=== PATIENT | male | born 1960 | race Caucasian/White ===

== ENCOUNTER 2020-03-24 16:27 | Emergency (ER) | payer OTHER, SELFPAY ==
[2020-03-24 16:27] VITALS: BP 153/104; PULSE 103; RESP 18; TEMP 36.5; O2SAT 99; BMI 30.5
--- NOTE | 2020-03-24 16:54 | EKG12_ITS ---
Test Reason : SOB Blood Pressure : / mmHG Vent. Rate : 080 BPM Atrial Rate : 080 BPM P-R Int : 194 ms QRS Dur : 104 ms QT Int : 354 ms P-R-T Axes : 036 075 022 degrees QTc Int : 408 ms Normal sinus rhythm Normal ECG Confirmed by JENNIFER BRUCE, RUSLAN ([id number]), general expeditor BHARAT RAYO ([id number]) on 03/28/2020 1:36:34 PM Referred By: ZANDER Confirmed By:RUSLAN RODRIGUEZ MD
--- NOTE | 2020-03-24 16:55 | CT_ITS ---
STUDY: CTA HEAD AND NECK WITH CONTRAST REASON FOR EXAM: Male, 59 years old. DIZZINESS, HEADACHE FATIGUE, CONFUSION/FOGGINESS,SOB AND BODY PAIN SINCE SATURDAY,COVID TEST WAS NEG -- HX:HLD,DEPRESSION,BILAT CORNEAL TRANSPLANTS RADIATION DOSAGE (If Supplied By Facility): CTDIvol = ( 30.78 ) mGy, DLP = ( 1645.75 ) mGycm TECHNIQUE: CT angiography was performed with a multi-detector CT scanner. Data acquisition was obtained from the skull base through the vertex following intravenous administration of IV 100mL Isovue-370. MIP images were reconstructed from the axial data set. Post-processing of the angiographic images was performed, with multiplanar reformation and 3D reconstruction. Individualized dose optimization techniques were used for this CT. COMPARISON: No relevant priors. FINDINGS: There are mild atherosclerotic plaques through the cavernous and supraclinoid portions of the internal carotid arteries. The petrous portions of the internal carotid arteries are normal. Normal right A1 segments of the anterior cerebral artery. Normal left A1 segments of the anterior cerebral artery. Normal intact anterior communicating artery (ACOM). Normal bilateral A2 segments of the anterior cerebral arteries. Normal right M1 and M2 segments of the middle cerebral arteries, with a normal M1 bifurcation. Normal left M1 and M2 segments of the middle cerebral arteries, with a normal M1 bifurcation. Normal right posterior communicating artery (PCOM). Normal left posterior communicating artery (PCOM). Normal bilateral vertebral arteries. Normal basilar artery with a normal basilar bifurcation. The visualized bilateral superior cerebellar (SCA) arteries are normal. Normal bilateral P1, P2 and visualized P3 segments of the posterior cerebral arteries. There is no demonstrated aneurysm of the [place]. There is no demonstrated abnormality of the visualized brain. AORTIC ARCH: Normal visualized aortic arch. Normal origins of the brachiocephalic, left common carotid, and left subclavian arteries. RIGHT CAROTID ARTERIES: Normal right common carotid artery (CCA). Minimal plaque otherwise Normal right common carotid bulb. Mild plaque within the proximal right internal carotid (ICA) artery without a hemodynamically significant stenosis. Normal visualized cervical portion of the right internal carotid artery. Normal origin of the right external carotid artery (ECA). LEFT CAROTID ARTERIES: Normal left common carotid artery (CCA). Minimal plaque otherwise Normal left common carotid bulb. Minimal plaque within the proximal left internal carotid (ICA) artery without a hemodynamically significant stenosis. Normal visualized cervical portion of the left internal carotid artery. Normal origin of the left external carotid artery (ECA). VERTEBRAL ARTERIES: Normal bilateral vertebral arteries. CT/CTA Head AND Neck W/ Contrast IMPRESSION: Minimal atherosclerotic plaques within the carotid bulbs and proximal internal carotid arteries otherwise normal no significant stenoses. Mild atherosclerotic plaques within the cavernous and supraclinoid portions of the internal carotid arteries without significant stenoses Electronically Signed: Jack Delaney, at 19:37 EDT Tel , Service support ,
[2020-03-24 16:57] VITALS: BP 158/95; PULSE 90; RESP 20; TEMP 37.4; O2SAT 95
[2020-03-24] MEDS: 0.9% Normal Saline 1,000 ML 1000 ML IV (17:22)
--- NOTE | 2020-03-24 17:22 | ED.VIS.GEN ---
History of Present Illness Chief Complaint: Dizziness Narrative: Patient presenting for evaluation secondary to generalized illness. Patient reports that he typically has very severe allergies, and has been having a bad allergy season with runny nose, watery eyes. Patient reports however on Saturday he was woken up at about 4 in the morning with a relatively severe headache. He states that this was a generalized headache, throbbing in character, and seem to be improved by taking Tylenol. He reports that he has had periods since Saturday where he has been actually headache free, but he states that he has been having feelings of confusion and dizziness. He describes the dizziness as a unsteadiness where he feels as if maybe he had a couple of drinks, and is unsteady on his feet. He does report that it is bad enough to the point where he has concerns with walking and driving. He denies any visual changes numbness or speech difficulty. He denies any weakness. Patient does state that he has some cloudiness of his cognition, but reports he was able to go to work today and function reasonably normally. He denies any fever cough nausea vomiting diarrhea dysuria abdominal pain skin rashes sick contacts recent travel. He is never had any prior similar episodes in the past. Patient denies any personal or family history of connective tissue disorders, aneurysms, or dissections. Review of systems otherwise negative. Past Medical History - Allergies and Home Meds Allergies/Adverse Reactions: Allergies No Known Allergies Allergy (Verified 05/01/16 03:06) Primary Care Physician: Ancelmo Perez MD [NON-STAFF] - Prior records reviewed: Yes Past Medical History: None Smoking Status: Never smoker Review of Systems All systems negative except as indicated General: Denies: Chills, Fever, Sweats Eyes: Denies: Visual changes - bilaterally, Diplopia ENT: Denies: Rhinorrhea, Sore throat Cardiovascular: Denies: Chest pain, Palpitations Respiratory: Denies: Dyspnea, Cough, Dyspnea on exertion Gastrointestinal: Denies: Abdominal pain, Nausea, Vomiting, Diarrhea, Melena, Hematochezia Genitourinary: Denies: Dysuria, Hematuria, Frequency Musculoskeletal: Denies: Back pain, Extremity Pain Skin: Denies: Rash, Wounds Neurological: Reports: Headache, - - Dizziness, confusion Physical Exam Vital Signs/Narrative: Vital Signs Temp Pulse Resp BP Pulse Ox 03/24/20 16:57 99.3 F H 90 20 H 158/95 H 95 03/24/20 16:27 97.7 F L 103 H 18 153/104 H 99 Inital Vital Signs reviewed: Yes General: Well nourished, Well developed, No Acute Distress, - - Patient does not appear to have a marfanoid body habitus Head: Normocephalic, Atraumatic Eyes: Perrl, EOMI, - - Normal cardinal gazes with no nystagmus ENT: Moist mucous membranes, No rhinorrhea Neck: Supple, Nontender, - - No carotid bruits are noted Cardiovascular: Regular rate, Regular rhythm, No murmurs Respiratory: No distress, CTA bilaterally, Chest nontender Abdomen: Soft, Nontender, Nondistended, Normal bowel sounds Back: Nontender, Normal Inspection Extremities: Nontender, No edema Skin: Normal color, No rash Neurological: Alert, Oriented x3, Cranial nerves II-XII grossly intact, Normal Strength, Normal Sensation, - - Normal cerebellar testing including [id number], [id number], dysdiadochokinesia, and truncal ataxia Psychological: Normal affect, Normal Mood Diagnostic/Tx/Re-eval Clinical Impression(s) from Imaging Studies Head/Neck CTA 03/24/20 16:55 IMPRESSION: Minimal atherosclerotic plaques within the carotid bulbs and proximal internal carotid arteries otherwise normal no significant stenoses. Mild atherosclerotic plaques within the cavernous and supraclinoid portions of the internal carotid arteries without significant stenoses Electronically Signed: Jack Delaney at 19:37 EDT Tel , Service support , Chest X-Ray 03/24/20 18:50 IMPRESSION: Mild degenerative changes of the thoracic spine. No acute cardiopulmonary disease process is seen. Electronically Signed: Aditya Geiger MD at 19:05 EDT , Service support , Laboratory Data 03/24/20 03/24/20 03/24/20 16:55 17:18 17:18 WBC 6.7 RBC 4.62 Hgb 14.1 Hct 43.9 MCV 95.0 H MCH 30.5 MCHC 32.1 RDW Std Deviation 42.6 RDW Coeff of Kirstin 12.3 Plt Count 387 MPV 9.1 Immature Gran % (Auto) 0.400 Neut % (Auto) 53.1 Lymph % (Auto) 33.8 [place] % (Auto) 10.9 H Eos % (Auto) 0.9 Baso % (Auto) 0.9 Absolute Neuts (auto) 3.6 Absolute Lymphs (auto) 2.26 Nucleated RBC % 0 Sodium Cancelled Potassium Cancelled Chloride Cancelled Carbon Dioxide Cancelled Anion Gap Cancelled BUN Cancelled Creatinine Cancelled Estim Creat Clear Calc Cancelled Est GFR (MDRD) Af Amer Cancelled Est GFR (MDRD) Non-Af Cancelled BUN/Creatinine Ratio Cancelled Glucose Cancelled Lactic Acid Calcium Cancelled Total Bilirubin Cancelled AST Cancelled ALT Cancelled Alkaline Phosphatase Cancelled Troponin I Cancelled Total Protein Cancelled Albumin Cancelled Globulin Cancelled Albumin/Globulin Ratio Cancelled TSH Cancelled COVID-19 (JEN) Negative 03/24/20 03/24/20 17:18 18:12 WBC RBC Hgb Hct MCV MCH MCHC RDW Std Deviation RDW Coeff of Kirstin Plt Count MPV Immature Gran % (Auto) Neut % (Auto) Lymph % (Auto) [place] % (Auto) Eos % (Auto) Baso % (Auto) Absolute Neuts (auto) Absolute Lymphs (auto) Nucleated RBC % Sodium 142 Potassium 3.9 Chloride 109 H Carbon Dioxide 28.0 Anion Gap 5 BUN 17 Creatinine 0.95 Estim Creat Clear Calc 94.16 Est GFR (MDRD) Af Amer 105 Est GFR (MDRD) Non-Af 87 BUN/Creatinine Ratio 17.9 Glucose 87 Lactic Acid 1.0 Calcium 8.3 L Total Bilirubin 0.20 AST 11 L ALT 21 Alkaline Phosphatase 63 Troponin I < 0.015 Total Protein 6.5 Albumin 3.2 Globulin 3.3 Albumin/Globulin Ratio 1.0 TSH 1.68 COVID-19 (JEN) - EKG Initial EKG Interpretation: - - Normal sinus rhythm of [address] segments normal T waves normal AK and QTc intervals no evidence of acute ischemia or arrhythmia. - Medical Decision Making Patient presented secondary to dizziness and headache. Broad differential was entertained. CBC, chemistry, troponin, TSH found to be unremarkable. Coronavirus testing also found to be unremarkable. Chest x-ray by my personal review as well as radiology found to be negative. CT angiogram of the brain and neck were performed to rule out the possibility of dissection, aneurysm, subarachnoid hemorrhage which was found to be negative per radiology. When I reviewed the patient's CT imaging, it does show that he has significant amount of right maxillary sinusitis. Patient has a completely normal neurologic exam, he does not have risk factors for stroke, has negative CT imaging for hemorrhage, aneurysm, dissection, and an otherwise unremarkable work-up. Patient's symptoms of headache, dizziness, fogginess can be explained by his sinusitis and given his low risk profile at this point I do not feel that he requires admission. Patient will be placed on a course of Augmentin and Flonase. He was recommended saline nasal rinses. He will follow-up with primary care and return for worsening symptoms. ED Disposition - Plan for ED Patient: Disposition: Home or Assisted Living Diagnosis: Sinusitis Instructions: ED Sinusitis Antibiotic Treatment Prescriptions: Amox/Clavulanate Tablet [Augmentin Tablet] 875 mg PO Q12H #28 tab Prescription Printed Fluticasone 0.05% [Flonase Nasal [place]] 1 spray NASAL DAILY #1 nasal.sry Prescription Printed Referrals: Ancelmo Perez MD [NON-STAFF] - 1 Week
[2020-03-24 17:45] LABS: Absolute Lymphocyte Count 2.26 X10^3/uL (0.83-4.51); Absolute Neutrophil Count 3.6 X10^3/uL (2.0-7.7); Basophil# 0.06 X10^3/uL; Basophil% 0.9 % (0-1); Eosinophil# 0.06 X10^3/uL; Eosinophils% 0.9 % (0-5); Hematocrit 43.9 % (40-54); Hemoglobin 14.1 g/dL (13.0-16.5); Lymphocyte # 2.26 X10^3/ul (4.0); Lymphocyte % 33.8 % (19-41); Mean Corp Hgb Conc 32.1 g/dL (32-36); Mean Corpuscular Hgb 30.5 pg (27.0-32.0); Mean Platelet Vol. 9.1 fl (6.2-12.0); Monocyte# 0.73 X10^3/uL; Monocyte% 10.9 % (0-10); NRBC Flagged by Analyzer 0 % (0-5); Neutrophil # 3.55 X10^3/uL (2.7-7.7); Neutrophil % 53.1 % (47-70); Platelet Count 387 K/mm3 (150-450); RBC Distribution Width CV 12.3 % (11.6-14.6); RBC Distribution Width SD 42.6 fl (35.1-43.9); Red Blood Count 4.62 M/mm3 (4.6-6.2); White Blood Count 6.7 K/mm3 (4.4-11.0)
[2020-03-24 18:37] LABS: Probe Check PASS; Specimen Processing Control PASS
[2020-03-24 18:42] LABS: AST(SGOT) 11 U/L (15-37); Alanine Aminotransfer ALT/SGPT 21 U/L (16-61); Albumin, Serum 3.2 g/dL (3.2-5.0); Alkaline Phosphatase 63 U/L (45-117); Anion Gap 5 (5-15); BUN 17 mg/dL (7-18); BUN/Creat Ratio 17.9 RATIO (10-20); Calcium,Total 8.3 mg/dL (8.5-10.1); Chloride 109 mmol/L (98-107); Creatinine, Serum 0.95 mg/dL (0.70-1.30); EST Glomerular Filtration Rate 87 mL/min (>60); Est Glom Filt Rate - Afr Amer 105 mL/min (>60); Estimated Creatinine Clearance 94.16 ml/min; Globulin 3.3 g/dL (2.2-4.2); Glucose 87 mg/dL (74-106); Potassium 3.9 mmol/L (3.5-5.1); Protein, Total 6.5 g/dL (6.4-8.2); Sodium Level 142 mmol/L (136-145)
--- NOTE | 2020-03-24 18:50 | RAD_ITS ---
STUDY: X-RAY CHEST REASON FOR EXAM: Male, 59 years old. HEADACHE WITH LIGHTHEADED AND DIZZINESS SINCE SATURDAY. FATIGUED. C/O SOB/DIFFICULTY CATCHING HIS BREATH. BODY/JOINT PAIN TECHNIQUE: Single AP portable view of the chest. COMPARISON: None. FINDINGS: security monitor leads are present. The lungs are clear and expanded. There is no demonstrated pleural abnormality. Normal size heart. Normal mediastinum and gamal. Normal visualized pulmonary arteries. Normal visualized aortic arch and descending thoracic aorta. There are diffuse degenerative changes of the visualized thoracic spine. Normal visualized ribs, clavicles, and shoulders. There is no demonstrated abnormality of the visualized soft tissue structures of the upper abdomen. RAD/Chest 1 View (Portable) IMPRESSION: Mild degenerative changes of the thoracic spine. No acute cardiopulmonary disease process is seen. Electronically Signed: Aditya Geiger MD at 19:05 EDT , Service support ,
[2020-03-24 19:45] LABS: Thyroid Stim Hormone (TSH) 1.68 uIU/mL (0.358-3.74)
[2020-03-24 20:31] VITALS: BP 147/88; PULSE 71; RESP 18; O2SAT 97
== END 2020-03-24 20:32 | disposition home or self-care (01) ==
PROVIDERS: Emergency Provider Emergency Medicine; PCP Physician Assistant
DX: J32.9 Chronic sinusitis, unspecified (principal); R41.0 Disorientation, unspecified
CPT/HCPCS: 70496; 70498; 71045; 80053; 83605; 84443; 84484; 85025; 87040; 87635; 93005; 99284; G2023; J7030; Q9967; A4216; U0003

== ENCOUNTER 2021-12-04 09:39 | Outpatient (CLI) | payer OTHER, SELFPAY ==
--- NOTE | 2021-12-04 09:44 | RAD_ITS ---
STUDY: X-RAY - RIGHT HAND REASON FOR EXAM: Male, 60 years old. Polyarthralgias. TECHNIQUE: 3 view(s) of the hand. COMPARISON: None. FINDINGS: Mild arthrosis of the radiocarpal articulation. Mild arthrosis of the radioulnar articulation. Mild arthrosis of the radiocarpal Mild arthrosis of the first CMC joint. Mild arthrosis of the MCP and IP joints. Normal second through fifth carpometacarpal joints. The soft tissue structures are unremarkable. RAD/Hand Min 3 Views IMPRESSION: Mild diffuse osteoarthritic changes as described. No acute abnormality, chondrocalcinosis, erosive changes or periostitis. Electronically Signed: Justin Barclay MD at 10:14 EST ,
--- NOTE | 2021-12-04 09:44 | RAD_ITS ---
STUDY: X-RAY - LEFT HAND REASON FOR EXAM: Male, 60 years old. Polyarthralgias. TECHNIQUE: 3 view(s) of the hand. COMPARISON: None. FINDINGS: Mild arthrosis of the radiocarpal articulation. Mild arthrosis of the radioulnar articulation. Mild arthrosis of the radiocarpal Mild arthrosis of the first CMC joint. Mild arthrosis of the MCP and IP joints. The soft tissue structures are unremarkable. RAD/Hand Min 3 Views IMPRESSION: Mild diffuse osteoarthritic changes as described. No acute abnormality, chondrocalcinosis, erosive changes or periostitis. Electronically Signed: Justin Barclay MD at 10:14 EST ,
[2021-12-04 09:49] LABS: Lyme Ab Screen Interpretation REF LAB
[2021-12-04 12:06] LABS: Erythrocyte Sedimentation Rate 30 mm/hr (0-20)
[2021-12-04 12:08] LABS: Absolute Lymphocyte Count 1.83 X10^3/uL (0.83-4.51); Basophil# 0.05 X10^3/uL; Basophil% 0.9 % (0-1); Eosinophil# 0.08 X10^3/uL; Eosinophils% 1.4 % (0-5); Hematocrit 47.6 % (40-54); Hemoglobin 15.9 g/dL (13.0-16.5); Lymphocyte # 1.83 X10^3/ul (0.83-4.51); Lymphocyte % 32.6 % (19-41); Mean Corp Hgb Conc 33.4 g/dL (32-36); Mean Corpuscular Hgb 30.9 pg (27.0-32.0); Mean Corpuscular Volume 92.4 fL (80-94); Mean Platelet Vol. 9.1 fl (6.2-12.0); Monocyte# 0.64 X10^3/uL; Monocyte% 11.4 % (0-10); NRBC Flagged by Analyzer 0 % (0-5); Neutrophil % 53.3 % (47-70); Platelet Count 397 K/mm3 (150-450); RBC Distribution Width CV 12.2 % (11.6-14.6); RBC Distribution Width SD 41.9 fl (35.1-43.9); Red Blood Count 5.15 M/mm3 (4.6-6.2); White Blood Count 5.6 K/mm3 (4.4-11.0)
[2021-12-04 12:24] LABS: Vitamin B12 451 pg/mL (211-911)
[2021-12-04 12:47] LABS: ALB/GLOB Ratio 0.9 RATIO (0.9-2.4); AST(SGOT) 26 U/L (15-37); Alanine Aminotransfer ALT/SGPT 38 U/L (16-61); Albumin, Serum 3.7 g/dL (3.2-5.0); Alkaline Phosphatase 96 U/L (45-117); Anion Gap 8 (5-15); BUN 14 mg/dL (7-18); BUN/Creat Ratio 15.6 RATIO (10-20); Calcium,Total 9.1 mg/dL (8.5-10.1); Chloride 103 mmol/L (98-107); EST Glomerular Filtration Rate 92 mL/min (>60); Est Glom Filt Rate - Afr Amer 112 mL/min (>60); Ferritin 139 ng/mL (26-388); Globulin 4.1 g/dL (2.2-4.2); Glucose 92 mg/dL (74-106); Protein, Total 7.8 g/dL (6.4-8.2); Rheumatoid Factor < 10.0 IU/mL (<15); Sodium Level 137 mmol/L (136-145); T4 Free Direct 0.94 ng/dL (0.76-1.46); Thyroid Stim Hormone (TSH) 1.81 uIU/mL (0.358-3.74)
[2021-12-04 14:02] LABS: Hemoglobin A1c 5.6 % (3.8-5.6)
[2021-12-05 08:53] LABS: CRP < 2.90 mg/L (0.0-3.0)
[2021-12-05 17:02] LABS: ANTINUCLEAR ANTIBODIES DIRECT Positive (Negative)
[2021-12-05 17:04] LABS: Lyme Scn Total Ab w/Rflx <0.91 ISR (0.00-0.90)
[2021-12-08 10:09] LABS: Anti-Centromere B Ab <0.2 AI (0.0-0.9); Anti-Chromatin <0.2 AI (0.0-0.9); Anti-Jo <0.2 AI (0.0-0.9); Anti-Scleroderma-70 AB <0.2 AI (0.0-0.9); Anti-ribosomal P Antibodies <0.2 AI (0.0-0.9); RNP Ab 0.9 AI (0.0-0.9); SJOGREN'S Anti-SS-A test < 0.2 AI (0.0-0.9); SJOGREN'S Anti-SS-B test < 0.2 AI (0.0-0.9); Smith Ab <0.2 AI (0.0-0.9); Smith/RNP Ab <0.2 AI (0.0-0.9)
[2021-12-08 13:15] LABS: Anti-dsDNA Ab <1 IU/mL (0-9)
== END 2021-12-04 23:59 | disposition home or self-care (01) ==
PROVIDERS: PCP Family Medicine; Referring Provider Family Medicine; Visit Provider Family Medicine
DX: M25.50 Pain in unspecified joint (principal); E66.9 Obesity, unspecified; E78.00 Pure hypercholesterolemia, unspecified; R53.83 Other fatigue; R76.8 Other specified abnormal immunological findings in serum
CPT/HCPCS: 36415; 73130; 80053; 82607; 82728; 83036; 84439; 84443; 85025; 85652; 86038; 86140; 86225; 86235; 86431; 86618

== ENCOUNTER → 2022-09-03 | Outpatient (CLI) | payer OTHER, SELFPAY ==
[2022-09-11 10:08] LABS: Alternaria tenuis <0.10 kU/L (Class 0); Ash, White <0.10 kU/L (Class 0); Aspergillus fumigatus <0.10 kU/L (Class 0); Bermuda Grass <0.10 kU/L (Class 0); Birch <0.10 kU/L (Class 0); Black Walnut <0.10 kU/L (Class 0); Cat Hair / Dander,Stand <0.10 kU/L (Class 0); Cedar, Mountain <0.10 kU/L (Class 0); Cladosporium herbarum <0.10 kU/L (Class 0); Cockroach, American <0.10 kU/L (Class 0); Cottonwood <0.10 kU/L (Class 0); D farinae Mite <0.10 kU/L (Class 0); D pteronyssinus <0.10 kU/L (Class 0); Dog Epithelia <0.10 kU/L (Class 0); Elm, American White <0.10 kU/L (Class 0); Immunoglobulin E 5 IU/mL (6-495); Maple/Box Elder <0.10 kU/L (Class 0); Mulberry, White <0.10 kU/L (Class 0); Oak, White <0.10 kU/L (Class 0); Pecan <0.10 kU/L (Class 0); Penicillium Notatum <0.10 kU/L (Class 0); Pigweed, Rough <0.10 kU/L (Class 0); Ragweed, Short/Common <0.10 kU/L (Class 0); Russian Thistle <0.10 kU/L (Class 0); Sheep Sorrel <0.10 kU/L (Class 0); Sycamore, American <0.10 kU/L (Class 0); Timothy Grass <0.10 kU/L (Class 0)
[2022-09-11 12:17] LABS: Mouse Urine <0.10 kU/L (Class 0)
== END | disposition home or self-care (01) ==
PROVIDERS: PCP Family Medicine; Referring Provider Specialist; Visit Provider Specialist
DX: J30.9 Allergic rhinitis, unspecified (principal); D84.9 Immunodeficiency, unspecified; J45.50 Severe persistent asthma, uncomplicated; R06.00 Dyspnea, unspecified; J32.9 Chronic sinusitis, unspecified; T78.3XXD Angioneurotic edema, subsequent encounter; T78.09XD Anaphylactic reaction due to other food products, subsequent encounter; E55.9 Vitamin D deficiency, unspecified; E07.9 Disorder of thyroid, unspecified; Z91.038 Other insect allergy status
CPT/HCPCS: 36415; 82785; 86003

== ENCOUNTER → 2022-10-05 | Outpatient (CLI) | payer OTHER, SELFPAY ==
[2022-10-05 10:04] LABS: Lyme Ab Screen Interpretation REF LAB
[2022-10-05 12:37] LABS: Absolute Lymphocyte Count 1.71 X10^3/uL (0.83-4.51); Absolute Neutrophil Count 2.5 X10^3/uL (2.0-7.7); Basophil# 0.05 X10^3/uL; Eosinophil# 0.08 X10^3/uL; Eosinophils% 1.6 % (0-5); Hematocrit 44.2 % (40-54); Hemoglobin 14.8 g/dL (13.0-16.5); Lymphocyte # 1.71 X10^3/ul (0.83-4.51); Mean Corp Hgb Conc 33.5 g/dL (32-36); Mean Corpuscular Hgb 31.6 pg (27.0-32.0); Mean Corpuscular Volume 94.4 fL (80-94); Mean Platelet Vol. 9.2 fl (6.2-12.0); Monocyte# 0.56 X10^3/uL; Monocyte% 11.5 % (0-10); NRBC Flagged by Analyzer 0 % (0-5); Neutrophil # 2.47 X10^3/uL (2.7-7.7); Neutrophil % 50.5 % (47-70); Platelet Count 385 K/mm3 (150-450); RBC Distribution Width CV 12.6 % (11.6-14.6); Red Blood Count 4.68 M/mm3 (4.6-6.2); White Blood Count 4.9 K/mm3 (4.4-11.0)
[2022-10-05 12:39] LABS: Vitamin D,25 Hydroxy 23.9 ng/mL
[2022-10-05 12:40] LABS: AST(SGOT) 17 U/L (15-37); Alanine Aminotransfer ALT/SGPT 29 U/L (16-61); Albumin, Serum 3.5 g/dL (3.2-5.0); Alkaline Phosphatase 79 U/L (45-117); Anion Gap 7 (5-15); BUN 16 mg/dL (7-18); BUN/Creat Ratio 17.3 RATIO (10-20); CRP < 2.90 mg/L (0.0-3.0); Calcium,Total 9.2 mg/dL (8.5-10.1); Chloride 104 mmol/L (98-107); Creatinine, Serum 0.92 mg/dL (0.70-1.30); EST Glomerular Filtration Rate 89 mL/min (>60); Est Glom Filt Rate - Afr Amer 107 mL/min (>60); Globulin 3.5 g/dL (2.2-4.2); Glucose 87 mg/dL (74-106); PSA,Total - Annual Screen 3.01 ng/mL (0.00-4.00); Potassium 4.7 mmol/L (3.5-5.1); Rheumatoid Factor < 10.0 IU/mL (<15); Sodium Level 138 mmol/L (136-145)
[2022-10-06 14:25] LABS: Lyme Scn Total Ab w/Rflx Negative (Negative)
[2022-10-08 19:01] LABS: ANTINUCLEAR ANTIBODIES DIRECT Positive (Negative)
[2022-10-16 10:07] LABS: Anti-Centromere B Ab <0.2 AI (0.0-0.9); Anti-Chromatin <0.2 AI (0.0-0.9); Anti-Jo <0.2 AI (0.0-0.9); Anti-Scleroderma-70 AB <0.2 AI (0.0-0.9); RNP Ab 1.4 AI (0.0-0.9); SJOGREN'S Anti-SS-A test < 0.2 AI (0.0-0.9); SJOGREN'S Anti-SS-B test < 0.2 AI (0.0-0.9); Smith Ab <0.2 AI (0.0-0.9)
[2022-10-16 16:59] LABS: Anti-dsDNA Ab 1 IU/mL (0-9)
== END | disposition home or self-care (01) ==
LOC: MFPLAB 10:00
PROVIDERS: PCP Family Medicine; Referring Provider Family Medicine; Visit Provider Family Medicine
DX: M25.50 Pain in unspecified joint (principal); Z12.5 Encounter for screening for malignant neoplasm of prostate
CPT/HCPCS: 36415; 80053; 82306; 84153; 85025; 86038; 86140; 86225; 86235; 86431; 86618; G0103

== ENCOUNTER → 2022-12-10 | Outpatient (CLI) | payer OTHER, SELFPAY ==
[2022-12-10 11:06] LABS: EXAGEN MAILED SPECIMEN
[2022-12-10 12:28] LABS: Absolute Lymphocyte Count 1.73 X10^3/uL (0.83-4.51); Absolute Neutrophil Count 3.3 X10^3/uL (2.0-7.7); Basophil# 0.05 X10^3/uL; Basophil% 0.9 % (0-1); Eosinophil# 0.05 X10^3/uL; Eosinophils% 0.9 % (0-5); Hematocrit 46.6 % (40-54); Hemoglobin 15.1 g/dL (13.0-16.5); Lymphocyte # 1.73 X10^3/ul (0.83-4.51); Lymphocyte % 30.5 % (19-41); Mean Corp Hgb Conc 32.4 g/dL (32-36); Mean Corpuscular Volume 95.7 fL (80-94); Mean Platelet Vol. 8.9 fl (6.2-12.0); Monocyte# 0.55 X10^3/uL; Monocyte% 9.7 % (0-10); NRBC Flagged by Analyzer 0 % (0-5); Neutrophil # 3.27 X10^3/uL (2.7-7.7); Neutrophil % 57.5 % (47-70); Platelet Count 397 K/mm3 (150-450); RBC Distribution Width CV 12.6 % (11.6-14.6); RBC Distribution Width SD 44.3 fl (35.1-43.9); Red Blood Count 4.87 M/mm3 (4.6-6.2); White Blood Count 5.7 K/mm3 (4.4-11.0)
[2022-12-10 12:29] LABS: Color, Urine Yellow (Yellow); Glucose, Dipstick Normal (Normal); Ketone-Dipstick Negative (Negative); Leukocyte Esterase-Dipstick 25 /ul (Negative); Nitrite-Dipstick Negative (Negative); Occult Blood-Urine Negative /ul (Negative); Protein-Dipstick Negative (Negative); Urine Bilirubin Dipstick Negative (Negative); Urine Clarity Clear (Clear); Urine Urobilinogen Normal (Normal)
[2022-12-10 12:37] LABS: International Normalized Ratio 0.9; Prothrombin Time (Protime)PT. 12.3 SECONDS (11.7-14.9)
[2022-12-10 12:38] LABS: Partial Thromboplast Time 27.3 Seconds (24.1-36.2)
[2022-12-10 12:48] LABS: ALB/GLOB Ratio 0.9 RATIO (0.9-2.4); AST(SGOT) 21 U/L (15-37); Alanine Aminotransfer ALT/SGPT 28 U/L (16-61); Albumin, Serum 3.6 g/dL (3.2-5.0); Alkaline Phosphatase 87 U/L (45-117); Anion Gap 3 (5-15); BUN 13 mg/dL (7-18); BUN/Creat Ratio 12.4 RATIO (10-20); Calcium,Total 9.5 mg/dL (8.5-10.1); Chloride 103 mmol/L (98-107); Creatinine, Serum 1.05 mg/dL (0.70-1.30); EST Glomerular Filtration Rate 77 mL/min (>60); Est Glom Filt Rate - Afr Amer 93 mL/min (>60); Globulin 3.9 g/dL (2.2-4.2); Glucose 103 mg/dL (74-106); Potassium 4.4 mmol/L (3.5-5.1); Protein, Total 7.5 g/dL (6.4-8.2); Protein:Creat Ratio 95 mg/g CRE (0-200); Sodium Level 139 mmol/L (136-145)
[2022-12-10 13:21] LABS: Hepatitis B Surface Antibody Non-Reactive; Hepatitis B Surface Antigen Non-Reactive (Nonreactive); Hepatitis C Antibody Non-Reactive (Nonreactive)
[2022-12-12 16:09] LABS: Dilute Prothrombin Time (dPT) 39.9 sec (0.0-47.6); Dilute Russell Viper Venom 41.8 sec (0.0-47.0); Hexagonal Phase Phospholipid 5 sec (0-11); Thrombin Time 17.7 sec (0.0-23.0); dPT Confirm Ratio 1.31 Ratio (0.00-1.34)
[2022-12-12 20:35] LABS: Thrombin Time 17.8 sec (0.0-23.0)
[2022-12-12 20:39] LABS: Interpretation Comment: (.); PTT-LA 30.7 sec (0.0-43.5)
== END | disposition home or self-care (01) ==
PROVIDERS: PCP Family Medicine; Referring Provider Internal Medicine Rheumatology; Visit Provider Internal Medicine Rheumatology
DX: M06.4 Inflammatory polyarthropathy (principal); M35.1 Other overlap syndromes
CPT/HCPCS: 36415; 80053; 81002; 82570; 84156; 85025; 85598; 85610; 85670; 85730; 86706; 86803; 87340

== ENCOUNTER → 2023-09-11 | Outpatient (CLI) | payer OTHER, SELFPAY ==
[2023-09-11 12:29] LABS: Erythrocyte Sedimentation Rate 12 mm/hr (0-20)
[2023-09-11 12:54] LABS: Absolute Lymphocyte Count 1.63 X10^3/uL (0.83-4.51); Absolute Neutrophil Count 3.2 X10^3/uL (2.0-7.7); Basophil# 0.04 X10^3/uL; Basophil% 0.7 % (0-1); Eosinophil# 0.05 X10^3/uL; Eosinophils% 0.9 % (0-5); Hematocrit 46.8 % (40-54); Lymphocyte # 1.63 X10^3/ul (0.83-4.51); Lymphocyte % 29.3 % (19-41); Mean Corp Hgb Conc 32.1 g/dL (32-36); Mean Corpuscular Hgb 31.4 pg (27.0-32.0); Mean Corpuscular Volume 97.9 fL (80-94); Mean Platelet Vol. 9.2 fl (6.2-12.0); Monocyte% 10.8 % (0-10); NRBC Flagged by Analyzer 0 % (0-5); Neutrophil # 3.21 X10^3/uL (2.7-7.7); Neutrophil % 57.6 % (47-70); Platelet Count 397 K/mm3 (150-450); RBC Distribution Width CV 12.5 % (11.6-14.6); Red Blood Count 4.78 M/mm3 (4.6-6.2); White Blood Count 5.6 K/mm3 (4.4-11.0)
[2023-09-11 13:01] LABS: AST(SGOT) 18 U/L (15-37); Alanine Aminotransfer ALT/SGPT 30 U/L (16-61); Albumin, Serum 3.7 g/dL (3.2-5.0); Alkaline Phosphatase 90 U/L (45-117); Anion Gap 6 (5-15); BUN 12 mg/dL (7-18); BUN/Creat Ratio 12.6 RATIO (10-20); CRP < 2.90 mg/L (0.0-3.0); Calcium,Total 9.1 mg/dL (8.5-10.1); Chloride 105 mmol/L (98-107); Cholesterol 247 mg/dL (200); Creatinine, Serum 0.95 mg/dL (0.70-1.30); EST Glomerular Filtration Rate 86 mL/min (>60); Est Glom Filt Rate - Afr Amer 104 mL/min (>60); Globulin 3.8 g/dL (2.2-4.2); Glucose 102 mg/dL (74-106); High Density Lipoprotein 65 mg/dL; Potassium 4.5 mmol/L (3.5-5.1); Protein, Total 7.5 g/dL (6.4-8.2); Rheumatoid Factor < 10.0 IU/mL (<15); Sodium Level 139 mmol/L (136-145); Triglycerides 130 mg/dL; Very Low Density Lipoprotein 26 mg/dL (5-40)
[2023-09-11 13:32] LABS: Microalbumin,Random Urine < 5.0 mg/L (NO RANGE EST.)
[2023-09-13 11:08] LABS: ANTINUCLEAR ANTIBODIES DIRECT Positive (Negative)
[2023-09-13 13:07] LABS: Lyme Scn Total Ab w/Rflx Negative (Negative); PROEL- A/G Ratio 1.2 (0.7-1.7); PROEL- Albumin 3.7 g/dL (2.9-4.4); PROEL- Alpha-1 Globulin 0.2 g/dL (0.0-0.4); PROEL- Alpha-2 Globulin 0.7 g/dL (0.4-1.0); PROEL- Beta Globulin 1.3 g/dL (0.7-1.3); PROEL- Gamma Globulin 0.9 g/dL (0.4-1.8); PROEL- Globulin, Total 3.2 g/dL (2.2-3.9); PROEL- TOTAL PROTEIN 6.9 g/dL (6.0-8.5); PROEL-M-Spike Not Observed g/dL (Not Observed)
[2023-09-18 14:17] LABS: Anti-Nuclear Antibody Test Negative (.)
== END | disposition home or self-care (01) ==
LOC: MFPLAB 09:51
PROVIDERS: PCP Family Medicine; Visit Provider Family Medicine
DX: E78.00 Pure hypercholesterolemia, unspecified (principal); M06.4 Inflammatory polyarthropathy; I10 Essential (primary) hypertension
CPT/HCPCS: 36415; 80053; 80061; 82043; 82570; 84165; 85025; 85652; 86038; 86140; 86431; 86618

== ENCOUNTER 2023-12-03 19:18 | Emergency (ER) | payer OTHER, SELFPAY ==
[2023-12-03 19:20] VITALS: BP 161/100; PULSE 67; RESP 18; TEMP 35.6; O2SAT 98; BMI 33.5
[2023-12-03 19:23] VITALS: BP 143/94; PULSE 69; RESP 18; TEMP 35.6; O2SAT 98
--- NOTE | 2023-12-03 20:00 | EKG12_ITS ---
Test Reason : HTN Blood Pressure : / mmHG Vent. Rate : 060 BPM Atrial Rate : 060 BPM P-R Int : 208 ms QRS Dur : 112 ms QT Int : 384 ms P-R-T Axes : 022 067 026 degrees QTc Int : 384 ms Normal sinus rhythm Normal ECG Confirmed by Jonathan Sosa ([id number]), science editor BHARAT RAYO ([id number]) on 12/04/2023 10:58:22 AM Referred By: YOLANDA Confirmed By:Jonathan Sosa
--- NOTE | 2023-12-03 20:13 | RAD_ITS ---
STUDY: X-RAY CHEST REASON FOR EXAM: Male, 62 years old. chest pain TECHNIQUE: Single AP portable view of the chest. COMPARISON: 03/24/2020 FINDINGS: The lungs are clear and expanded. There is no demonstrated pleural abnormality. Normal size heart. Normal mediastinum and gamal. Normal visualized pulmonary arteries. Normal visualized aortic arch and descending thoracic aorta. Normal visualized thoracic spine. Normal visualized ribs, clavicles, and shoulders. There is no demonstrated abnormality of the visualized soft tissue structures of the upper abdomen. RAD/Chest 1 View (Portable) IMPRESSION: Normal x-ray examination of the chest. Electronically Signed: Ronnie Lantigua MD at 20:46 EST ,
[2023-12-03 20:40] LABS: Absolute Lymphocyte Count 2.29 X10^3/uL (0.83-4.51); Basophil# 0.05 X10^3/uL; Basophil% 0.8 % (0-1); Eosinophil# 0.09 X10^3/uL; Eosinophils% 1.5 % (0-5); Hematocrit 40.4 % (40-54); Hemoglobin 13.1 g/dL (13.0-16.5); Lymphocyte # 2.29 X10^3/ul (0.83-4.51); Lymphocyte % 37.5 % (19-41); Mean Corp Hgb Conc 32.4 g/dL (32-36); Mean Corpuscular Hgb 30.9 pg (27.0-32.0); Mean Corpuscular Volume 95.3 fL (80-94); Mean Platelet Vol. 8.5 fl (6.2-12.0); Monocyte# 0.65 X10^3/uL; Monocyte% 10.6 % (0-10); NRBC Flagged by Analyzer 0 % (0-5); Neutrophil # 3.01 X10^3/uL (2.7-7.7); Neutrophil % 49.3 % (47-70); Platelet Count 343 K/mm3 (150-450); RBC Distribution Width CV 12.5 % (11.6-14.6); RBC Distribution Width SD 43.3 fl (35.1-43.9); Red Blood Count 4.24 M/mm3 (4.6-6.2); White Blood Count 6.1 K/mm3 (4.4-11.0)
[2023-12-03 20:56] LABS: Anion Gap 6 (5-15); BUN 12 mg/dL (7-18); BUN/Creat Ratio 14.1 RATIO (10-20); Calcium,Total 9.1 mg/dL (8.5-10.1); Chloride 109 mmol/L (98-107); Creatinine, Serum 0.85 mg/dL (0.70-1.30); EST Glomerular Filtration Rate 97 mL/min (>60); Est Glom Filt Rate - Afr Amer 118 mL/min (>60); Glucose 91 mg/dL (74-106); Potassium 3.7 mmol/L (3.5-5.1); Sodium Level 143 mmol/L (136-145); Troponin-I HS (w/2H Reflex) 7 pg/mL (3.0-78.0)
--- OUTSIDE RECORDS SUMMARY | 2023-12-03 21:07 | XMS RPT_ITS | CCD ---
Author Name Unknown Address [id number] [place] [address] Organization [facility] Care Team Providers Care Manager Performance Name Role Phone Jose Juan, Wilfred Donte Unavailable Unavailable Ciro Rodriguez Unavailable Unavailabl e Julio Cesar Perez Unavailable Unavailable Rodriguez, Wilfred Donte Unavailable Unavailable Rodriguez, Wilfred Donte Unavailable Unavailable Julio Cesar Perez Unavailable Unavailable Rodriguez, Wilfred Donte Unavailable Unavailable Rodriguez, Wilfred Donte Unavailable Unavailable Julio Cesar Perez Unavailable Unavailable Julio Cesar Perez Unavailable Unavailable Rodriguez, Wilfred Donte Unavailable Unavailable Julio Cesar Perez Unavailable Unavailable Julio Cesar Perez Unavailable Unavailable Rodriguez, Wilfred Donte Unavailable Unavailable Rodriguez, Wilfred Donte Unavailable Unavailable Julio Cesar Perez Unavailable Unavailable Julio Cesar Perez MD Primary Care Provider Julio Cesar Perez MD Primary Care Provider Julio Cesar Perez MD Primary Care Provider JULIO CESAR PEREZ Primary Care Unavailable GROVER GRIFFITH Attending Unavailable GROVER GRIFFITH Attending Unavailable JULIO CESAR PEREZ Primary Care Unavailable CICI MAGALLANES Referring Unavailable CICI MAGALLANES Attending Unavailable JULIO CESAR PEREZ Primary Care Unavailable JULIO CESAR PEREZ Primary Care Unavailable CICI MAGALLANES Referring Unavailable VALE YU Attending Unavailable GROVER GRIFFITH Attending Unavailable JULIO CESAR PEREZ Primary Care Unavailable BRITTANI COATES Attending Unavailable JULIO CESAR PEREZ Primary Care Unavailable BRITTANI COATES Referring Unavailable JULIO CESAR PEREZ Primary Care Unavailable JULIO CESAR PEREZ Primary Care Unavailable GROVER GRIFFITH Attending Unavailable JULIO CESAR PEREZ Primary Care Unavailable CIRO RODRIGUEZ Attending Unavailable CIRO RODRIGUEZ Referring Unavailable CIRO RODRIGUEZ Attending Unavailable JULIO CESAR PEREZ Primary Care Unavailable RODRIGUEZ, CIRO K Referring Unavailable KYLAHEARLENE BRITTANI Referring Unavailable CLAYTON JULIO CESAR Pereyra Primary Care Unavailable KYLAHBRITTANI HENAO Referring Unavailable CLAYTON, JULIO CESAR Pereyra Primary Care Unavailable JESUSBRITTANI Referring Unavailable CLAYTON, JULIO CESAR Pereyra Primary Care Unavailable GROVER GRIFFITH Attending Unavailable CLAYTON, JULIO CESAR Pereyra Primary Care Unavailable GLADIS GENE A Attending Unavailable CLAYTON, JULIO CESAR Pereyra Primary Care Unavailable CLAYTON, JULIO CESAR Pereyra Primary Care Unavailable GLADIS, GENE A Attending Unavailable CLAYTON, JULIO CESAR Pereyra Primary Care Unavailable GLADIS, GENE A Attending Unavailable CLAYTON, JULIO CESAR Pereyra Primary Care Unavailable GLADIS GENE A Attending Unavailable CLAYTON, JULIO CESAR Pereyra Primary Care Unavailable JANE ROGEL Attending Unavailable RODRIGUEZ, CIRO K Referring Unavailable Allergies Allergy Classification Reported Allergen(s) Allergy Type Date of Onset Reaction(s) Facility (20 sources) environmental [Other] Propensity to adverse reactions 9 [facility] Work Phone: (1 source) OTHER; Translations: [OTHER] Propensity to adverse reactions (disorder) 9 [facility] Repository Medications Current Medications Medication Drug Class(es) Dates Sig (Normalized) Sig (Original) benoxinate hydrochloride 4 mg/ml / fluorescein sodium 2.5 mg/ml ophthalmic solution (3 sources) Diagnostic Dye Start: 12-04-2022 End: 12-04-2022 fluorescein-benoxi cheryl 0.25-0.4 % 1 Drop (FLURESS) Completed/Discontinued Medications Medication Drug Class(es) Dates Sig (Normalized) Sig (Original) carboxymethyl/gly/poly80 /PF (REFRESH OPTIVE SANTANA-3, PF, OPHTHALMIC) (20 sources) carboxymethyl/gl y/poly8 0/PF (REFRESH OPTIVE SANTANA-3, PF, OPHTHALMIC) Use 1-2 Drops in both eyes once daily. 0 Active Problems Active Problems Problem Classification Problem Date Documented Da te Episodic/Chronic Adjustment disorders (20 sources) Adjustment disorder with depressed mood; Translations: [Adjustment disorder with depressed mood] Onset: 02-13-2011 02-13-2011 Chronic Administrative/social admission (1 source) Problems in relationship with spouse or partner; Translations: [Marital conflict] Onset: 07-03-2023 Episodic Anxiety disorders (20 sources) Anxiety disorder, unspecified; Translations: [Mixed anxiety and depressive disorder] Onset: 07-12-2006 Chronic Aortic; peripheral; and visceral artery aneurysms (8 sources) Dilatation of aorta; Translations: [Aortic ectasia, unspecified site] Onset: 01-29-2023 Chronic Cataract (20 sources) Bilateral age-related nuclear cataracts; Translations: [Age-related nuclear cataract, bilateral] Onset: 09-19-2019 09-19-2019 Chronic Disorders of lipid metabolism (20 sources) Hyperlipidemia, unspecified; Translations: [Hyperlipidemia] Onset: 06-01-2011 06-01-2011 Chronic Heart valve disorders (2 sources) Mitral valve disorder; Translations: [Rheumatic mitral valve disease, unspecified] Onset: 01-14-2023 Chronic Mood disorders (20 sources) Depressive disorder; Translations: [Depression] Onset: 06-01-2011 06-01-2011 Chronic Mood disorders (2 sources) Major depressive disorder, single episode, unspecified; Translations: [Mood disorders] Onset: 06-01-2011 Nutritional deficiencies (2 sources) Vitamin D deficiency; Translations: [Vitamin D deficiency, unspecified] Onset: 01-14-2023 Chronic Other eye disorders (20 sources) Bullous keratopathy, right eye; Translations: [Bullous keratopathy] Onset: 05-13-2018 07-28-2019 Chronic Other eye disorders (20 sources) History of Descemet's membrane endothelial keratoplasty; 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] Onset: 08-28-2018 07-28-2019 Chronic Other eye disorders (20 sources) Hemorrhage of right vitreous body; Translations: [Vitreous hemorrhage, right eye] Onset: 03-14-2021 03-14-2021 Chronic Other eye disorders (20 sources) Posterior vitreous detachment of right eye; Translations: [Vitreous degeneration, right eye] Onset: 03-14-2021 03-14-2021 Chronic Other eye disorders (1 source) Vitreous degeneration, right eye; Translations: [Posterior vitreous detachment of right eye] Onset: 03-14-2021 Chronic Other eye disorders (1 source) Vitreous hemorrhage, right eye; Translations: [Vitreous hemorrhage of right eye (HCC)] Onset: 03-14-2021 Chronic Other eye disorders (1 source) Corneal transplant status; Translations: [History of Descemet membrane endothelial keratoplasty (DMEK)] Onset: 07-28-2019 Chronic Other eye disorders (4 sources) Endothelial corneal dystrophy; 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] Onset: 08-05-2018 Episodic Other lower respiratory disease (2 sources) Dyspnea; Translations: [Shortness of breath] Episodic Other upper respiratory disease (20 sources) Seasonal allergy; Translations: [Other seasonal allergic rhinitis] 06-01-2011 Chronic Residual codes; unclassified (10 sources) Obstructive sleep apnea syndrome; Translations: [Obstructive sleep apnea (adult) (pediatric)] Onset: 01-14-2023 Chronic Residual codes; unclassified (1 source) Obstructive sleep apnea (adult) (pediatric); Translations: [JOMAR (obstructive sleep apnea)] Onset: 01-14-2023 Chronic Systemic lupus erythematosus and connective tissue disorders (1 source) Disorder of connective tissue; Translations: [Systemic involvement of connective tissue, unspecified] Chronic Past or Other Problems Problem Classification Problem Date Documented Da te Episodic/Chronic Blindness and vision defects (20 sources) Bilateral hyperopia of eyes; Translations: [Hypermetropia, bilateral] Onset: 11-13-2016 10-09-2018 Episodic Immunizations and screening for infectious disease (4 sources) Viral screening status; Translations: [Encounter for screening for other viral diseases] Onset: 01-14-2023 Episodic Other eye disorders (20 sources) Corneal guttata; Translations: [Cornea guttata] Onset: 11-13-2016 11-13-2016 Episodic Other eye disorders (20 sources) Fuchs' corneal dystrophy; Translations: [Fuchs' corneal dystrophy of both eyes] Onset: 06-16-2018 05-24-2021 Episodic Other eye disorders (20 sources) Corneal endothelial dystrophy; 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] Onset: 08-28-2018 08-28-2018 Episodic Other eye disorders (20 sources) Corneal epithelial defect; Translations: [Unspecified corneal membrane change] Onset: 09-07-2019 09-07-2019 Episodic Other lower respiratory disease (2 sources) Shortness of breath; Translations: [SOB (shortness of breath)] Onset: 01-14-2023 Episodic Other screening for suspected conditions (not mental disorders or infectious disease) (2 sources) Patient encounter status; Translations: [Encounter for screening for malignant neoplasm of prostate] Onset: 01-14-2023 Episodic Retinal detachments; defects; vascular occlusion; and retinopathy (20 sources) Retinal U tear; Translations: [Horseshoe tear of retina without detachment, right eye] Onset: 03-14-2021 10-03-2021 Episodic Results Test Name Value Interpretation Reference Range Facil ity Vital Signs Date Time Vital Sign Value Performing Clinician Melisa hassantrinh 01-14-2023 09:54-0400 Body height 182.9 cm Brittani Coates APRN.[employer] Work Phone: [facility] 01-14-2023 09:54-0400 Body weight 104.78 kg Brittani Coates CLIENT SUPPORT MANAGER.[employer] Work Phone: [facility] 01-14-2023 09:54-0400 Diastolic blood pressure 82 mm[Hg] Brittani Coates CLIENT SUPPORT MANAGER.[employer] Work Phone: [facility] 01-14-2023 09:54-0400 Heart rate 74 /min Brittani Coates CLIENT SUPPORT MANAGER.[employer] Work Phone: [facility] 01-14-2023 09:54-0400 Respiratory rate 18 /min Brittani Coates CLIENT SUPPORT MANAGER.[employer] Work Phone: [facility] 01-14-2023 09:54-0400 SaO2% (BldA) [Mass fraction] 93 % Brittani Coates CLIENT SUPPORT MANAGER.[employer] Work Phone: [facility] 01-14-2023 09:54-0400 Systolic blood pressure 136 mm[Hg] Brittani Coates CLIENT SUPPORT MANAGER.[employer] Work Phone: [facility] Encounters Encounter Date Encounter Type Care Provider Facility Start: 08-14-2023 End: 08-15-2023 ambulatory [facility] Facility:[facility] Start: 07-03-2023 End: 07-04-2023 ambulatory [facility] Facility:[facility] Start: 05-30-2023 End: 05-30-2023 ambulatory [facility] Facility:[facility] Start: 05-30-2023 End: 05-30-2023 Office outpatient visit 15 minutes Jane Rogel MD, PhD Work Phone: Ophthalmology Procedures Date Procedure Procedure Detail Performing Clinician Start: 05-01-2023 Computerized ophthal mary imaging retina Ciro Rodriguez MD Work Phone: Start: 12-04-2022 Computerized ophthal mary imaging retina Cici Magallanes MD Work Phone: Start: 10-02-2022 End: 10-02-2022 Computerized ophthalmic imaging retina Vale Yu PA-C Work Phone: Start: 05-21-2022 IOL BIOMETRY W/ IOL CALC OU (BOTH EYES) Ciro Rodriguez MD Work Phone: Start: 10-27-2019 H/O: surgery S/P eye surgery Julio Cesar Perez MD Work Phone: Start: 09-07-2019 H/O: cornea recipient Cornea r eplaced by transplant Julio Cesar Perez MD Work Phone: Start: 08-05-2018 Anesthesia eye corne al transplant Wilfred Rodriguez Start: 08-05-2018 Keratoplasty endothelial Wilfred Rodriguez Start: 02-17-2014 Colonoscopy Julio Cesar Syed MD Work Phone: H/O: cornea recipient Cornea rep laced by transplant Ciro Rodriguez MD Work Phone: H/O: cornea recipient Cornea rep laced by transplant Ciro Rodriguez MD Work Phone: Plan of Treatment Date Care Activity Detail Author Start: 01-15-2028 LIPID SCREEN LIPID SCREEN [facility] Start: 01-15-2028 PROSTATE CANCER SCREENING DISCUSSION PROSTATE CANCER SCREENING DISCUSSION [facility] Start: 01-14-2026 DIABETES SCREEN DIABETES SCREEN [facility] Start: 12-08-2025 LIPID SCREEN LIPID SCREEN [facility] Start: 10-23-2025 Urine microalbumin profile DTAP,TDAP,TD (3 - Td or Tdap) [facility] Start: 02-18-2024 Colonoscopy COLONOSCOPY [facility] Start: 02-18-2024 COLORECTAL CANCER SCREENING COLORECTAL CANCER SCREENING [facility] Start: 12-19-2023 End: 05-27-2024 Camera fundoscopy FUNDUS PHOTOS OU (BOTH EYES) OPHT Imaging Routine Horseshoe retinal tear of right eye Posterior vitreous detachment of right eye Vitreous hemorrhage of right eye (HCC) History of Descemet membrane endothelial keratoplasty (DMEK) Expected: 12/19/2023, Expires: 05/27/2024 [facility] Work Phone: Immunizations Immunization Date Immunization Notes Care Provider Rosa fitzpatrick 01-16-2023 zoster vaccine recombinant Brittani Haagen CLIENT SUPPORT MANAGER.[employer] Work Phone: [facility] 10-05-2022 zoster vaccine, live Brittani Haagen CLIENT SUPPORT MANAGER.[employer] Work Phone: [facility] 08-14-2022 influenza, injectabl e, quadrivalent, preservative free Brittani Haagen CLIENT SUPPORT MANAGER.[employer] Work Phone: [facility] 08-01-2020 influenza, injectabl e, quadrivalent, preservative free Brittani Haagen CLIENT SUPPORT MANAGER.[employer] Work Phone: [facility] 07-31-2018 influenza, injectabl e, quadrivalent, contains preservative Julio Cesar Perez MD Work Phone: [facility] Work Phone: 07-22-2018 influenza, injectabl e, quadrivalent, preservative free Brittani Haagen CLIENT SUPPORT MANAGER.[employer] Work Phone: [facility] 10-07-2017 influenza, seasonal, injectable Julio Cesar Perez MD Work Phone: [facility] 10-23-2015 tetanus toxoid, redu west diphtheria toxoid, and acellular pertussis vaccine, adsorbed Julio Cesar Perez MD Work Phone: [facility] Work Phone: 07-08-2015 influenza, injectabl e, quadrivalent, contains preservative Julio Cesar Perez MD Work Phone: [facility] 09-30-2014 influenza, seasonal, injectable Julio Cesar Perez MD Work Phone: [facility] 09-07-2010 influenza virus vaccine, live, attenuated, for intranasal use Julio Cesar Perez MD Work Phone: [facility] 10-03-2009 novel [id number], all formulations Julio Cesar Perez MD Work Phone: [facility] 07-15-2008 influenza virus vaccine, live, attenuated, for intranasal use Julio Cesar Perez MD Work Phone: [facility] Work Phone: 09-30-2007 influenza virus vaccine, live, attenuated, for intranasal use Julio Cesar Perez MD Work Phone: [facility] 09-02-2006 influenza virus vaccine, live, attenuated, for intranasal use Julio Cesar Perez MD Work Phone: [facility] Work Phone: 07-12-2006 tetanus toxoid, redu west diphtheria toxoid, and acellular pertussis vaccine, adsorbed Julio Cesar Perez MD Work Phone: [facility] Work Phone: 10-01-2005 influenza virus vaccine, unspecified formulation Julio Cesar Perez MD Work Phone: [facility] Payers Date Payer Category Payer Unknown [id number] 2019 Unknown MMO MMO [employer] [id number] 2019-Present [phone] [address] [place] [address] PPO [id number] 2016 Unknown EYE CARE PLAN OF XAV[employer] EYEMED VISION [id number] 10/21/2016-Present [address] [place] [address] Indemnity [id number] 10-21-2016 Unknown [id number] 1962 Unknown [id number] 1962 Unknown [id number] 1962 Unknown [id number] 1962 Unknown [id number] 1962 Unknown [id number] Social History Date Type Detail Facility Start: 06-01-2011 End: 01-14-2023 Tobacco smoking status NHIS Never smoked tobacco [facility] Work Phone: Start: 06-01-2011 End: 01-14-2023 Tobacco use and exposure Smokeless tobacco non-user [facility] Work Phone: Start: 10-03-2021 End: 05-30-2023 Alcohol intake Current drinker of alcohol (finding) [facility] Start: 10-03-2021 End: 04-02-2023 Alcohol intake [facility] Start: 11-30-2020 History SDOH Alcohol Frequency 1 [facility] Start: 11-30-2020 History SDOH Alcohol Std Drinks 98 [facility] Start: 11-13-2016 History SDOH Alcohol Comment Rarely [facility] Start: 11-30-2020 History SDOH Social Connections Phone 5 [facility] Start: 11-30-2020 History SDOH Social Connections Meetings 3 [facility] Start: 11-30-2020 History SDOH Physical Activity DPW 0 [facility] Start: 11-30-2020 History SDOH Stress 2 [facility] Start: 10-31-2019 Education 17 [facility] Start: 1960 Sex Assigned At Not on file [facility] Start: 03-31-2022 End: 04-10-2022 Exposure to SARS-CoV-2 (event) Not sure [facility] Start: 11-30-2020 End: 04-02-2023 Social connection and isolation panel [facility] Do you belong to any clubs or organizations such as congregational groups, unions, fraternal or athletic groups, or school groups? Yes [facility] Are you now , , , , never or living with a partner? [facility] How often to you hav e a drink containing alcohol? Never [facility] How many standard dr inks containing alcohol do you have on a typical day? Patient refused [facility] Do you feel stress - tense, restless, nervous, or anxious, or unable to sleep at night because your mind is troubled all the time - these days [OSQ] Only a little [facility] (I/We) worried wheth er (my/our) food would run out before (I/we) got money to buy more. Never true [facility] In the past 12 month s, was there a time when you were not able to pay the mortgage or rent on time? No [facility] Start: 12-19-2020 Gender identity Identifies as male gender (finding) [facility] Start: 12-19-2020 Sexual orientation Heterosexual (finding) [facility] Medical Equipment Procedure Code Equipment Code Equipment Origin al Text Equipment Identifier Dates Cornea Dmek [id number] Start: 10-27-2019 Gas [employer] Intraocular Vision System [id number] - [id number] Start: 10-27-2019 Clinical Notes 06-15-2009 to 08-14-2023 Jane Rogel MD, PhD - 05/30/2023 8:15 AM EDTPatient InstructionsCiro Rodriguez MD - 05/01/2023 3:55 PM EDTTelephone Encounter - Alejandro Blumkailey MCCAIN - 02/12/2023 4:10 PM EDTPatient Instructions Note Date & Type Note Facility 08-14-2023 Note HNO ID: [id number] Author: Grover Griffith, PhD Service: ? Author Type: Psychologist Type: Progress Notes Filed: 08/14/2023 3:12 PM Note Text: [facility] Progress Note Eric Roman 08/14/2023 [id number] PROVIDER: Grover Griffith, PhD CPT Code: Time: 50 minutes Setting: Patient seen in person Parties Present: Patient Treatment Modality/Interventions: Cognitive Behavioral Reassurance/Supportive Insight oriented Problem solving Communication skills training MENTAL STATUS: Mood: variable, dysthymic Affect: mood-congruent Thoughts/Associations:goal directed Suicidal/Homicidal Ideation: None expressed or evidenced Other Prominent Symptoms: Therapy Focus/Content of Session: Self-care, Mood/affect regulation, and Self-esteem Miki: he asked to talk w pt and pt listened... said he doesnt want to pass on the anger he has to his children pt responded accepting that he has caused harm and son seemed to feel heard (we discussed son's need to increase the intensity by previous name calling and saying other sibs also dont want the tension and dont want to come home for the holidays) NEXT he came home for a wknd.. they watched programs they both like, worked on the car together etc. NOW: pt has an i'm a piece of shit self view and sometimes feels a good dad.... polarities of a conflict of self esteem PLAN: act as if he is a GOOD ENOUGH parent with a GLITCH that he now knows how harmful it is instead of being able to say ITS JUST ME MEDICATIONS: Per medical record: Current Outpatient Medications Medication Sig lovastatin (MEVACOR) 20 mg tablet Take 1 tablet by mouth daily at bedtime. For cholesterol. desvenlafaxine ER (PRISTIQ) 50 mg 24 hr tablet Take 1 tablet by mouth once daily. ramipril (ALTACE) 1.25 mg capsule VITAMIN D 25 mcg (1,000 unit) cap Take 1,000 Units by mouth once daily. loteprednol etabonate (INVELTYS) 1 % Use 1 Drop in eyes once daily. Both eyes carboxymethyl/gly/poly80/PF (REFRESH OPTIVE SANTANA-3, PF, OPHTHALMIC) Use 1-2 Drops in both eyes once daily. Current Facility-Administered Medications Medication Dose Route Frequency perflutren lipid microspheres 1.3 mL in NaCl (PF) 0.9% 10 mL injection (DEFINITY) INTRAVENOUS DIRECTED PRN sodium chloride 0.9 % (flush) 10 mL (BD POSIFLUSH) 10 mL INTRAVENOUS DIRECTED PRN perflutren lipid microspheres 1.3 mL in NaCl (PF) 0.9% 10 mL injection (DEFINITY) INTRAVENOUS DIRECTED PRN sodium chloride 0.9 % (flush) 10 mL (BD POSIFLUSH) 10 mL INTRAVENOUS DIRECTED PRN perflutren lipid microspheres 1.3 mL in NaCl (PF) 0.9% 10 mL injection (DEFINITY) INTRAVENOUS DIRECTED PRN sodium chloride 0.9 % (flush) 10 mL (BD POSIFLUSH) 10 mL INTRAVENOUS DIRECTED PRN Psychiatric Medication Issues: see med record DIAGNOSIS: [place] I: depression MARITAL CONFLICT Dysthymia Self Esteem [place] II: deferred [place] III: see med record [place] IV: stress and quality of life [place] V: 48-60 TREATMENT PROGRESS/ASSESSMENT: Progressing satisfactorily. TREATMENT PLAN/GOALS: Continue in therapy focusing on self-care, interpersonal relationships, improving communication, affect management, and self-esteem. Next appointment: as scheduled Grover Griffith, PhD [facility] 07-03-2023 Note HNO ID: [id number] Author: Grover Griffith, PhD Service: ? Author Type: Psychologist Type: Progress Notes Filed: 07/03/2023 4:05 PM Note Text: [facility] Progress Note Eric Roman 07/03/2023 [id number] PROVIDER: Grover Griffith PhD CPT Code: Time: 50 minutes Setting: Patient seen in person Parties Present: Patient Treatment Modality/Interventions: Cognitive Behavioral Reassurance/Supportive Insight oriented Problem solving Communication skills training MENTAL STATUS: Mood: variable, anxious Affect: mood-congruent Thoughts/Associations:goal directed Suicidal/Homicidal Ideation: None expressed or evidenced Other Prominent Symptoms: Therapy Focus/Content of Session: Self-care, Stress management, Mood/affect regulation, and Self-esteem Discussed last visit and Double bind of never being able to get angry or defensive vs progress Worked on acting as if He is Good Enough ANGER: first KVETCH .. it is useful to acknowledge contrary event Next Accept it is true and say to self I'm an OK person and dont need to DEFEND MYSELF.. no ill intent from me Then.... given this is true I can move from Automatic to Making a CHOICE of empathy or being still Self esteem: pt feels not good enough so when anything happens his GO TO reaction is To DEFEND or JUSTIFY MEDICATIONS: Per medical record: Current Outpatient Medications Medication Sig lovastatin (MEVACOR) 20 mg tablet Take 1 tablet by mouth daily at bedtime. For cholesterol. desvenlafaxine ER (PRISTIQ) 50 mg 24 hr tablet Take 1 tablet by mouth once daily. ramipril (ALTACE) 1.25 mg capsule VITAMIN D 25 mcg (1,000 unit) cap Take 1,000 Units by mouth once daily. loteprednol etabonate (INVELTYS) 1 % Use 1 Drop in eyes once daily. Both eyes carboxymethyl/gly/poly80/PF (REFRESH OPTIVE SANTANA-3, PF, OPHTHALMIC) Use 1-2 Drops in both eyes once daily. Current Facility-Administered Medications Medication Dose Route Frequency perflutren lipid microspheres 1.3 mL in NaCl (PF) 0.9% 10 mL injection (DEFINITY) INTRAVENOUS DIRECTED PRN sodium chloride 0.9 % (flush) 10 mL (BD POSIFLUSH) 10 mL INTRAVENOUS DIRECTED PRN perflutren lipid microspheres 1.3 mL in NaCl (PF) 0.9% 10 mL injection (DEFINITY) INTRAVENOUS DIRECTED PRN sodium chloride 0.9 % (flush) 10 mL (BD POSIFLUSH) 10 mL INTRAVENOUS DIRECTED PRN perflutren lipid microspheres 1.3 mL in NaCl (PF) 0.9% 10 mL injection (DEFINITY) INTRAVENOUS DIRECTED PRN sodium chloride 0.9 % (flush) 10 mL (BD POSIFLUSH) 10 mL INTRAVENOUS DIRECTED PRN Psychiatric Medication Issues: No change from previous appointment DIAGNOSIS: [place] I: depression MARITAL CONFLICT Dysthymia Self Esteem [place] II: deferred [place] III: see med record [place] IV: stress and quality of life [place] V: 48-60 TREATMENT PROGRESS/ASSESSMENT: Progressing satisfactorily. TREATMENT PLAN/GOALS: Continue in therapy focusing on self-care, improving communication, affect management, and self-esteem. Next appointment: as scheduled Grover Griffith, PhD [facility] 05-30-2023 Note HNO ID: [id number] Author: Jane Rogel MD, PhD Service: ? Author Type: Physician Type: Progress Notes Filed: 05/30/2023 8:28 AM Note Text: Referred to Dr. Meyer by Dr. Rodriguez, saw Dr. Magallanes previously This is closer to his home. No new symptoms 1. Symptomatic Horseshoe tear OD (right eye) - S/p laser retinopexy 03/21/21 2. Asymptomatic radial tear right eye vs vitreous condensation - Discussed laser retinopexy vs observation, no SRF around flap, not symptomatic (stable for 18 months) 3. History of Hemorrhagic PVD OD 4. Cataracts OU OD > OS - PSC component OD - Observe 5. 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 Rodriguez Plan: Return with Dr. Meyer 6mo I have confirmed and edited as necessary the relevant ophthalmic history, ROS, and the neuro exam findings as obtained by others. I have seen and examined this patient. I have discussed the case and the management of this patient's care with the Resident/Fellow, if applicable. I also have reviewed and agree with the assessment and plan as stated above and agree with all of its relevant components. Jane Rogel MD [facility] 05-30-2023 History of Present illness Narrative Referred to Dr. Meyer by Dr. Rodriguez, saw Dr. Magallanes previously This is closer to his home. No new symptoms 1. Symptomatic Horseshoe tear OD (right eye) - S/p laser retinopexy 03/21/21 2. Asymptomatic radial tear right eye vs vitreous condensation - Discussed laser retinopexy vs observation, no SRF around flap, not symptomatic (stable for 18 months) 3. History of Hemorrhagic PVD OD 4. Cataracts OU OD > OS - PSC component OD - Observe 5. 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 Rodriguez Plan: Return with Dr. Meyer 6mo I have confirmed and edited as necessary the relevant ophthalmic history, ROS, and the neuro exam findings as obtained by others. I have seen and examined this patient. I have discussed the case and the management of this patient's care with the Resident/Fellow, if applicable. I also have reviewed and agree with the assessment and plan as stated above and agree with all of its relevant components. Jane Rogel MD documented in this encounter [facility] 05-29-2023 Note HNO ID: [id number] Author: Grover Griffith, PhD Service: ? Author Type: Psychologist Type: Progress Notes Filed: 05/29/2023 6:05 PM Note Text: [facility] Department Progress Note Eric Olivas Jessie 05/29/2023 [id number] PROVIDER: Grover Griffith, PhD CPT Code: Time: 50 minutes Setting: Patient seen in person Parties Present: Patient, Treatment Modality/Interventions: Cognitive Behavioral Reassurance/Supportive Insight oriented Problem solving Psychoeducation MENTAL STATUS: Mood: variable, dysthymic Affect: mood-congruent Thoughts/Associations:goal directed Suicidal/Homicidal Ideation: None expressed or evidenced Other Prominent Symptoms: Therapy Focus/Content of Session: Self-care, Mood/affect regulation, and Self-esteem Pt tends to be the disciplinarian that is harsher and the more gently Kids out of the house doing well and well w family Miki is the sensitive one and stair step escalates w pt Pt feels like , as an adaptive strategy, that he has to defend himself and sees self as 'less than' historically Pt had a length of years getting along and projects together w Miki THEN a blow up just before Miki left He left in a hateful state re his father Charley sees this as NOT OK and awaits on egg shells the next episode also... taking the hook justifies Miki's angers also... pt loses the trust of his that he will change PLAN: unravel the self esteem causes and historical causes and enlighten the value of not taking the hook ie worked on [employer]. MEDICATIONS: Per medical record: Current Outpatient Medications Medication Sig lovastatin (MEVACOR) 20 mg tablet Take 1 tablet by mouth daily at bedtime. For cholesterol. desvenlafaxine ER (PRISTIQ) 50 mg 24 hr tablet Take 1 tablet by mouth once daily. ramipril (ALTACE) 1.25 mg capsule VITAMIN D 25 mcg (1,000 unit) cap Take 1,000 Units by mouth once daily. loteprednol etabonate (INVELTYS) 1 % Use 1 Drop in eyes once daily. Both eyes carboxymethyl/gly/poly80/PF (REFRESH OPTIVE SANTANA-3, PF, OPHTHALMIC) Use 1-2 Drops in both eyes once daily. Current Facility-Administered Medications Medication Dose Route Frequency perflutren lipid microspheres 1.3 mL in NaCl (PF) 0.9% 10 mL injection (DEFINITY) INTRAVENOUS DIRECTED PRN sodium chloride 0.9 % (flush) 10 mL (BD POSIFLUSH) 10 mL INTRAVENOUS DIRECTED PRN perflutren lipid microspheres 1.3 mL in NaCl (PF) 0.9% 10 mL injection (DEFINITY) INTRAVENOUS DIRECTED PRN sodium chloride 0.9 % (flush) 10 mL (BD POSIFLUSH) 10 mL INTRAVENOUS DIRECTED PRN perflutren lipid microspheres 1.3 mL in NaCl (PF) 0.9% 10 mL injection (DEFINITY) INTRAVENOUS DIRECTED PRN sodium chloride 0.9 % (flush) 10 mL (BD POSIFLUSH) 10 mL INTRAVENOUS DIRECTED PRN Psychiatric Medication Issues: see med record DIAGNOSIS: [place] I: depression MARITAL CONFLICT Dysthymia Self Esteem [place] II: deferred [place] III: see med record [place] IV: stress and quality of life [place] V: 48-60 TREATMENT PROGRESS/ASSESSMENT: Progressing satisfactorily. TREATMENT PLAN/GOALS: Continue in therapy focusing on self-care, interpersonal relationships, affect management, and self-esteem. Next appointment: as scheduled Grover Griffith PhD [facility] 05-01-2023 Note HNO ID: [id number] Author: Ciro Rodriguez MD Service: ? Author Type: Physician Type: Progress Notes Filed: 05/01/2023 3:59 PM Note Text: ASSESSMENT/PLAN: 1. Combined forms of age-related cataract of both eyes - ICD9: 366.19, ICD10: H25.813 (primary diagnosis) - OCT MACULA CIRRUS OU (BOTH EYES) Not visually significant Both Eyes. 2. History of Descemet membrane endothelial keratoplasty (DMEK) - ICD9: V42.5, ICD10: Z94.7 Continue: Inveltys solution instill 1 drop daily Both Eyes. 3. Horseshoe retinal tear of right eye - ICD9: 361.32, ICD10: H33.311 Patient would like to continue retinal follow up care local. Patient will see Dr. Meyer here in [place] in May. Ciro Rodriguez MD I have confirmed and edited as necessary the relevant ophthalmic history, review of systems, surgical history, and ophthalmological examination findings as obtained by the ophthalmic technical staff. I have seen and examined Eric Roman. I have discussed the examination findings, diagnosis, and treatment options with Eric Roman and/or his family. I have also reviewed and agree with the assessment and plan as stated above and agree with all its relevant components. I gave the patient the opportunity to ask questions about the findings, diagnosis, and treatment options. [facility] 05-01-2023 Instructions Ciro Rodriguez MD - 05/01/2023 3:58 PM EDT Continue: Inveltys solution instill 1 drop daily Both Eyes. If you have any questions please contact our office at [phone]. After office hours or on the weekend, please call Dr. Rodriguez on his cell phone at [phone]. documented in this encounter [facility] 05-01-2023 History of Present illness Narrative ASSESSMENT/PLAN: 1. Combined forms of age-related cataract of both eyes - ICD9: 366.19, ICD10: H25.813 (primary diagnosis) - OCT MACULA CIRRUS OU (BOTH EYES) Not visually significant Both Eyes. 2. History of Descemet membrane endothelial keratoplasty (DMEK) - ICD9: V42.5, ICD10: Z94.7 Continue: Inveltys solution instill 1 drop daily Both Eyes. 3. Horseshoe retinal tear of right eye - ICD9: 361.32, ICD10: H33.311 Patient would like to continue retinal follow up care local. Patient will see Dr. Meyer here in [place] in May. Ciro Rodriguez MD I have confirmed and edited as necessary the relevant ophthalmic history, review of systems, surgical history, and ophthalmological examination findings as obtained by the ophthalmic technical staff. I have seen and examined Eric Roman. I have discussed the examination findings, diagnosis, and treatment options with Eric Roman and/or his family. I have also reviewed and agree with the assessment and plan as stated above and agree with all its relevant components. I gave the patient the opportunity to ask questions about the findings, diagnosis, and treatment options. documented in this encounter [facility] 04-25-2023 Note HNO ID: [id number] Author: Grover Griffith, PhD Service: ? Author Type: Psychologist Type: Progress Notes Filed: 04/25/2023 4:29 PM Note Text: [facility] Progress Note Eric Roman 04/25/2023 [id number] PROVIDER: Grover Griffith, PhD CPT Code: Time: 50 minutes Setting: Patient seen in person Parties Present: Patient Treatment Modality/Interventions: Cognitive Behavioral Reassurance/Supportive Insight oriented Problem solving Processing of emotions Psychoeducation MENTAL STATUS: Mood: variable, dysthymic Affect: mood-congruent Thoughts/Associations:goal directed Suicidal/Homicidal Ideation: None expressed or evidenced Other Prominent Symptoms: Therapy Focus/Content of Session: Self-care, Mood/affect regulation, and Self-esteem MOOD: pt describes self as dysthymic.... he found a depression group on [employer] and felt good about others are out there like me but bad for the plethora of young suicidal people but it was a site that was very supportive of them He picked up a book exploring Holiness We discussed the idea of not HOLDING ON to the past or identifying as the past but allowing it to be a History to inform him PLAN: I suggested Asad Li Pt has been a bit low in mood for about 10 yrs he reports being a SAD teen and when doing things out at the edge or exciting he felt MORE ALIVE LONER: others ie his 2 older sibs were active and engaged and he tended to be more of a loner and off by himself m would DRINK and dad wasnt emotionally present but ok Dance Card: Pt has a sail boat and went to [employer] when was away... Exploring Holiness Depression web site and entertaining with [employer] animal site Self View : not competent enough .. helped by his sailing skills MEDICATIONS: Per medical record: Current Outpatient Medications Medication Sig lovastatin (MEVACOR) 20 mg tablet Take 1 tablet by mouth daily at bedtime. For cholesterol. desvenlafaxine ER (PRISTIQ) 50 mg 24 hr tablet Take 1 tablet by mouth once daily. ramipril (ALTACE) 1.25 mg capsule VITAMIN D 25 mcg (1,000 unit) cap Take 1,000 Units by mouth once daily. loteprednol etabonate (INVELTYS) 1 % Use 1 Drop in eyes once daily. Both eyes carboxymethyl/gly/poly80/PF (REFRESH OPTIVE SANTANA-3, PF, OPHTHALMIC) Use 1-2 Drops in both eyes once daily. Current Facility-Administered Medications Medication Dose Route Frequency perflutren lipid microspheres 1.3 mL in NaCl (PF) 0.9% 10 mL injection (DEFINITY) INTRAVENOUS DIRECTED PRN sodium chloride 0.9 % (flush) 10 mL (BD POSIFLUSH) 10 mL INTRAVENOUS DIRECTED PRN perflutren lipid microspheres 1.3 mL in NaCl (PF) 0.9% 10 mL injection (DEFINITY) INTRAVENOUS DIRECTED PRN sodium chloride 0.9 % (flush) 10 mL (BD POSIFLUSH) 10 mL INTRAVENOUS DIRECTED PRN perflutren lipid microspheres 1.3 mL in NaCl (PF) 0.9% 10 mL injection (DEFINITY) INTRAVENOUS DIRECTED PRN sodium chloride 0.9 % (flush) 10 mL (BD POSIFLUSH) 10 mL INTRAVENOUS DIRECTED PRN Psychiatric Medication Issues: No change from previous appointment DIAGNOSIS: [place] I: depression Dysthymia Self Esteem [place] II: deferred [place] III: see med record [place] IV: stress and quality of life [place] V: 48-60 TREATMENT PROGRESS/ASSESSMENT: Progressing satisfactorily. TREATMENT PLAN/GOALS: Continue in therapy focusing on self-care, interpersonal relationships, affect management, and self-esteem. Next appointment: as scheduled Grover Griffith PhD [facility] 04-18-2023 Note HNO ID: [id number] Author: Grover Griffith PhD Service: ? Author Type: Psychologist Type: Progress Notes Filed: 04/18/2023 4:29 PM Note Text: [facility] Progress Note Eric Roman 04/18/2023 [id number] PROVIDER: Grover Griffith PhD CPT Code: Time: 50 minutes Setting: Patient seen in person Parties Present: Patient Treatment Modality/Interventions: Cognitive Behavioral Reassurance/Supportive Insight oriented Problem solving Communication skills training Psychoeducation MENTAL STATUS: Mood: variable, dysthymic Affect: mood-congruent Thoughts/Associations:goal directed Suicidal/Homicidal Ideation: None expressed or evidenced Other Prominent Symptoms: Therapy Focus/Content of Session: Self-care, Mood/affect regulation, and Self-esteem SELF ESTEEM: Pt has a self view that he is not up to par for what he should be as and parent etc. PLAN: notice how that self view colors his mood and behavior.... trying too hard to figure out how others feel and trying to be what they would expect rather than being himself Kirk and Archana are close Bobby ... dad is to me Discussed a focus of doing self well and inviting others in History of pt being the disciplinarian and trying always to be friends w the children PLAN: work on deciding where to make a stand and asking for suggestions and working as one vs letting the kids split them NEXT talk about SELF ESTEEM excessively attending to how he feels others are thinking about him MEDICATIONS: Per medical record: Current Outpatient Medications Medication Sig lovastatin (MEVACOR) 20 mg tablet Take 1 tablet by mouth daily at bedtime. For cholesterol. desvenlafaxine ER (PRISTIQ) 50 mg 24 hr tablet Take 1 tablet by mouth once daily. ramipril (ALTACE) 1.25 mg capsule VITAMIN D 25 mcg (1,000 unit) cap Take 1,000 Units by mouth once daily. loteprednol etabonate (INVELTYS) 1 % Use 1 Drop in eyes once daily. Both eyes carboxymethyl/gly/poly80/PF (REFRESH OPTIVE SANTANA-3, PF, OPHTHALMIC) Use 1-2 Drops in both eyes once daily. Current Facility-Administered Medications Medication Dose Route Frequency perflutren lipid microspheres 1.3 mL in NaCl (PF) 0.9% 10 mL injection (DEFINITY) INTRAVENOUS DIRECTED PRN sodium chloride 0.9 % (flush) 10 mL (BD POSIFLUSH) 10 mL INTRAVENOUS DIRECTED PRN perflutren lipid microspheres 1.3 mL in NaCl (PF) 0.9% 10 mL injection (DEFINITY) INTRAVENOUS DIRECTED PRN sodium chloride 0.9 % (flush) 10 mL (BD POSIFLUSH) 10 mL INTRAVENOUS DIRECTED PRN perflutren lipid microspheres 1.3 mL in NaCl (PF) 0.9% 10 mL injection (DEFINITY) INTRAVENOUS DIRECTED PRN sodium chloride 0.9 % (flush) 10 mL (BD POSIFLUSH) 10 mL INTRAVENOUS DIRECTED PRN Psychiatric Medication Issues: No change from previous appointment DIAGNOSIS: [place] I: depression Dysthymia Self Esteem [place] II: deferred [place] III: see med record [place] IV: stress and quality of life [place] V: 48-60 TREATMENT PROGRESS/ASSESSMENT: Progressing satisfactorily. TREATMENT PLAN/GOALS: Continue in therapy focusing on self-care, interpersonal relationships, improving communication, assertiveness skills, affect management, and self-esteem. Next appointment: as scheduled Grover Griffith, PhD [facility] 04-11-2023 Note HNO ID: [id number] Author: Gene A Gladis, PhD Service: ? Author Type: Psychologist Type: Progress Notes Filed: 04/11/2023 4:31 PM Note Text: [facility] Progress Note Eric Roman 04/11/2023 [id number] PROVIDER: Grover Griffith, PhD CPT Code: Time: 50 minutes Setting: Patient seen in person Parties Present: Patient Treatment Modality/Interventions: Cognitive Behavioral Reassurance/Supportive Insight oriented Problem solving Communication skills training Psychoeducation MENTAL STATUS: Mood: variable, dysthymic Affect: mood-congruent Thoughts/Associations:goal directed Suicidal/Homicidal Ideation: None expressed or evidenced Other Prominent Symptoms: Therapy Focus/Content of Session: Self-care, Mood/affect regulation, and Self-esteem Guilt Bad Remorse Regret: PLAN: reframe.... we do things and note how they apple turner ... sometimes intentional and often unintentional guilt remorse regrets.. become HEALTHY GUILT REMORSE OR REGRET when it directs better/more empathic behavior THE GOAL: is to get closer to the nature of self, others and the world around and to use authentic self and choice to build on the collage of acquired life history and make it better (much like Jordi and the trials to make a light bulb) vs if the outcome of a past behavior turned out well .. you are good; and if it turned out poorly... you are bad Larger Goal: live well now and be open to listening to the eyes of the other discussed mid brain acquired prejudices and how the frontal lobe can keep modifying that collage MEDICATIONS: Per medical record: Current Outpatient Medications Medication Sig lovastatin (MEVACOR) 20 mg tablet Take 1 tablet by mouth daily at bedtime. For cholesterol. desvenlafaxine ER (PRISTIQ) 50 mg 24 hr tablet Take 1 tablet by mouth once daily. ramipril (ALTACE) 1.25 mg capsule VITAMIN D 25 mcg (1,000 unit) cap Take 1,000 Units by mouth once daily. loteprednol etabonate (INVELTYS) 1 % Use 1 Drop in eyes once daily. Both eyes carboxymethyl/gly/poly80/PF (REFRESH OPTIVE SANTANA-3, PF, OPHTHALMIC) Use 1-2 Drops in both eyes once daily. Current Facility-Administered Medications Medication Dose Route Frequency perflutren lipid microspheres 1.3 mL in NaCl (PF) 0.9% 10 mL injection (DEFINITY) INTRAVENOUS DIRECTED PRN sodium chloride 0.9 % (flush) 10 mL (BD POSIFLUSH) 10 mL INTRAVENOUS DIRECTED PRN perflutren lipid microspheres 1.3 mL in NaCl (PF) 0.9% 10 mL injection (DEFINITY) INTRAVENOUS DIRECTED PRN sodium chloride 0.9 % (flush) 10 mL (BD POSIFLUSH) 10 mL INTRAVENOUS DIRECTED PRN perflutren lipid microspheres 1.3 mL in NaCl (PF) 0.9% 10 mL injection (DEFINITY) INTRAVENOUS DIRECTED PRN sodium chloride 0.9 % (flush) 10 mL (BD POSIFLUSH) 10 mL INTRAVENOUS DIRECTED PRN Psychiatric Medication Issues: No change from previous appointment DIAGNOSIS: [place] I: depression Dysthymia Self Esteem [place] II: deferred [place] III: see med record [place] IV: stress and quality of life P[place] V: 48-60 TREATMENT PROGRESS/ASSESSMENT: Progressing satisfactorily. TREATMENT PLAN/GOALS: Continue in therapy focusing on self-care, interpersonal relationships, improving communication, affect management, and self-esteem. Next appointment: as scheduled Grover Griffith, PhD [facility] 04-02-2023 Note HNO ID: [id number] Author: Grover Griffith PhD Service: ? Author Type: Psychologist Type: Progress Notes Filed: 04/02/2023 3:40 PM Note Text: [facility] Progress Note Eric Roman 04/02/2023 [id number] PROVIDER: Grover Griffith PhD CPT Code: Time: 50 minutes Setting: Patient seen in person Parties Present: Patient Treatment Modality/Interventions: Cognitive Behavioral Reassurance/Supportive Insight oriented Problem solving Psychoeducation MENTAL STATUS: Mood: variable, dysthymic, depressed Affect: mood-congruent Thoughts/Associations:goal directed Suicidal/Homicidal Ideation: None expressed or evidenced Other Prominent Symptoms: Therapy Focus/Content of Session: Self-care, Stress management, Mood/affect regulation, Marital/couple, Parenting, and Self-esteem son: pt had been in volatile impulsive spats w son and last few yrs closer and worked on cars together and laughed more THEN now he is 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 a spat and pt responded in the old way by raising the intensity along w son and son left angry ... saw that and responded as though there has been no change World view: pt was wild as teen and not much supervision... dad was nice worked a lot and not emotionally demonstrative mom drank functional but parenting when he did something wrong RECENT YEARS: Self Esteem: self demeaning... feeling stuck as though he is unable to progress from Temper Tantrums and anhedonia PLAN: Consider if Pristiq is working well enough and explore meds w PCP... work on life history and acquired self view HX: mom depressed and son might have mild ADHD .. pt presents w some of the same.. impulsive, distracted ... MEDICATIONS: Per medical record: Current Outpatient Medications Medication Sig lovastatin (MEVACOR) 20 mg tablet Take 1 tablet by mouth daily at bedtime. For cholesterol. desvenlafaxine ER (PRISTIQ) 50 mg 24 hr tablet Take 1 tablet by mouth once daily. ramipril (ALTACE) 1.25 mg capsule VITAMIN D 25 mcg (1,000 unit) cap Take 1,000 Units by mouth once daily. loteprednol etabonate (INVELTYS) 1 % Use 1 Drop in eyes once daily. Both eyes carboxymethyl/gly/poly80/PF (REFRESH OPTIVE SANTANA-3, PF, OPHTHALMIC) Use 1-2 Drops in both eyes once daily. Current Facility-Administered Medications Medication Dose Route Frequency perflutren lipid microspheres 1.3 mL in NaCl (PF) 0.9% 10 mL injection (DEFINITY) INTRAVENOUS DIRECTED PRN sodium chloride 0.9 % (flush) 10 mL (BD POSIFLUSH) 10 mL INTRAVENOUS DIRECTED PRN perflutren lipid microspheres 1.3 mL in NaCl (PF) 0.9% 10 mL injection (DEFINITY) INTRAVENOUS DIRECTED PRN sodium chloride 0.9 % (flush) 10 mL (BD POSIFLUSH) 10 mL INTRAVENOUS DIRECTED PRN perflutren lipid microspheres 1.3 mL in NaCl (PF) 0.9% 10 mL injection (DEFINITY) INTRAVENOUS DIRECTED PRN sodium chloride 0.9 % (flush) 10 mL (BD POSIFLUSH) 10 mL INTRAVENOUS DIRECTED PRN Psychiatric Medication Issues: No change from previous appointment DIAGNOSIS: [place] I: depression Dysthymia Self Esteem P[place] II: deferred [place] III: see med record [place] IV: stress and quality of life P[place] V: 48-60 TREATMENT PROGRESS/ASSESSMENT: Fluctuating progress. TREATMENT PLAN/GOALS: Continue in therapy focusing on self-care, interpersonal relationships, improving communication, stress management, affect management, anxiety management, and self-esteem. Next appointment: as scheduled Grover Griffith, PhD [facility] 02-12-2023 Miscellaneous Notes Pt notified. He verbalized understanding. Alejandro Mcleod LPN MC message sent. Alejandro Mcleod LPN ----- Message from Brittani Coates APRN.OBDULIO sent at 02/11/2023 5:11 PM EDT ----- Can please let patient know that stress test was within normal -- No indications of any blockages. Brittani Coates APRN.CNP documented in this encounter [facility] 01-29-2023 Miscellaneous Notes Pt notified. He verbalized understanding. Alejandro Mcleod LPN Can please let patient know that we received his echo results. No significant changes. Did note that there was a little dilation of the aorta. For this reason, I would repeat the echo in 6-12 months to ensure stability. I went ahead and put the order in. It will just need to be scheduled. Brittani Coates APRN.CNP documented in this encounter [facility] 01-18-2023 Miscellaneous Notes MC message has not been read. Phoned pt, notified pt of results/provider response. He verbalized understanding. Alejandro Mcleod LPN [facility] message sent. Alejandro Mcleod LPN Can please let patient know that I received his lab results. PSA was normal for age. Vitamin D was normal. Electrolytes, kidney function, and liver enzymes were normal. Glucose was normal. CBC was normal/stable. Cholesterol was elevated. Has he been taking the lovastatin? I would suggest that we increase the dose of the lovastatin. I sent in a new script to the pharmacy. He can use two of his current tabs to use them up. Repeat labs in 6 months. Orders are in. Brittani Coates APRN.OBDULIO documented in this encounter [facility] 01-14-2023 Miscellaneous Notes Faxed request for records to Dr. Refugio Bryson's office ([facility]) for continuity of care. Awaiting records. Will update HM once received. Alejandro Mcleod LPN documented in this encounter [facility] 01-14-2023 Note HNO ID: [id number] Author: Brittani Coates APRN.OBDULIO Service: ? Author Type: Nurse Practitioner Type: Progress Notes Filed: 01/14/2023 5:53 PM Note Text: This is a 62 year old male who presents today with: Patient presents with: Physical HISTORY OF PRESENT ILLNESS: Eric Roman is a 62 year old male. Patient presents with: Physical Pt presents today for physical. Hasn't been seen by primary care since 2019, but has has some virtual visits. Concern today: Occasionally SOB with some activity. Notices with going up steps. Newer in onset. No chest pain. Strong family hx of heart disease. Reports he mentioned something to pulmonology, but advised to discuss with primary care and possible cardiac eval. No CP. Occ palpitations, but nothing out of his ordinary. re REVIEW OF SYSTEMS GENERAL: No weight loss, malaise or fevers/chills. Gets fatigued sometimes, but nothing horrendous. HEENT: Negative for frequent or significant headaches, No changes in hearing or vision. NECK: Negative for lumps, goiter, pain and significant neck swelling RESPIRATORY: Negative for cough, hemoptysis, wheezing, dyspnea. CARDIOVASCULAR: Negative for chest pain, leg swelling, orthopnea, or palpitations. Hx of MVP. Occasional palpitations. Last echo 2014. GI: No nausea, vomiting, or diarrhea/constipation. No hematochezia/melena. No heartburn or reflux symptoms. : No history of dysuria, frequency or incontinence. No nocturia since cpap. MUSCULOSKELETAL: Negative for joint pain or swelling. SKIN: Negative for lesions, rash, and itching ENDOCRINE: Negative for cold or heat intolerance, polyuria, polydipsia and goiter NEURO: No history of headaches, syncope, paralysis, seizures or tremors HYPERLIPIDEMIA: Patient is taking medications: Yes. Patient is watching diet: No Patient denies myalgias: Yes. Patient denies gi upset: Yes HTN: Patient is compliant with meds Yes Monitors bp at home: just at doctor's office. Denies side effects: yes Chest pain: No. Dyspnea: yes Edema: No. Palpitations: Yes. Syncope: No. Headache: No. Dizziness: No. JOMAR Following with Dr. Perez. Compliant with cpap. PAST MEDICAL HISTORY: PAST MEDICAL HISTORY Diagnosis Date Back pain chronic back pain Cataracts, both eyes Depression Fuchs endothelial corneal dystrophy type 4 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 Hyperlipidemia Mitral valve disorders(424.0) MVP on echo Posterior vitreous detachment of right eye Seasonal allergies Tinnitus Vitreous hemorrhage of right eye (HCC) PAST SURGICAL HISTORY Procedure Laterality Date COLONOSCOPY FLX DX W/COLLJ SPEC WHEN PFRMD 02-17-14 CORNEAL TISSUE DSAEK/DMEK Right 10/27/2019 ENDOTHELIAL KERATOPLASTY(DMEK) Left 08/05/2018 Wilfred Rodriguez MD PAST SURGICAL HISTORY OF Right 10/27/2019 Keratoplasty RETINOPEXY LASER PROPHYLAXIS BREAK(S) OD (RIGHT EYE) Right 03/21/2021 TONSILLECTOMY AND ADENOIDECTOMY T/A (under age 12 years) VASECTOMY UNI/BI SPX W/POSTOP SEMEN EXAMS ALLERGIES Environmental [Other] MEDICATIONS Current Outpatient Medications Medication Sig ramipril (ALTACE) 1.25 mg capsule desvenlafaxine ER (PRISTIQ) 50 mg 24 hr tablet Take 1 tablet by mouth once daily. VITAMIN D 25 mcg (1,000 unit) cap Take 1,000 Units by mouth once daily. loteprednol etabonate (INVELTYS) 1 % Use 1 Drop in eyes once daily. Both eyes lovastatin (MEVACOR) 10 mg tablet Lovastatin Active 10 MG AT BEDTIME May 01, 2016 3:06am carboxymethyl/gly/poly80/PF (REFRESH OPTIVE SANTANA-3, PF, OPHTHALMIC) Use 1-2 Drops in both eyes once daily. quinapril (ACCUPRIL) 5 mg tablet Take 5 mg by mouth once daily. meloxicam (MOBIC) 15 mg tablet Take 1 tablet by mouth once daily. Take with food. (Patient not taking: No sig reported) ergocalciferol 50,000 unit capsule (VITAMIN D2, DRISDOL) Take 1 capsule by mouth one time a week. No current facility-administered medications for this visit. FAMILY HISTORY Problem Relation Age of Onset Heart Mother pacemaker placement No Ocular Disease Mother other (TIA) Mother No Ocular Disease Father Coronary Artery Disease Maternal Grandfather d. [place] No Ocular Disease Maternal Grandfather No Ocular Disease Paternal Grandmother other (ALS) Paternal Grandmother Cancer Maternal Grandmother No Ocular Disease Maternal Grandmother No Ocular Disease Sister No Ocular Disease Brother No Ocular Disease Paternal Grandfather No Ocular Disease Brother Social History Tobacco Use Smoking status: Never Smokeless tobacco: Never Vaping Use Vaping Use: Never used Substance Use Topics Alcohol use: Yes Alcohol/week: 0.0 standard drinks Comment: Rarely Drug use: No EXAM: BP 136/82 Pulse 74 Resp 18 Ht 182.9 cm (6') Wt 104.8 kg (231 lb) SpO2 93% BMI 31.33 kg/m? PHYSICAL EXAM: General Appearance: Well appearing, alert, in (more content not included)... [facility] 01-14-2023 Instructions Brittani Coates APRN.[facility] 01/14/2023 10:44 AM EDT Get labs. Schedule echo. Schedule stress test. Continue the same medication. documented in this encounter [facility] 01-14-2023 History of Present illness Narrative This is a 62 year old male who presents today with: Patient presents with: Physical HISTORY OF PRESENT ILLNESS: Eric Roman is a 62 year old male. Patient presents with: Physical Pt presents today for physical. Hasn't been seen by primary care since 2019, but has has some virtual visits. Concern today: Occasionally SOB with some activity. Notices with going up steps. Newer in onset. No chest pain. Strong family hx of heart disease. Reports he mentioned something to pulmonology, but advised to discuss with primary care and possible cardiac eval. No CP. Occ palpitations, but nothing out of his ordinary. re REVIEW OF SYSTEMS GENERAL: No weight loss, malaise or fevers/chills. Gets fatigued sometimes, but nothing horrendous. HEENT: Negative for frequent or significant headaches, No changes in hearing or vision. NECK: Negative for lumps, goiter, pain and significant neck swelling RESPIRATORY: Negative for cough, hemoptysis, wheezing, dyspnea. CARDIOVASCULAR: Negative for chest pain, leg swelling, orthopnea, or palpitations. Hx of MVP. Occasional palpitations. Last echo 2014. GI: No nausea, vomiting, or diarrhea/constipation. No hematochezia/melena. No heartburn or reflux symptoms. : No history of dysuria, frequency or incontinence. No nocturia since cpap. MUSCULOSKELETAL: Negative for joint pain or swelling. SKIN: Negative for lesions, rash, and itching ENDOCRINE: Negative for cold or heat intolerance, polyuria, polydipsia and goiter NEURO: No history of headaches, syncope, paralysis, seizures or tremors HYPERLIPIDEMIA: Patient is taking medications: Yes. Patient is watching diet: No Patient denies myalgias: Yes. Patient denies gi upset: Yes HTN: Patient is compliant with meds Yes Monitors bp at home: just at doctor's office. Denies side effects: yes Chest pain: No. Dyspnea: yes Edema: No. Palpitations: Yes. Syncope: No. Headache: No. Dizziness: No. JOMAR Following with Dr. Perez. Compliant with cpap. PAST MEDICAL HISTORY: PAST MEDICAL HISTORY Diagnosis Date Back pain chronic back pain Cataracts, both eyes Depression Fuchs endothelial corneal dystrophy type 4 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 Hyperlipidemia Mitral valve disorders(424.0) MVP on echo Posterior vitreous detachment of right eye Seasonal allergies Tinnitus Vitreous hemorrhage of right eye (HCC) PAST SURGICAL HISTORY Procedure Laterality Date COLONOSCOPY FLX DX W/COLLJ SPEC WHEN PFRMD 02-17-14 CORNEAL TISSUE DSAEK/DMEK Right 10/27/2019 ENDOTHELIAL KERATOPLASTY(DMEK) Left 08/05/2018 Wilfred Rodriguez MD PAST SURGICAL HISTORY OF Right 10/27/2019 Keratoplasty RETINOPEXY LASER PROPHYLAXIS BREAK(S) OD (RIGHT EYE) Right 03/21/2021 TONSILLECTOMY & ADENOIDECTOMY <AGE 12 T/A (under age 12 years) VASECTOMY UNI/BI SPX W/POSTOP SEMEN EXAMS ALLERGIES Environmental [Other] MEDICATIONS Current Outpatient Medications Medication Sig ramipril (ALTACE) 1.25 mg capsule desvenlafaxine ER (PRISTIQ) 50 mg 24 hr tablet Take 1 tablet by mouth once daily. VITAMIN D 25 mcg (1,000 unit) cap Take 1,000 Units by mouth once daily. loteprednol etabonate (INVELTYS) 1 % Use 1 Drop in eyes once daily. Both eyes lovastatin (MEVACOR) 10 mg tablet Lovastatin Active 10 MG AT BEDTIME May 01, 2016 3:06am carboxymethyl/gly/poly80/PF (REFRESH OPTIVE SANTANA-3, PF, OPHTHALMIC) Use 1-2 Drops in both eyes once daily. quinapril (ACCUPRIL) 5 mg tablet Take 5 mg by mouth once daily. meloxicam (MOBIC) 15 mg tablet Take 1 tablet by mouth once daily. Take with food. (Patient not taking: No sig reported) ergocalciferol 50,000 unit capsule (VITAMIN D2, DRISDOL) Take 1 capsule by mouth one time a week. No current facility-administered medications for this visit. FAMILY HISTORY Problem Relation Age of Onset Heart Mother pacemaker placement No Ocular Disease Mother other (TIA) Mother No Ocular Disease Father Coronary Artery Disease Maternal Grandfather d. [place] No Ocular Disease Maternal Grandfather No Ocular Disease Paternal Grandmother other (ALS) Paternal Grandmother Cancer Maternal Grandmother No Ocular Disease Maternal Grandmother No Ocular Disease Sister No Ocular Disease Brother No Ocular Disease Paternal Grandfather No Ocular Disease Brother Social History Tobacco Use Smoking status: Never Smokeless tobacco: Never Vaping Use Vaping Use: Never used Substance Use Topics Alcohol use: Yes Alcohol/week: 0.0 standard drinks Comment: Rarely Drug use: No EXAM: BP 136/82 Pulse 74 Resp 18 Ht 182.9 cm (6') Wt 104.8 kg (231 lb) SpO2 93% BMI 31.33 kg/m PHYSICAL EXAM: General Appearance: Well appearing, alert, in no acute distress, well-hydrated, well nourished.. Skin: Skin color, texture, turgor normal, no suspicious rashes or lesions. Head: Normocephalic, no masses, lesions, tenderness or abnormalities. Eyes: Anicteric sclera. Pupils are equally round and reactive to light. Extraocular movements are intact. Ears: External ears normal, canals clear. Oropharynx: Lips, mucosa, and tongue normal, teeth and gums normal, oropharynx normal. Neck: Supple, no adenopathy; thyroid symmetric, normal size, no bruits. Lungs: Lungs clear to auscultation. No wheezing, rhonchi, rales.. Heart: RRR without murmur, gallop, or rubs. No ectopy. Abdomen: Normal abdominal exam, Abdomen soft, non-tender. Bowel sounds normal. No masses, organomegaly. Extremities: No deformities, edema, skin discoloration, clubbing or cyanosis. Good capillary refill. Neurologic: Gait normal. ASSESSMENT/PLAN: 1. Wellness examination - ICD9: V70.0, ICD10: Z00.00 (primary diagnosis) - Counseled on healthy diet and regular exercise - Risks/benefits of prostate cancer screening discussed. screening PSA ordered - Follow up for annual exam in one year - CBC + DIFF - COMP METABOLIC PANEL - LIPID PANEL, NONFASTING Interested in shingles vaccine -- he will check with insurance re: coverage and location to received vaccine. 2. Vitamin D deficiency - ICD9: 268.9, ICD10: E55.9 - VITAMIN D 25 HYDROXY 3. Mixed hyperlipidemia - ICD9: 272.2, ICD10: E78.2 - to be determined upon return of lab results - Continue current medication. - COMP METABOLIC PANEL - LIPID PANEL, NONFASTING 4. SOB (shortness of breath) - ICD9: 786.05, ICD10: R06.02 Newer onset in nature. Moreso with activity. With family hx, will get cardiac work-up. - CBC + DIFF - ECG COMPLETE -- SR without ectopy or ST changes. 5. Special screening examination for viral disease - ICD9: V73.99, ICD10: Z11.59 - HEP C AB IA W/CONF SCRN 6. Screening for HIV (human immunodeficiency virus) - ICD9: V73.89, ICD10: Z11.4 - HIV 1 2 COMBO(AG/AB),WITH REFLEX TO DIFFERENTIATION 7. Screening for prostate cancer - ICD9: V76.44, ICD10: Z12.5 - Risks/benefits of prostate cancer screening discussed. screening PSA ordered Denies family hx of prostate CA. Discussed risks of false positives. He would like to go ahead and have completed. - PSA/PROSTSPECAG SCRN 8. Shortness of breath - ICD9: 786.05, ICD10: R06.02 - ECHO - PERFLUTREN LIPID MICROSPHERES 1.1 MG/ML INJECTION IN NS 10 ML - SODIUM CHLORIDE 0.9 % (FLUSH) INJECTION SYRINGE - STRESS ECHO TREADMILL - PERFLUTREN LIPID MICROSPHERES 1.1 MG/ML INJECTION IN NS 10 ML - SODIUM CHLORIDE 0.9 % (FLUSH) INJECTION SYRINGE EKG - SR without ectopy or ST changes. 9. Mitral valve disorder - ICD9: 394.9, ICD10: I05.9 Last echo 2014 -- due for surveillance. - ECHO - PERFLUTREN LIPID MICROSPHERES 1.1 MG/ML INJECTION IN NS 10 ML - SODIUM CHLORIDE 0.9 % (FLUSH) INJECTION SYRINGE - STRESS ECHO TREADMILL - PERFLUTREN LIPID MICROSPHERES 1.1 MG/ML INJECTION IN NS 10 ML - SODIUM CHLORIDE 0.9 % (FLUSH) INJECTION SYRINGE 10. Anxiety with depression - ICD9: 300.4, ICD10: F41.8 Some anxiety, but stable on medication. - DESVENLAFAXINE SUCCINATE ER 50 MG TABLET,EXTENDED RELEASE 24 HR Plans to follow-up with counseling/psychology. 11. JOMAR (obstructive sleep apnea) - ICD9: 327.23, ICD10: G47.33 Continue per pulmonology/sleep med. Discussed treatment plan and patient voices understanding. Patient's questions answered appropriately. Medications and potential side effects were discussed and patient voices understanding. Return to the office as scheduled or as needed for worsening/no improvement. Brittani Coates APRN.[employer] documented in this encounter [facility] 12-21-2022 Note HNO ID: [id number] Author: Grover Griffith, PhD Service: ? Author Type: Psychologist Type: Progress Notes Filed: 12/21/2022 3:57 PM Note Text: [facility] Progress Note Eric Roman 12/21/2022 [id number] Provider: Grover Griffith, PhD CPT Code: 94575 Psychotherapy 38-52 minutes Time: Approximately 50 minutes was spent in therapy. Setting: Patient seen in person Parties Present: Patient Patient Presentation/Concerns: Depression: Pt can get lost ruminating about how he is not up to par and has done so recently PLAN: interrupt the automatic thoughts by counting backwards from 5-1 and then make a real CHOICE with long and short term consequences these times of deeper depression usually involve recurrent thoughts of feeling like a failure Anxiety: his parents were anxious... discussed how we build robust ability to deal w anxiety OUTCOME: he was likely genetically predisposed to be more sensitive to internal and external stimuli ie hearing someone chewing and has become comparatively HYPER SENSITIVE Brother and sister have been quite accomplished intellectually w bro and artistically w sister he felt like he never met up to expectations and would Dayne sickness to avoid turning in some project etc. AWFULIZE: he just got a dx of connective tissue disorder: at first he read and assumed he would be in the 5% that early THEN he said I need to live well while I can PLAN: work on LIVING WELL both emotionally and physically... 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 PLAN: work on some behavioral techniques like relaxation and interrupt the flood of thoughts also 5-1 technique etc Self esteem: learned early and not enough being known, valued, supported, and encouraged so his grades were poor and he learned to AVOID interrupt the automatic Mental Status: Mood: variable, anxious Affect: mood-congruent Thoughts/Associations:goal directed Suicidal/Homicidal Ideation: None expressed or evidenced Other Observations: None Therapy Focus Self-care, Stress management, Mood/affect regulation, Interpersonal, Marital/couple, and Self-esteem MEDICATIONS: Per medical record: Current Outpatient Medications Medication Sig desvenlafaxine ER (PRISTIQ) 50 mg 24 hr tablet Take 1 tablet by mouth once daily. VITAMIN D 25 mcg (1,000 unit) cap Take 1,000 Units by mouth once daily. quinapril (ACCUPRIL) 5 mg tablet Take 5 mg by mouth once daily. loteprednol etabonate (INVELTYS) 1 % Use 1 Drop in eyes once daily. Both eyes lovastatin (MEVACOR) 10 mg tablet Lovastatin Active 10 MG AT BEDTIME May 01, 2016 3:06am carboxymethyl/gly/poly80/PF (REFRESH OPTIVE SANTANA-3, PF, OPHTHALMIC) Use 1-2 Drops in both eyes once daily. meloxicam (MOBIC) 15 mg tablet Take 1 tablet by mouth once daily. Take with food. (Patient not taking: No sig reported) ergocalciferol 50,000 unit capsule (VITAMIN D2, DRISDOL) Take 1 capsule by mouth one time a week. No current facility-administered medications for this visit. Psychiatric Medication Issues: see med record DIAGNOSIS: [place] I: Adjustment with Depression and Anxiety Self Esteem [place] II: deferred [place] III: see med record [place] IV: stress and quality of life [place] V: 48-60 Treatment Modality/Interventions: Cognitive Behavioral Reassurance/Supportive Insight oriented Problem solving Processing of emotions Relaxation training Assertiveness training Psychoeducation TREATMENT ASSESSMENT/PROGRESS: . Progressing satisfactorily. TREATMENT PLAN/GOALS: Continue in therapy focusing on self-care, interpersonal relationships, assertiveness skills, stress management, affect management, and self-esteem. Next appointment: as scheduled Grover Griffith, PhD [facility] 12-05-2022 Miscellaneous Notes The following approved medication requests have been transmitted electronically. Requested Prescriptions Pending Prescriptions Disp Refills desvenlafaxine ER (PRISTIQ) 50 mg 24 hr tablet 30 tablet 0 Sig: Take 1 tablet by mouth once daily. Yolande Montano APRN.OBDULIO Patient reports he is leaving for [place] tomorrow and hoping provider can send this Rx today? documented in this encounter [facility] 12-04-2022 Note HNO ID: [id number] Author: Cici Magallanes MD Service: ? Author Type: Physician Type: Progress Notes Filed: 12/04/2022 10:24 AM Note Text: The documentation for the note below was completed in part by Enmanuel Chadwick acting as a scribe for Cici Magallanes MD. 12/04/2022 10:05 AM. Scribe Attestation: By signing my name below, I, Enmanuel Chadwick, attest that the documentation in part for the note below and the encounter was completed in part by Enmanuel Chadwick acting as a scribe for Cici Magallanes MD. Electronically Signed: Majo Beard. December 04, 2022 10:05 AM. All problems with bold in text below addressed at this visit with patient Seferino 1. Symptomatic Horseshoe tear OD (right eye) - S/p laser retinopexy 03/21/21 - Good laser on exam - RWS reviewed 2. Asymptomatic radial tear OD - Radial tear noted on exam today around 10 o'clock at last visit in Sep - Review of previous photos demonstrates similar changes on 03/2021 based on previous fundus photos -Patient has no new symptoms at this time - Discussed laser retinopexy vs observation, no SRF around flap, not symptomatic (stable for 18 months) - RWS discussed - Given chronicity and asymptomatic nature, will observe. Reassess in 6 months with TALON Holguin 3. Hemorrhagic PVD OD - VH since resolved - RWS discussed, stable 4. Cataracts OU OD > OS - PSC component OD - Observe 5. 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 Rodriguez I, Cici Magallanes MD, personally performed the services described in this documentation. All medical record entries made by the scribe were at my direction and in my presence. I have reviewed the chart and discharge instructions (if applicable) and agree that the record reflects my personal performance and is accurate and complete. I have confirmed and edited as necessary the relevant ophthalmic history, ROS, and the neuro exam findings as obtained by others. I have seen and examined Eric Roman. I have discussed the case and the management of this patient's care with the Resident/Fellow, if applicable. I also have reviewed and agree with the assessment and plan as stated above and agree with all of its relevant components. Electronically Signed: Cici Magallanes MD, December 04, 2022 10:09 AM [facility] 12-04-2022 History of Present illness Narrative The documentation for the note below was completed in part by Enmanuel Chadwick acting as a scribe for Cici Magallanes MD. 12/04/2022 10:05 AM. Scribe Attestation: By signing my name below, I, Enmanuel Chadwick, attest that the documentation in part for the note below and the encounter was completed in part by Enmanuel Chadwick acting as a scribe for Cici Magallanes MD. Electronically Signed: Majo Beard. December 04, 2022 10:05 AM. All problems with bold in text below addressed at this visit with patient Seferino 1. Symptomatic Horseshoe tear OD (right eye) - S/p laser retinopexy 03/21/21 - Good laser on exam - RWS reviewed 2. Asymptomatic radial tear OD - Radial tear noted on exam today around 10 o'clock at last visit in Sep - Review of previous photos demonstrates similar changes on 03/2021 based on previous fundus photos -Patient has no new symptoms at this time - Discussed laser retinopexy vs observation, no SRF around flap, not symptomatic (stable for 18 months) - RWS discussed - Given chronicity and asymptomatic nature, will observe. Reassess in 6 months with TALON Holguin 3. Hemorrhagic PVD OD - VH since resolved - RWS discussed, stable 4. Cataracts OU OD > OS - PSC component OD - Observe 5. 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 Rodriguez I, Cici Magallanes MD, personally performed the services described in this documentation. All medical record entries made by the scribe were at my direction and in my presence. I have reviewed the chart and discharge instructions (if applicable) and agree that the record reflects my personal performance and is accurate and complete. I have confirmed and edited as necessary the relevant ophthalmic history, ROS, and the neuro exam findings as obtained by others. I have seen and examined Eric Roman. I have discussed the case and the management of this patient's care with the Resident/Fellow, if applicable. I also have reviewed and agree with the assessment and plan as stated above and agree with all of its relevant components. Electronically Signed: Cici Magallanes MD, December 04, 2022 10:09 AM documented in this encounter [facility] 11-19-2022 Note HNO ID: [id number] Author: Grover Griffith, PhD Service: ? Author Type: Psychologist Type: Progress Notes Filed: 11/19/2022 5:42 PM Note Text: [facility] Progress Note Eric Roman 11/19/2022 [id number] Provider: Grover Griffith, PhD CPT Code: 73556 Psychotherapy 38-52 minutes Time: Approximately 50 minutes was spent in therapy. 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 pt got into trouble and seen as the ner do well but had a lot of life in him ... and kids doing well ISSUE: always struggles w sense of not being competent enough He has started to feel ANXIETY going to work recently went to [place]... went sailing which he loves and sat on the beach... first vacation in a long while Mulu works fairly well .... [employer] NOW talking to fellow who sold a business ([employer]) and is helping others ... 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 lovastatin (MEVACOR) 10 mg tablet Lovastatin Active 10 MG AT BEDTIME May 01, 2016 3:06am carboxymethyl/gly/poly80/PF (REFRESH OPTIVE SANTANA-3, PF, OPHTHALMIC) Use 1-2 Drops in both eyes once daily. meloxicam (MOBIC) 15 mg tablet Take 1 tablet by mouth once daily. Take with food. (Patient not taking: Reported on 06/26/2022) ergocalciferol 50,000 unit capsule (VITAMIN D2, DRISDOL) Take 1 capsule by mouth one time a week. No current facility-administered medications for this visit. Psychiatric Medication Issues: see med record DIAGNOSIS: [place] I: Adjustment with Depression and Anxiety Self Esteem [place] II: deferred [place] III: see med record [place] IV: stress and quality of life [place] V: 48-60 Treatment Modality/Interventions: Cognitive Behavioral Reassurance/Supportive Insight oriented Problem solving Assertiveness training Goal setting Psychoeducation TREATMENT ASSESSMENT/PROGRESS: . Progressing satisfactorily. TREATMENT PLAN/GOALS: Continue in therapy focusing on self-care, stress management, affect management, anxiety management, and self-esteem. Next appointment: as scheduled Grover Griffith, PhD [facility] 01-17-2023 Miscellaneous Notes Patient is in [place] for a few weeks and would like a 30 day supply of this rx sent to [facility] in [place]. He only has a couple of pills left. He would like a call at [phone] when it has been sent. Patient has been identified by name and date of : Yes Requested Prescriptions Pending Prescriptions Disp Refills desvenlafaxine ER (PRISTIQ) 50 mg 24 hr tablet 30 tablet 0 Sig: Take 1 tablet by mouth once daily. RX INSTRUCTIONS: Patient requesting a call when RX is approved and sent to the pharmacy. Please call patient at: [phone] Elizabeth Jamil documented in this encounter [facility] 10-31-2022 Note HNO ID: [id number] Author: Ciro Rodriguez MD Service: ? Author Type: Physician Type: Progress Notes Filed: 10/31/2022 4:04 PM Note Text: ASSESSMENT/PLAN: 1. Combined forms of age-related cataract of both eyes - ICD9: 366.19, ICD10: H25.813 (primary diagnosis) Npt visually significant Both Eyes. 2. 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 3. Horseshoe retinal tear of right eye - ICD9: 361.32, ICD10: H33.311 Status Post Retinopexy Right Eye (03/21/2021), Dr. Magallanes 4. Connective tissue disorder (HCC) - ICD9: 710.9, ICD10: M35.9 Patient reported. Recommended patient see Dr. Arreguin for further evaluation and treatment. Ciro Rodriguez MD I have confirmed and edited as necessary the relevant ophthalmic history, review of systems, surgical history, and ophthalmological examination findings as obtained by the ophthalmic technical staff. I have seen and examined Eric Roman. I have discussed the examination findings, diagnosis, and treatment options with Eric Roman and/or his family. I have also reviewed and agree with the assessment and plan as stated above and agree with all its relevant components. I gave the patient the opportunity to ask questions about the findings, diagnosis, and treatment options. [facility] 10-31-2022 Instructions Ciro Rodriguez MD - 10/31/2022 4:04 PM EST Continue: Inveltys solution instill 1 drop daily Both Eyes. If you have any questions please contact our office at [phone]. After office hours or on the weekend, please call Dr. Rodriguez on his cell phone at [phone]. documented in this encounter [facility] 10-31-2022 History of Present illness Narrative ASSESSMENT/PLAN: 1. Combined forms of age-related cataract of both eyes - ICD9: 366.19, ICD10: H25.813 (primary diagnosis) Npt visually significant Both Eyes. 2. 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 3. Horseshoe retinal tear of right eye - ICD9: 361.32, ICD10: H33.311 Status Post Retinopexy Right Eye (03/21/2021), Dr. Magallanes 4. Connective tissue disorder (HCC) - ICD9: 710.9, ICD10: M35.9 Patient reported. Recommended patient see Dr. Arreguin for further evaluation and treatment. Ciro Rodriguez MD I have confirmed and edited as necessary the relevant ophthalmic history, review of systems, surgical history, and ophthalmological examination findings as obtained by the ophthalmic technical staff. I have seen and examined Eric Roman. I have discussed the examination findings, diagnosis, and treatment options with Eric Roman and/or his family. I have also reviewed and agree with the assessment and plan as stated above and agree with all its relevant components. I gave the patient the opportunity to ask questions about the findings, diagnosis, and treatment options. documented in this encounter [facility] 10-10-2022 Miscellaneous Notes Received request from Dr. Refugio Bryson at [facility] for Eric's last colonoscopy. Report faxed, confirmation sheet received. Hailey Espinoza RN documented in this encounter [facility] 10-02-2022 Note HNO ID: [id number] Author: Vale Yu PA-C Service: ? Author Type: Physician Inspector Technician Type: Progress Notes Filed: 10/02/2022 11:16 AM Note Text: All problems with bold in text below addressed at this visit with patient 1. Symptomatic Horseshoe tear OD (right eye) - S/p laser retinopexy 03/21/21 - Good laser on exam - Near tear noted on exam today around 10 o'clock spot - Appears to have been on exam since 03/2021 based on fundus photos - Patient denies change in floaters - Discussed possible PRP vs observation - Discussed case with Dr. Magallanes - Emphasized return to office precautions and patient will call with any changes in vision - Continue to monitor - Will have follow up with Dr. Magallanes in 2-3 months to discuss PRP or observation further 2. Hemorrhagic PVD OD - VH since resolved - Emphasized return to office precautions and patient will call with any changes in vision - Remains stable on exam, continue to monitor 3. Cataracts OU OD > OS - PSC component OD - Follow 4. 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 Rodriguez I have seen and examined this patient. I have confirmed and edited as necessary the relevant ophthalmic history, medications, ROS, and the neuro and ophthalmic exam findings as obtained by others and myself. I have discussed the case and the management of this patient's care with the attending Physician, if applicable. I also have reviewed and agree with the assessment and plan as stated above and agree with all of its relevant components. I have discussed the treatment alternatives with the patient and the patient's family, if applicable. Follow-up as noted below, or sooner if new symptoms develop. [facility] 10-02-2022 History of Present illness Narrative All problems with bold in text below addressed at this visit with patient 1. Symptomatic Horseshoe tear OD (right eye) - S/p laser retinopexy 03/21/21 - Good laser on exam - Near tear noted on exam today around 10 o'clock spot - Appears to have been on exam since 03/2021 based on fundus photos - Patient denies change in floaters - Discussed possible PRP vs observation - Discussed case with Dr. Magallanes - Emphasized return to office precautions and patient will call with any changes in vision - Continue to monitor - Will have follow up with Dr. Magallanes in 2-3 months to discuss PRP or observation further 2. Hemorrhagic PVD OD - VH since resolved - Emphasized return to office precautions and patient will call with any changes in vision - Remains stable on exam, continue to monitor 3. Cataracts OU OD > OS - PSC component OD - Follow 4. 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 Rodriguez I have seen and examined this patient. I have confirmed and edited as necessary the relevant ophthalmic history, medications, ROS, and the neuro and ophthalmic exam findings as obtained by others and myself. I have discussed the case and the management of this patient's care with the attending Physician, if applicable. I also have reviewed and agree with the assessment and plan as stated above and agree with all of its relevant components. I have discussed the treatment alternatives with the patient and the patient's family, if applicable. Follow-up as noted below, or sooner if new symptoms develop. documented in this encounter [facility] 09-06-2022 Note HNO ID: [id number] Author: Gina Avila LPN Service: ? Author Type: ? Type: Progress Notes Filed: 09/06/2022 3:58 PM Note Text: Please see OV notes from allergy: Scan on 09/03/2022 2:10 PM by External Provider: Consultation - Allergy Gina Avila LPN [facility] 09-06-2022 History of Present illness Narrative Please see OV notes from allergy: Scan on 09/03/2022 2:10 PM by External Provider: Consultation - Allergy Gina Avila LPN documented in this encounter [facility] 05-21-2022 Instructions Ciro Rodriguez MD - 05/21/2022 4:24 PM EDT Continue: Systane Complete solution instill 1 drop 3 times daily Both Eyes. Eysuvis solution instill 1 drop daily Both Eyes. If you have any questions please contact our office at [phone]. After office hours or on the weekend, please call Dr. Rodriguez on his cell phone at [phone]. documented in this encounter [facility] 05-21-2022 History of Present illness Narrative ASSESSMENT/PLAN: 1. Combined forms of age-related cataract of both eyes - ICD9: 366.19, ICD10: H25.813 (primary diagnosis) - IOL BIOMETRY W/ IOL CALC OU (BOTH EYES) Not visually significant Both Eyes. 2. 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 Eysuvis solution instill 1 drop daily Both Eyes. Ciro Rodriguez MD I have confirmed and edited as necessary the relevant ophthalmic history, review of systems, surgical history, and ophthalmological examination findings as obtained by the ophthalmic technical staff. I have seen and examined Eric Roman. I have discussed the examination findings, diagnosis, and treatment options with Eric Roman and/or his family. I have also reviewed and agree with the assessment and plan as stated above and agree with all its relevant components. I gave the patient the opportunity to ask questions about the findings, diagnosis, and treatment options. documented in this encounter [facility] 05-10-2022 Miscellaneous Notes Patient reports he is out of medication. Requesting refill today. Patient would like called once script sent. Thank you. Patient has been identified by name and date of : Yes Patient phones for refill(s): Pending Prescriptions Disp Refills DESVENLAFAXINE SUCCINATE ER 50 MG TABLET,EXTENDED RELEASE 24 HR 30 tablet 5 Sig: Take 1 tablet by mouth once daily. PAULA: No Date of last office visit in primary care: 07/27/21 ([facility]), NOV: not scheduled Last 2 Encounter Wt Readings: Date: Wt: 12/22/2020 105.1 kg (231 lb 9.6 oz) 11/02/2019 101.6 kg (224 lb) Please advise. Thank you. Pat Feldman RN documented in this encounter [facility] 01-29-2022 Miscellaneous Notes Patient has been identified by name and date of : Yes Pending Prescriptions Disp Refills DESVENLAFAXINE SUCCINATE ER 50 MG TABLET,EXTENDED RELEASE 24 HR 30 tablet 5 Sig: Take 1 tablet by mouth once daily. PAULA: No RX INSTRUCTIONS: Patient aware RX will be sent to pharmacy. No need to notify patient. Zulay Aranda MA [place]: 07/2021 No appointment scheduled Last refill: 07/2021 30 tablets 2 refills documented in this encounter [facility] documented as of this encounter (statuses as of 01/29/2022) [facility] History of Past illness Narrative* Problem Noted Date Resolved Date Rotator cuff (capsule) sprain 06/15/2009 Mitral valve prolapse 01/02/2007 10/05/2019 Overview: Diagnosis not supported on echocardiogram Sprain of neck 07/12/2006 05/30/2016 documented as of this encounter (statuses as of 04/17/2022) [place] [id number] History of Past illness Narrative* Problem Noted Date Resolved Date Rotator cuff (capsule) sprain 06/15/2009 Mitral valve prolapse 01/02/2007 10/05/2019 Overview: Diagnosis not supported on echocardiogram Sprain of neck 07/12/2006 05/30/2016 documented as of this encounter (statuses as of 05/10/2022) [address]26-2009 History of Past illness Narrative* Problem Noted Date Resolved Date Rotator cuff (capsule) sprain 06/15/2009 Mitral valve prolapse 01/02/2007 10/05/2019 Overview: Diagnosis not supported on echocardiogram Sprain of neck 07/12/2006 05/30/2016 documented as of this encounter (statuses as of 05/21/2022) [address]26-2009 History of Past illness Narrative* Problem Noted Date Resolved Date Rotator cuff (capsule) sprain 06/15/2009 Mitral valve prolapse 01/02/2007 10/05/2019 Overview: Diagnosis not supported on echocardiogram Sprain of neck 07/12/2006 05/30/2016 documented as of this encounter (statuses as of 09/06/2022) [place] [id number] History of Past illness Narrative* Problem Noted Date Resolved Date Rotator cuff (capsule) sprain 06/15/2009 Mitral valve prolapse 01/02/2007 10/05/2019 Overview: Diagnosis not supported on echocardiogram Sprain of neck 07/12/2006 05/30/2016 documented as of this encounter (statuses as of 10/02/2022) [address]26-2009 History of Past illness Narrative* Problem Noted Date Resolved Date Rotator cuff (capsule) sprain 06/15/2009 Mitral valve prolapse 01/02/2007 10/05/2019 Overview: Diagnosis not supported on echocardiogram Sprain of neck 07/12/2006 05/30/2016 documented as of this encounter (statuses as of 10/10/2022) [place] [id number] History of Past illness Narrative* Problem Noted Date Resolved Date Rotator cuff (capsule) sprain 06/15/2009 Mitral valve prolapse 01/02/2007 10/05/2019 Overview: Diagnosis not supported on echocardiogram Sprain of neck 07/12/2006 05/30/2016 documented as of this encounter (statuses as of 10/31/2022) [address]26-2009 History of Past illness Narrative* Problem Noted Date Resolved Date Rotator cuff (capsule) sprain 06/15/2009 Mitral valve prolapse 01/02/2007 10/05/2019 Overview: Diagnosis not supported on echocardiogram Sprain of neck 07/12/2006 05/30/2016 documented as of this encounter (statuses as of 11/06/2022) [place] [address]26-2009 History of Past illness Narrative* Problem Noted Date Resolved Date Rotator cuff (capsule) sprain 06/15/2009 Mitral valve prolapse 01/02/2007 10/05/2019 Overview: Diagnosis not supported on echocardiogram Sprain of neck 07/12/2006 05/30/2016 documented as of this encounter (statuses as of 12/04/2022) [facility] History of Past illness Narrative* Problem Noted Date Resolved Date Rotator cuff (capsule) sprain 06/15/2009 Mitral valve prolapse 01/02/2007 10/05/2019 Overview: Diagnosis not supported on echocardiogram Sprain of neck 07/12/2006 05/30/2016 documented as of this encounter (statuses as of 12/05/2022) [place] [address]26-2009 History of Past illness Narrative* Problem Noted Date Resolved Date Rotator cuff (capsule) sprain 06/15/2009 Mitral valve prolapse 01/02/2007 10/05/2019 Overview: Diagnosis not supported on echocardiogram Sprain of neck 07/12/2006 05/30/2016 documented as of this encounter (statuses as of 01/07/2023) [place] [address]26-2009 History of Past illness Narrative* Problem Noted Date Resolved Date Rotator cuff (capsule) sprain 06/15/2009 Mitral valve prolapse 01/02/2007 10/05/2019 Overview: Diagnosis not supported on echocardiogram Sprain of neck 07/12/2006 05/30/2016 documented as of this encounter (statuses as of 01/15/2023) [address]26-2009 History of Past illness Narrative* Problem Noted Date Resolved Date Rotator cuff (capsule) sprain 06/15/2009 Mitral valve prolapse 01/02/2007 10/05/2019 Overview: Diagnosis not supported on echocardiogram Sprain of neck 07/12/2006 05/30/2016 documented as of this encounter (statuses as of 01/18/2023) [address]26-2009 History of Past illness Narrative* Problem Noted Date Resolved Date Rotator cuff (capsule) sprain 06/15/2009 Mitral valve prolapse 01/02/2007 10/05/2019 Overview: Diagnosis not supported on echocardiogram Sprain of neck 07/12/2006 05/30/2016 documented as of this encounter (statuses as of 01/29/2023) [address]26-2009 History of Past illness Narrative* Problem Noted Date Resolved Date Rotator cuff (capsule) sprain 06/15/2009 Mitral valve prolapse 01/02/2007 10/05/2019 Overview: Diagnosis not supported on echocardiogram Sprain of neck 07/12/2006 05/30/2016 documented as of this encounter (statuses as of 02/01/2023) [address]26-2009 History of Past illness Narrative* Problem Noted Date Resolved Date Rotator cuff (capsule) sprain 06/15/2009 Mitral valve prolapse 01/02/2007 10/05/2019 Overview: Diagnosis not supported on echocardiogram Sprain of neck 07/12/2006 05/30/2016 documented as of this encounter (statuses as of 02/13/2023) [place] [address]26-2009 History of Past illness Narrative* Problem Noted Date Resolved Date Rotator cuff (capsule) sprain 06/15/2009 Mitral valve prolapse 01/02/2007 10/05/2019 Overview: Diagnosis not supported on echocardiogram Sprain of neck 07/12/2006 05/30/2016 documented as of this encounter (statuses as of 04/18/2023) [facility] History of Past illness Narrative* Problem Noted Date Diagnosed Date Resolved Date Rotator cuff (capsule) sprain 06/15/2009 01/12/2014 Mitral valve prolapse 01/02/20072018 Overview: Diagnosis not supported on echocardiogram Sprain of neck 07/12/2006 05/30/2016 documented as of this encounter (statuses as of 05/02/2023) [facility] History of Past illness Narrative* Problem Noted Date Diagnosed Date Resolved Date Rotator cuff (capsule) sprain 06/15/2009 01/12/2014 Mitral valve prolapse 01/02/20072018 Overview: Diagnosis not supported on echocardiogram Sprain of neck 07/12/2006 05/30/2016 documented as of this encounter (statuses as of 05/02/2023) [place] [address]26-2009 History of Past illness Narrative* Problem Noted Date Diagnosed Date Resolved Date Rotator cuff (capsule) sprain 06/15/2009 01/12/2014 Mitral valve prolapse 01/02/20072018 Overview: Diagnosis not supported on echocardiogram Sprain of neck 07/12/2006 05/30/2016 documented as of this encounter (statuses as of 05/30/2023) [facility] with [facility] Anxiety with depression [facility] Diagnosis 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 Other and combined forms of senile cataract Cornea replaced by transplant [facility] Diagnosis Horseshoe retinal tear of right eye- Primary Horseshoe tear of retina without detachment Posterior vitreous detachment of right eye Vitreous degeneration Vitreous hemorrhage of right eye (HCC) Vitreous hemorrhage History of Descemet membrane endothelial keratoplasty (DMEK) [facility] Diagnosis 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 Other and combined forms of senile cataract 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 Horseshoe tear of retina without detachment 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 [facility] [place] [facility] Diagnosis Horseshoe retinal tear of right eye- Primary Horseshoe tear of retina without detachment Vitreous hemorrhage of right eye (HCC) Vitreous hemorrhage Posterior vitreous detachment of right eye Vitreous degeneration History of Descemet membrane endothelial keratoplasty (DMEK) [facility] [place] [facility]* Diagnosis Anxiety with depression [facility] Diagnosis Anxiety with depression [facility] [place] [facility]* Diagnosis Wellness examination- Primary Vitamin D deficiency Unspecified vitamin D deficiency Mixed hyperlipidemia SOB (shortness of breath) Shortness of breath Special screening examination for viral disease Special screening examination for unspecified viral disease Screening for HIV (human immunodeficiency virus) Special screening examination for other specified viral diseases Screening for prostate cancer Special screening for malignant neoplasm of prostate Shortness of breath Mitral valve disorder Mitral valve disorders Anxiety with depression JOMAR (obstructive sleep apnea) Obstructive sleep apnea (adult) (pediatric) [facility] [place] [facility]* Diagnosis Mixed hyperlipidemia- Primary [facility] [place] [facility]* Diagnosis Dilation of aorta (HCC)- Primary [facility] [place] [facility]* Diagnosis 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 Other and combined forms of senile cataract 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 Horseshoe tear of retina without detachment [facility] [place] [facility] Diagnosis Horseshoe retinal tear of right eye- Primary Horseshoe tear of retina without detachment documented in this encounter [facility] for referral (narrative)* Outpatient Procedure (Routine) - Authorized Specialty Diagnoses / Procedures Referred By Contac t Referred To [facility] Diagnoses Shortness of breath Mitral valve disorder Procedures STRESS ECHO TREADMILL ECHO TTHRC R-T 2D W/WO M-MODE COMPLETE REST&ST Brittani Coates APRN.[employer] [address] [place] [address] [address] Referral ID Status Reason Start Date Expiration Date Visits Requested Visits Authorized [id number] Authorized Auto-Generat ed Referral 01/14/2023 01/14/2024 1 1 * Outpatient Procedure (Routine) - Authorized Specialty Diagnoses / Procedures Referred By Contac t Referred To Contact [facility] Diagnoses Shortness of breath Mitral valve disorder Procedures ECHO ECHO TTHRC R-T 2D W/WOM-MODE COMPL SPEC&COLR D Brittani Coates APRN.[employer] [address] [place] [address] [address] Referral ID Status Reason Start Date Expiration Date Visits Requested Visits Authorized [id number] Authorized Auto-Generat ed Referral 01/14/2023 01/14/2024 1 1 * Outpatient Procedure (Routine) - Closed Specialty Diagnoses / Procedures Referred By Contac t Referred To Contact [facility] Diagnoses SOB (shortness of breath) Procedures ECG COMPLETE ECG ROUTINE ECG W/LEAST 12 LDS W/I&R Brittani Coates APRN.[employer]CHANT [address] [place] [address] [address] Referral ID Status Reason Start Date Expiration Date V isits Requested Visits Authorized [id number] Closed Auto-Generate d Referral 01/14/2023 01/14/2024 1 1 [facility] for referral (narrative)* Outpatient Procedure (Routine) - Pending Review Specialty Diagnoses / Procedures Referred By Contac t Referred To Contact [facility] Diagnoses Dilation of aorta (HCC) Procedures ECHO ECHO TTHRC R-T 2D W/WOM-MODE COMPL SPEC&COLR D Brittani Coates APRN.[employer] RETAIL MERCHANT [address] [place] [address] [facility] [address] [place] [address] Referral ID Status Reason Start Date Expiration Date Visits Requested Visits Authorized [id number] Pending Review Auto-Generat ed Referral 3 01/29/2024 1 1 [facility] Summary Purpose Family History No Family History Records FoundNo Family History Records FoundNo Family History Records Found Advance Directives No Advanced Directives Records FoundDocuments on File Type Date Recorded 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 RodriguezResident/Fellow/Other Inspector Technician: Dr. MartinezEstimated Blood Loss (mL): noneSpecimen: yes. corneal endotheliumComplications: NoneFindings: NonePatient Returned To/Condition: PACU Stable Signature/Cosignature/Attestation:Attending AttestationI was present for the entire procedure Electronic Signatures:Arturo Martinez (Resident)) (Signed 05-Aug-2018 15:05)Authored: Post Operative Note, Signature/Cosignature/AttestationWilfred Rodriguez) (Signed 06-Aug-2018 08:51)Authored: Signature/Cosignature/AttestationCo-Signer: Post Operative Note, Signature/Cosignature/Attestation Last Updated: 06-Aug-2018 08:51 by Wilfred Rodriguez) Medications Administered Section Active Administered Medications - up to 3 most recent administrations Medication Order MAR Action Action Date Dose Rate Site fluorescein-benoxinate 0.25-0.4 % 1 Drop (FLURESS) 1 Drop, BOTH EYES, DIRECTED, Starting on Sat12/04/22 at 0930, Until Sat12/04/22 at 2128, Administer for applanation tonometry. In the event of a Fluress shortage, administer 1 drop of Kim-Fluor into both eyes as directed for applanation tonometry., [facility]IC MED ORDERS Given 12/04/2022 9:30 AM EST 1 Drop PHENYLephrine 2.5 % 1 Drop (AK-DILATE, GEOFF-SYNEPHRINE) 1 Drop, BOTH EYES, DIRECTED, Starting on Sat12/04/22 at 0930, Until Sat12/04/22 at 2128, Administer for dilation PROTECT FROM LIGHT, OPHT CLINIC MED ORDERS Given 12/04/2022 9:30 AM EST 1 Drop tropicamide 1 % 1 Drop (MYDRIACYL) 1 Drop, BOTH EYES, DIRECTED, Starting on Sat12/04/22 at 0930, Until Sat12/04/22 at 2128, Administer for dilation, OPHT CLINIC MED ORDERS Given 12/04/2022 9:30 AM EST 1 Drop Active Administered Medications - up to 3 most recent administrations Medication Order MAR Action Action Date Dose Rate Site PHENYLephrine 2.5 % 1 Drop (AK-DILATE, GEOFF-SYNEPHRINE) 1 Drop, BOTH EYES, DIRECTED, Starting on Sat05/30/23 at 0730, Until Sat05/30/23 at 1928, Administer for dilation PROTECT FROM LIGHT Given 05/30/2023 7:30 AM EDT 1 Drop proparacaine 0.5 % 1 Drop (ALCAINE) 1 Drop, BOTH EYES, DIRECTED, Starting on Sat05/30/23 at 0730, Until Sat05/30/23 at 1928, Administer for pneumo tonometry, tonopen tonometry, or pachymetry. In the event of a proparacaine shortage, administer tetracaine 0.5% ophthalmic drops 1 drop in the left eye as directed for pneumo tonometry, tonopen tonometry, or pachymetry Given 05/30/2023 7:30 AM EDT 1 Drop tropicamide 1 % 1 Drop (MYDRIACYL) 1 Drop, BOTH EYES, DIRECTED, Starting on Sat05/30/23 at 0730, Until Sat05/30/23 at 192, Administer for dilation Given 05/30/2023 7:30 AM EDT 1 Drop Additional Source Comments (unrecognized sect ion and content) No Status Records FoundNo Status Records FoundNo Status Records Found INFORMATION SOURCE (unrecogn ized section and content) DATE CREATED AUTHOR AUTHOR'S ORGANIZ ATION 09/29/2018 [facility] DATE CREATED AUTHOR AUTHOR'S ORGANIZ ATION 08/19/2023 [facility] Source Comments (unrecognize d section and content) In the event this informatio n is protected by the Federal Confidentiality of Alcohol and Drug Abuse Patient Records regulations: The Federal rules restrict any use of the information to criminally investigate or prosecute any alcohol or drug abuse patient.[facility] the event this information is protected by the Federal Confidentiality of Alcohol and Drug Abuse Patient Records regulations: The Federal rules restrict any use of the information to criminally investigate or prosecute any alcohol or drug abuse patient.[facility] the event this information is protected by the Federal Confidentiality of Alcohol and Drug Abuse Patient Records regulations: The Federal rules restrict any use of the information to criminally investigate or prosecute any alcohol or drug abuse patient.[facility] the event this information is protected by the Federal Confidentiality of Alcohol and Drug Abuse Patient Records regulations: The Federal rules restrict any use of the information to criminally investigate or prosecute any alcohol or drug abuse patient.[facility] the event this information is protected by the Federal Confidentiality of Alcohol and Drug Abuse Patient Records regulations: The Federal rules restrict any use of the information to criminally investigate or prosecute any alcohol or drug abuse patient.[facility] the event this information is protected by the Federal Confidentiality of Alcohol and Drug Abuse Patient Records regulations: The Federal rules restrict any use of the information to criminally investigate or prosecute any alcohol or drug abuse patient.[facility] the event this information is protected by the Federal Confidentiality of Alcohol and Drug Abuse Patient Records regulations: The Federal rules restrict any use of the information to criminally investigate or prosecute any alcohol or drug abuse patient.[facility] the event this information is protected by the Federal Confidentiality of Alcohol and Drug Abuse Patient Records regulations: The Federal rules restrict any use of the information to criminally investigate or prosecute any alcohol or drug abuse patient.[facility] the event this information is protected by the Federal Confidentiality of Alcohol and Drug Abuse Patient Records regulations: The Federal rules restrict any use of the information to criminally investigate or prosecute any alcohol or drug abuse patient.[facility] the event this information is protected by the Federal Confidentiality of Alcohol and Drug Abuse Patient Records regulations: The Federal rules restrict any use of the information to criminally investigate or prosecute any alcohol or drug abuse patient.[facility] the event this information is protected by the Federal Confidentiality of Alcohol and Drug Abuse Patient Records regulations: The Federal rules restrict any use of the information to criminally investigate or prosecute any alcohol or drug abuse patient.[facility] the event this information is protected by the Federal Confidentiality of Alcohol and Drug Abuse Patient Records regulations: The Federal rules restrict any use of the information to criminally investigate or prosecute any alcohol or drug abuse patient.[facility] the event this information is protected by the Federal Confidentiality of Alcohol and Drug Abuse Patient Records regulations: The Federal rules restrict any use of the information to criminally investigate or prosecute any alcohol or drug abuse patient.[facility] the event this information is protected by the Federal Confidentiality of Alcohol and Drug Abuse Patient Records regulations: The Federal rules restrict any use of the information to criminally investigate or prosecute any alcohol or drug abuse patient.[facility] the event this information is protected by the Federal Confidentiality of Alcohol and Drug Abuse Patient Records regulations: The Federal rules restrict any use of the information to criminally investigate or prosecute any alcohol or drug abuse patient.[facility] the event this information is protected by the Federal Confidentiality of Alcohol and Drug Abuse Patient Records regulations: The Federal rules restrict any use of the information to criminally investigate or prosecute any alcohol or drug abuse patient.[facility] the event this information is protected by the Federal Confidentiality of Alcohol and Drug Abuse Patient Records regulations: The Federal rules restrict any use of the information to criminally investigate or prosecute any alcohol or drug abuse patient.[facility] the event this information is protected by the Federal Confidentiality of Alcohol and Drug Abuse Patient Records regulations: The Federal rules restrict any use of the information to criminally investigate or prosecute any alcohol or drug abuse patient.[facility] the event this information is protected by the Federal Confidentiality of Alcohol and Drug Abuse Patient Records regulations: The Federal rules restrict any use of the information to criminally investigate or prosecute any alcohol or drug abuse patient.[facility] the event this information is protected by the Federal Confidentiality of Alcohol and Drug Abuse Patient Records regulations: The Federal rules restrict any use of the information to criminally investigate or prosecute any alcohol or drug abuse patient.[facility] the event this information is protected by the Federal Confidentiality of Alcohol and Drug Abuse Patient Records regulations: The Federal rules restrict any use of the information to criminally investigate or prosecute any alcohol or drug abuse patient.[facility] Reason for Visit (unrecogniz ed section and content) Reason Onset Date Comments Refill Request 04/12/2022 Reason Onset Date Comments Refill Request 05/10/2022 Reason Comments Cataract Follow Up Both Eyes Reason Comments Outside OV Notes Reason Comments Horseshoe Tear Follow Up Reason Comments Results Colonoscopy report f rom 2013 Reason Onset Date Comments Refill Request 11/06/2022 Reason Onset Date Comments Refill Request 12/05/2022 Reason Comments Refill Request Reason Comments Physical Reason Comments Results Reason Comments Results Reason Comments request for records Reason Onset Date Comments Refill Request 05/01/2023 Reason Comments Horseshoe Tear Evaluation [facility] Teams (unrecognized sec tion and content) Manager Performance Relationship Specialty Start Date End Date Julio Cesar Perez MD [address] [place] [address] PCP - General Family Practice 09/30/14 Manager Performance Relationship Specialty Start Date End Date Julio Cesar Perez MD [address] [place] [address] PCP - General Family Practice 09/30/14 Manager Performance Relationship Specialty Start Date End Date Julio Cesar Perez MD [address] [place] [address] PCP - General Family Medicine 09/30/14 Manager Performance Relationship Specialty Start Date End Date Julio Cesar Perez MD [address] [place] [address] PCP - General Family Medicine 09/30/14 Manager Performance Relationship Specialty Start Date End Date Julio Cesar Perez MD [address] [place] [address] PCP - General Family Medicine 09/30/14 Manager Performance Relationship Specialty Start Date End Date Julio Cesar Perez MD [address] [place] [address] PCP - General Family Medicine 09/30/14 Manager Performance Relationship Specialty Start Date End Date Julio Cesar Perez MD [address] [place] [address] PCP - General Family Medicine 09/30/14 Manager Performance Relationship Specialty Start Date End Date Julio Cesar Perez MD [address] [place] [address] PCP - General Family Medicine 09/30/14 Manager Performance Relationship Specialty Start Date End Date Julio Cesar Perez MD [address] [place] [address] PCP - General Family Medicine 09/30/14 Manager Performance Relationship Specialty Start Date End Date Julio Cesar Perez MD [address] [place] [address] PCP - General Family Medicine 09/30/14 Manager Performance Relationship Specialty Start Date End Date Julio Cesar Perez MD [address] [facility] [place] [address] PCP - General Family Medicine 09/30/14 Manager Performance Relationship Specialty Start Date End Date Julio Cesar Perez MD [address] [facility] [place] [address] PCP - General Family Medicine 09/30/14 Manager Performance Relationship Specialty Start Date End Date Julio Cesar Perez MD [address] [place] [address] PCP - General Family Medicine 09/30/14 Manager Performance Relationship Specialty Start Date End Date Julio Cesar Perez MD [address] [place] [address] PCP - General Family Medicine 09/30/14 Manager Performance Relationship Specialty Start Date End Date Julio Cesar Perez MD [address] [place] [address] PCP - General Family Medicine 09/30/14 Manager Performance Relationship Specialty Start Date End Date Julio Cesar Perez MD [address] [place] [address] PCP - General Family Medicine 09/30/14 Manager Performance Relationship Specialty Start Date End Date Julio Cesar Perez MD [address] [place] [address] PCP - General Family Medicine 09/30/14 Manager Performance Relationship Specialty Start Date End Date Julio Cesar Perez MD [address] [place] [address] PCP - General Family Medicine 09/30/14 FOR RECORDS PERTAINING TO PATIENTS WHO ARE OR HAVE BEEN ENROLLED IN A CHEMICAL DEPENDENCY/SUBSTANCEABUSE PROGRAM, SOME INFORMATION MAY BE OMITTED. This clinical summary was aggregated from multiple sources. Caution should be exercised in using it in the provision of clinical care. This summary normalizes information from multiple sources, and as a consequence, information in this document may materially change the coding, format and clinical context of patient data. In addition, data may be omitted in some cases. CLINICAL DECISIONS SHOULD BE BASED ON THE PRIMARY CLINICAL RECORDS. [facility] provides no warranty or guarantee of the accuracy or completeness of information in this document.
[2023-12-03 21:15] VITALS: PULSE 57; RESP 17; O2SAT 98
[2023-12-03 21:20] VITALS: BP 147/76; PULSE 62; RESP 18; O2SAT 94
[2023-12-03 21:24] VITALS: BP 138/92; PULSE 66; RESP 17; TEMP 36.2; O2SAT 96
[2023-12-03 22:31] LABS: Reflex Troponin-HS? (from REC) Y
--- NOTE | 2023-12-03 22:36 | EX.ED.DYSGE1 ---
HPI History of Present Illness Chief Complaint: Hypertension Narrative Narrative: 62-year-old male with history of hypertension presenting with high blood pressures. He states that his readings at home are about 160 today on his home cuff. He states 2 weeks following which she would after he walked into the pharmacy he checked his blood pressure and it was 180s. He states he did not give himself a break before he checked his blood pressure cuff and sat down and push the button. Patient states that after going home his blood pressure was still 160. He states he was on the Internet and noted that if his blood pressure had gone up to 180 he should go to the emergency room. Given this he decided to come for evaluation. He is completely asymptomatic of this. Does have a headache, visual complaints, nausea, vomiting. He denies chest pain, palpitations, shortness of breath. He feels otherwise healthy. He is not dizzy or lightheaded. Patient is on the low-dose of ramipril at 2.5 mg daily. This has not been changed recently. PFSH PFSH Home Medications lovastatin 10 mg tablet 10 mg PO QHS 05/01/16 [History Last Taken Unknown] amoxicillin 875 mg-potassium clavulanate 125 mg tablet 875 mg (0.875 x 875-125 mg) PO Q12H #28 tabs 03/24/20 [Rx Last Taken Unknown] fluorometholone 0.1 % eye drops,suspension 1 drp LEFT EYE DAILY 03/24/20 [History Last Taken Unknown] fluticasone propionate 50 mcg/actuation nasal spray,suspension 1 spray NASAL DAILY ##1 03/24/20 [Rx Last Taken Unknown] prednisolone acetate (PF) 1 % eye drops,suspension 5 drp RIGHT EYE DAILY 03/24/20 [History Last Taken Unknown] venlafaxine 150 mg tablet,extended release 24 hr 150 mg PO DAILY 03/24/20 [History Last Taken Unknown] Allergy/AdvReac Type Severity Reaction Status Date / Time No Known Allergies Allergy Verified 12/03/23 19:19 Social History Smoking Status: Never smoker ROS ROS ED Constitutional Constitutional ED: Denies chills, fever(s) or sweats Eyes Eyes: Denies blurry vision or change in vision ENT ENT ED: Denies ear pain or sore throat Cardiovascular Cardiovascular: Denies chest pain, palpitations or racing heartbeat Respiratory/Chest Respiratory/Chest: Denies cough, dyspnea or sputum Gastrointestinal Gastrointestinal: Denies abdominal pain, constipation, diarrhea, nausea or vomiting Genitourinary Genitourinary ED: Denies dysuria, hematuria or urinary frequency Musculoskeletal Musculoskeletal: Denies arthralgias, myalgias or neck pain Integumentary Denies abscess, Abrasions or rash Neurologic Neurologic: Denies headache(s), paresthesias or weakness Psychiatric Psychiatric: Denies anxiety, depression, suicidal ideation or suicidal thoughts Endocrine Endocrinology: Denies polydipsia or polyuria EXAM Physical Exam Const Vital Signs: 12/03/23 19:20 12/03/23 19:23 12/03/23 19:43 Temperature 96.0 F L 96.0 F L Temperature Source Temporal Temporal Pulse Rate 67 69 Respiratory Rate 18 18 Respiratory Effort Normal Non-Labored Respiratory Pattern Normal Blood Pressure 161/100 H 143/94 H Blood Pressure Mean 120 110 Pulse Ox 98 98 Oxygen Delivery Method Room Air Room Air 12/03/23 20:00 12/03/23 21:24 12/03/23 21:15 Temperature 97.1 F L Temperature Source Pulse Rate 66 57 L Respiratory Rate 17 17 Respiratory Effort Respiratory Pattern Blood Pressure 138/92 H Blood Pressure Mean 107 Pulse Ox 96 98 Oxygen Delivery Method Room Air 12/03/23 21:20 Temperature Temperature Source Pulse Rate 62 Respiratory Rate 18 Respiratory Effort Respiratory Pattern Blood Pressure 147/76 H Blood Pressure Mean 99 Pulse Ox 94 Oxygen Delivery Method Positive well nourished General Appearance ED: NAD; Negative for pallor HEENT Reports moist mucous membranes Eyes PERRL and EOMs intact bilaterally Neck no lymphadenopathy Chest Wall inspection of chest normal Resp normal respiratory effort and clear to auscultation bilaterally Auscultation: Negative for rales, rhonchi or wheezes Cardio regular rate and regular rhythm GI normal to inspection, nondistended, normoactive bowel sounds Neuro oriented x3 and CN's II-XII intact bilaterally Motor Exam: strength 5/5 throughout Psych mental status grossly normal Skin no rashes or lesions noted General Skin Exam: Negative for jaundice or pallor MDM MDM MDM Narrative Medical decision making narrative: Patient presenting with asymptomatic hypertension. He had not had a headache or any other neurologic findings. His physical exam is unremarkable. We obtained lab work today to ensure there is no endorgan damage. CBC, BMP, troponin all within normal limits. Vital signs remained stable he is afebrile. Blood pressure is now down to 138/92. He actually had a blood pressure of 98/62 when I was discharging him. This does not appear to be documented. High-sensitivity troponin is 7. EKG on my interpretation shows a sinus rhythm at 60 bpm without sign of ischemic change. Chest x-ray on my interpretation shows no acute process. Radiology interprets this and agrees. At this point we discussed blood pressure and blood pressure diaries he is can to follow-up with his PCP to ensure resolution. Return precautions were discussed. Impression: 1. Elevated blood pressure Lab Data Attestation: I reviewed the patient's lab results. Labs: Laboratory Results - last 24 hr 12/03/23 20:25 WBC 6.1 RBC 4.24 L Hgb 13.1 Hct 40.4 MCV 95.3 H MCH 30.9 MCHC 32.4 RDW Std Deviation 43.3 RDW Coeff of Kirstin 12.5 Plt Count 343 MPV 8.5 Immature Gran % (Auto) 0.300 Neut % (Auto) 49.3 Lymph % (Auto) 37.5 [place] % (Auto) 10.6 H Eos % (Auto) 1.5 Baso % (Auto) 0.8 Absolute Neuts (auto) 3.0 Absolute Lymphs (auto) 2.29 Nucleated RBC % 0 Sodium 143 Potassium 3.7 Chloride 109 H Carbon Dioxide 28.0 Anion Gap 6 BUN 12 Creatinine 0.85 Estim Creat Clear Calc 116.00 Est GFR (MDRD) Af Amer 118 Est GFR (MDRD) Non-Af 97 BUN/Creatinine Ratio 14.1 Glucose 91 Calcium 9.1 Troponin I High Sens 7 Radiography Diagnostic Testing: Clinical Impression(s) from Imaging Studies Chest X-Ray 12/03/23 20:13 IMPRESSION: Normal x-ray examination of the chest. Electronically Signed: Ronnie Lantigua MD at 20:46 EST , Discharge Plan Triage Chief Complaint: Hypertension ED Provider: Carlos Mccallum Dx/Rx/DC Orders Instructions: ED Hypertension, Established Prescriptions: No Action lovastatin 10 MG tablet 10 mg PO QHS fluorometholone 1 DROP bottle 1 drp LEFT EYE DAILY venlafaxine 150 MG tablet extended release 24hr 150 mg PO DAILY prednisolone acetate (PF) 5 ML drops,suspension 5 drp RIGHT EYE DAILY amoxicillin-pot clavulanate 875 MG tablet 875 mg PO Q12H Qty: 28 0RF fluticasone propionate 1 SPRAY spray,suspension 1 spray NASAL DAILY Qty: 1 0RF Primary Care Provider: Refugio Bryson Referrals: Refugio Bryson MD [Primary Care Provider] - Disposition Disposition: Home, Self Care Discharge Date/Time: 12/03/23 21:29
== END 2023-12-03 21:29 | disposition home or self-care (01) ==
PROVIDERS: Emergency Provider Student in an Organized Health Care Education/Training Program; PCP Family Medicine; Visit Provider Student in an Organized Health Care Education/Training Program
DX: I10 Essential (primary) hypertension (principal)
CPT/HCPCS: 71045; 80048; 84484; 85025; 93005; 99283; A4216

== ENCOUNTER 2024-04-22 05:09 | Day surgery (SDC) | payer OTHER, SELFPAY ==
[2024-04-22] VITALS (8 sets, daily range): BP systolic 100–123; BP diastolic 66–73; PULSE 49–62; RESP 14–16; TEMP 35.9–36.7; O2SAT 93–96; BMI 31.2
[2024-04-22] MEDS: Lactated Ringers 1,000 ML 15 ML IV (05:58)
--- NOTE | 2024-04-22 06:29 | PRE.ANES_ITS ---
ASA Classification* ASA Classification ASA Classification: 2 Assessment & Plan Anesthesia* Anesthesia Assessment Anesthesia Assessment: Discussed sedation and/or anesthesia options, risks, benefits, and alternatives with patient/parents/legal guardian/POA. Questions invited. The patient/parents/legal guardian/POA seems to understand and agrees to proceed with anesthesia plan. Reviewed the physical assessment, medical history, allergy history and patient home medications list prior to surgery/procedure/anesthetic and documented any changes. Performed airway and anesthesia risk assessments. Anesthesia Type Anesthesia Type: MAC History Source History Obtained from:: Patient and Chart Anesthesia Focused Assessment* Temperature: 98.1 F Pulse Rate: 62 Blood Pressure: 123/73 Respiratory Rate: 16 Pulse Ox: 96 Airway Assessment Mouth opens: >3 cm Mallampati Score: II Teeth Condition: Intact Neck Range of motion (ROM): Full ROM Focused Labs Anesthesia Preop lab: CBC WBC 6.1 K/mm3 (4.4-11.0) 12/03/23 20:25 RBC 4.24 M/mm3 (4.6-6.2) L 12/03/23 20:25 Hgb 13.1 g/dL (13.0-16.5) 12/03/23 20:25 Hct 40.4 % (40-54) 12/03/23 20:25 Plt Count 343 K/mm3 (150-450) 12/03/23 20:25 CHEMISTRY Potassium 3.7 mmol/L (3.5-5.1) 12/03/23 20:25 Sodium 143 mmol/L (136-145) 12/03/23 20:25 BUN 12 mg/dL (7-18) 12/03/23 20:25 Creatinine 0.85 mg/dL (0.70-1.30) 12/03/23 20:25 Glucose 91 mg/dL (74-106) 12/03/23 20:25 TSH 1.81 uIU/mL (0.358-3.74) 12/04/21 09:45 COAG PT 12.3 SECONDS (11.7-14.9) 12/10/22 10:06 Pre-Assessment Diagnosis/Proposed Procedure Planned Operative Procedure(s): COLONOSCOPY -OPEN ACCESS Anesthesia History 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 When Was Last Pacemaker Check QUESTION #4 FULL TEXT: You/Your Family Experience fever (hyperthermia) with Anesthesia Last Oral Intake Last Oral intake: Last Oral Intake NPO since 02:30 04/22/24 05:58 Meds taken in AM with sips of water? Meds patient instructed to take am of surgery PONV PONV - business test analyst: PONV - business test analyst Female No 04/17/24 08:25 HX of Motion Sickness No 04/17/24 08:25 HX of N/V After Surgery No 04/17/24 08:25 Non-Smoker No 04/17/24 08:25 Duration of Surgery greater No 04/17/24 08:25 than 60 minutes Number of Risk Factors PONV Score Height & Weight Height & Weight: Anesthesia: Height & Weight Height 5 ft 11 in 04/22/24 05:58 Weight: 101.6 kg 04/22/24 05:58 Body Mass Index (BMI) 31.2 04/22/24 05:58 Respiratory Assessment Respiratory Assessment - business test analyst: Respiratory Tract Infection Hx - business test analyst Hx Respiratory Tract Infection No 04/17/24 08:25 STOP Sleep Apnea STOP Sleep Apnea - business test analyst: STOP Sleep Apnea - business test analyst Hx Hypertension Yes 04/17/24 08:25 Hx Sleep Apnea Yes 04/17/24 08:25 CPAP Yes 04/17/24 08:25 BIPAP Yes 04/17/24 08:25 Do you snore loudly (louder than talking or can be heard Do you often feel tired/ fatigued/ sleepy during daytime? Has anyone observed you stop breathing during sleep? STOP Results Positive 04/17/24 08:25 QUESTION #5 FULL TEXT : Do you snore loudly (louder than talking or can be heard through closed doors)? Tobacco Use History Tobacco Use History - business test analyst: Tobacco Use History - business test analyst Tobacco Use Smoking Status Never smoker 04/17/24 08:25 Hx Tobacco Use No 04/17/24 08:25 Years Smoking Packs Smoked per Day Smoking Cessation Date was within the last 15 years Hx Smoking Cessation Date Hx Smoking Cessation Counseling Hematologic Medial History Hematologic Hx - business test analyst: Hematologic Medical Hx - nail polish brush machine feeder Hx of Blood Transfusion No 04/17/24 08:25 Hx of Transfusion in last 3 No 04/17/24 08:25 Months Date of Last Transfusion (if within last 3 months) Ever experience any problems No 04/17/24 08:25 with transfusion(s)? Specify any problems Hx of Preganancy in last 3 N/A 04/17/24 08:25 Months Nurse Filling Out Transfusion SFRANTZ 04/17/24 08:25 & Questions: Date: 04/17/24 04/17/24 08:25 Time: 08:04/17/24 08:25 Patient unable to answer at this time (ie. confused, unrespo /Reproduction History /Reproductive History - business test analyst: /Reproductive Hx- business test analyst Hx Now No 04/17/24 08:25 Gestational Age (in weeks): EDC: Hx Hx Para Hx Section SAB No 04/17/24 08:25 Active Medications Active Medications: Current Medications Generic Name Dose Route Start Last Admin Trade Name Freq PRN Reason Stop Dose Admin Lactated Ringer's 1,000 mls @ 15 mls/hr 04/22/24 05:45 04/22/24 05:58 IV 15 mls/hr .Q48H FINESSE Administration PFSH Medical History Wears glasses Anxiety Depression Alcohol use Arthritis High cholesterol CPAP (continuous positive airway pressure) dependence Sleep apnea History of stress test Cardiology follow-up encounter Hx of echocardiogram HTN (hypertension) MVP (mitral valve prolapse) Home Medications ?Medication ?Instructions ?Recorded ?Last Taken ?Type fluorometholone 0.1 % eye 1 drp LEFT EYE DAILY 03/24/20 04/21/24 History drops,suspension lovastatin 40 mg tablet 40 mg PO DAILY 04/08/24 04/21/24 History nebivolol 5 mg tablet 5 mg PO QPM 04/08/24 04/21/24 History ramipril 5 mg capsule 5 mg PO QPM 04/08/24 04/21/24 History desvenlafaxine succinate 50 mg 50 mg PO QPM 04/17/24 04/21/24 History tablet,extended release 24 hr Allergy/AdvReac Type Severity Reaction Status Date / Time No Known Allergies Allergy Verified 04/22/24 05:38 Surgical History Hx of cornea transplant Hx of vasectomy Hx of colonoscopy Social History (Updated 04/08/24 @ 08:35 by Marti Carlos) household members: spouse current occupational status: employed Smoking Status: Never smoker substance use type: does not use Review of Systems (Anesthesia) ROS Narrative System reviewed and no additional complaints, except as documented.
--- NOTE | 2024-04-22 06:30 | COLBX_PTH ---
PATIENT: ERIC ANNE LOC: EN U#:[id number] AGE/SX: 63/M ROOM: RE04/22/[address]: Dr. Vaughn Bolivar DO : 1960 BED: DIS: 04/22/2024 SPEC #: [id number] RECD: 04/22/24 10:55 STATUS: BRETT TOÑO #: [id number] BURAK: 04/22/24 06:[address]: Vaughn Bolivar DEPT: SURGICAL PATHOLOGY RECD BY: Genie Brown ENTERED: 04/22/24 11:25 SP TYPE: COLON BX OTHR DR: Dr. Ancelmo Perez MD Tissues: Sigmoid colon biopsy Procedures: Surgery Specimen Level IV HEADER OPERATION: Colonoscopy with biopsy PRE-OP DIAGNOSIS: Encounter for screening for malignant neoplasm of colon TISSUE SUBMITTED: Sigmoid polyp MICROSCOPIC DIAGNOSIS Sigmoid polyp, biopsy: Fragments of tubular adenoma. SHAWN/ 04/24/2024 MICROSCOPIC DESCRIPTION Slides are reviewed. GROSS DESCRIPTION Received in fixative is one container labeled with the patient's name and designated Sigmoid polyp. The specimen consists of two irregular fragments of light garza soft tissue that measures 0.5 x 0.3 x 0.1 cm. The specimen is totally submitted in one cassette. SHAWN/ 04/22/2024 TC:1 CPT:77551
--- NOTE | 2024-04-22 06:43 | PCM.HP.STD ---
[facility] - General General Date of Admission: 04/22/24 Date of Service: 04/22/24 Chief Complaint: Screening colonoscopy HPI Narrative ERIC ANNE, is a 63 M who presents today for screening colonoscopy. He had a colonoscopy approximately 10 years ago and that was normal. He has no family history of colon cancer or associated malignancy. He does have past medical history of hypertension, hypercholesterolemia which is controlled with medicines. [facility] Medical History Wears glasses Anxiety Depression Alcohol use Arthritis High cholesterol CPAP (continuous positive airway pressure) dependence Sleep apnea History of stress test Cardiology follow-up encounter Hx of echocardiogram HTN (hypertension) MVP (mitral valve prolapse) Home Medications ?Medication ?Instructions ?Recorded ?Last Taken ?Type fluorometholone 0.1 % eye 1 drp LEFT EYE DAILY 03/24/20 04/21/24 History drops,suspension lovastatin 40 mg tablet 40 mg PO DAILY 04/08/24 04/21/24 History nebivolol 5 mg tablet 5 mg PO QPM 04/08/24 04/21/24 History ramipril 5 mg capsule 5 mg PO QPM 04/08/24 04/21/24 History desvenlafaxine succinate 50 mg 50 mg PO QPM 04/17/24 04/21/24 History tablet,extended release 24 hr Allergy/AdvReac Type Severity Reaction Status Date / Time No Known Allergies Allergy Verified 04/22/24 05:38 Surgical History Hx of cornea transplant Hx of vasectomy Hx of colonoscopy Social History (Updated 04/08/24 @ 08:35 by Marti Carlos) household members: spouse current occupational status: employed Smoking Status: Never smoker substance use type: does not use ROS Review of Systems ROS Unobtainable: other Constitutional Constitutional: Denies fatigue, fever(s), poor appetite, weight gain or weight loss ENT HEENT: Denies mouth lesions Cardiovascular Cardiovascular: Denies abdominal bloating, abdominal edema or abdominal pain Respiratory/Chest Respiratory/Chest: Denies change in mental status, change in phlegm color, chest congestion or chest tightness Gastrointestinal Gastrointestinal: Denies belching, bloating, change in bowel habits, change in stool character, chewing difficulty, coffee ground emesis, constipation, cramping, diarrhea, dyspepsia, dysphagia, early satiety, excessive flatus, fecal incontinence, heartburn, hematemesis, hematochezia, hemorrhoids, loose stools, melena, nausea, odynophagia, rectal bleeding, tenesmus, vomiting or weight changes Genitourinary Genitourinary: Denies abdominal discomfort, burning urination or itching Musculoskeletal Musculoskeletal: Reports as per HPI; Denies muscle weakness or myalgias Integumentary Integumentary: Denies jaundice Neurologic Neurologic: Denies lack of coordination or weakness Psychiatric Psychiatric: Denies confusion, depression, memory loss, mood swings, paranoia or suicidal ideation Endocrine Endocrinology: Denies systems reviewed and no addt'l complaints, except as documented Hematologic/Lymphatic Hematologic/Lymphatic: Denies anemia, easy bleeding, easy bruising or lymphadenopathy Allergic/Immunologic Allergic/Immunologic: Denies systems reviewed and no addt'l complaints, except as documented Vital Signs Vital Signs Vital Signs: 04/22/24 05:58 04/22/24 05:58 04/22/24 06:31 Temperature 98.1 F 98.1 F Temperature Source Temporal Pulse Rate 62 62 Respiratory Rate 16 16 Respiratory Pattern Normal Blood Pressure 123/73 H 123/73 H Blood Pressure Mean 89 Blood Pressure Source Monitor Blood Pressure Position Semi-Fowlers Blood Pressure Location Left Arm Pulse Ox 96 96 Oxygen Delivery Method Room Air Weight Weight: 223 lb 15.834 oz Body Mass Index (BMI) 31.2 Physical Exam Const alert General Appearance: cooperative Orientation / Consciousness: oriented to person HEENT hearing grossly normal bilaterally Head and Scalp: normal to inspection Face and Sinus: face symmetric Nose: external nose normal Mouth: oral and palatal mucosa normal Eyes conjunctivae normal General Eye: normal appearance of both eyes Neck full ROM General: normal visual inspection Lymph Lymphatic: no lymphadenopathy noted Chest inspection of chest normal and palpation of chest normal Chest: symmetrical chest wall rise Resp normal respiratory effort Effort and Inspection: able to speak in complete sentences Cardio regular rate GI non-distended Percussion: normal to percussion Rectal Exam: deferred Neuro Speech: speech normal Gait (Neuro): normal gait Assessment & Plan Assessment/Plan (1) Encounter for screening for malignant neoplasm of colon: PLAN: He was explained alternatives, risk, benefits including not withstanding bleeding, infection, sepsis, perforation, need for emergent urgent . He will `have an ASA of 3.
--- NOTE | 2024-04-22 07:05 | PCM.POST.ANE ---
Anesthesia: Postop Eval I Current Vital Signs Temperature: 97 F Pulse Rate: 60 Blood Pressure: 100/67 Respiratory Rate: 14 Pulse Ox: 95 Oxygen Delivery Method: Room Air Assessment Airway patent: Yes Spontaneous unlabored respirations: Yes Mental status: Asleep nausea: No Vomiting: No Anesthesia Complication: No Fluid Hydration Crystalloid volume administer (ml): 600 Total IV fluid infused: 600 Progress Note Anesthesia document: Postop Eval 1 completed: Yes
--- NOTE | 2024-04-22 07:07 | OP.COLON_ITS ---
Patient Name: Faisal Roman Procedure Date: 04/22/2024 6:26 AM Date of : 1960 Age: 63 Procedure: Colonoscopy Indications: Screening for colorectal malignant neoplasm Providers: Vaughn Bolivar DO Referring MD: Ancelmo Perez Medicines: Monitored Anesthesia Care Patient Profile: This is a 63 year old male. Refer to note in patient chart for documentation of history and physical. Last Colonoscopy: date unknown. Unable to locate last colonoscopy report. Complications: No immediate complications. Procedure: Pre-Anesthesia Assessment: - Prior to the procedure, a History and Physical was performed, and patient medications and allergies were reviewed. The patient is competent. The risks and benefits of the procedure and the sedation options and risks were discussed with the patient. All questions were answered and informed consent was obtained. Patient identification and proposed procedure were verified by the physician in the pre-procedure area. Mental Status Examination: alert and oriented. Airway Examination: normal oropharyngeal airway and neck mobility. Respiratory Examination: clear to auscultation. CV Examination: normal. Prophylactic Antibiotics: The patient does not require prophylactic antibiotics. Prior Anticoagulants: The patient has taken no anticoagulant or antiplatelet agents. ASA Grade Assessment: II - A patient with mild systemic disease. After reviewing the risks and benefits, the patient was deemed in satisfactory condition to undergo the procedure. The anesthesia plan was to use monitored anesthesia care (MAC). Immediately prior to administration of medications, the patient was re-assessed for adequacy to receive sedatives. The heart rate, respiratory rate, oxygen saturations, blood pressure, adequacy of pulmonary ventilation, and response to care were monitored throughout the procedure. The physical status of the patient was re-assessed after the procedure. After I obtained informed consent, the scope was passed under direct vision. Throughout the procedure, the patient's blood pressure, pulse, and oxygen saturations were monitored continuously. The Colonoscope was introduced through the anus and advanced to the cecum, identified by appendiceal orifice and ileocecal valve. The colonoscopy was performed with ease. The patient tolerated the procedure well. The quality of the bowel preparation was adequate. The ileocecal valve, appendiceal orifice, and rectum were photographed. Scope In: 6:49:43 AM Scope Withdrawal Time 0 hours 8 minutes 27 seconds Scope Out: 7:00:49 AM Total Procedure Duration Time 0 hours 11 minutes 6 seconds Findings: The perianal and digital rectal examinations were normal. A 5 mm polyp was found in the sigmoid colon. The polyp was sessile. The polyp was removed with a cold biopsy forceps. Resection and retrieval were complete. Verification of patient identification for the specimen was done. Estimated blood loss was minimal. Multiple small and large-mouthed diverticula were found in the recto-sigmoid colon, sigmoid colon and descending colon. The exam was otherwise without abnormality on direct and retroflexion views. Impression: - One 5 mm polyp in the sigmoid colon, removed with a cold biopsy forceps. Resected and retrieved. - Diverticulosis in the recto-sigmoid colon, in the sigmoid colon and in the descending colon. - The examination was otherwise normal on direct and retroflexion views. Recommendation: - Discharge patient to home. - Resume previous diet. - Continue present medications. - Await pathology results. - Repeat colonoscopy in 5 years for surveillance. Procedure Code(s): --- Professional --- 68395, Colonoscopy, flexible; with biopsy, single or multiple CPT copyright 2021 [employer]. All rights reserved. The codes documented in this report are preliminary and upon customer experience leader review may be revised to meet current compliance requirements. Vaughn Bolivar DO 04/22/2024 7:06:50 AM This report has been signed electronically. Number of Addenda: 0 Note Initiated On: 04/22/2024 6:26 AM
--- NOTE | 2024-04-22 07:08 | OP.CCLET_ITS ---
04/22/2024 Ancelmo Perez Re : Colonoscopy procedure for Faisal Roman Dear Ana This procedure was performed on Monday, April 22, 2024. My impressions and recommendations are as follows: Impressions : - One 5 mm polyp in the sigmoid colon, removed with a cold biopsy forceps. Resected and retrieved. - Diverticulosis in the recto-sigmoid colon, in the sigmoid colon and in the descending colon. - The examination was otherwise normal on direct and retroflexion views. Recommendations : - Discharge patient to home. - Resume previous diet. - Continue present medications. - Await pathology results. - Repeat colonoscopy in 5 years for surveillance. My findings are described in the full procedure note, which is enclosed. If I can be of further assistance, please feel free to contact me at . Sincerely, Vaughn Bolivar, 04/22/2024 7:06:50 AM This report has been signed electronically.
--- NOTE | 2024-04-22 07:27 | PCM.POSTANE2 ---
Anesthesia Postop Eval I Sum Postop Eval Completion status Anesthesia document: Postop Eval 1 completed: Yes Anesthesia Postop Eval I Summary Anesthesia Postop Eval I Summary: Anesthesia Postop Eval I: Assessment Summary Airway patent Yes 04/22/24 07:09 [email or web address] Spontaneous unlabored Yes 04/22/24 07:09 [email or web address] respirations Mental status Asleep 04/22/24 07:09 [email or web address] nausea No 04/22/24 07:09 [email or web address] Vomiting No 04/22/24 07:09 [email or web address] Anesthesia Postop Eval I: Fluid Summary Crystalloid volume administer 600 04/22/24 07:09 [email or web address] (ml) Colloids volume administered ( ml) Blood Product volume administered (ml) Total IV fluid infused 600 04/22/24 07:09 [email or web address] Anesthesia Postop Eval I: Summary Notes Anesthesia Complication No 04/22/24 07:09 [email or web address] Anesthesia Complication Comment: Post-operative progress note Anesthesia: Postop Eval II Evaluation Mental status: Awake Pain Level: 0 nausea: No Vomiting: No
== END 2024-04-22 07:48 | disposition home or self-care (01) ==
LOC: EN 05:10 → AC 05:20
PROVIDERS: PCP Family Medicine; Referring Provider Family Medicine; Visit Provider Internal Medicine Gastroenterology
PROC: 0DJD8ZZ Inspection of Lower Intestinal Tract, Via Natural or Artificial Opening Endoscopic (ICD-10-PCS; CPT 45378; principal; 2024-04-22 06:25)
DX: Z12.11 Encounter for screening for malignant neoplasm of colon (principal); K57.30 Diverticulosis of large intestine without perforation or abscess without bleeding; I10 Essential (primary) hypertension; E78.00 Pure hypercholesterolemia, unspecified; Z79.899 Other long term (current) drug therapy; D12.5 Benign neoplasm of sigmoid colon
CPT/HCPCS: 45380; 88305; J7120; J2405

== ENCOUNTER → 2024-07-03 | Outpatient (CLI) | payer OTHER, SELFPAY ==
[2024-07-03 15:26] LABS: Absolute Lymphocyte Count 1.92 X10^3/uL (0.83-4.51); Absolute Neutrophil Count 2.6 X10^3/uL (2.0-7.7); Basophil# 0.03 X10^3/uL; Basophil% 0.6 % (0-1); Eosinophil# 0.04 X10^3/uL; Eosinophils% 0.8 % (0-5); Hematocrit 43.6 % (40-54); Hemoglobin 13.9 g/dL (13.0-16.5); Lymphocyte # 1.92 X10^3/ul (0.83-4.51); Lymphocyte % 37.7 % (19-41); Mean Corp Hgb Conc 31.9 g/dL (32-36); Mean Corpuscular Hgb 30.8 pg (27.0-32.0); Mean Corpuscular Volume 96.7 fL (80-94); Mean Platelet Vol. 9.2 fl (6.2-12.0); Monocyte# 0.47 X10^3/uL; Monocyte% 9.2 % (0-10); NRBC Flagged by Analyzer 0 % (0-5); Neutrophil # 2.61 X10^3/uL (2.7-7.7); Neutrophil % 51.3 % (47-70); Platelet Count 356 K/mm3 (150-450); RBC Distribution Width CV 12.4 % (11.6-14.6); RBC Distribution Width SD 44.3 fl (35.1-43.9); Red Blood Count 4.51 M/mm3 (4.6-6.2); White Blood Count 5.1 K/mm3 (4.4-11.0)
[2024-07-03 16:16] LABS: Hemoglobin A1c 5.8 % (3.8-5.6)
[2024-07-03 16:27] LABS: AST(SGOT) 17 U/L (15-37); Alanine Aminotransfer ALT/SGPT 21 U/L (16-61); Albumin, Serum 3.5 g/dL (3.2-5.0); Alkaline Phosphatase 69 U/L (45-117); Anion Gap 7 (5-15); BUN 12 mg/dL (7-18); BUN/Creat Ratio 12.4 RATIO (10-20); Calcium,Total 9.7 mg/dL (8.5-10.1); Chloride 107 mmol/L (98-107); Creatinine, Serum 0.96 mg/dL (0.70-1.30); EST Glomerular Filtration Rate 84 mL/min (>60); Est Glom Filt Rate - Afr Amer 102 mL/min (>60); Globulin 3.6 g/dL (2.2-4.2); Glucose 85 mg/dL (74-106); Potassium 4.1 mmol/L (3.5-5.1); Protein, Total 7.1 g/dL (6.4-8.2); Sodium Level 140 mmol/L (136-145)
[2024-07-06 15:07] LABS: PROEL- A/G Ratio 1.2 (0.7-1.7); PROEL- Albumin 3.6 g/dL (2.9-4.4); PROEL- Alpha-1 Globulin 0.2 g/dL (0.0-0.4); PROEL- Alpha-2 Globulin 0.7 g/dL (0.4-1.0); PROEL- Beta Globulin 1.1 g/dL (0.7-1.3); PROEL- TOTAL PROTEIN 6.6 g/dL (6.0-8.5); PROEL-M-Spike Not Observed g/dL (Not Observed)
== END | disposition home or self-care (01) ==
LOC: MFPLAB 11:13
PROVIDERS: PCP Family Medicine; Visit Provider Family Medicine
DX: R42 Dizziness and giddiness (principal)
CPT/HCPCS: 36415; 80053; 83036; 84165; 84443; 85025

== ENCOUNTER → 2024-11-25 | Outpatient (CLI) | payer OTHER, SELFPAY ==
[2024-11-25 10:54] LABS: Anion Gap 5 (5-15); BUN 16 mg/dL (7-18); BUN/Creat Ratio 15.7 RATIO (10-20); Calcium,Total 9.4 mg/dL (8.5-10.1); Chloride 105 mmol/L (98-107); Creatinine, Serum 1.02 mg/dL (0.70-1.30); EST Glomerular Filtration Rate 79 mL/min (>60); Est Glom Filt Rate - Afr Amer 95 mL/min (>60); Glucose 95 mg/dL (74-106); PSA,Total - Annual Screen 3.27 ng/mL (0.00-4.00); Sodium Level 139 mmol/L (136-145)
== END | disposition home or self-care (01) ==
LOC: MFPLAB 08:19
PROVIDERS: PCP Family Medicine; Referring Provider Nurse Practitioner Family; Visit Provider Nurse Practitioner Family
DX: Z13.1 Encounter for screening for diabetes mellitus (principal); Z12.5 Encounter for screening for malignant neoplasm of prostate
CPT/HCPCS: 36415; 80048; 84153; G0103

== ENCOUNTER → 2025-01-21 | Outpatient (CLI) | payer OTHER, SELFPAY ==
[2025-01-21 18:06] LABS: Absolute Lymphocyte Count 2.55 X10^3/uL (0.83-4.51); Absolute Neutrophil Count 3.8 X10^3/uL (2.0-7.7); Basophil# 0.06 X10^3/uL; Basophil% 0.8 % (0-1); Eosinophil# 0.06 X10^3/uL; Eosinophils% 0.8 % (0-5); Hematocrit 43.9 % (40-54); Hemoglobin 14.7 g/dL (13.0-16.5); Lymphocyte # 2.55 X10^3/ul (0.83-4.51); Lymphocyte % 35.8 % (19-41); Mean Corp Hgb Conc 33.5 g/dL (32-36); Mean Corpuscular Hgb 30.2 pg (27.0-32.0); Mean Corpuscular Volume 90.1 fL (80-94); Mean Platelet Vol. 9.1 fl (6.2-12.0); Monocyte# 0.61 X10^3/uL; Monocyte% 8.6 % (0-10); NRBC Flagged by Analyzer 0 % (0-5); Neutrophil # 3.81 X10^3/uL (2.7-7.7); Neutrophil % 53.6 % (47-70); Platelet Count 372 K/mm3 (150-450); RBC Distribution Width CV 12.4 % (11.6-14.6); RBC Distribution Width SD 40.7 fl (35.1-43.9); Red Blood Count 4.87 M/mm3 (4.6-6.2); White Blood Count 7.1 K/mm3 (4.4-11.0)
[2025-01-21 18:50] LABS: ALB/GLOB Ratio 1.3 RATIO (0.9-2.4); AST(SGOT) 19 U/L (<=37); Alanine Aminotransfer ALT/SGPT 18 U/L (<=46); Albumin, Serum 4.3 g/dL (3.4-4.8); Alkaline Phosphatase 77 U/L (40-129); Anion Gap 13 (5-15); BUN 16 mg/dL (4-19); BUN/Creat Ratio 15.4 RATIO (10-20); Calcium,Total 9.6 mg/dL (7.6-11.0); Carbon Dioxide 23.5 mmol/L (21.0-32.0); Chloride 102 mmol/L (98-108); Creatinine, Serum 1.06 mg/dL (0.70-1.20); EST Glomerular Filtration Rate 79 (>60); Globulin 3.2 g/dL (2.2-4.2); Glucose 87 mg/dL (70-99); Potassium 4.2 mmol/L (3.3-5.1); Protein, Total 7.4 g/dL (5.9-8.4); Sodium Level 138 mmol/L (133-145); Total Bilirubin 0.28 mg/dL (0.00-1.30); Vitamin D,25 Hydroxy 32.7 ng/mL (30-100)
[2025-01-21 19:43] LABS: Erythrocyte Sedimentation Rate 20 mm/hr (0-20)
[2025-01-25 11:08] LABS: Anti-Centromere B Ab <0.2 AI (0.0-0.9); Anti-Chromatin <0.2 AI (0.0-0.9); Anti-Jo <0.2 AI (0.0-0.9); Anti-Nuclear Antibody Test Negative (.); Anti-Scleroderma-70 AB <0.2 AI (0.0-0.9); Anti-dsDNA Ab <1 IU/mL (0-9); RNP Ab 1.8 AI (0.0-0.9); SJOGREN'S Anti-SS-A test < 0.2 AI (0.0-0.9); SJOGREN'S Anti-SS-B test < 0.2 AI (0.0-0.9); Smith Ab <0.2 AI (0.0-0.9)
== END | disposition home or self-care (01) ==
LOC: MFPLAB 16:19
PROVIDERS: PCP Family Medicine; Referring Provider Family Medicine; Visit Provider Family Medicine
DX: M06.4 Inflammatory polyarthropathy (principal)
CPT/HCPCS: 36415; 80053; 81374; 82306; 85025; 85652; 86038; 86225; 86235

== ENCOUNTER → 2025-02-11 | Outpatient (CLI) | payer OTHER, SELFPAY | END | disposition home or self-care (01) | LOC: MFPLAB 11:34 | PROVIDERS: PCP Family Medicine; Referring Provider Family Medicine; Visit Provider Family Medicine | DX: T78.40XS Allergy, unspecified, sequela (principal) | CPT/HCPCS: 36415; 82785; 86003; 86005 ==

== ENCOUNTER → 2025-02-12 | Outpatient (CLI) | payer OTHER, SELFPAY ==
--- NOTE | 2025-02-12 07:47 | CT_ITS ---
PROCEDURE: SPINE LUMBAR WITHOUT CONTRAST 02/12/2025 REASON FOR EXAM: CONCERN THAT SPONDYLOSIS IS NOW CAUSING LIGAMENT HYPERTROPHY. BI TECHNIQUE: Lumbar spine CT without contrast. Coronal and Sagittal reconstruction series were provided. One or more dose reduction techniques were used (e.g., Automated exposure control, adjustment of the mA and/or kV according to patient size, use of iterative reconstruction technique COMPARISON: None. RADIATION DOSE SUMMARY: CTDlvol: 20.85 mGy DLP: 689.36 mGycm FINDINGS: Vertebrae: Normal lumbar vertebral body heights with mild multilevel endplate osteophytosis. No evidence of fracture. Alignment: Grade 1/2 anterior listhesis of L5 on S1 due to spondylolysis of the pars interarticularis of the L5 vertebrae. L1-2: Disc space is relatively well-maintained. No significant stenosis seen. L2-3: Disc space is relatively well-maintained. No evidence of spinal stenosis. Facet joint hypertrophy in keeping with a mild bilateral neural foraminal stenosis. L3-4: Disc space is relatively well-maintained. There is evidence of bilateral neural foraminal stenosis due to hypertrophy of the facet joints. L4-5: Mild degree of disc space narrowing. Facet joint hypertrophy and mild bilateral neural foraminal stenosis. L5-S1: Marked degree of disc space narrowing with spondylosis. Grade 1/2 anterior listhesis of L5 on S1. Spondylolysis of the pars interarticularis of the L5 vertebrae. Sacrum: Unremarkable Scattered aortic plaques. CT/Spine Lumbar without Contrast IMPRESSION: LUMBAR DEGENERATIVE DISC AND FACET DISEASE. Grade 1/2 anterior listhesis of L5 on S1 due to spondylolysis of the pars inter articularis of the L5 vertebrae. Reading Location: [facility]
== END | disposition home or self-care (01) ==
PROVIDERS: PCP Family Medicine; Referring Provider Family Medicine; Visit Provider Family Medicine
DX: M79.604 Pain in right leg (principal)
CPT/HCPCS: 72131

== ENCOUNTER 2025-04-04 14:03 | Emergency (ER) | payer OTHER, SELFPAY ==
[2025-04-04 14:03] VITALS: BP 158/86; PULSE 91; RESP 19; TEMP 36.7; O2SAT 99; BMI 31.2
--- OUTSIDE RECORDS SUMMARY | 2025-04-04 14:26 | XMS RPT_ITS | CCD ---
Author Organization [facility] Care Team Providers Care Compliance Specialist Name Role Phone Jose Juan, Ailyn Donte Unavailable Unavailable Ivory Rodriguez Unavailable Unavailabl e Ancelmo Arnold Unavailable Unavailable Rodriguez, Ailyn Donte Unavailable Unavailable Rodriguez, Ailyn Donte Unavailable Unavailable Ancelmo Arnold Unavailable Unavailable Rodriguez, Ailyn Donte Unavailable Unavailable Rodriguez, Ailyn Donte Unavailable Unavailable Ancelmo Arnold Unavailable Unavailable Ancelmo Arnold Unavailable Unavailable Rodriguez, Ailyn Donte Unavailable Unavailable Ancelmo Arnold Unavailable Unavailable Ancelmo Arnold Unavailable Unavailable Rodriguez, Ailyn Donte Unavailable Unavailable Rodriguez, Ailyn Donte Unavailable Unavailable Ancelmo Arnold Unavailable Unavailable Ancelmo Arnold MD Primary Care Provider Ancelmo Arnold MD Primary Care Provider Ancelmo Arnold MD Primary Care Provider Ancelmo Arnold MD Primary Care Provider Aminata [employer]OBDULIO Brittani Unavailable Suppan [employer].CREDIT UNION EXAMINER, Janneth A Unavailable [phone] Suppan [employer].CREDIT UNION EXAMINER, Janneth A Unavailable Dr. Refugio Bryson MD Primary Care Provider Raquel REHEATER HELPER-CShavon Attending Provider Raquel REHEATER HELPER-CShavon Referring Provider Dr. Refugio Bryson MD Attending Provider Dr. Refugio Bryson MD Referring Provider [phone] ANCELMO ARNOLD Primary Care Unavailable RON GRIFFITH Attending Unavailable RON GRIFFITH Referring Unavailable GLADIS, GENE A Attending Unavailable ANCELMO ARNOLD Primary Care Unavailable GLADIS, GENE A Referring Unavailable GLADIS, GENE A Attending Unavailable CLAYTON, ANCELMO Pereyra Primary Care Unavailable IVORY RODRIGUEZ Referring Unavailable CLAYTON, ANCELMO J Primary Care Unavailable RODRIGUEZ, IVORY Taveras Attending Unavailable CLAYTON, ANCELMO J Primary Care Unavailable GLADIS, GENE A Attending Unavailable JEAN MARIE, JANNETH A Attending Unavailable CLAYTON, ANCELMO Pereyra Primary Care Unavailable SUPPAN, JANNETH A Referring Unavailable CLAYTON, ANCELMO Pereyra Primary Care Unavailable SUPPAN, JANNETH A Referring Unavailable CLAYTON, ANCELMO J Primary Care Unavailable SUPPAN, JANNETH A Referring Unavailable CLAYTON, ANCELMO J Primary Care Unavailable CLAYTON, ANCELMO Pereyra Primary Care Unavailable RODRIGUEZ, IVORY Taveras Attending Unavailable CLAYTON, ANCELMO Pereyra Primary Care Unavailable GLADIS, GENE A Attending Unavailable GLADIS, GENE A Referring Unavailable CLAYTON, ANCELMO Pereyra Primary Care Unavailable GLADIS, GENE A Attending Unavailable GLADIS, GENE A Referring Unavailable Bryson, Refugio Attending Unavailable Bryson, Refugio Referring Unavailable Bryson, Refugio Primary Care Unavailable Vaughn Bolivar Attending Unavailable Clayton, Ancelmo Primary Care Unavailable Timberon, Ancelmo Referring Unavailable Marti Carlos Attending Unavailable Bryson, Refugio Primary Care Unavailable FriendVaughn Consulting Unavailable FriendVaughn Attending Unavailable Clayton, Ancelmo Primary Care Unavailable Timberon, Ancelmo Referring Unavailable Bryson, Refugio Attending Unavailable Bryson, Refugio Primary Care Unavailable Raquel REHEATER HELPER, Shavon Referring Unavailable Bryson, Refugio Primary Care Unavailable Raquel REHEATER HELPER, Shavon Attending Unavailable Bryson, Refugio Attending Unavailable Bryson, Refugio Referring Unavailable Bryson, Refugio Primary Care Unavailable Bryson, Refugio Attending Unavailable Bryson, Refugio Referring Unavailable Bryson, Refugio Primary Care Unavailable Allergies Allergy Classification Reported Allergen(s) Allergy Type Date of Onset Reaction(s) Facility (20 sources) environmental [Other] Propensity to adverse reactions [facility] Work Phone: Medications Current Medications Medication Drug Class(es) Dates Sig (Normalized) Sig (Original) benoxinate hydrochloride 4 mg/ml / fluorescein sodium 2.5 mg/ml ophthalmic solution (3 sources) Diagnostic Dye Start: 12-04-2022 End: 12-04-2022 fluorescein-benoxi cheryl 0.25-0.4 % 1 Drop (FLURESS) Start: 10-02-2022 End: 10-02-2022 fluorescein-benoxinate 0.25- 0.4 % 1 Drop (FLURESS) Start: 05-21-2022 End: 05-22-2022 fluorescein-benoxinate 0.25- 0.4 % 1 Drop (FLURESS) carboxymethyl/gly/poly80/PF (REFRESH OPTIVE SANTANA-3, PF, OPHTHALMIC) (20 sources) carboxymethyl/gl y/poly80/PF (REFRESH OPTIVE SANTANA-3, PF, OPHTHALMIC) Use 1-2 Drops in both eyes once daily. Active carboxymethyl/gl y/poly80/PF (REFRESH OPTIVE SANTANA-3, PF, OPHTHALMIC) Use 1-2 Drops in both eyes once daily. 0 Active Comment on above: Use 1-2 Drops in bot h eyes once daily. cholecalciferol 0.025 mg oral capsule (20 sources) Vitamin D Start: VITAMIN D 25 mcg (1,000 unit) cap Take 1,000 Units by mouth once daily. 10/08/2022 Active Comment on above: Take 1,000 Units by mouth once daily. ciprofloxacin 500 mg oral tablet (1 source) Quinolone Antimicrobial Start: 024 End: take 1 tablet by mouth twice daily ciprofloxacin HCl (CIPRO) 500 mg tablet Indications: Elevated PSA Take 1 tablet by mouth two times a day for 10 days. 20 tablet 0 03/20/2024 03/30/2024 Active 24 hr desvenlafaxine succinate 50 mg extended release oral tablet (20 sources) Serotonin and Norepinephrine Reuptake Inhibitor Start: 023 End: take 1 tablet by mouth once daily in the evening Desvenlafaxine Succinate 50 mg tablet extended release 24 hr Active 50 mg PO EVERY EVENING April 17, 2024 12:00am Start: 01-08-2023 End: 01-14-2023 take 1 tablet by mouth once daily desvenlafaxine ER (PRISTIQ) 50 mg 24 hr tablet Indications: Anxiety with depression Take 1 tablet by mouth once daily. 90 tablet 1 01/14/2023 Active Start: 06-26-2021 End: 12-05-2022 take 1 tablet by mouth once daily desvenlafaxine ER (PRISTIQ) 50 mg 24 hr tablet Indications: Anxiety with depression Take 1 tablet by mouth once daily. 30 tablet 5 06/26/2021 01/28/2022 Discontinued Comment on above: Take 1 tablet by milagros once daily. fluorometholone 1 mg/ml ophthalmic suspension (20 sources) Corticosteroid Start: 08-26-2024 fluorometholone (FML LIQUID FILM) 0.1 % ophthalmic suspension Use 1 Drop in both eyes once daily. 5 mL 12 08/26/2024 Active Start: 04-17-2022 End: 10-01-2022 fluorometholone (FML LIQUID FILM) 0.1 % ophthalmic suspension Use 1 Drop in both eyes once daily. 10 mL 1 04/17/2022 10/01/2022 Discontinued Start: 12-22-2021 End: 04-12-2022 fluorometholone (FML LIQUID FILM) 0.1 % ophthalmic suspension Use 1 Drop in both eyes once daily. 10 mL 1 12/22/2021 04/12/2022 Discontinued Start: 03-24-2020 take 1 drop(s) into the eye(s) once daily Fluorometholone 1 DROP bottle Active 1 NMA LEFT EYE DAILY March 24, 2020 12:00am Start: 03-24-2020 End: 09-27-2021 fluorometholone (FML LIQUID FILM) 0.1 % ophthalmic suspension Use 1 Drop in both eyes once daily. 1 Bottle 5 08/16/2020 09/27/2021 Discontinued Comment on above: Use 1 Drop in both e yes once daily. nebivolol 5 mg oral tablet (8 sources) Start: 04-08-2024 take 1 tablet by mouth once daily in the evening Nebivolol 5 mg tablet Active 5 mg PO EVERY EVENING April 08, 2024 12:00am perflutren lipid microspheres 1.3 mL in NaCl (PF) 0.9% 10 mL injection (DEFINITY) (20 sources) Start: 01-29-2023 End: 04-29-2024 perflutren lipid microspheres 1.3 mL in NaCl (PF) 0.9% 10 mL injection (DEFINITY) Start: 01-14-2023 End: 04-14-2024 perflutren lipid microsphere s 1.3 mL in NaCl (PF) 0.9% 10 mL injection (DEFINITY) phenylephrine hydrochloride 25 mg/ml ophthalmic solution (8 sources) alpha-1 Adrenergic Agonist Start: 11-30-2024 End: 12-01-2024 PHENYLephrine 2.5 % 1 Drop (AK-DILATE, BRENT-SYNEPHRINE) Start: 05-27-2024 End: 05-27-2024 PHENYLephrine 2.5 % 1 Drop ( AK-DILATE, BRENT-SYNEPHRINE) Start: 12-18-2023 End: 12-19-2023 PHENYLephrine 2.5 % 1 Drop ( AK-DILATE, BRENT-SYNEPHRINE) Start: 05-30-2023 End: 05-30-2023 PHENYLephrine 2.5 % 1 Drop ( AK-DILATE, BRENT-SYNEPHRINE) Start: 12-04-2022 End: 12-04-2022 PHENYLephrine 2.5 % 1 Drop ( AK-DILATE, BRENT-SYNEPHRINE) Start: 10-02-2022 End: 10-02-2022 PHENYLephrine 2.5 % 1 Drop ( AK-DILATE, BRENT-SYNEPHRINE) Start: 05-21-2022 End: 05-22-2022 PHENYLephrine 2.5 % 1 Drop ( AK-DILATE, BRENT-SYNEPHRINE) prednisoLONE (5 sources) Corticosteroid Start: 03-24-2020 Prednisolone A cetate (Pf) Active 5 DRP RIGHT EYE DAILY March 23, 2020 11:00pm proparacaine hydrochloride 5 mg/ml ophthalmic solution (8 sources) Local Anesthetic Start: 11-30-2024 End: 12-01-2024 proparacaine 0.5 % 1 Drop (ALCAINE) Start: 05-27-2024 End: 05-27-2024 proparacaine 0.5 % 1 Drop (A LCAINE) Start: 12-18-2023 End: 12-19-2023 proparacaine 0.5 % 1 Drop (A LCAINE) Start: 05-30-2023 End: 05-30-2023 proparacaine 0.5 % 1 Drop (A LCAINE) Start: 12-04-2022 End: 12-04-2022 proparacaine 0.5 % 1 Drop (A LCAINE) Start: 10-02-2022 End: 10-02-2022 proparacaine 0.5 % 1 Drop (A LCAINE) Start: 05-21-2022 End: 05-22-2022 proparacaine 0.5 % 1 Drop (A LCAINE) ramipril 5 mg oral capsule (20 sources) Angiotensin Converting Enzyme Inhibitor Start: 02-14-2024 take 1 capsule by mouth once daily in the evening Ramipril 5 mg capsule Active 5 mg PO EVERY EVENING April 08, 2024 12:00am Start: 11-15-2023 ramipril (RACHNA CE) 2.5 mg capsule 11/15/2023 Active Start: 01-10-2023 ramipril (RACHNA CE) 1.25 mg capsule 01/10/2023 Active salsalate 750 mg oral tablet (6 sources) Start: 02-17-2024 take 1 tablet by mouth every twelve hours salsalate (DISALCID) 750 mg tablet Take 1 tablet by mouth every 12 hours. 02/17/2024 Active 125 ml sodium chloride 9 mg/ml prefilled syringe (20 sources) Start: 01-14-2023 End: 04-29-2024 sodium chloride 0.9 % (flush) 10 mL (BD POSIFLUSH) triamcinolone acetonide 0.001 mg/mg oral paste (1 source) Corticosteroid Start: 12-06-2023 End: 12-13-2023 triamcinolone (KENALOG IN ORABASE) 0.1 % paste Indications: Tongue sore 1 application by DENTAL route two times a day for 7 days. 5 g 0 12/06/2023 12/13/2023 Active Comment on above: 1 application by DEN RAYNE route two times a day for 7 days. tropicamide 10 mg/ml ophthalmic solution (8 sources) Anticholinergic Start: 11-30-2024 End: 12-01-2024 tropicamide 1 % 1 Drop (MYDRIACYL) Start: 05-27-2024 End: 05-27-2024 tropicamide 1 % 1 Drop (MYDR IACYL) Start: 12-18-2023 End: 12-19-2023 tropicamide 1 % 1 Drop (MYDR IACYL) Start: 05-30-2023 End: 05-30-2023 tropicamide 1 % 1 Drop (MYDR IACYL) Start: 12-04-2022 End: 12-04-2022 tropicamide 1 % 1 Drop (MYDR IACYL) Start: 10-02-2022 End: 10-02-2022 tropicamide 1 % 1 Drop (MYDR IACYL) Start: 05-21-2022 End: 05-22-2022 tropicamide 1 % 1 Drop (MYDR IACYL) Completed/Discontinued Medications Medication Drug Class(es) Dates Sig (Normalized) Sig (Original) amoxicillin 875 mg / clavulanate 125 mg oral tablet (7 sources) Penicillin-class Antibacterial Start: 03-24-2020 End: 04-17-2024 take 1 tablet by mouth every twelve hours Amoxicillin-Pot Clavulanate 875 MG tablet Discontinued 875 mg PO Q12H March 24, 2020 12:00am April 17, 2024 8:21am ergocalciferol 1.25 mg oral capsule (14 sources) Provitamin D2 Compound Start: 03-08-2021 End: 01-14-2023 take 1 capsule by mouth every week ergocalciferol 50,000 unit capsule (VITAMIN D2, DRISDOL) Indications: Vitamin D deficiency Take 1 capsule by mouth one time a week. 12 capsule 3 03/08/2021 01/14/2023 Discontinued (Other) Comment on above: Take 1 capsule by [facility] one time a week. fluticasone propionate 0.05 mg/actuat metered dose nasal spray (7 sources) Corticosteroid Start: 03-24-2020 End: 04-17-2024 Fluticasone Propionate 1 SPRAY spray,suspension Discontinued 1 NMA NASAL DAILY March 24, 2020 12:00am April 17, 2024 8:21am Start: 03-24-2020 Fluticasone Pr opionate Active 1 SPRAY NASAL DAILY March 23, 2020 11:00pm loteprednol etabonate 10 mg/ml ophthalmic suspension (20 sources) End: 11-30-2024 take 1 drop(s) into the eye(s) once daily loteprednol etabonate (INVELTYS) 1 % Use 1 Drop in eyes once daily. Both eyes 11/30/2024 Discontinued (Clinical Decision) Comment on above: Use 1 Drop in eyes o nce daily. Both eyes lovastatin 10 mg oral tablet (20 sources) HMG-CoA Reductase Inhibitor Start: 04-08-2024 End: 04-08-2024 take 4 tablets by mouth at bedtime Lovastatin 10 mg tablet Discontinued 40 mg PO AT BEDTIME April 08, 2024 8:35am April 08, 2024 8:38am Start: 03-20-2024 End: 03-20-2025 take 1 tablet by mouth once daily Lovastatin 40 mg tab let Active 40 mg PO DAILY April 08, 2024 12:00am Start: 11-01-2023 End: 03-19-2025 take 1 tablet by mouth once daily at bedtime for hyperlipidemia lovastatin (MEVACOR) 20 mg tablet Take 1 tablet by mouth daily at bedtime. For cholesterol. 30 tablet 0 03/17/2024 03/19/2024 Discontinued Start: 03-06-2023 take 1 tablet by milagros th once daily at bedtime for hyperlipidemia lovastatin (MEVACOR) 20 mg tablet Take 1 tablet by mouth daily at bedtime. For cholesterol. 90 tablet 1 03/06/2023 Active Start: 01-15-2023 take 1 tablet by milagros th once daily at bedtime for hyperlipidemia lovastatin (MEVACOR) 20 mg tablet Take 1 tablet by mouth daily at bedtime. For cholesterol. 90 tablet 1 01/15/2023 Active Start: 04-14-2021 End: 01-15-2023 lovastatin (MEVACOR) 10 mg tablet Lovastatin Active 10 MG AT BEDTIME 90 tablet 3 01/14/2023 01/15/2023 Discontinued Start: 05-01-2016 End: 04-08-2024 take 1 tablet by mouth at bedtime Lovastatin 10 MG tab let Discontinued 10 mg PO AT BEDTIME May 01, 2016 12:00am April 08, 2024 8:38am Comment on above: Lovastatin Active 10 MG AT BEDTIME May 01, 2016 3:06am Lovastatin Active 10 MG AT BEDTIME Take 1 tablet by milagros th daily at bedtime. For cholesterol. meloxicam 15 mg oral tablet (14 sources) Nonsteroidal Anti-inflammatory Drug Start: 021 End: 023 take 1 tablet by mouth once daily at mealtime meloxicam (MOBIC) 15 mg tablet Indications: Polyarthralgia Take 1 tablet by mouth once daily. Take with food. 30 tablet 2 07/27/2021 01/14/2023 Discontinued (Other) Comment on above: Take 1 tablet by milagros th once daily. Take with food. Prednisolone Acetate (Pf) 5 ML drops,suspension (2 sources) Start: End: Prednisolone Acetate (Pf) 5 ML drops,suspension Discontinued 5 NMA RIGHT EYE DAILY March 24, 2020 12:00am April 08, 2024 8:36am quinapril 5 mg oral tablet (4 sources) Angiotensin Converting Enzyme Inhibitor Start: End: take 1 tablet by mouth once daily quinapril (ACCUPRIL) 5 mg tablet Take 5 mg by mouth once daily. 0 10/08/2022 01/14/2023 Discontinued (Other) Comment on above: Take 5 mg by mouth o nce daily. venlafaxine 50 mg oral tablet (9 sources) Serotonin and Norepinephrine Reuptake Inhibitor Start: End: take 1 tablet by mouth once daily Venlafaxine 50 mg tablet Discontinued 50 mg PO DAILY April 08, 2024 12:00am April 17, 2024 8:22am Start: 03-24-2020 End: 04-08-2024 take 1 tablet by mouth once daily Venlafaxine 150 MG tablet extended release 24hr Discontinued 150 mg PO DAILY March 24, 2020 12:00am April 08, 2024 8:36am Problems Active Problems Problem Classification Problem Date Documented Da te Episodic/Chronic Adjustment disorders (20 sources) Adjustment disorder with depressed mood; Translations: [Adjustment disorder with depressed mood] Onset: 02-13-2011 02-13-2011 Chronic Anxiety disorders (20 sources) Anxiety disorder, unspecified; Translations: [Mixed anxiety and depressive disorder] Onset: 07-12-2006 Chronic Aortic; peripheral; and visceral artery aneurysms (20 sources) Dilatation of aorta; Translations: [Aortic ectasia, unspecified site] Onset: 01-29-2023 Chronic Attention-deficit, conduct, and disruptive behavior disorders (1 source) Attention-deficit hyperactivity disorder, predominantly inattentive type; Translations: [ADHD, predominantly inattentive type] Onset: 09-25-2024 Chronic Cardiac and circulatory congenital anomalies (1 source) Disorder of thoracic aorta; 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] 04-06-2024 Chronic Cataract (20 sources) Bilateral age-related nuclear cataracts; Translations: [Age-related nuclear cataract, bilateral] Onset: 09-19-2019 09-19-2019 Chronic Coronary atherosclerosis and other heart disease (1 source) Calcification of coronary artery; Translations: [Atherosclerotic heart disease of [place] coronary artery without angina pectoris] 04-06-2024 Chronic Diseases of mouth; excluding dental (1 source) Glossodynia; Translations: [Glossodynia] 12-06-2023 Episodic Disorders of lipid metabolism (20 sources) Hyperlipidemia, unspecified; Translations: [Hyperlipidemia] Onset: 06-01-2011 06-01-2011 Chronic Essential hypertension (2 sources) Essential hypertension; Translations: [Essential (primary) hypertension] 05-27-2024 Chronic Immunizations and screening for infectious disease (3 sources) Viral screening status; Translations: [Encounter for screening for other viral diseases] Episodic Mood disorders (20 sources) Depressive disorder; Translations: [Depression] Onset: 06-01-2011 06-01-2011 Chronic Mood disorders (2 sources) Major depressive disorder, single episode, unspecified; Translations: [Mood disorders] Onset: 06-01-2011 Neoplasms of unspecified nature or uncertain behavior (1 source) Thrombocytosis; Translations: [Thrombocytosis] Onset: 04-10-2024 Chronic Nutritional deficiencies (1 source) Vitamin D deficiency; Translations: [Vitamin D deficiency, unspecified] Chronic Other circulatory disease (2 sources) Disorder of artery; Translations: [Disorder of arteries and arterioles, unspecified] 03-19-2024 Chronic Other circulatory disease (1 source) Disorder of arteries and arterioles, unspecified; Translations: [Disorder of artery or arteriole (HCC)] Onset: 03-19-2024 Chronic Other circulatory disease (1 source) Elevated blood-pressure reading without diagnosis of hypertension; Translations: [Elevated blood-pressure reading, without diagnosis of hypertension] 03-19-2024 Episodic Other connective tissue disease (1 source) Pain in right hand; Translations: [Pain in right hand] 08-09-2021 Episodic Other connective tissue disease (1 source) Pain in right leg; Translations: [Pain in right leg] Onset: 02-17-2025 Episodic Other eye disorders (20 sources) Bullous keratopathy, [...] Onset: 03-14-2021 03-14-2021 Chronic Other eye disorders (4 sources) Endothelial corneal dystrophy; 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] Onset: 08-05-2018 Episodic Other eye disorders (20 sources) Fuchs' corneal dystrophy; Translations: [Fuchs' corneal dystrophy of both eyes] Onset: 06-16-2018 05-24-2021 Episodic Other injuries and conditions due to external causes (1 source) Allergy, unspecified, sequela; Translations: [Allergy, unspecified, sequela] Onset: 02-16-2025 Episodic Other lower respiratory disease (2 sources) Dyspnea; Translations: [Shortness of breath] Episodic Other lower respiratory disease (1 source) Multiple nodules of lung; Translations: [Other nonspecific abnormal finding of lung field] 04-06-2024 Episodic Other non-traumatic joint disorders (1 source) Pain in elbow; Translations: [Pain in left elbow] 08-09-2021 Episodic Other screening for suspected conditions (not mental disorders or infectious disease) (10 sources) Patient encounter status; Translations: [Encounter for screening for malignant neoplasm of prostate] Onset: 03-19-2024 Episodic Other upper respiratory disease (20 sources) Seasonal allergy; Translations: [Other seasonal allergic rhinitis] 06-01-2011 Chronic Other upper respiratory infections (7 sources) Sinusitis; Translations: [Chronic sinusitis, unspecified] 03-25-2020 Chronic Residual codes; unclassified (20 sources) Obstructive sleep apnea syndrome; Translations: [Obstructive sleep apnea (adult) (pediatric)] Onset: 01-14-2023 Chronic Residual codes; unclassified (1 source) History of repair of tear of retina by laser photocoagulation; Translations: [Other specified postprocedural states] 11-30-2024 Episodic Rheumatoid arthritis and related disease (1 source) Inflammatory polyarthropathy; Translations: [Inflammatory polyarthropathy] Onset: 01-27-2025 Chronic Systemic lupus erythematosus and connective tissue disorders (1 source) Disorder of connective tissue; Translations: [Systemic involvement of connective tissue, unspecified] Chronic Past or Other Problems Problem Classification Problem Date Documented Da te Episodic/Chronic Blindness and vision defects (20 sources) Bilateral hyperopia of eyes; Translations: [Hypermetropia, bilateral] Onset: 11-13-2016 10-09-2018 Episodic Conditions associated with dizziness or vertigo (1 source) Dizziness and giddiness; Translations: [Dizziness and giddiness] Onset: 07-25-2024 Episodic Heart valve disorders (16 sources) Mitral valve disorder; Translations: [Rheumatic mitral valve disease, unspecified] Onset: 01-02-2007 Resolved: 10-05-2019 Chronic Other circulatory disease (1 source) Elevated blood-pressure reading, without diagnosis of hypertension; Translations: [Elevated blood pressure reading without diagnosis of hypertension] Onset: 03-19-2024 Episodic Other eye disorders (20 sources) Corneal guttata; Translations: [Cornea guttata] Onset: 11-13-2016 11-13-2016 Episodic Other eye disorders (20 sources) Corneal endothelial dystrophy; 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] Onset: 08-28-2018 08-28-2018 Episodic Other eye disorders (20 sources) Corneal epithelial defect; Translations: [Unspecified corneal membrane change] Onset: 09-07-2019 09-07-2019 Episodic Retinal detachments; defects; vascular occlusion; and retinopathy (20 sources) Retinal U tear; Translations: [Horseshoe tear of retina without detachment, right eye] Onset: 03-14-2021 10-03-2021 Episodic Sprains and strains (20 sources) Neck sprain; Translations: [Sprain of joints and ligaments of unspecified parts of neck, initial encounter] Onset: 07-12-2006 Resolved: 05-30-2016 05-30-2016 Episodic Results Test Name Value Interpretation Reference Range Facility Allergen Resp. Area 5on 05-0 ALTERNARIA TEN <0.10 Normal Class 0 [facility] Comment on above: Performed By: #### L 5500.0550, [id number] ####[facility] [address] [place], [address] JESSICA, WHITE <0.10 Normal Class 0 [facility] Comment on above: Performed By: #### L 5500.0550, [id number] ####[facility] [address] [place], [address] ASPERGILLUS FUM <0.10 Normal Class 0 [facility] Comment on above: Performed By: #### L [id number], [id number] ####[facility] [address] [place], [address] BERMUDA GRASS <0.10 Normal Class 0 [facility] Comment on above: Performed By: #### L [id number], [id number] ####[facility] [address] [place], [address] BIRCH <0.10 Normal Class 0 [facility] Comment on above: Performed By: #### L [id number], [id number] ####[facility] [address] [place], [address] BLACK WALNUT <0.10 Normal Class 0 [facility] Comment on above: Performed By: #### L [id number], [id number] ####[facility] [address] [place], [address] CAT HAIR/DANDER <0.10 Normal Class 0 [facility] Comment on above: Performed By: #### L [id number], [id number] ####[facility] [address] [place], [address] CLADOSPOR HERB <0.10 Normal Class 0 [facility] Comment on above: Performed By: #### L [id number], [id number] ####[facility] [address] [place], [address] COCKROACH,AMER <0.10 Normal Class 0 [facility] Comment on above: Performed By: #### L 5500.0550, [id number] ####[facility] [address] [place], [address] COTTONWOOD <0.10 Normal Class 0 [facility] Comment on above: Performed By: #### L 5500.0550, [id number] ####[facility] [address] [place], [address] D FARINAE MITE <0.10 Normal Class 0 [facility] Comment on above: Performed By: #### L 5500.0550, L5500.0700 ####[facility] [address] [place], [address] D PTERONYSSINUS <0.10 Normal Class 0 [facility] Comment on above: Performed By: #### L 5500.0550, L5500.0700 ####[facility] [address] [place], [address] DOG EPITHELIA <0.10 Normal Class 0 [facility] Comment on above: Performed By: #### L 5500.0550, L5500.0700 ####[facility] [address] [place], [address] ELM,AMER WHITE <0.10 Normal Class 0 [facility] Comment on above: Performed By: #### L 5500.0550, L5500.0700 ####[facility] [address] [place], [address] IMMUNOGLOB E 4 IU/mL Low 6-495 [facility] Comment on above: Performed By: #### L 5500.0550, L5500.0700 ####[facility] [address] [place], [address] MAPLE/BOX ELDER <0.10 Normal Class 0 [facility] Comment on above: Performed By: #### L 5500.0550, L5500.0700 ####[facility] [address] [place], [address] MOUNTAIN CEDAR <0.10 Normal Class 0 [facility] Comment on above: Performed By: #### L 5500.0550, L5500.0700 ####[facility] [address] [place], [address] Mouse Urine <0.10 Normal Class 0 [facility] Comment on above: Performed By: #### L 5500.0550, L5500.0700 ####[facility] [address] [place], [address] MULBERRY,WHITE <0.10 Normal Class 0 [facility] Comment on above: Performed By: #### L 5500.0550, L5500.0700 ####[facility] [address] [place], [address] OAK, WHITE <0.10 Normal Class 0 [facility] Comment on above: Performed By: #### L 5500.0550, L5500.0700 ####[facility] [address] [place], [address] PECAN <0.10 Normal Class 0 [facility] Comment on above: Performed By: #### L 5500.0550, L5500.0700 ####[facility] [address] [place], [address] PEN NOTATUM <0.10 Normal Class 0 [facility] Comment on above: Performed By: #### L 5500.0550, L5500.0700 ####[facility] [address] [place], [address] PIGWEED, ROUGH <0.10 Normal Class 0 [facility] Comment on above: Performed By: #### L 5500.0550, L5500.0700 ####[facility] [address] [place], [address] RAGWEED SH/COM <0.10 Normal Class 0 [facility] Comment on above: Performed By: #### L 5500.0550, L5500.0700 ####[facility] [address] [place], [address] VINCENTIAN THISTLE <0.10 Normal Class 0 [facility] Comment on above: Performed By: #### L 5500.0550, L5500.0700 ####[facility] [address] [place], [address] SHEEP SORREL <0.10 Normal Class 0 [facility] Comment on above: Performed By: #### L 5500.0550, L5500.0700 ####[facility] [address] [place], [address] SYCAMORE, AMER <0.10 Normal Class 0 [facility] Comment on above: Performed By: #### L 5500.0550, L5500.0700 ####[facility] [address] [place], [address] RUBINA GRASS <0.10 Normal Class 0 [facility] Comment on above: Performed By: #### L 5500.0550, L5500.0700 ####[facility] [address] [place], [address] L5500.0550on 02-18-2025 BEEF <0.10 Normal Class 0 [facility] Comment on above: Performed By: #### L 5500.0550, L5500.0700 ####[facility] [address] [place], [address] CHOCOLATE <0.10 Normal Class 0 [facility] Comment on above: Performed By: #### L 5500.0550, L5500.0700 ####[facility] [address] [place], [address] CODFISH <0.10 Normal Class 0 [facility] Comment on above: Performed By: #### L 5500.0550, L5500.0700 ####[facility] [address] [place], [place], [address] COMMENT Comment Normal . [facility] Comment on above: Result Comment: Naun russell of Specific IgE Class Description of Class ----- < 0.10 0 Negative 0.10 - 0.31 0/I Equivocal/Low 0.32 - 0.55 I Low 0.56 - 1.40 II Moderate 1.41 - 3.90 III High 3.91 - 19.00 IV Very High 19.01 - 100.00 V Very High >100.00 Very High Performed By: #### L 5500.0550, L5500.0700 ####[facility] [address] [place], [place], [address] CORN <0.10 Normal Class 0 [facility] Comment on above: Performed By: #### L 5500.0550, L5500.0700 ####[facility] [address] [place], [place], [address] EGG, WHOLE <0.10 Normal Class 0 [facility] Comment on above: Result Comment: Perf ormed at: [address] [id number] Boxing Trainer: Linette Jamil MD, Phone: [phone] Performed By: #### L 5500.0550, L5500.0700 ####[facility] [address] [place], [address] MILK (COW) <0.10 Normal Class 0 [facility] Comment on above: Performed By: #### L 5500.0550, L5500.0700 ####[facility] [address] [place], [address] MUSSELS <0.10 Normal Class 0 [facility] Comment on above: Performed By: #### L 5500.0550, L5500.0700 ####[facility] [address] [place], [address] PEANUT <0.10 Normal Class 0 [facility] Comment on above: Performed By: #### L 5500.0550, L5500.0700 ####[facility] [address] [place], [address] PORK <0.10 Normal Class 0 [facility] Comment on above: Performed By: #### L 5500.0550, L5500.0700 ####[facility] [address] [place], [address] SALMON <0.10 Normal Class 0 [facility] Comment on above: Performed By: #### L 5500.0550, L5500.0700 ####[facility] [address] [place], [address] SHRIMP <0.10 Normal Class 0 [facility] Comment on above: Performed By: #### L 5500.0550, L5500.0700 ####[facility] [address] [place], [address] SOYBEAN <0.10 Normal Class 0 [facility] Comment on above: Performed By: #### L 5500.0550, L5500.0700 ####[facility] [address] [place], [address] TUNA <0.10 Normal Class 0 [facility] Comment on above: Performed By: #### L 5500.0550, L5500.0700 ####[facility] [address] [place], [address] WHEAT <0.10 Normal Class 0 [facility] Comment on above: Performed By: #### L 5500.0550, L5500.0700 ####[facility] [address] [place], [address] Spine Lumbar without Contras ton 02-12-2025 Spine Lumbar without Contrast [facility] [address] [place], [place] [address] Spine Lumbar without Contrast MR#: [id number] Acct: [id number] Name: ERIC ANNE Rep #: [id number] : 1960 M 64 From: Ap henderson MD PCP: Dr. Refugio Bryson MD Status: REG CLI Study: Spine Lumbar without Contrast Date of Exam: Exam# [id number] Ordering Dr: Refugio Bryson MD PROCEDURE: SPINE LUMBAR WITHOUT CONTRAST 02/12/2025 REASON FOR EXAM: CONCERN THAT SPONDYLOSIS IS NOW CAUSING LIGAMENT HYPERTROPHY. BI TECHNIQUE: Lumbar spine CT without contrast. Coronal and Sagittal reconstruction series were provided. One or more dose reduction techniques were used (e.g., Automated exposure control, adjustment of the mA and/or kV according to patient size, use of iterative reconstruction technique COMPARISON: None. RADIATION DOSE SUMMARY: CTDlvol: 20.85 mGy DLP: 689.36 mGycm FINDINGS: Vertebrae: Normal lumbar vertebral body heights with mild multilevel endplate osteophytosis. No evidence of fracture. Alignment: Grade 1/2 anterior listhesis of L5 on S1 due to spondylolysis of the pars interarticularis of the L5 vertebrae. L1-2: Disc space is relatively well-maintained. No significant stenosis seen. L2-3: Disc space is relatively well-maintained. No evidence of spinal stenosis. Facet joint hypertrophy in keeping with a mild bilateral neural foraminal stenosis. L3-4: Disc space is relatively well-maintained. There is evidence of bilateral neural foraminal stenosis due to hypertrophy of the facet joints. L4-5: Mild degree of disc space narrowing. Facet joint hypertrophy and mild bilateral neural foraminal stenosis. L5-S1: Marked degree of disc space narrowing with spondylosis. Grade 1/2 anterior listhesis of L5 on S1. Spondylolysis of the pars interarticularis of the L5 vertebrae. Sacrum: Unremarkable Scattered aortic plaques. CT/Spine Lumbar without Contrast IMPRESSION: LUMBAR DEGENERATIVE DISC AND FACET DISEASE. Grade 1/2 anterior listhesis of L5 on S1 due to spondylolysis of the pars interarticularis of the L5 vertebrae. Reading Location: [place] [address] CC: Dr. Refugio Bryson MD Ophthalmology Technician: Signed [facility] CNOVon 02-08-2025 CNOV Office Visit (PSYLWM ) -------- ERIC ANNE ([id number]) 1960 M Date Time Provider Department 02/08/25 10:00 AM RON GRIFFITH PSYLWM During your visit today, we recorded the following information about you: Ron Griffith, PhD 02/08/2025 12:05 PM Signed [facility] Behavioral Health Department Progress Note Eric Anne 02/08/2025 [id number] PROVIDER: Ron Griffith, PhD CPT Code: Time: 50 minutes Setting: Patient seen in person Parties Present: Patient Treatment Modality/Interventions: Cognitive Behavioral Reassurance/Supportive Insight oriented Problem solving Processing of emotions Psychoeducation MENTAL STATUS: Mood: variable, dysthymic, anxious Affect: mood-congruent Thoughts/Associations:go al directed Suicidal/Homicidal Ideation: None expressed or evidenced Other Prominent Symptoms: Therapy Focus/Content of Session: Self-care, Stress management, Mood/affect regulation, and Self-esteem MOOD: stable but his normal up and down w depression... often easily self demeaning ADHD NEW: he has been investigating the book ... Your Brain Is Not Broken and checks off most of the boxes We discussed how as a child ... 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 fluorometholone (FML LIQUID FILM) 0.1 % ophthalmic suspension Use 1 Drop in both eyes once daily. nebivolol (BYSTOLIC) 5 mg tablet Take 1 tablet by mouth every afternoon. salsalate (DISALCID) 750 mg tablet Take 1 tablet by mouth every 12 hours. ramipril (ALTACE) 5 mg capsule Take 5 mg by mouth every afternoon. lovastatin 40 mg tablet Take 1 tablet by mouth daily at bedtime. ramipril (ALTACE) 2.5 mg capsule ramipril (ALTACE) 1.25 mg capsule VITAMIN D 25 mcg (1,000 unit) cap Take 1,000 Units by mouth once daily. carboxymethyl/gly/poly80 /PF (REFRESH OPTIVE SANTANA-3, PF, OPHTHALMIC) Use 1-2 Drops in both eyes once daily. No current facility-administered medications for this visit. Psychiatric Medication Issues: see med record DIAGNOSIS: [place] I: anxiety SHANA ADHD Depression Dysthymia Self Esteem [place] II: deferred [place] III: see med record [place] IV: stress and quality of life [place] V: 48-60 TREATMENT PROGRESS/ASSESSMENT: Progressing satisfactorily. TREATMENT PLAN/GOALS: Continue in therapy focusing on self-care, stress management, affect management, anxiety management, and self-esteem. 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 - fluorometholone (FML LIQUID FILM) 0.1 % ophthalmic suspension Use 1 Drop in both eyes once daily. - nebivolol (BYSTOLIC) 5 mg tablet Take 1 tablet by mouth every afternoon. - salsalate (DISALCID) 750 mg tablet Take 1 tablet by mouth every 12 hours. - ramipril (ALTACE) 5 mg capsule Take 5 mg by mouth every afternoon. - lovastatin 40 mg tablet Take 1 tablet by mouth daily at bedtime. - ramipril (ALTACE) 2.5 mg capsule - ramipril (ALTACE) 1.25 mg capsule - VITAMIN D 25 mcg (1,000 unit) cap Take 1,000 Units by mouth once daily. - carboxymethyl/gly/poly80 /PF (REFRESH OPTIVE SANTANA-3, PF, OPHTHALMIC) Use 1-2 Drops in both eyes once daily. Problem List As Of Date 02/08/2025 Noted Resolved Anxiety state [F41.1] 07/12/2006 Sprain of neck [S13.9XXA] 07/12/2006 05/30/2016 Mitral valve prolapse [I34.1] 01/02/2007 10/05/2019 Rotator cuff (capsule) sprain 06/15/2009 01/12/2014 Adjustment disorder with depressed mood [F43.21]02/13/2011 Seasonal allergies [J30.2] Hyperlipidemia [E78.5] 06/01/2011 Depression [F32.A] 06/01/2011 Dysthymia [F34.1] 07/04/2016 Hyperopia of both eyes with astigmatism and pre*11/13/2016 Astigmatism, regular [H52.229 (more content not included)... Normal [facility] HLA B27on 02-01-2025 HLA B27 Negative Normal . [facility] Comment on above: Result Comment: HLA- B*27 Negative B27 allele interpretation for all loci based on IMGT/HLA database version 3.58 This test was developed and its performance characteristics determined by [facility]. It has not been cleared or approved by the Food and Drug Administration. The FDA has determined that such clearance or approval is not necessary. [facility] CLIA ID Number [id number] This test was performed using Polymerase Chain Reaction (PCR) and Sequence Specific Oligonucleotide Probes (SSOP) technique. Sequence Based Typing (SBT) may be used as a supplemental method when necessary. If you have questions, please call HLA customer service at or email at [email or web address]. Performed at: 2Q - [facility] [address] [facility], [place], [place] [id number] Boxing Trainer: Bonny CERVANTES, Phone: [phone] Performed By: #### L 101.9900, L100.0100, L3100.7950, L500.4050, L3410.1400, L506.1001, L3100.5440 ####[facility] [address] [place], [place], [id number] MADAN Comprehensive Panelon MADAN TABLE Comment Normal . [facility] Comment on above: Result Comment: Auto antibody Disease Association Condition Frequency --------- Antinuclear Antibody, SLE, mixed connective Direct (MADAN-D) tissue diseases --------- dsDNA SLE 40 - 60% --------- Chromatin Drug induced SLE 90% SLE 48 - 97% --------- SSA (Ro) SLE 25 - 35% Sjogren's Syndrome 40 - 70% Lupus 100% --------- SSB (La) SLE 10% Sjogren's Syndrome 30% --------- Sm (anti-Bryson) SLE 15 - 30% --------- LITIGATION ATTORNEY ASSOCIATE Mixed Connective Tissue Disease 95% (U1 nRNP, SLE 30 - 50% anti-ribonucleoprotein) Polymyositis and/or Dermatomyositis 20% --------- Scl-70 (antiDNA Scleroderma (diffuse) 20 - 35% topoisomerase) Crest 13% --------- Cierra-1 Polymyositis and/or Dermatomyositis 20 - 40% --------- Centromere B Scleroderma - Crest variant 80% AMENDED REPORT 01/25/25 1108 COMMENT previously reported as: Test not performed Performed By: #### L 101.9900, L100.0100, L3100.7950, L500.4050, L3410.1400, L506.1001, L3100.5440 #### [facility] Laboratory [address] [place], [address] ANTI-CENT B AB <0.2 Normal 0.0-0.9 [facility] Comment on above: Result Comment: AMENDED REPORT 01/25/251107 ANTI-CENT B previously reported as: Test not performed Performed By: #### L 101.9900, L100.0100, L3100.7950, L500.4050, L3410.1400, L506.1001, L3100.5440 #### [facility] [address] [place], [address] ANTI-DNA (DS)AB <1 Normal 0-9 [facility] Comment on above: Result Comment: Nega tive <5 Equivocal 5 - 9 Positive >9 AMENDED REPORT 01/25/251107 dsDNA AB previously reported as: Test not performed Performed By: #### L 101.9900, L100.0100, L3100.7950, L500.4050, L3410.1400, L506.1001, L3100.5440 #### [facility] [address] [place], [address] ANTI-CIERRA-1 <0.2 Normal 0.0-0.9 [facility] Comment on above: Result Comment: AMENDED REPORT 01/25/251107 ANTI-CIERRA previously reported as: Test not performed Performed By: #### L 101.9900, L100.0100, L3100.7950, L500.4050, L3410.1400, L506.1001, L3100.5440 #### [facility] [address] [place], [address] ANTI-SS-A < 0.2 Normal 0.0-0.9 [facility] Comment on above: Result Comment: AMENDED REPORT 01/25/251107 Anti-SS-A previously reported as: Test not performed Performed By: #### L 101.9900, L100.0100, L3100.7950, L500.4050, L3410.1400, L506.1001, L3100.5440 #### [facility] [address] [place], [address] ANTI-SS-B < 0.2 Normal 0.0-0.9 [facility] Comment on above: Result Comment: AMENDED REPORT 01/25/251107 Anti-SS-B previously reported as: Test not performed Performed By: #### L 101.9900, L100.0100, L3100.7950, L500.4050, L3410.1400, L506.1001, L3100.5440 #### [facility] [address] [place], [address] ANTICHROMATIN <0.2 Normal 0.0-0.9 [facility] Comment on above: Result Comment: AMENDED REPORT 01/25/251107 ANTICHROMATIN previously reported as: Test not performed Performed By: #### L 101.9900, L100.0100, L3100.7950, L500.4050, L3410.1400, L506.1001, L3100.5440 #### [facility] [address] [place], [address] ANTISCLERODERM <0.2 Normal 0.0-0.9 [facility] Comment on above: Result Comment: AMENDED REPORT 01/25/251107 ANTISCLER previously reported as: Test not performed Performed By: #### L 101.9900, L100.0100, L3100.7950, L500.4050, L3410.1400, L506.1001, L3100.5440 #### [facility] [address] [place], [address] LITIGATION ATTORNEY ASSOCIATE Ab 1.8 AI Abnormal 0.0-0.9 [facility] Comment on above: Result Comment: AMENDED REPORT 04/07/25 1108 LITIGATION ATTORNEY ASSOCIATE Ab previously reported as: Test not performed Performed By: #### L 101.9900, L100.0100, L3100.7950, L500.4050, L3410.1400, L506.1001, L3100.5440 #### [facility] [address] [place], [place], [address] BRYSON Ab <0.2 Normal 0.0-0.9 [facility] Comment on above: Result Comment: AMENDED REPORT 01/25/251107 BRYSON Ab previously reported as: Test not performed Performed By: #### L 101.9900, L100.0100, L3100.7950, L500.4050, L3410.1400, L506.1001, L3100.5440 #### [facility] Laboratory [address] [place], [address] Antinuclear Antibody, IFAon 01-25-2025 MADAN, IFA Negative Normal . [facility] Comment on above: Result Comment: Nega tive <1:80 Borderline 1:80 Positive >1:80 ICAP nomenclature: AC-0 For more information about Hep-2 cell patterns use ANApatterns.org, the official website for the International Consensus on Antinuclear Antibody (MADAN) Patterns (ICAP). Performed at: [address] [id number] Boxing Trainer: Phill Mathew PhD, Phone: [phone] Performed By: #### L 101.9900, L100.0100, L3100.7950, L500.4050, L3410.1400, L506.1001, L3100.5440 ####[facility] [address] [place], [address] Absolute neutrophil countOrd ered By: Refugio Bryson on 01-21-2025 Neutrophils (Bld) [#/Vol] 3.8 10*3/uL 2.0-7.7 [facility] Anion gap in Serum or Plasma Ordered By: Refugio Bryson on 01-21-2025 Anion gap [Moles/Vol] 13 mmol/L 5-15 [facility] Antinuclear antibody (MADAN) a ssayOrdered By: Refugio Bryson on 01-21-2025 Anti-Nuclear Antibody Screen Negative . [facility] Comment on above: Negative <1:80 Borde rline 1:80 Positive >1:80ICAP nomenclature: AC-0For more information about Hep-2 cell patterns useTUCSON HEART HOSPITALpaSafePath Medicalerns.org, the official website for theInternational Consensus on Antinuclear Antibody (MADAN)Patterns (ICAP).Performed at: - [facility] [id number] Director: Phill Mathew PhD, Phone: [phone] BUN/creatinine ratioOrdered By: Refugio Bryson on 01-21-2025 Urea nitrogen/Creatinine [Mass ratio] 15.4 mg/mg 10- [facility] Basophil percentageOrdered B y: Refugio Bryson on 01-21-2025 Basophils/100 WBC (Bld) 0.8 % 0-1 [facility] Bilirubin, totalOrdered By: Refugio Bryson on 01-21-2025 Bilirubin [Mass/Vol] 0.28 mg/dL 0.00-1.30 [facility] CBC W/Diff, Automatedon Absolute Lymph 2.55 X10 3/uL Normal 0.83-4.51 [facility] Comment on above: Performed By: #### L 101.9900, L100.0100, L3100.7950, L500.4050, L3410.1400, L506.1001, L3100.5440 ####[facility] [address] [place], [address] Absolute Neut 3.8 X10 3/uL Normal 2.0-7.7 [facility] Comment on above: Performed By: #### L 101.9900, L100.0100, L3100.7950, L500.4050, L3410.1400, L506.1001, L3100.5440 ####[facility] [address] [place], [address] Basophils/100 WBC (Bld) 0.8 % Normal 0-1 [facility] Comment on above: Performed By: #### L 101.9900, L100.0100, L3100.7950, L500.4050, L3410.1400, L506.1001, L3100.5440 ####[facility] [address] [place], [address] Eosinophils/100 WBC (Bld) 0.8 % Normal 0-5 [facility] Comment on above: Performed By: #### L 101.9900, L100.0100, L3100.7950, L500.4050, L3410.1400, L506.1001, L3100.5440 ####[facility] [address] [place], [address] Erythrocyte distribution width (RBC) [Ratio] 12.4 % Normal 11.6-14.6 [facility] Comment on above: Performed By: #### L 101.9900, L100.0100, L3100.7950, L500.4050, L3410.1400, L506.1001, L3100.5440 ####[facility] [address] [place], [address] Hematocrit (Bld) [Volume fraction] 43.9 % Normal 40-54 [facility] Comment on above: Performed By: #### L 101.9900, L100.0100, L3100.7950, L500.4050, L3410.1400, L506.1001, L3100.5440 ####[facility] [address] [place], [address] Hemoglobin (Bld) [Mass/Vol] 14.7 g/dL Normal 13.0-16.5 [facility] Comment on above: Performed By: #### L 101.9900, L100.0100, L3100.7950, L500.4050, L3410.1400, L506.1001, L3100.5440 ####[facility] [address] [place], [address] IG% 0.400 Normal 0.0-0.9 [facility] Comment on above: Result Comment: IG% - Immature Granulocytes (promyelocytes, myelocytes and metamyelocytes) > 1% indicates that a LEFT SHIFT is Present. Performed By: #### L 101.9900, L100.0100, L3100.7950, L500.4050, L3410.1400, L506.1001, L3100.5440 ####[facility] [address] [place], [address] Lymphocytes/100 WBC (Bld) 35.8 % Normal 19-41 [facility] Comment on above: Performed By: #### L 101.9900, L100.0100, L3100.7950, L500.4050, L3410.1400, L506.1001, L3100.5440 ####[facility] [address] [place], [address] MCH (RBC) [Entitic mass] 30.2 pg Normal 27.0-32.0 [facility] Comment on above: Performed By: #### L 101.9900, L100.0100, L3100.7950, L500.4050, L3410.1400, L506.1001, L3100.5440 ####[facility] [address] [place], [address] MCHC (RBC) [Mass/Vol] 33.5 g/dL Normal 32-36 [facility] Comment on above: Performed By: #### L 101.9900, L100.0100, L3100.7950, L500.4050, L3410.1400, L506.1001, L3100.5440 ####[facility] [address] [place], [address] MCV (RBC) [Entitic vol] 90.1 fL Normal 80-94 [facility] Comment on above: Performed By: #### L 101.9900, L100.0100, L3100.7950, L500.4050, L3410.1400, L506.1001, L3100.5440 ####[facility] [address] [place], [address] Monocytes/100 WBC (Bld) 8.6 % Normal 0-10 [facility] Comment on above: Performed By: #### L 101.9900, L100.0100, L3100.7950, L500.4050, L3410.1400, L506.1001, L3100.5440 ####[facility] [address] [place], [address] Neutrophils/100 WBC (Bld) 53.6 % Normal 47-70 [facility] Comment on above: Performed By: #### L 101.9900, L100.0100, L3100.7950, L500.4050, L3410.1400, L506.1001, L3100.5440 ####[facility] [address] [place], [address] Nucleated RBC (Bld) [#/Vol] 0 10*3/uL Normal 0-5 [facility] Comment on above: Performed By: #### L 101.9900, L100.0100, L3100.7950, L500.4050, L3410.1400, L506.1001, L3100.5440 ####[facility] [address] [place], [address] Platelet mean volume (Bld) [Entitic vol] 9.1 fL Normal 6.2-12.0 [facility] Comment on above: Performed By: #### L 101.9900, L100.0100, L3100.7950, L500.4050, L3410.1400, L506.1001, L3100.5440 ####[facility] [address] [place], [address] Platelets (Bld) [#/Vol] 372 10*3/uL Normal 150-450 [facility] Comment on above: Performed By: #### L 101.9900, L100.0100, L3100.7950, L500.4050, L3410.1400, L506.1001, L3100.5440 ####[facility] [address] [place], [address] RBC (Bld) [#/Vol] 4.87 10*6/uL Normal 4.6-6.2 [facility] Comment on above: Performed By: #### L 101.9900, L100.0100, L3100.7950, L500.4050, L3410.1400, L506.1001, L3100.5440 ####[facility] [address] [place], [place], [phone] RDW SD 40.7 fl Normal 35.1-43.9 [facility] Comment on above: Performed By: #### L 101.9900, L100.0100, L3100.7950, L500.4050, L3410.1400, L506.1001, L3100.5440 ####[facility] [address] [place], [address] WBC (Bld) [#/Vol] 7.1 10*3/uL Normal 4.4-11.0 [facility] Comment on above: Performed By: #### L 101.9900, L100.0100, L3100.7950, L500.4050, L3410.1400, L506.1001, L3100.5440 ####[facility] [address] [place], [address] Carbon dioxide, total [Moles /volume] in Central venous bloodOrdered By: Refugio Bryson on 01-21-2025 CO2 [Moles/Vol] 23.5 mmol/L 21.0-32.0 [facility] Centromere B antibody assayO rdered By: Refugio Bryson on 01-21-2025 Centromere B Antibody <0.2 AI 0.0-0.9 [facility] Comment on above: Previous reported re sult: TNP AIEdited by: HUY on 01/25/25:1108 AMENDED REPORT 01/25/251107 ANTI-CENT B previously reported as: Test not performed Chloride assayOrdered By: Enrique Bryson on 01-21-2025 Chloride [Moles/Vol] 102 mmol/L 98-108 [facility] Chromatin antibody assayOrde red By: Refugio Bryson on 01-21-2025 Antichromatin Antibodies <0.2 AI 0.0-0.9 [facility] Comment on above: Previous reported re sult: TNP AIEdited by: HUY on 01/25/25:1108 AMENDED REPORT 01/25/251107 ANTICHROMATIN previously reported as: Test not performed Comprehensive Metabolic Prof ilon 01-21-2025 Albumin [Mass/Vol] 4.3 g/dL Normal 3.4-4.8 [facility] Comment on above: Performed By: #### L 101.9900, L100.0100, L3100.7950, L500.4050, L3410.1400, L506.1001, L3100.5440 ####[facility] [address] [place], [address] Albumin/Globulin [Mass ratio] 1.3 {ratio} Normal 0.9-2.4 [facility] Comment on above: Performed By: #### L 101.9900, L100.0100, L3100.7950, L500.4050, L3410.1400, L506.1001, L3100.5440 ####[facility] [address] [place], [address] ALK PHOS 77 U/L Normal 40-129 [facility] Comment on above: Performed By: #### L 101.9900, L100.0100, L3100.7950, L500.4050, L3410.1400, L506.1001, L3100.5440 ####[facility] [address] [place], [address] ALT [Catalytic activity/Vol] 18 U/L Normal <=46 [facility] Comment on above: Performed By: #### L 101.9900, L100.0100, L3100.7950, L500.4050, L3410.1400, L506.1001, L3100.5440 ####[facility] [address] [place], [address] AST [Catalytic activity/Vol] 19 U/L Normal <=37 [facility] Comment on above: Performed By: #### L 101.9900, L100.0100, L3100.7950, L500.4050, L3410.1400, L506.1001, L3100.5440 ####[facility] [address] [place], [place], [phone](162) Bilirubin [Mass/Vol] 0.28 mg/dL Normal 0.00-1.30 [facility] Comment on above: Performed By: #### L 101.9900, L100.0100, L3100.7950, L500.4050, L3410.1400, L506.1001, L3100.5440 ####[facility] [address] [place], [place], [phone]) BUN/CRE 15.4 RATIO Normal 10-20 [facility] Comment on above: Performed By: #### L 101.9900, L100.0100, L3100.7950, L500.4050, L3410.1400, L506.1001, L3100.5440 ####[facility] [address] [place], [address] Calcium [Mass/Vol] 9.6 mg/dL Normal 7.6-11.0 [facility] Comment on above: Performed By: #### L 101.9900, L100.0100, L3100.7950, L500.4050, L3410.1400, L506.1001, L3100.5440 ####[facility] [address] [place], [address] Chloride [Moles/Vol] 102 mmol/L Normal 98-108 [facility] Comment on above: Performed By: #### L 101.9900, L100.0100, L3100.7950, L500.4050, L3410.1400, L506.1001, L3100.5440 ####[facility] [address] [place], [address] CO2 [Moles/Vol] 23.5 mmol/L Normal 21.0-32.0 [facility] Comment on above: Performed By: #### L 101.9900, L100.0100, L3100.7950, L500.4050, L3410.1400, L506.1001, L3100.5440 ####[facility] [address] [place], [address] Creatinine [Mass/Vol] 1.06 mg/dL Normal 0.70-1.20 [facility] Comment on above: Performed By: #### L 101.9900, L100.0100, L3100.7950, L500.4050, L3410.1400, L506.1001, L3100.5440 ####[facility] [address] [place], [address] GAP 13 Normal 5-15 [facility] Comment on above: Performed By: #### L 101.9900, L100.0100, L3100.7950, L500.4050, L3410.1400, L506.1001, L3100.5440 ####[facility] [address] [place], [address] GFR/1.73 sq M.predicted among non-blacks MDRD (S/P/Bld) [Vol rate/Area] 79 mL/min/{1.73_m2} Normal >60 [facility] Comment on above: Result Comment: mL/m in/1.73m2 CKD-EPI Creatinine Equation (2020) Performed By: #### L 101.9900, L100.0100, L3100.7950, L500.4050, L3410.1400, L506.1001, L3100.5440 ####[facility] [address] [place], [address] Globulin (S) [Mass/Vol] 3.2 g/dL Normal 2.2-4.2 [facility] Comment on above: Performed By: #### L 101.9900, L100.0100, L3100.7950, L500.4050, L3410.1400, L506.1001, L3100.5440 ####[facility] [address] [place], [address] Glucose [Mass/Vol] 87 mg/dL Normal 70-99 [facility] Comment on above: Performed By: #### L 101.9900, L100.0100, L3100.7950, L500.4050, L3410.1400, L506.1001, L3100.5440 ####[facility] [address] [place], [address] Potassium [Moles/Vol] 4.2 mmol/L Normal 3.3-5.1 [facility] Comment on above: Performed By: #### L 101.9900, L100.0100, L3100.7950, L500.4050, L3410.1400, L506.1001, L3100.5440 ####[facility] [address] [place], [address] Sodium [Moles/Vol] 138 mmol/L Normal 133-145 [facility] Comment on above: Performed By: #### L 101.9900, L100.0100, L3100.7950, L500.4050, L3410.1400, L506.1001, L3100.5440 ####[facility] [address] [place], [address] T PROT 7.4 g/dL Normal 5.9-8.4 [facility] Comment on above: Performed By: #### L 101.9900, L100.0100, L3100.7950, L500.4050, L3410.1400, L506.1001, L3100.5440 ####[facility] [address] [place], [address] Urea nitrogen [Mass/Vol] 16 mg/dL Normal 4-19 [facility] Comment on above: Performed By: #### L 101.9900, L100.0100, L3100.7950, L500.4050, L3410.1400, L506.1001, L3100.5440 ####[facility] [address] [place], [place], [id number] DNA double strand Ab Qn (S)O rdered By: Refugio Bryson on 01-21-2025 Anti-Double Strand DNA Antibody <1 IU/mL 0-9 [facility] Comment on above: Negative <5 Equivoca l 5 - 9 Positive >9Previous reported result: TNP IU/mLEdited by: HUY on 01/25/25:1108 AMENDED REPORT 01/25/25 1108 dsDNA AB previously reported as: Test not performed Eosinophil percentageOrdered By: Refugio Bryson on 01-21-2025 Eosinophils/100 WBC (Bld) 0.8 % 0-5 [facility] Erythrocyte Sed Rateon 01-21 SED RATE 20 mm/hr Normal 0-20 [facility] Comment on above: Performed By: #### L 101.9900, L100.0100, L3100.7950, L500.4050, L3410.1400, L506.1001, L3100.5440 ####[facility] [address] [place], [address] Erythrocyte distribution wid th (RBC) [Ratio]Ordered By: Refugio Bryson on 01-21-2025 Erythrocyte distribution width (RBC) [Entitic vol] 40.7 fL 35.1-43.9 [facility] Erythrocyte distribution wid th ratioOrdered By: Refugio Bryson on 01-21-2025 Erythrocyte distribution width (RBC) [Ratio] 12.4 % 11.6-14.6 [facility] Erythrocyte sedimentation ra teOrdered By: Refugio Bryson on 01-21-2025 ESR (Bld) [Velocity] 20 mm/h 0-20 [facility] GFR/1.73 sq M.predicted guilherme g non-blacks MDRD (S/P/Bld) [Vol rate/Area]Ordered By: Refugio Bryson on 01-21-2025 Estimated GFR (MDRD) Non-Af Amer 79 >60 [facility] Comment on above: mL/min/1.73m2 CKD-EP I Creatinine Equation (2020) Hematocrit Auto (Bld) [Volum e fraction]Ordered By: Refugio Bryson on 01-21-2025 Hematocrit (Bld) [Volume fraction] 43.9 % 40-54 [facility] Hemoglobin measurementOrdere d By: Refugio Bryson on 01-21-2025 Hemoglobin (Bld) [Mass/Vol] 14.7 g/dL 13.0-16.5 [facility] Human leukocyte antigen (HLA ) B27 typingOrdered By: Refugio Bryson on 01-21-2025 HLA-B27 Negative . [facility] Comment on above: HLA-B*27 XgcppvxjN32 allele interpretation for all loci based on IMGT/HLAdatabase version 3.58This test was developed and its performance characteristicsdetermined by [employer]. It has not been cleared or approvedby the Food and Drug Administration.The FDA has determined that such clearance or approval isnot necessary.[facility] CLIA ID Number [id number] test was performed using Polymerase Chain Reaction(PCR) and Sequence Specific Oligonucleotide Probes (SSOP)technique. Sequence Based Typing (SBT) may be used as asupplemental method when necessary.If you have questions, please call [facility] customer service or email at [email or web address].Performed at: [address] [place] [address] [id number] [place], [place] [id number] Director: Bonny CERVANTES, Phone: [phone] Immature granulocytes/100 WB C Auto (Bld)Ordered By: Refugio Bryson on 01-21-2025 Immature granulocytes/100 WBC (Bld) 0.400 % 0.0-0.9 [facility] Comment on above: IG% - Immature Granu locytes (promyelocytes, myelocytes and metamyelocytes) > 1% indicates that a LEFT SHIFT is Present. Cierra-1 antibody assayOrdered B y: Refugio Bryson on 01-21-2025 CIERRA-1 Antibody <0.2 AI 0.0-0.9 [facility] Comment on above: Previous reported re sult: TNP AIEdited by: HUY on 01/25/25:1108 AMENDED REPORT 01/25/25 1108 ANTI-CIERRA previously reported as: Test not performed Laboratory - Chemistry and C hemistry - challengeOrdered By: Refugio Bryson on 01-21-2025 AST [Catalytic activity/Vol] 19 U/L <38 [facility] Lymphocytes Auto (Unsp spec) [#/Vol]Ordered By: Refugio Bryson on 01-21-2025 Lymphocytes (Bld) [#/Vol] 2.55 10*3/uL 0.83-4.51 [facility] Lymphocytes/100 WBC Auto (Un sp spec)Ordered By: Refugio Bryson on 01-21-2025 Lymphocytes/100 WBC (Bld) 35.8 % 19-41 [facility] MCV (mean corpuscular volume ) determinationOrdered By: Refugio Bryson on 01-21-2025 MCV (RBC) [Entitic vol] 90.1 fL 80-94 [facility] Mean corpuscular hemoglobin (MCH) determinationOrdered By: Refugio Bryson on 01-21-2025 MCH (RBC) [Entitic mass] 30.2 pg 27.0-32.0 [facility] Mean corpuscular hemoglobin concentration (MCHC) determinationOrdered By: Refugio Bryson on 01-21-2025 MCHC (RBC) [Mass/Vol] 33.5 g/dL 32-36 [facility] Mean platelet volume determi nationOrdered By: Refugio Bryson on 01-21-2025 Platelet mean volume (Bld) [Entitic vol] 9.1 fL 6.2-12.0 [facility] Monocyte percentageOrdered B y: Refugio Bryson on 01-21-2025 Monocytes/100 WBC (Bld) 8.6 % 0-10 [facility] Neutrophil percentageOrdered By: Refugio Bryson on 01-21-2025 Neutrophils/100 WBC (Bld) 53.6 % 47-70 [facility] Nucleated red blood cell per centageOrdered By: Refugio Bryson on 01-21-2025 Nucleated RBC/100 WBC (Bld) [Ratio] 0 % 0-5 [facility] Platelet countOrdered By: Enrique Bryson on 01-21-2025 Platelets (Bld) [#/Vol] 372 10*3/uL 150-450 [facility] Potassium (Unsp spec) [Mass/ Vol]Ordered By: Refugio Bryson on 01-21-2025 Potassium [Moles/Vol] 4.2 mmol/L 3.3-5.1 [facility] RBC Auto (Bld) [#/Vol]Ordere d By: Refugio Bryson on 01-21-2025 RBC (Bld) [#/Vol] 4.87 10*6/uL 4.6-6.2 [facility] LITIGATION ATTORNEY ASSOCIATE abOrdered By: Refugio Bryson on 01-21-2025 LITIGATION ATTORNEY ASSOCIATE Antibody 1.8 AI High 0.0-0.9 [facility] Comment on above: Previous reported re sult: TNP AIEdited by: HUY on 01/25/25:1108 AMENDED REPORT 01/25/25 1108 LITIGATION ATTORNEY ASSOCIATE Ab previously reported as: Test not performed SCL-70 extractable nuclear A b Qn (S)Ordered By: Refugio Bryson on 01-21-2025 Scl-70 (Scleroderma) Antibody <0.2 AI 0.0-0.9 [facility] Comment on above: Previous reported re sult: TNP AIEdited by: HUY on 01/25/25:1108 AMENDED REPORT 01/25/25 1108 ANTISCLER previously reported as: Test not performed SS-A IgG antibody assayOrder ed By: Refugio Bryson on 01-21-2025 SS-A/Ro IgG Antibody < 0.2 AI 0.0-0.9 [facility] Comment on above: Previous reported re sult: TNP AIEdited by: HUY on 01/25/25:1108 AMENDED REPORT 01/25/251107 Anti-SS-A previously reported as: Test not performed SS-B IgG antibody assayOrder ed By: Refugio Bryson on 01-21-2025 SS-B/La IgG Antibody < 0.2 AI 0.0-0.9 [facility] Comment on above: Previous reported re sult: TNP AIEdited by: HUY on 01/25/25:1108 AMENDED REPORT 01/25/251107 Anti-SS-B previously reported as: Test not performed Serum creatinine measurement (mass/volume)Ordered By: Refugio Bryson on 01-21-2025 Creatinine [Mass/Vol] 1.06 mg/dL 0.70-1.20 [facility] Serum globulin measurementOr dered By: Refugio Bryson on 01-21-2025 Globulin (S) [Mass/Vol] 3.2 g/dL 2.2-4.2 [facility] Serum glucose measurement (m ass/volume)Ordered By: Refugio Bryson on 01-21-2025 Glucose [Mass/Vol] 87 mg/dL 70-99 [facility] Serum or plasma alanine mcintyre otransferase (ALT) measurementOrdered By: Refugio Bryson on 01-21-2025 ALT [Catalytic activity/Vol] 18 U/L <47 [facility] Serum or plasma albumin stephanie urement (mass/volume)Ordered By: Refugio Bryson on 01-21-2025 Albumin [Mass/Vol] 4.3 g/dL 3.4-4.8 [facility] Serum or plasma albumin/glob ulin mass ratioOrdered By: Refugio Bryson on 01-21-2025 Albumin/Globulin [Mass ratio] 1.3 {ratio} 0.9-2.4 [facility] Serum or plasma alkaline darilne sphatase measurementOrdered By: Refugio Bryson on 01-21-2025 ALP [Catalytic activity/Vol] 77 U/L 40-129 [facility] Serum or plasma calcium stephanie urement (mass/volume)Ordered By: Refugio Bryson on 01-21-2025 Calcium [Mass/Vol] 9.6 mg/dL 7.6-11.0 [facility] Serum or plasma urea nitroge n measurement (mass/volume)Ordered By: Refugio Bryson on 01-21-2025 Urea nitrogen [Mass/Vol] 16 mg/dL 4-19 [facility] Bryson antibody assayOrdered By: Refugio Bryson on 01-21-2025 SM Antibody <0.2 AI 0.0-0.9 [facility] Comment on above: Previous reported re sult: TNP AIEdited by: HUY on 01/25/25:1108 AMENDED REPORT 01/25/25 1108 BRAYDON Ab previously reported as: Test not performed Sodium levelOrdered By: Refugio Bryson on 01-21-2025 Sodium [Moles/Vol] 138 mmol/L 133-145 [facility] Total proteinOrdered By: Anastasia Bryson on 01-21-2025 Protein [Mass/Vol] 7.4 g/dL 5.9-8.4 [facility] Vitamin D, 25-hydroxyOrdered By: Refugio Bryson on 01-21-2025 Vitamin D 25-Hydroxy 32.7 ng/mL 30-100 [facility] Comment on above: Vitamin D StatusDefi ciency: <20 ng/mL (50nmol/L)Insufficiency: 20-30 ng/mL (50-75 nmol/L)Sufficiency: 30-100 ng/mL (75-250 nmol/L)Toxicity: >100 ng/mL (>250 nmol/L) Vitamin D,25 Hydroxyon 01-21 Vitamin D 25-OH 32.7 ng/mL Normal 30-100 [facility] Comment on above: Result Comment: Mariah min D Status Deficiency: <20 ng/mL (50nmol/L) Insufficiency: 20-30 ng/mL (50-75 nmol/L) Sufficiency: 30-100 ng/mL (75-250 nmol/L) Toxicity: >100 ng/mL (>250 nmol/L) Performed By: #### L 101.9900, L100.0100, L3100.7950, L500.4050, L3410.1400, L506.1001, L3100.5440 ####[facility] [address] [place], [address] White blood cell (WBC) count Ordered By: Refugio Bryson on 01-21-2025 WBC (Bld) [#/Vol] 7.1 10*3/uL 4.4-11.0 [facility] OCT MACULA CIRRUS OU (BOTH E YES)on 11-30-2024 [facility] Radiology Study observation (narrative) [facility] Basic Metabolic Profile (BMP )on 11-25-2024 BUN/CRE 15.7 RATIO Normal 10-20 [facility] Comment on above: Order Comment: Order Date: 11/16/24Order Info: 666-10 - BMPOrder Info: 2856- - PSA Performed By: #### L 500.2500, L501.9910 ####[facility] [address] [place], [address] CA,Total 9.4 mg/dL Normal 8.5-10.1 [facility] Comment on above: Order Comment: Order Date: 11/16/24Order Info: 666-10 - BMPOrder Info: 7- - PSA Performed By: #### L 500.2500, L501.9910 ####[facility] [address] [place], [address] Chloride [Moles/Vol] 105 mmol/L Normal 98-107 [facility] Comment on above: Order Comment: Order Date: 11/16/24Order Info: 666- - BMPOrder Info: 2857-1 - PSA Performed By: #### L 500.2500, L501.9910 ####[facility] [address] [place], [address] CO2 [Moles/Vol] 29.0 mmol/L Normal 21.0-32.0 [facility] Comment on above: Order Comment: Order Date: 11/16/24Order Info: 666- - BMPOrder Info: 2857-1 - PSA Performed By: #### L 500.2500, L501.9910 ####[facility] [address] [place], [address] Creatinine [Mass/Vol] 1.02 mg/dL Normal 0.70-1.30 [facility] Comment on above: Order Comment: Order Date: 11/16/24Order Info: 666-1 - BMPOrder Info: 1 - PSA Result Comment: The validity of the calculated GFR GFRAA in patients over 70 years has not been determined. Clinical correlation is essential. Performed By: #### L 500.2500, L501.9910 ####[facility] [address] [place], [address] EST GFR - AA 95 mL/min Normal >60 [facility] Comment on above: Order Comment: Order Date: 11/16/24Order Info: 666- - BMPOrder Info: 2856-10 - PSA Result Comment: Afri can Martiniquais GFR Calc Performed By: #### L 500.2500, L501.9910 ####[facility] [address] [place], [address] GAP 5 Normal 5-15 [facility] Comment on above: Order Comment: Order Date: 11/16/24Order Info: 666-10 - BMPOrder Info: 2856-10 - PSA Performed By: #### L 500.2500, L501.9910 ####[facility] [address] [place], [address] GFR/1.73 sq M.predicted among non-blacks MDRD (S/P/Bld) [Vol rate/Area] 79 mL/min/{1.73_m2} Normal >60 [facility] Comment on above: Order Comment: Order Date: 11/16/24Order Info: 666- - BMPOrder Info: 2857-1 - PSA Result Comment: Non- GFR Calc Performed By: #### L 500.2500, L501.9910 ####[facility] [address] [place], [address] Glucose [Mass/Vol] 95 mg/dL Normal 74-106 [facility] Comment on above: Order Comment: Order Date: 11/16/24Order Info: 0667-1 - BMPOrder Info: 285-1 - PSA Performed By: #### L 500.2500, L501.9910 ####[facility] [address] [place], [address] Potassium [Moles/Vol] 4.0 mmol/L Normal 3.5-5.1 [facility] Comment on above: Order Comment: Order Date: 11/16/24Order Info: 06 - BMPOrder Info: 2857-1 - PSA Performed By: #### L 500.2500, [id number] ####[facility] [address], [address] Sodium [Moles/Vol] 139 mmol/L Normal 136-145 [facility] Comment on above: Order Comment: Order Date: 11/16/24Order Info: 0667- - BMPOrder Info: 285-1 - PSA Performed By: #### L 500.2500, [id number] ####[facility] [address] [place], [address] Urea nitrogen [Mass/Vol] 16 mg/dL Normal 7-18 [facility] Comment on above: Order Comment: Order Date: 11/16/24Order Info: [id number] - BMPOrder Info: 2857-1 - PSA Performed By: #### L 500.2500, L501.9910 ####[facility] [address] [place], [address] Blood urea nitrogen (BUN)/cr eatinine ratioOrdered By: Shavon García on 11-25-2024 Urea nitrogen/Creatinine [Mass ratio] 15.7 mg/mg 10-20 [facility] CNOVon 11-25-2024 CNOV Office Visit (PSYLWM ) -------- ERIC ANNE ([id number]) 1960 M Date Time Provider Department 11/25/24 9:00 AM RON GRIFFITH PSYLWM During your visit today, we recorded the following information about you: Ron Griffith, PhD 11/25/2024 12:17 PM Signed [facility] Behavioral Health Department Progress Note Eric Anne 11/25/2024 [id number] PROVIDER: Ron Griffith, PhD CPT Code: Time: 50 minutes Setting: Patient seen in person Parties Present: Patient Treatment Modality/Interventions: Cognitive Behavioral Reassurance/Supportive Insight oriented Problem solving Communication skills training MENTAL STATUS: Mood: variable Affect: mood-congruent Thoughts/Associations:go al directed Suicidal/Homicidal Ideation: None expressed or evidenced Other Prominent Symptoms: Therapy Focus/Content of Session: Self-care, Stress management, Mood/affect regulation, Interpersonal, and Self-esteem more Anxious than Frustration ie spilled his coffee and didnt 'lose it' 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 interrupt the thought by noting he is OK AND/OR take away social comparison and the thought doesnt have anything to push or pull on and doesnt need to exist MEDICATIONS: Per medical record: Current Outpatient Medications Medication Sig desvenlafaxine ER (PRISTIQ) 50 mg 24 hr tablet Take 1 tablet by mouth once daily. fluorometholone (FML LIQUID FILM) 0.1 % ophthalmic suspension Use 1 Drop in both eyes once daily. nebivolol (BYSTOLIC) 5 mg tablet Take 1 tablet by mouth every afternoon. salsalate (DISALCID) 750 mg tablet Take 1 tablet by mouth every 12 hours. ramipril (ALTACE) 5 mg capsule Take 5 mg by mouth every afternoon. lovastatin 40 mg tablet Take 1 tablet by mouth daily at bedtime. ramipril (ALTACE) 2.5 mg capsule ramipril (ALTACE) 1.25 mg capsule VITAMIN D 25 mcg (1,000 unit) cap Take 1,000 Units by mouth once daily. loteprednol etabonate (INVELTYS) 1 % Use 1 Drop in eyes once daily. Both eyes carboxymethyl/gly/poly80 /PF (REFRESH OPTIVE SANTANA-3, PF, OPHTHALMIC) Use 1-2 Drops in both eyes once daily. No current facility-administered medications for this visit. Psychiatric Medication Issues: see med record DIAGNOSIS: [place] I: anxiety SHANA ADHD Depression Dysthymia Self Esteem [place] II: deferred [place] III: see med record [place] IV: stress and quality of life Overbrook V: 48-60 TREATMENT PROGRESS/ASSESSMENT: Progressing satisfactorily. TREATMENT PLAN/GOALS: Continue in therapy focusing on self-care, improving communication, assertiveness skills, stress management, affect management, anxiety management, and self-esteem. 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 - fluorometholone (FML LIQUID FILM) 0.1 % ophthalmic suspension Use 1 Drop in both eyes once daily. - nebivolol (BYSTOLIC) 5 mg tablet Take 1 tablet by mouth every afternoon. - salsalate (DISALCID) 750 mg tablet Take 1 tablet by mouth every 12 hours. - ramipril (ALTACE) 5 mg capsule Take 5 mg by mouth every afternoon. - lovastatin 40 mg tablet Take 1 tablet by mouth daily at bedtime. - ramipril (ALTACE) 2.5 mg capsule - ramipril (ALTACE) 1.25 mg capsule - VITAMIN D 25 mcg (1,000 unit) cap Take 1,000 Units by mouth once daily. - loteprednol etabonate (INVELTYS) 1 % Use 1 Drop in eyes once daily. Both eyes - carboxymethyl/gly/poly80 /PF (REFRESH OPTIVE SANTANA-3, PF, OPHTHALMIC) Use 1-2 Drops in both eyes once daily. Problem List As Of Date 11/25/2024 Noted Resolved Anxiety state [F41.1] 07/12/2006 Sprain of neck [S13.9XXA] 07/12/2006 05/30/2016 Mitral valve prolapse [I34.1] 01/02/2007 10/05/2019 Rotator cuff (capsule) sprain 06/15/2009 01/12/2014 Adjustment disorder with depressed mood [F43.21]02/13/2011 Seasonal allergies [J30.2] Hyperlipidemia [E78.5] 06/01/2011 Depression [F32.A] 06/01/2011 Dysthymia [F34.1] 07/04/2016 Hyperopia of both eyes with astigmatism and pre*11/13/19 (more content not included)... Normal [facility] Carbon dioxide measurementOr dered By: Shavon García on 11-25-2024 CO2 [Moles/Vol] 29.0 mmol/L 21.0-32.0 [facility] Chloride measurementOrdered By: Shavon García on 11-25-2024 Chloride [Moles/Vol] 105 mmol/L 98-107 [facility] Estimated glomerular filtrat ion rate (GFR) AmericanOrdered By: Shavon García on 11-25-2024 Estimated GFR (MDRD) Amer 95 mL/min >60 [facility] Comment on above: GFR Calc Glomerular filtration rate ( GFR) estimationOrdered By: Shavon García on 11-25-2024 Estimated GFR (MDRD) Non-Af Amer 79 mL/min >60 [facility] Comment on above: Non- GFR Calc Glucose measurementOrdered B y: Shavon García on 11-25-2024 Glucose [Mass/Vol] 95 mg/dL 74-106 [facility] PSA,Total - Annual Screenon 02-05-2025 PSA,TOT SCREEN 3.27 ng/mL Normal 0.00-4.00 [facility] Comment on above: Order Comment: Order Date: 11/16/24Order Info: [id number] - BMPOrder Info: [id number] - PSA Result Comment: This test was performed using the TPSA assay method for the [employer] chemistry system. Values obtained with different assay methods cannot be used interchangably. When changing PSA assays in the course of monitoring a patient, additional sequential testing should be carried out to confirm baseline values. Performed By: #### L 500.2500, L501.9910 ####[facility] [address] [place], [address] Potassium measurementOrdered By: Shavon García on 11-25-2024 Potassium [Moles/Vol] 4.0 mmol/L 3.5-5.1 [facility] Screening prostate specific antigen (PSA) measurementOrdered By: Shavon García on 11-25-2024 Prostate Specific Antigen Screen 3.27 ng/mL 0.00-4.00 [facility] Comment on above: This test was perfor med using the TPSA assay method for the[employer] Admissions chemistry system. Values obtained with differentassay methods cannot be used interchangably.When changing PSA assays in the course of monitoring apatient, additional sequential testing should be carriedout to confirm baseline values. Serum anion gap measurementO rdered By: Shavon García on 11-25-2024 Anion gap [Moles/Vol] 5 mmol/L 5-15 [facility] Serum or plasma calcium stephanie urement (mass/volume)Ordered By: Shavon García on 11-25-2024 Calcium [Mass/Vol] 9.4 mg/dL 8.5-10.1 [facility] Serum or plasma creatinine m easurement (mass/volume)Ordered By: Shavon García on 11-25-2024 Creatinine [Mass/Vol] 1.02 mg/dL 0.70-1.30 [facility] Comment on above: The validity of the calculated GFR & GFRAA in patients over 70 years has not been determined. Clinical correlation is essential. Serum or plasma urea nitroge n measurement (mass/volume)Ordered By: Shavon García on 11-25-2024 Urea nitrogen [Mass/Vol] 16 mg/dL 7-18 [facility] Sodium levelOrdered By: Shavon Salazarner on 11-25-2024 Sodium [Moles/Vol] 139 mmol/L 136-145 [facility] CNOVon 09-25-2024 CNOV Office Visit (PSYLWM ) -------- ERIC ANNE ([id number]) 1960 M Date Time Provider Department 09/25/24 12:00 PM RON GRIFFITH PSYLWM During your visit today, we recorded the following information about you: Ron Griffith, PhD 09/25/2024 1:26 PM Signed [facility] Behavioral Health Department Progress Note Eric Anne 09/25/2024 [id number] PROVIDER: Ron Griffith, PhD CPT Code: Time: 50 minutes Setting: Patient seen in person Parties Present: Patient Treatment Modality/Interventions: Cognitive Behavioral Reassurance/Supportive Insight oriented Problem solving Processing of emotions Psychoeducation MENTAL STATUS: Mood: variable, dysthymic Affect: mood-congruent Thoughts/Associations:go al directed Suicidal/Homicidal Ideation: None expressed or evidenced Other Prominent Symptoms: Therapy Focus/Content of Session: Self-care, Mood/affect regulation, and Self-esteem ADHD mild inattentive: we have talked about this in the past and has children Dxed but recently he was listening to a pod cast or something and kept checking the boxes about his own mild ADHD He is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 Date: 07/02/24 Order Info: 0786- - CMP Order Info: 3015-12 - TSH Performed By: #### L 501.9985, L501.9520, L3100.3450, L500.4050, L100.0100 #### [facility] [address] [place], [address] CO2 [Moles/Vol] 26.0 mmol/L Normal 21.0-32.0 [facility] Comment on above: Order Comment: Order Date: 07/02/24 Order Info: 0786- - CMP Order Info: 3015-12 - TSH Performed By: #### L 501.9985, L501.9520, L3100.3450, L500.4050, L100.0100 #### [facility] [address] [place], [address] Creatinine [Mass/Vol] 0.96 mg/dL Normal 0.70-1.30 [facility] Comment on above: Order Comment: Order Date: 07/02/24 Order Info: 0786-1 - CMP Order Info: 30103-23 - TSH Result Comment: The validity of the calculated GFR GFRAA in patients over 70 years has not been determined. Clinical correlation is essential. Performed By: #### L 501.9985, L501.9520, L3100.3450, L500.4050, L100.0100 #### [facility] [address] [place], [address] EST GFR - AA 102 mL/min Normal >60 [facility] Comment on above: Order Comment: Order Date: 07/02/24 Order Info: 0786-1 - CMP Order Info: 3016-3 - TSH Result Comment: Afri can Martiniquais GFR Calc Performed By: #### L 501.9985, L501.9520, L3100.3450, L500.4050, L100.0100 #### [facility] [address] [place], [address] GAP 7 Normal 5-15 [facility] Comment on above: Order Comment: Order Date: 07/02/24 Order Info: 0786-1 - [facility] Order Info: 3016-3 - TSH Performed By: #### L 501.9985, L501.9520, L3100.3450, L500.4050, L100.0100 #### [facility] [address] [place], [address] GFR/1.73 sq M.predicted among non-blacks MDRD (S/P/Bld) [Vol rate/Area] 84 mL/min/{1.73_m2} Normal >60 [facility] Comment on above: Order Comment: Order Date: 07/02/24 Order Info: 0786-1 - [facility] Order Info: 3016-3 - TSH Result Comment: Non- GFR Calc Performed By: #### L 501.9985, L501.9520, L3100.3450, L500.4050, L100.0100 #### [facility] [address] [place], [address] Globulin (S) [Mass/Vol] 3.6 g/dL Normal 2.2-4.2 [facility] Comment on above: Order Comment: Order Date: 07/02/24 Order Info: 0786-1 - CMP Order Info: 3015-12 - TSH Performed By: #### L 501.9985, L501.9520, L3100.3450, L500.4050, L100.0100 #### [facility] [address] [place], [address] Glucose [Mass/Vol] 85 mg/dL Normal 74-106 [facility] Comment on above: Order Comment: Order Date: 07/02/24 Order Info: 0786- - CMP Order Info: 3015-12 - TSH Performed By: #### L 501.9985, L501.9520, L3100.3450, L500.4050, L100.0100 #### [facility] [address] [place], [address] Potassium [Moles/Vol] 4.1 mmol/L Normal 3.5-5.1 [facility] Comment on above: Order Comment: Order Date: 07/02/24 Order Info: 0786- - CMP Order Info: 3015-12 - TSH Performed By: #### L 501.9985, L501.9520, L3100.3450, L500.4050, L100.0100 #### [facility] [address] [place], [address] Sodium [Moles/Vol] 140 mmol/L Normal 136-145 [facility] Comment on above: Order Comment: Order Date: 07/02/24 Order Info: 0786- - CMP Order Info: 3015-12 - TSH Performed By: #### L 501.9985, L501.9520, L3100.3450, L500.4050, L100.0100 #### [facility] [address] [place], [address] T PROT 7.1 g/dL Normal 6.4-8.2 [facility] Comment on above: Order Comment: Order Date: 07/02/24 Order Info: 0786- - CMP Order Info: 30103-23 - TSH Performed By: #### L 501.9985, L501.9520, L3100.3450, L500.4050, L100.0100 #### [facility] [address] [place], [address] Urea nitrogen [Mass/Vol] 12 mg/dL Normal 7-18 [facility] Comment on above: Order Comment: Order Date: 07/02/24 Order Info: 0786- - [facility] Order Info: 3015-12 - TSH Performed By: #### L 501.9985, L501.9520, L3100.3450, L500.4050, L100.0100 #### [facility] [address] [place], [address] Hemoglobin A1con 07-03-2024 HbA1c (Bld) [Mass fraction] 5.8 % High 3.8-5.6 [facility] Comment on above: Order Comment: Order Date: 07/02/24 Order Info: 4548-4 - A1C Result Comment: Norm al < 5.7 % Prediabetic 5.7 - 6.4 % Diabetic >or= 6.5 % Please note range changes. Performed By: #### L 501.9985, L501.9520, L3100.3450, L500.4050, L100.0100 #### [facility] [address] [place], [address] Thyroid Stim Hormone (TSH)on 07-03-2024 TSH 1.760 uIU/mL Normal 0.358-3.740 [facility] Comment on above: Order Comment: Order Date: 07/02/24 Order Info: 0786- - [facility] Order Info: 3016- - TSH Performed By: #### L 501.9985, L501.9520, L3100.3450, L500.4050, L100.0100 #### [facility] [address] [place], [place], [address] CNOVon 06-17-2024 CNOV Office Visit (PSYLWM ) -------- ERIC ANNE ([id number]) 1960 M Date Time Provider Department 06/17/24 10:00 AM RON GRIFFITH PSYLWM During your visit today, we recorded the following information about you: Ron Griffith, PhD 06/17/2024 4:43 PM Addendum [facility] Department Progress Note Eric Anne 06/17/2024 [id number] PROVIDER: Ron Griffith, PhD CPT Code: Time: 50 minutes Setting: Patient seen in person Parties Present: Patient Treatment Modality/Interventions: Cognitive Behavioral Reassurance/Supportive Insight oriented Problem solving Processing of emotions Psychoeducation MENTAL STATUS: Mood: variable, dysthymic Affect: mood-congruent Thoughts/Associations:go al directed Suicidal/Homicidal Ideation: Ideation periodically w/o a plan Other Prominent Symptoms: Therapy Focus/Content of Session: Self-care, Mood/affect regulation, and Self-esteem MEDS: stopped them and BP is actually better while Depression comes and goes about the same MOOD: pt has had suicidal ideation for many years along with poor self esteem He has come out of an accomplished family feeling like the 'black sheep' PLAN: pt will explore TMS and Ketamine next Discussed Coping at length and how depression feels .... mostly anhedonic in his case doing ok recently w his son who is back in [place] now MEDICATIONS: Per medical record: Current Outpatient Medications Medication Sig nebivolol (BYSTOLIC) 5 mg tablet Take 1 tablet by mouth every afternoon. salsalate (DISALCID) 750 mg tablet Take 1 tablet by mouth every 12 hours. ramipril (ALTACE) 5 mg capsule Take 5 mg by mouth every afternoon. lovastatin 40 mg tablet Take 1 tablet by mouth daily at bedtime. desvenlafaxine ER (PRISTIQ) 50 mg 24 hr tablet Take 1 tablet by mouth once daily. ramipril (ALTACE) 2.5 mg capsule ramipril (ALTACE) 1.25 mg capsule VITAMIN D 25 mcg (1,000 unit) cap Take 1,000 Units by mouth once daily. loteprednol etabonate (INVELTYS) 1 % Use 1 Drop in eyes once daily. Both eyes carboxymethyl/gly/poly80 /PF (REFRESH OPTIVE SANTANA-3, PF, OPHTHALMIC) Use 1-2 Drops in both eyes once daily. No current facility-administered medications for this visit. Psychiatric Medication Issues: as noted DIAGNOSIS: [place] I: depression MARITAL CONFLICT Dysthymia Self Esteem [place] II: deferred [place] III: see med record [place] IV: stress and quality of life [place] V: 48-60 TREATMENT PROGRESS/ASSESSMENT: Fluctuating progress. TREATMENT PLAN/GOALS: Continue in therapy focusing on self-care, improving communication, stress management, anxiety management, and self-esteem. Next appointment: as scheduled Ron Griffith, PhD Referring Provider: RON GRIFFITH [[id number]] Allergies As of Date: 06/17/2024 (No Known Allergies) Date Reviewed: 05/27/2024 Reviewed by: Ivory Rodriguez MD - Fully Assessed Primary Visit Diagnosis:Depression, unspecified depression type [F32.A] Other Visit Diagnoses:Dysthymia [F34.1] Low self-esteem [R45.81] Prescriptions as of 06/17/2024 - nebivolol (BYSTOLIC) 5 mg tablet Take 1 tablet by mouth every afternoon. - salsalate (DISALCID) 750 mg tablet Take 1 tablet by mouth every 12 hours. - ramipril (ALTACE) 5 mg capsule Take 5 mg by mouth every afternoon. - lovastatin 40 mg tablet Take 1 tablet by mouth daily at bedtime. - desvenlafaxine ER (PRISTIQ) 50 mg 24 hr tablet Take 1 tablet by mouth once daily. - ramipril (ALTACE) 2.5 mg capsule - ramipril (ALTACE) 1.25 mg capsule - VITAMIN D 25 mcg (1,000 unit) cap Take 1,000 Units by mouth once daily. - loteprednol etabonate (INVELTYS) 1 % Use 1 Drop in eyes once daily. Both eyes - carboxymethyl/gly/poly80 /PF (REFRESH OPTIVE SANTANA-3, PF, OPHTHALMIC) Use 1-2 Drops in both eyes once daily. 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 Normal [facility] Colonoscopy Reporton 024 Colonoscopy Report [facility] Medical Records Department [address] [place] [address] Colonoscopy Report MR#: [id number] Acct: [id number] Name: ERIC ANNE Rep #: [id number] : 1960 63 From: Vaughn Bolivar DO PCP: Dr. Ancelmo Arnold MD Status:[facility] Patient Name: Eric Anne Procedure Date: 04/22/2024 6:26 AM Date of : 1960 Age: 63 Procedure: Colonoscopy Indications: Screening for colorectal malignant neoplasm Providers: Vaughn Bolivar DO Referring MD: Ancelmo Arnold Medicines: Monitored Anesthesia Care Patient Profile: This is a 63 year old male. Refer to note in patient chart for documentation of history and physical. Last Colonoscopy: date unknown. Unable to locate last colonoscopy report. Complications: No immediate complications. Procedure: Pre-Anesthesia Assessment: - Prior to the procedure, a History and Physical was performed, and patient medications and allergies were reviewed. The patient is competent. The risks and benefits of the procedure and the sedation options and risks were discussed with the patient. All questions were answered and informed consent was obtained. Patient identification and proposed procedure were verified by the physician in the pre-procedure area. Mental Status Examination: alert and oriented. Airway Examination: normal oropharyngeal airway and neck mobility. Respiratory Examination: clear to auscultation. CV Examination: normal. Prophylactic Antibiotics: The patient does not require prophylactic antibiotics. Prior Anticoagulants: The patient has taken no anticoagulant or antiplatelet agents. ASA Grade Assessment: II - A patient with mild systemic disease. After reviewing the risks and benefits, the patient was deemed in satisfactory condition to undergo the procedure. The anesthesia plan was to use monitored anesthesia care (MAC). Immediately prior to administration of medications, the patient was re-assessed for adequacy to receive sedatives. The heart rate, respiratory rate, oxygen saturations, blood pressure, adequacy of pulmonary ventilation, and response to care were monitored throughout the procedure. The physical status of the patient was re-assessed after the procedure. After I obtained informed consent, the scope was passed under direct vision. Throughout the procedure, the patient's blood pressure, pulse, and oxygen saturations were monitored continuously. The Colonoscope was introduced through the anus and advanced to the cecum, identified by appendiceal orifice and ileocecal valve. The colonoscopy was performed with ease. The patient tolerated the procedure well. The quality of the bowel preparation was adequate. The ileocecal valve, appendiceal orifice, and rectum were photographed. Scope In: 6:49:43 AM Scope Withdrawal Time 0 hours 8 minutes 27 seconds Scope Out: 7:00:49 AM Total Procedure Duration Time 0 hours 11 minutes 6 seconds Findings: The perianal and digital rectal examinations were normal. A 5 mm polyp was found in the sigmoid colon. The polyp was sessile. The polyp was removed with a cold biopsy forceps. Resection and retrieval were complete. Verification of patient identification for the specimen was done. Estimated blood loss was minimal. Multiple small and large-mouthed diverticula were found in the recto-sigmoid colon, sigmoid colon and descending colon. The exam was otherwise without abnormality on direct and retroflexion views. Impression: - One 5 mm polyp in the sigmoid colon, removed with a cold biopsy forceps. Resected and retrieved. - Diverticulosis in the recto-sigmoid colon, in the sigmoid colon and in the descending colon. - The examination was otherwise normal on direct and retroflexion views. Recommendation: - Discharge patient to home. - Resume previous diet. - Continue present medications. - Await pathology results. - Repeat colonoscopy in 5 years for surveillance. Procedure Code(s): --- Professional --- 55673, Colonoscopy, flexible; with biopsy, single or multiple CPT copyright 2021 [employer]. All rights reserved. The codes documented in this report are preliminary and upon child care centre director review may be revised to meet current compliance requirements. Vaughn Bolivar DO 04/22/2024 7:06:50 AM This report has been signed electronically. Number of Addenda: 0 Note Initiated On: 04/22/2024 6:26 AM 04/22/24706 Date Vaughn Bolivar DO Cosignenrique Signature: Date (if indicated) CC: Dr. Ancelmo Arnold MD; Vaughn Bolivar DO Date Dictated: 04/22/24625 Date Transcribed: Ophthalmology Technician: RF Signed Normal [facility] MR/POSTOP.Declan 04-22-2024 MR/POSTOP.[facility] Medical Records Department [address] [place] [address] Anesthesia Postop Eval I 04/22/24704 MR#: [id number] Acct: [id number] Name: ERIC ANNE Rep #: [id number] : 1960 63 From: Justin Khan PCP: Dr. Ancelmo Arnold MD Status:REG SDC Y Race: C Location: [place] [address] Anesthesia: Postop Eval I Current Vital Signs Temperature: 97 F Pulse Rate: 60 Blood Pressure: 100/67 Respiratory Rate: 14 Pulse Ox: 95 Oxygen Delivery Method: Room Air Assessment Airway patent: Yes Spontaneous unlabored respirations: Yes Mental status: Asleep nausea: No Vomiting: No Anesthesia Complication: No Fluid Hydration Crystalloid volume administer (ml): 600 Total IV fluid infused: 600 Progress Note Anesthesia document: Postop Eval 1 completed: Yes 04/22/24 07 Date Justin Hinikolay Signature: Date CC: Signed Normal [facility] MR/[id number] 04-22-2024 [facility] Medical Records Department [address] [place] [address] Anesthesia Postop Eval II 04/22/24726 MR#: [id number] Acct: [id number] Name: ERIC ANNE Rep #: [id number] : 1960 63 From: Refugio Winters MD PCP: Dr. Ancelmo Arnold MD Status:REG [facility] Y Race: C Location: [place] [address] Anesthesia Postop Eval I Sum Postop Eval Completion status Anesthesia document: Postop Eval 1 completed: Yes Anesthesia Postop Eval I Summary Anesthesia Postop Eval I Summary: Anesthesia Postop Eval I: Assessment Summary Airway patent Yes 04/22/24 07:09 [email or web address] Spontaneous unlabored Yes 04/22/24 07:09 [email or web address] respirations Mental status Asleep 04/22/24 07:09 [email or web address] nausea No 04/22/24 07:09 [email or web address] Vomiting No 04/22/24 07:09 [email or web address] Anesthesia Postop Eval I: Fluid Summary Crystalloid volume administer 600 04/22/24 07:09 [email or web address] (ml) Colloids volume administered ( ml) Blood Product volume administered (ml) Total IV fluid infused 600 04/22/24 07:09 [email or web address] Anesthesia Postop Eval I: Summary Notes Anesthesia Complication No 04/22/24 07:09 [email or web address] Anesthesia Complication Comment: Post-operative progress note Anesthesia: Postop Eval II Evaluation Mental status: Awake Pain Level: 0 nausea: No Vomiting: No 04/22/24727 Date Refugio Winters MD [facility] Signature: Date CC: Signed Normal [facility] Surgery Specimen Level Abiel 04-22-2024 Surgery Specimen Level IV Patient Age/Sex Location Account Attending Physician ERIC ANNE 63/M EN [id number] Vaughn Bolivar DO Specimen: [id number] Received: 04/22/24 Status: BRETT Lynch Num: [id number] Spec Type: COLON BX Subm Dr: Vaughn Bolivar, DO HEADER OPERATION: Colonoscopy with biopsy PRE-OP DIAGNOSIS: Encounter for screening for malignant neoplasm of colon TISSUE SUBMITTED: Sigmoid polyp MICROSCOPIC DIAGNOSIS Sigmoid polyp, biopsy: Fragments of tubular adenoma. [facility] 04/24/2024 MICROSCOPIC DESCRIPTION Slides are reviewed. GROSS DESCRIPTION Received in fixative is one container labeled with the patient's name and designated Sigmoid polyp. The specimen consists of two irregular fragments of light garza soft tissue that measures 0.5 x 0.3 x 0.1 cm. The specimen is totally submitted in one cassette. [facility] 04/22/2024 TC:1 CPT:84601 Patient Age/Sex Location Account Attending Physician ERIC ANNE 63/M EN [id number] Vaughn Friend, DO Signed (signature on file) Dr. Richard Bass MD 04/24/24 1057 Normal [facility] Comment on above: Performed By: #### P BRISA ####[facility] [address] [place], [address] CNPBerenice 04-13-2024 CNPN Telephone (Accellos) -------- ERIC ANNE ([id number]) 1960 M Date Time Provider Department 04/13/24 JANNETH AJ During your visit today, we recorded the following information about you: Flaquita Monroy OCCA 04/13/2024 1:45 PM Signed ----- Message from Janneth Aj APRN.SCRIPT ARTIST sent at 04/13/2024 1:43 PM EDT ----- PSA is within range for age. Actually decreased. No referral to urology needed. Blood counts are normal. Iron level and iron stores are normal. Flaquita Monroy OCCA 04/13/2024 1:47 PM Signed TC to patient who is informed of below. Flaquita CECILIO Monroy Allergies As of Date: 04/13/2024 (No Known Allergies) Date Reviewed: 03/19/2024 Reviewed by: Janneth Aj APRN.SCRIPT ARTIST - Fully Assessed Reason for Visit: Results [95] Prescriptions as of 04/13/2024 - lovastatin 40 mg tablet Take 1 tablet by mouth daily at bedtime. - desvenlafaxine ER (PRISTIQ) 50 mg 24 hr tablet Take 1 tablet by mouth once daily. - ramipril (ALTACE) 2.5 mg capsule - ramipril (ALTACE) 1.25 mg capsule - VITAMIN D 25 mcg (1,000 unit) cap Take 1,000 Units by mouth once daily. - loteprednol etabonate (INVELTYS) 1 % Use 1 Drop in eyes once daily. Both eyes - carboxymethyl/gly/poly80 /PF (REFRESH OPTIVE SANTANA-3, PF, OPHTHALMIC) Use 1-2 Drops in both eyes once daily. Facility-Administered Medications as of 04/13/2024 - perflutren lipid microspheres 1.3 mL in NaCl (PF) 0.9% 10 mL injection (DEFINITY) - sodium chloride 0.9 % (flush) 10 mL (BD POSIFLUSH) - perflutren lipid microspheres 1.3 mL in NaCl (PF) 0.9% 10 mL injection (DEFINITY) - sodium chloride 0.9 % (flush) 10 mL (BD POSIFLUSH) - perflutren lipid microspheres 1.3 mL in NaCl (PF) 0.9% 10 mL injection (DEFINITY) - sodium chloride 0.9 % (flush) 10 mL (BD POSIFLUSH) Problem List As Of Date 04/13/2024 Noted Resolved Anxiety state [F41.1] 07/12/2006 Sprain of neck [S13.9XXA] 07/12/2006 05/30/2016 Mitral valve prolapse [I34.1] 01/02/2007 10/05/2019 Rotator cuff (capsule) sprain 06/15/2009 01/12/2014 Adjustment disorder with depressed mood [F43.21]02/13/2011 Seasonal allergies [J30.2] Hyperlipidemia [E78.5] 06/01/2011 Depression [F32.A] 06/01/2011 Dysthymia [F34.1] 07/04/2016 Hyperopia of both eyes with astigmatism and pre*11/13/2016 Astigmatism, regular [H52.229] 11/13/2016 Presbyopia [H52.4] 11/13/2016 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] 11/13/2016 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] 05/13/2018 Fuchs' corneal dystrophy of both eyes [H18.513] 06/16/2018 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/2018 History of Descemet membrane endothelial kerato*08/28/2018 Corneal epithelial defect [H18.30] 09/07/2019 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] 09/07/2019 Age-related nuclear cataract of both eyes [H25.*09/19/2019 S/P eye surgery [Z98.890] 10/27/2019 Combined forms of age-related cataract of both *11/16/2020 Horseshoe retinal tear of right eye [H33.311] 03/14/2021 Vitreous hemorrhage of right eye (HCC) [H43.11] 03/14/2021 Posterior vitreous detachment of right eye [H43*03/14/2021 JOMAR (obstructive sleep apnea) [G47.33] 01/14/2023 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] 01/29/2023 Encounter Status:Closed by FLAQUITA MONROY on 04/13/24 Normal [facility] CBC W Auto Differential pane l (Bld)on 04-10-2024 Basophils (Bld) [#/Vol] 0.06 10*3/uL Normal <0.11 [facility] Comment on above: Order Comment: Speci men Type: BLOOD SPECIMENOrdering Facility: [facility] Address: [address] [place] [address] Performed By: #### 5 7021-8 ####[facility] LABCLIA [id number] [place] [address] [place] Basophils/100 WBC (Bld) 0.9 % Normal [facility] Comment on above: Order Comment: Speci men Type: BLOOD SPECIMENOrdering Facility: [facility] Address: [address] [place] [address] Performed By: #### 5 7021-8 ####[facility] LABCLIA [id number] [place] [address] [place] Differential cell count method Nom (Bld) Auto Normal [facility] Comment on above: Order Comment: Speci men Type: BLOOD SPECIMENOrdering Facility: [facility] Address: [address] [place] [address] Performed By: #### 5 7021-8 ####[facility] LABCLIA [id number] [place] [address] [place] Eosinophils (Bld) [#/Vol] 0.09 10*3/uL Normal <0.46 [facility] Comment on above: Order Comment: Speci men Type: BLOOD SPECIMENOrdering Facility: [facility] Address: [address] [place] [address] Performed By: #### 5 7021-8 ####[facility] LABCLIA [id number] [place] [address] [place] Eosinophils/100 WBC (Bld) 1.4 % Normal [facility] Comment on above: Order Comment: Speci men Type: BLOOD SPECIMENOrdering Facility: [facility] Address: [address] [place] [address] Performed By: #### 5 7021-8 ####[facility] LABCLIA [id number] [place] [address] [place] Erythrocyte distribution width (RBC) [Ratio] 12.4 % Normal 11.5-15.0 [facility] Comment on above: Order Comment: Speci men Type: BLOOD SPECIMENOrdering Facility: [facility] Address: [address] [place] [address] Performed By: #### 5 7021-8 ####[facility] LABCLIA [id number] [place] [address] [place] Hematocrit (Bld) [Volume fraction] 42.9 % Normal 39.0-51.0 [facility] Comment on above: Order Comment: Speci men Type: BLOOD SPECIMENOrdering Facility: [facility] Address: [address] [place] [address] Performed By: #### 5 7021-8 ####[facility] LABIA [id number] [place] [address] [place] Hemoglobin (Bld) [Mass/Vol] 13.8 g/dL Normal 13.0-17.0 [facility] Comment on above: Order Comment: Speci men Type: BLOOD SPECIMENOrdering Facility: [facility] Address: [address] [place] [address] Performed By: #### 5 7021-8 ####[facility] LABIA [id number] [place] [address] [place] Immature granulocytes (Bld) [#/Vol] 0.03 10*3/uL Normal <0.10 [facility] Comment on above: Order Comment: Speci men Type: BLOOD SPECIMENOrdering Facility: [facility] Address: [address] [place] [address] Performed By: #### 5 7021-8 ####[facility] LABCLIA [id number] [place] [address] [place] Immature granulocytes/100 WBC (Bld) 0.5 % Normal [facility] Comment on above: Order Comment: Speci men Type: BLOOD SPECIMENOrdering Facility: [facility] Address: [address] [place] [address] Performed By: #### 5 7021-8 ####[facility] LABIA [id number] [place] [address] [place] Lymphocytes (Bld) [#/Vol] 2.29 10*3/uL Normal 1.00-4.00 [facility] Comment on above: Order Comment: Speci men Type: BLOOD SPECIMENOrdering Facility: [facility] Address: [address] [place] [address] Performed By: #### 5 7021-8 ####[facility] LABCLIA [id number] [place] [address] [place] Lymphocytes/100 WBC (Bld) 34.6 % Normal [facility] Comment on above: Order Comment: Speci men Type: BLOOD SPECIMENOrdering Facility: [facility] Address: [address] [place] [address] Performed By: #### 5 7021-8 ####[facility] LABCLIA [id number] [place] [address] [place] MCH (RBC) [Entitic mass] 30.5 pg Normal 26.0-34.0 [facility] Comment on above: Order Comment: Speci men Type: BLOOD SPECIMENOrdering Facility: [facility] Address: [address] [place] [address] Performed By: #### 5 7021-8 ####[facility] LABCLIA [id number] [place] [address] [place] MCHC (RBC) [Mass/Vol] 32.2 g/dL Normal 30.5-36.0 [facility] Comment on above: Order Comment: Speci men Type: BLOOD SPECIMENOrdering Facility: [facility] Address: [address] [place] [address] Performed By: #### 5 7021-8 ####[facility] LABCLIA [id number] [place] [address] [place] MCV (RBC) [Entitic vol] 94.7 fL Normal 80.0-100.0 [facility] Comment on above: Order Comment: Speci men Type: BLOOD SPECIMENOrdering Facility: [facility] Address: [address] [place] [address] Performed By: #### 5 7021-8 ####[facility] LABCLIA [id number] [place] [address] [place] Monocytes (Bld) [#/Vol] 0.72 10*3/uL Normal <0.87 [facility] Comment on above: Order Comment: Speci men Type: BLOOD SPECIMENOrdering Facility: [facility] Address: [address] [place] [address] Performed By: #### 5 7021-8 ####[facility] LABCLIA [id number] [place] [address] [place] Monocytes/100 WBC (Bld) 10.9 % Normal [facility] Comment on above: Order Comment: Speci men Type: BLOOD SPECIMENOrdering Facility: [facility] Address: [address] [place] [address] Performed By: #### 5 7021-8 ####[facility] LABCLIA [id number] [place] [address] [place] Neutrophils (Bld) [#/Vol] 3.43 10*3/uL Normal 1.45-7.50 [facility] Comment on above: Order Comment: Speci men Type: BLOOD SPECIMENOrdering Facility: [facility] Address: [address] [place] [address] Performed By: #### 5 7021-8 ####[facility] LABCLIA [id number] [place] [address] [place] Neutrophils/100 WBC (Bld) 51.7 % Normal [facility] Comment on above: Order Comment: Speci men Type: BLOOD SPECIMENOrdering Facility: [facility] Address: [address] [place] [address] Performed By: #### 5 7021-8 ####[facility] LABCLIA [id number] [place] [address] [place] Nucleated RBC (Bld) [#/Vol] 10*3/uL Normal <0.01 [facility] Comment on above: Order Comment: Speci men Type: BLOOD SPECIMENOrdering Facility: [facility] Address: [address] [place] [address] Performed By: #### 5 7021-8 ####[facility] LABCLIA [id number] [place] [address] [place] Nucleated RBC/100 WBC (Bld) [Ratio] 0.0 /100 WBC Normal [facility] Comment on above: Order Comment: Speci men Type: BLOOD SPECIMENOrdering Facility: [facility] Address: [address] [place] [address] Performed By: #### 5 7021-8 ####[facility] LABCLIA [id number] [place] [address] [place] Platelet mean volume (Bld) [Entitic vol] 9.3 fL Normal 9.0-12.7 [facility] Comment on above: Order Comment: Speci men Type: BLOOD SPECIMENOrdering Facility: [facility] Address: [address] [place] [address] Performed By: #### 5 7021-8 ####[facility] LABCLIA [id number] [place] [address] [place] Platelets (Bld) [#/Vol] 367 10*3/uL Normal 150-400 [facility] Comment on above: Order Comment: Speci men Type: BLOOD SPECIMENOrdering Facility: [facility] Address: [address] [place] [address] Performed By: #### 5 7021-8 ####[facility] LABCLIA [id number] [place] [address] [place] RBC (Bld) [#/Vol] 4.53 10*6/uL Normal 4.20-6.00 [facility] Comment on above: Order Comment: Speci men Type: BLOOD SPECIMENOrdering Facility: [facility] Address: [address] [place] [address] Performed By: #### 5 7021-8 ####[facility] LABCLIA [id number] [place] [address] [place] WBC (Bld) [#/Vol] 6.62 10*3/uL Normal 3.70-11.00 [facility] Comment on above: Order Comment: Speci men Type: BLOOD SPECIMENOrdering Facility: [facility] Address: [address] [place] [address] Performed By: #### 5 7021-8 ####[facility] LABCLIA [id number] [place] [address] [place] Ferritin [facility] Ferritin [Mass/Vol] 208.0 ng/mL Normal 30.3-565.7 [facility] Comment on above: Order Comment: Speci men Type: BLOOD SPECIMENOrdering Facility: [facility] Address: [address] [place] [address] Performed By: #### 5 0190-8, 2276-4 ####[facility] LABCLIA [id number] [place] [address] [place] Iron and Iron binding capaci ty panelon 04-10-2024 Iron [Mass/Vol] 86 ug/dL Normal 41-186 [facility] Comment on above: Order Comment: Speci men Type: BLOOD SPECIMENOrdering Facility: [facility] Address: [address] [place] [address] Performed By: #### 5 0190-8, 2276-4 ####[facility] LABCLIA [id number] [place] [address] [place] Iron binding capacity [Mass/Vol] 302 ug/dL Normal 232-386 [facility] Comment on above: Order Comment: Speci men Type: BLOOD SPECIMENOrdering Facility: [facility] Address: [address] [place] [address] Performed By: #### 5 0190-8, 2276-4 ####[facility] LABCLIA [id number] [place] [id number] [place] Iron/TIBC [Molar ratio] 28.5 % Normal 15.0-57.0 [facility] Comment on above: Order Comment: Speci men Type: BLOOD SPECIMENOrdering Facility: [facility] Address: [address] [place] [address] Performed By: #### 5 0190-8, 2276-4 ####[facility] LABCLIA [id number] [place] [address] [place] PSA/PROSTATE SPECIFIC ANTIGE N SCREENINGon 04-10-2024 Prostate specific Ag [Mass/Vol] 3.33 ng/mL High <2.60 [facility] Comment on above: Order Comment: Speci men Type: BLOOD SPECIMENOrdering Facility: [facility] Address: [address] [place] [address] Result Comment: Tota l PSA test methodology used is the Electrochemiluminescence Immunoassay by [employer]. Total PSA values by differing methodologies cannot be interchanged. For an individual patient, the significance of a PSA level should be interpreted in a broad clinical context, including age, race, family history, digital rectal exam, prostate size, results of prior testing (prostate biopsy, free PSA, PCA3), and use of 5-alpha reductase inhibitors. Considering the high incidence of asymptomatic cancer in the general population that may not pose an ultimate risk to a patient, the decision to recommend urological evaluation or prostate biopsy should be individualized after consideration of all these factors. REFERENCE: Susana Craft M.D., M.P.H., Gregg Davis M.D., Ph.D., Ancelmo Gaun M.D., Sadaf Lopez, M.P.H., Anny rBaswell, Sc.Judy. Effect of Verification Bias on Screening for Prostate Cancer by Measurement of Prostatic Specific Antigen. N Engl J Med 2003,349:335-42. Performed By: #### P SAS1 ####[facility] ABDULKADIR [id number] [place] [id number] [place] Amanda 04-06-2024 CNPN Telephone (FAMPWS) -------- ERIC ANNE ([id number]) 1960 M Date Time Provider Department 04/06[facility] your visit today, we recorded the following information about you: Ancelmo Arnold MD 04/06/2024 1:05 PM Signed Let him know his ct shows a lung nodule. Very common in this area and usually don't mean much. We usually just follow those. I would repeat a ct in one year. His aorta is still enlarge in several areas in the chest. Keeping his bp tight will help. They can also see calcifications of his coronary arteries. I would recommend seeing a inbound call center agent. Liver looks a little nodular. Get labs that Annette had ordered. Martina Baltazar MA 04/06/2024 1:52 PM Signed Patient informed and verbalized understanding. 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 - desvenlafaxine ER (PRISTIQ) 50 mg 24 hr tablet Take 1 tablet by mouth once daily. - ramipril (ALTACE) 2.5 mg capsule - ramipril (ALTACE) 1.25 mg capsule - VITAMIN D 25 mcg (1,000 unit) cap Take 1,000 Units by mouth once daily. - loteprednol etabonate (INVELTYS) 1 % Use 1 Drop in eyes once daily. Both eyes - carboxymethyl/gly/poly80 /PF (REFRESH OPTIVE SANTANA-3, PF, OPHTHALMIC) Use 1-2 Drops in both eyes once daily. Facility-Administered Medications as of 04/07/2024 - perflutren lipid microspheres 1.3 mL in NaCl (PF) 0.9% 10 mL injection (DEFINITY) - sodium chloride 0.9 % (flush) 10 mL (BD POSIFLUSH) - perflutren lipid microspheres 1.3 mL in NaCl (PF) 0.9% 10 mL injection (DEFINITY) - sodium chloride 0.9 % (flush) 10 mL (BD POSIFLUSH) - perflutren lipid microspheres 1.3 mL in NaCl (PF) 0.9% 10 mL injection (DEFINITY) - sodium chloride 0.9 % (flush) 10 mL (BD POSIFLUSH) Problem List As Of Date 04/06/2024 Noted Resolved Anxiety state [F41.1] 07/12/2006 Sprain of neck [S13.9XXA] 07/12/2006 05/30/2016 Mitral valve prolapse [I34.1] 01/02/2007 10/05/2019 Rotator cuff (capsule) sprain 06/15/2009 01/12/2014 Adjustment disorder with depressed mood [F43.21]02/13/2011 Seasonal allergies [J30.2] Hyperlipidemia [E78.5] 06/01/2011 Depression [F32.A] 06/01/2011 Dysthymia [F34.1] 07/04/2016 Hyperopia of both eyes with astigmatism and pre*11/13/2016 Astigmatism, regular [H52.229] 11/13/2016 Presbyopia [H52.4] 11/13/2016 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] 11/13/2016 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] 05/13/2018 Fuchs' corneal dystrophy of both eyes [H18.513] 06/16/2018 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/2018 History of Descemet membrane endothelial kerato*08/28/2018 Corneal epithelial defect [H18.30] 09/07/2019 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] 09/07/2019 Age-related nuclear cataract of both eyes [H25.*09/19/2019 S/P eye surgery [Z98.890] 10/27/2019 Combined forms of age-related cataract of both *11/16/2020 Horseshoe retinal tear of right eye [H33.311] 03/14/2021 Vitreous hemorrhage of right eye (HCC) [H43.11] 03/14/2021 Posterior vitreous detachment of right eye [H43*03/14/2021 JOMAR (obstructive sleep apnea) [G47.33] 01/14/2023 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 Jack Lovell's office about colonoscopy orders. Re-faxed Consult to General Surgery orders to Dr. Jack Lovell's office. Advised pt to contact [facility] scheduling if he has not heard anything by the end of this week from them. Desiy Cherry LPN Allergies As of Date: 04/06/2024 (No Known Allergies) Date Reviewed: 03/19/2024 Reviewed by: Janneth Aj APRN.SCRIPT ARTIST - Fully Assessed Reason for Visit: Orders [681] Prescriptions as of 04/06/2024 - lovastatin 40 mg tablet Take 1 tablet by mouth daily at bedtime. - desvenlafaxine ER (PRISTIQ) 50 mg 24 hr tablet Take 1 tablet by mouth once daily. - ramipril (ALTACE) 2.5 mg capsule - ramipril (ALTACE) 1.25 mg capsule - VITAMIN D 25 mcg (1,000 unit) cap Take 1,000 Units by mouth once daily. - loteprednol etabonate (INVELTYS) 1 % Use 1 Drop in eyes once daily. Both eyes - carboxymethyl/gly/poly80 /PF (REFRESH OPTIVE SANTANA-3, PF, OPHTHALMIC) Use 1-2 Drops in both eyes once daily. Facility-Administered Medications as of 04/06/2024 - perflutren lipid microspheres 1.3 mL in NaCl (PF) 0.9% 10 mL injection (DEFINITY) - sodium chloride 0.9 % (flush) 10 mL (BD POSIFLUSH) - perflutren lipid microspheres 1.3 mL in NaCl (PF) 0.9% 10 mL injection (DEFINITY) - sodium chloride 0.9 % (flush) 10 mL (BD POSIFLUSH) - perflutren lipid microspheres 1.3 mL in NaCl (PF) 0.9% 10 mL injection (DEFINITY) - sodium chloride 0.9 % (flush) 10 mL (BD POSIFLUSH) Problem List As Of Date 04/06/2024 Noted Resolved Anxiety state [F41.1] 07/12/2006 Sprain of neck [S13.9XXA] 07/12/2006 05/30/2016 Mitral valve prolapse [I34.1] 01/02/2007 10/05/2019 Rotator cuff (capsule) sprain 06/15/2009 01/12/2014 Adjustment disorder with depressed mood [F43.21]02/13/2011 Seasonal allergies [J30.2] Hyperlipidemia [E78.5] 06/01/2011 Depression [F32.A] 06/01/2011 Dysthymia [F34.1] 07/04/2016 Hyperopia of both eyes with astigmatism and pre*11/13/2016 Astigmatism, regular [H52.229] 11/13/2016 Presbyopia [H52.4] 11/13/2016 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] 11/13/2016 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] 05/13/2018 Fuchs' corneal dystrophy of both eyes [H18.513] 06/16/2018 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/2018 History of Descemet membrane endothelial kerato*08/28/2018 Corneal epithelial defect [H18.30] 09/07/2019 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] 09/07/2019 Age-related nuclear cataract of both eyes [H25.*09/19/2019 S/P eye surgery [Z98.890] 10/27/2019 Combined forms of age-related cataract of both *11/16/2020 Horseshoe retinal tear of right eye [H33.311] 03/14/2021 Vitreous hemorrhage of right eye (HCC) [H43.11] 03/14/2021 Posterior vitreous detachment of right eye [H43*03/14/2021 JOMAR (obstructive sleep apnea) [G47.33] 01/14/2023 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 MQ: [id number] CT Radiation dose: Integrated Dose-length product (DLP) for this visit = 405 mGy*cm CT Dose Reduction Employed: Automated exposure control(AEC) and iterative recon RESULT: Limitations: None. Lines, tubes, and devices: None. Lung parenchyma and airways: There is an approximately 4 mm nodule seen within the right lower lobe (series 5, image #135). There is no pneumothorax or endobronchial lesion. Pleural space: There is no pleural effusion. Lower neck, lymph nodes, and mediastinum: There are no pathologically enlarged axillary, mediastinal, or hilar lymph nodes. Heart, pericardium, and thoracic vessels: The left vertebral artery arises directly from the aortic arch, an anatomic variant. Atherosclerotic calcifications are present thoracic aorta and coronary arteries. Fatty replacement of the intra-atrial septum. The heart is normal in size. There is no significant pericardial effusion. There is aneurysmal dilation of the distal thoracic arch, measuring approximately 3.2 cm. Additionally, there is aneurysmal dilation of the proximal descending thoracic aorta, measuring approximately 3.3 cm. Bones and soft tissues: There is multilevel degenerative change seen within the thoracic spine. A few presumed bone islands are seen within the osseous structures. There is no destructive bony lesion. Upper abdomen: Nonspecific wall thickening of the stomach likely relates to underdistention. There is mild, nonspecific bilateral perinephric fat stranding. Partially visualized left renal cyst. The liver has a somewhat nodular contour. IMPRESSION: No acute pulmonary process is identified. 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 Additionally, there is aneurysmal dilation of proximal descending thoracic aorta, measuring approximately 3.3 cm. No elli lymphadenopathy is seen within the chest. 4 mm nodule is seen within the right lower lobe. Incidental Finding: Follow-up Acuity: Incidental Finding: Solid: <6 mm (solitary or multiple) Routing Code: N/A Recommendation: No imaging follow-up is recommended Time Frame: N/A Comments: If there are risk factors for lung malignancy, a follow-up chest CT exam could be obtained in 12 months --END OF FINDING-- COMMUNICATION:? Results will be communicated with the ordering provider via [employer] staff message by [employer] within 2 business days of report finalization. Ophthalmology Technician: PSCB Transcribe Date/Time: Apr 04 2024 1:48P Dictated by : NITO MCFARLAND MD This examination was interpreted and the report reviewed and electronically signed by: NITO MCFARLAND MD on Apr 04 2024 1:56PM EST [id number] ACTIONABLE Invalid Interpretation Code [facility] Amanda 03-20-2024 CNPN Telephone ([facility]) -------- ERIC ANNE ([id number]) 1960 M Date Time Provider Department 03/20/24 JANNETH AJ [facility] During your visit today, we recorded the following information about you: Janneth Aj APRN.SCRIPT ARTIST 03/20/2024 7:58 AM Signed Please let patient know that his PSA is significantly higher at 5.88. I am going to treat this as a prostatitis. I have ordered ciprofloxacin 500 mg twice daily for 10 days. I would like him to recheck his PSA once he finishes that antibiotic. If his PSA does not improve, I will refer him to urology for further evaluation. His LDL cholesterol is 196. Lovastatin is not helping. I we will increase that to 40 mg at bedtime. This must be taken at bedtime because the body makes bad cholesterol during the hours that you sleep. Otherwise, kidney function is normal, liver function is normal, blood counts are okay but platelets are little bit high and have been. I will recheck platelets with his PSA in 2 weeks along with an iron and ferritin. Good that he is getting his colonoscopy. Kasandra Henry MA 03/20/2024 9:15 AM Signed Patient was made aware of the results. Patient verbalizes understanding. Kasandra Henry Ma Allergies As of Date: 03/20/2024 (No Known Allergies) Date Reviewed: 03/19/2024 Reviewed by: Janneth Aj APRN.SCRIPT ARTIST - Fully Assessed Prescriptions as of 03/20/2024 - lovastatin 40 mg tablet Take 1 tablet by mouth daily at bedtime. - ciprofloxacin HCl (CIPRO) 500 mg tablet Take 1 tablet by mouth two times a day for 10 days. - desvenlafaxine ER (PRISTIQ) 50 mg 24 hr tablet Take 1 tablet by mouth once daily. - ramipril (ALTACE) 2.5 mg capsule - ramipril (ALTACE) 1.25 mg capsule - VITAMIN D 25 mcg (1,000 unit) cap Take 1,000 Units by mouth once daily. - loteprednol etabonate (INVELTYS) 1 % Use 1 Drop in eyes once daily. Both eyes - carboxymethyl/gly/poly80 /PF (REFRESH OPTIVE SANTANA-3, PF, OPHTHALMIC) Use 1-2 Drops in both eyes once daily. Facility-Administered Medications as of 03/20/2024 - perflutren lipid microspheres 1.3 mL in NaCl (PF) 0.9% 10 mL injection (DEFINITY) - sodium chloride 0.9 % (flush) 10 mL (BD POSIFLUSH) - perflutren lipid microspheres 1.3 mL in NaCl (PF) 0.9% 10 mL injection (DEFINITY) - sodium chloride 0.9 % (flush) 10 mL (BD POSIFLUSH) - perflutren lipid microspheres 1.3 mL in NaCl (PF) 0.9% 10 mL injection (DEFINITY) - sodium chloride 0.9 % (flush) 10 mL (BD POSIFLUSH) Problem List As Of Date 03/20/2024 Noted Resolved Anxiety state [F41.1] 07/12/2006 Sprain of neck [S13.9XXA] 07/12/2006 05/30/2016 Mitral valve prolapse [I34.1] 01/02/2007 10/05/2019 Rotator cuff (capsule) sprain 06/15/2009 01/12/2014 Adjustment disorder with depressed mood [F43.21]02/13/2011 Seasonal allergies [J30.2] Hyperlipidemia [E78.5] 06/01/2011 Depression [F32.A] 06/01/2011 Dysthymia [F34.1] 07/04/2016 Hyperopia of both eyes with astigmatism and pre*11/13/2016 Astigmatism, regular [H52.229] 11/13/2016 Presbyopia [H52.4] 11/13/2016 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] 11/13/2016 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] 05/13/2018 Fuchs' corneal dystrophy of both eyes [H18.513] 06/16/2018 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/2018 History of Descemet membrane endothelial kerato*08/28/2018 Corneal epithelial defect [H18.30] 09/07/2019 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] 09/07/2019 Age-related nuclear cataract of both eyes [H25.*09/19/2019 S/P eye surgery [Z98.890] 10/27/2019 Combined forms of age-related cataract of both *11/16/2020 Horseshoe retinal tear of right eye [H33.311] 03/14/2021 Vitreous hemorrhage of right eye (HCC) [H43.11] 03/14/2021 Posterior vitreous detachment of right eye [H43*03/14/2021 JOMAR (obstructive sleep apnea) [G47.33] 01/14/2023 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] 01/29/2023 Encounter Status:Closed by KASANDRA HENRY on 03/20/24 Normal [facility] CBC W Auto Differential pane l (Bld)on 03-19-2024 Basophils (Bld) [#/Vol] 0.06 10*3/uL [facility] Basophils/100 WBC (Bld) 0.9 % [facility] Differential cell count method Nom (Bld) Auto [facility] Eosinophils (Bld) [#/Vol] 0.10 10*3/uL [facility] Eosinophils/100 WBC (Bld) 1.4 % [facility] Erythrocyte distribution width (RBC) [Ratio] 12.3 % 11.5 - 15.0 % [facility] Hematocrit (Bld) [Volume fraction] 48.9 % 39.0 - 51.0 % [facility] Hemoglobin (Bld) [Mass/Vol] 15.6 g/dL 13.0 - 17.0 g/dL [facility] Immature granulocytes (Bld) [#/Vol] 0.04 10*3/uL [facility] Immature granulocytes/100 WBC (Bld) 0.6 % [facility] Interpretation and review of laboratory results Abnormal [facility] Lymphocytes (Bld) [#/Vol] 2.32 10*3/uL [facility] Lymphocytes/100 WBC (Bld) 33.3 % [facility] MCH (RBC) [Entitic mass] 30.5 pg 26.0 - 34.0 pg [facility] MCHC (RBC) [Mass/Vol] 31.9 g/dL 30.5 - 36.0 g/dL [facility] MCV (RBC) [Entitic vol] 95.7 fL 80.0 - 100.0 fL [facility] Monocytes (Bld) [#/Vol] 0.72 10*3/uL [facility] Monocytes/100 WBC (Bld) 10.3 % [facility] Neutrophils (Bld) [#/Vol] 3.72 10*3/uL [facility] Neutrophils/100 WBC (Bld) 53.5 % [facility] Nucleated RBC (Bld) [#/Vol] NINF [facility] Nucleated RBC/100 WBC (Bld) [Ratio] 0.0 % /100 WBC [facility] Platelet mean volume (Bld) [Entitic vol] 9.3 fL 9.0 - 12.7 fL [facility] Platelets (Bld) [#/Vol] 443 10*3/uL High [facility] RBC (Bld) [#/Vol] 5.11 10*6/uL 4.20 - 6.0 0 m/uL [facility] WBC (Bld) [#/Vol] 6.96 10*3/uL [facility] Basophils (Bld) [#/Vol] 0.06 10*3/uL Normal <0.11 [facility] Comment on above: Order Comment: Speci men Type: BLOOD SPECIMENOrdering Facility: [facility] Address: [address] [place] [address] Performed By: #### 5 7021-8 ####[facility] LABCLIA [id number] [place] [address] [place] Basophils/100 WBC (Bld) 0.9 % Normal C [facility] Comment on above: Order Comment: Speci men Type: BLOOD SPECIMENOrdering Facility: [facility] Address: [address] [place] [address] Performed By: #### 5 7021-8 ####[facility] LABCLIA [id number] [place] [address] [place] Differential cell count method Nom (Bld) Auto Normal [facility] Comment on above: Order Comment: Speci men Type: BLOOD SPECIMENOrdering Facility: [facility] Address: [address] [place] [address] Performed By: #### 5 7021-8 ####[facility] LABCLIA [id number] [place] [address] [place] Eosinophils (Bld) [#/Vol] 0.10 10*3/uL Normal <0.46 [facility] Comment on above: Order Comment: Speci men Type: BLOOD SPECIMENOrdering Facility: [facility] Address: [address] [place] [address] Performed By: #### 5 7021-8 ####[facility] LABIA [id number] [place] [address] [place] Eosinophils/100 WBC (Bld) 1.4 % Normal [facility] Comment on above: Order Comment: Speci men Type: BLOOD SPECIMENOrdering Facility: [facility] Address: [address] [place] [address] Performed By: #### 5 7021-8 ####[facility] LABIA [id number] [place] [address] [place] Erythrocyte distribution width (RBC) [Ratio] 12.3 % Normal 11.5-15.0 [facility] Comment on above: Order Comment: Speci men Type: BLOOD SPECIMENOrdering Facility: [facility] Address: [address] [place] [address] Performed By: #### 5 7021-8 ####[facility] LABIA [id number] [place] [address] [place] Hematocrit (Bld) [Volume fraction] 48.9 % Normal 39.0-51.0 [facility] Comment on above: Order Comment: Speci men Type: BLOOD SPECIMENOrdering Facility: [facility] Address: [address] [place] [address] Performed By: #### 5 7021-8 ####[facility] LABCLIA [id number] [place] [address] [place] Hemoglobin (Bld) [Mass/Vol] 15.6 g/dL Normal 13.0-17.0 [facility] Comment on above: Order Comment: Speci men Type: BLOOD SPECIMENOrdering Facility: [facility] Address: [address] [place] [address] Performed By: #### 5 7021-8 ####[facility] LABCLIA [id number] [place] [address] [place] Immature granulocytes (Bld) [#/Vol] 0.04 10*3/uL Normal <0.10 [facility] Comment on above: Order Comment: Speci men Type: BLOOD SPECIMENOrdering Facility: [facility] Address: [address] [place] [address] Performed By: #### 5 7021-8 ####[facility] LABIA [id number] [place] [address] [place] Immature granulocytes/100 WBC (Bld) 0.6 % Normal [facility] Comment on above: Order Comment: Speci men Type: BLOOD SPECIMENOrdering Facility: [facility] Address: [address] [place] [address] Performed By: #### 5 7021-8 ####[facility] LABCLIA [id number] [place] [address] [place] Lymphocytes (Bld) [#/Vol] 2.32 10*3/uL Normal 1.00-4.00 [facility] Comment on above: Order Comment: Speci men Type: BLOOD SPECIMENOrdering Facility: [facility] Address: [address] [place] [address] Performed By: #### 5 7021-8 ####[facility] LABIA [id number] [place] [address] [place] Lymphocytes/100 WBC (Bld) 33.3 % Normal [facility] Comment on above: Order Comment: Speci men Type: BLOOD SPECIMENOrdering Facility: [facility] Address: [address] [place] [address] Performed By: #### 5 7021-8 ####[facility] LABIA [id number] [place] [address] [place] MCH (RBC) [Entitic mass] 30.5 pg Normal 26.0-34.0 [facility] Comment on above: Order Comment: Speci men Type: BLOOD SPECIMENOrdering Facility: [facility] Address: [address] [place] [address] Performed By: #### 5 7021-8 ####[facility] LABIA [id number] [place] [address] [place] MCHC (RBC) [Mass/Vol] 31.9 g/dL Normal 30.5-36.0 [facility] Comment on above: Order Comment: Speci men Type: BLOOD SPECIMENOrdering Facility: [facility] Address: [address] [place] [address] Performed By: #### 5 7021-8 ####[facility] LABIA [id number] [place] [address] [place] MCV (RBC) [Entitic vol] 95.7 fL Normal 80.0-100.0 C [facility] Comment on above: Order Comment: Speci men Type: BLOOD SPECIMENOrdering Facility: [facility] Address: [address] [place] [address] Performed By: #### 5 7021-8 ####[facility] LABIA [id number] [place] [address] [place] Monocytes (Bld) [#/Vol] 0.72 10*3/uL Normal <0.87 [facility] Comment on above: Order Comment: Speci men Type: BLOOD SPECIMENOrdering Facility: [facility] Address: [address] [place] [address] Performed By: #### 5 7021-8 ####[facility] LABCLIA [id number] [place] [address] [place] Monocytes/100 WBC (Bld) 10.3 % Normal C [facility] Comment on above: Order Comment: Speci men Type: BLOOD SPECIMENOrdering Facility: [facility] Address: [address] [place] [address] Performed By: #### 5 7021-8 ####[facility] LABCLIA [id number] [place] [address] [place] Neutrophils (Bld) [#/Vol] 3.72 10*3/uL Normal 1.45-7.50 [facility] Comment on above: Order Comment: Speci men Type: BLOOD SPECIMENOrdering Facility: [facility] Address: [address] [place] [address] Performed By: #### 5 7021-8 ####[facility] LABCLIA [id number] [place] [address] [place] Neutrophils/100 WBC (Bld) 53.5 % Normal [facility] Comment on above: Order Comment: Speci men Type: BLOOD SPECIMENOrdering Facility: [facility] Address: [address] [place] [address] Performed By: #### 5 7021-8 ####[facility] LABCLIA [id number] [place] [address] [place] Nucleated RBC (Bld) [#/Vol] 10*3/uL Normal <0.01 [facility] Comment on above: Order Comment: Speci men Type: BLOOD SPECIMENOrdering Facility: [facility] Address: [address] [place] [address] Performed By: #### 5 7021-8 ####[facility] LABCLIA [id number] [place] [address] [place] Nucleated RBC/100 WBC (Bld) [Ratio] 0.0 /100 WBC Normal [facility] Comment on above: Order Comment: Speci men Type: BLOOD SPECIMENOrdering Facility: [facility] Address: [address] [place] [address] Performed By: #### 5 7021-8 ####[facility] LABCLIA [id number] [place] [address] [place] Platelet mean volume (Bld) [Entitic vol] 9.3 fL Normal 9.0-12.7 [facility] Comment on above: Order Comment: Speci men Type: BLOOD SPECIMENOrdering Facility: [facility] Address: [address] [place] [address] Performed By: #### 5 7021-8 ####[facility] LABCLIA [id number] [place] [address] [place] Platelets (Bld) [#/Vol] 443 10*3/uL High 150-400 [facility] Comment on above: Order Comment: Speci men Type: BLOOD SPECIMENOrdering Facility: [facility] Address: [address] [place] [address] Performed By: #### 5 7021-8 ####[facility] LABCLIA [id number] [place] [address] [place] RBC (Bld) [#/Vol] 5.11 10*6/uL Normal 4.20-6.00 [facility] Comment on above: Order Comment: Speci men Type: BLOOD SPECIMENOrdering Facility: [facility] Address: [address] [place] [address] Performed By: #### 5 7021-8 ####[facility] LABCLIA [id number] [place] [address] [place] WBC (Bld) [#/Vol] 6.96 10*3/uL Normal 3.70-11.00 [facility] Comment on above: Order Comment: Speci men Type: BLOOD SPECIMENOrdering Facility: [facility] Address: [address] [place] [address] Performed By: #### 5 7021-8 ####[facility] LABCLIA [id number] KAYLA HUTSON [id number] [id number] [facility] CNOVon 03-19-2024 CNOV Office Visit (FAMPWS ) -------- ERIC ANNE ([id number]) 1960 M Date Time Provider Department 03/19/24 10:00 AM [facility] During your visit today, we recorded the following information about you: Pulse Blood pressure Weight Height 57/minute 110/62 103 kg 1.81 m Janneth Aj, [employer]SCRIPT ARTIST 03/19/2024 11:31 AM Signed Chief Reason For Appointment Patient presents with: Yearly Exam Eric Anne is a 63 year old male who presents for annual exam. Last office visit date: 01/14/2023 Accompanied By self only Have you had any critical events, hospital stays, ER visits, surgeries or procedures since your last visit here in our office: Yes Went to ER for HTN. Specialists/Other Healthcare Providers Seen: Patient Care Team: Ancelmo Arnold MD as PCP - General (Family Medicine) Concerns today: Allergies that affect mood and lightheadedness. Worse this year. Saps energy. Takes Claritin. Flonase both morning 2 x day. OA ongoing. Family Hx of sudden cardiac young. 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 History of Descemet Membrane Endothelial Keratoplasty (Dmek) - 08/28/2018 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 NECK: Negative for lumps, goiter, pain and significant neck swelling RESPIRATORY: Negative for cough, hemoptysis, wheezing, dyspnea or shortness of breath- on occasion w/o activity CARDIOVASCULAR: Negative for chest pain, leg swelling, orthopnea, or palpitations GI: No nausea, vomiting, or diarrhea/constipation. No hematochezia/melena. Rare heartburn or reflux symptoms. : No history of dysuria, frequency or incontinence MUSCULOSKELETAL: Some widespread joint pain or swelling. Manageable. SKIN: Negative for lesions, rash, and itching ENDOCRINE: Negative for cold or heat intolerance, polyuria, polydipsia and goiter NEURO: No history of headaches, syncope, paralysis, seizures or tremors MOOD: Negative for depression, anxiety, or suicidal ideation. PAST MEDICAL HISTORY Diagnosis Date Back pain [...] DSAEK/DMEK Right 10/27/2019 ENDOTHELIAL KERATOPLASTY(DMEK) Left 08/05/2018 Ailyn Rodriguez MD PAST SURGICAL HISTORY OF Right 10/27/2019 Keratoplasty RETINOPEXY LASER PROPHYLAXIS BREAK(S) OD (RIGHT EYE) Right 03/21/2021 TONSILLECTOMY AND ADENOIDECTOMY T/A (under age 12 years) VASECTOMY UNI/BI SPX W/POSTOP SEMEN EXAMS Medication List Current Outpatient Medications Medication Sig Dispense Refill lovastatin (MEVACOR) 20 mg tablet Take 1 tablet by mouth daily at bedtime. For cholesterol. 30 tablet 0 desvenlafaxine ER (PRISTIQ) 50 mg 24 hr tablet Take 1 tablet by mouth once daily. 30 tablet 0 ramipril (ALTACE) 2.5 mg capsule VITAMIN D 25 mcg (1,000 unit) cap Take 1,000 Units by mouth once daily. loteprednol etabonate (INVELTYS) 1 % Use 1 Drop in eyes once daily. Both eyes carboxymethyl/gly/poly80 /PF (REFRESH OPTIVE SANTANA-3, PF, OPHTHALMIC) Use 1-2 Drops in both eyes once daily. ramipril (ALTACE) 1.25 mg capsule Current Facility-Administered Medications Medication Dose Route Frequency Provider Last Rate Last Admin perflutren lipid microspheres 1.3 mL in NaCl (PF) 0.9% 10 mL injection (DEFINITY) INTRAVENOUS DIRECTED PRN Haage (more content not included)... Normal [facility] Comprehensive metabolic 2000 panelon 03-19-2024 Albumin [Mass/Vol] 4.3 g/dL Normal 3.9-4.9 [facility] Comment on above: Order Comment: Speci men Type: BLOOD SPECIMENOrdering Facility: [facility] Address: [address] [place] [address] Performed By: #### 3 016-3, LIPANGY, 46340-1, 56840-2 ####[facility] LABCLIA [id number] [place] [address] [place] ALP [Catalytic activity/Vol] 100 U/L Normal 38-113 [facility] Comment on above: Order Comment: Speci men Type: BLOOD SPECIMENOrdering Facility: [facility] Address: [address] [place] [address] Performed By: #### 3 016-3, LIPNF, , ####[facility] LABCLIA [id number] [place] [address] [place] ALT [Catalytic activity/Vol] 17 U/L Normal 10-54 [facility] Comment on above: Order Comment: Speci men Type: BLOOD SPECIMENOrdering Facility: [facility] Address: [address] [place] [address] Performed By: #### 3 016-3, LIPNF, , ####[facility] LABCLIA [id number] [place] [address] [place] Anion gap [Moles/Vol] 11 mmol/L Normal 9-18 [facility] Comment on above: Order Comment: Speci men Type: BLOOD SPECIMENOrdering Facility: [facility] Address: [address] [place] [address] Performed By: #### 3 016-3, LIPNF, , ####[facility] LABCLIA [id number] [place] [address] [place] AST [Catalytic activity/Vol] 24 U/L Normal 14-40 [facility] Comment on above: Order Comment: Speci men Type: BLOOD SPECIMENOrdering Facility: [facility] Address: [address] [place] [address] Performed By: #### 3 016-3, LIPNF, , ####[facility] LABCLIA [id number] [place] [address] [place] Bilirubin [Mass/Vol] 0.3 mg/dL Normal 0.2-1.3 [facility] Comment on above: Order Comment: Speci men Type: BLOOD SPECIMENOrdering Facility: [facility] Address: [address] [place] [address] Performed By: #### 3 016-3, LIPNF, , ####[facility] LABCLIA [id number] [address] [address] [place] Calcium [Mass/Vol] 10.1 mg/dL Normal 8.5-10.2 [facility] Comment on above: Order Comment: Speci men Type: BLOOD SPECIMENOrdering Facility: [facility] Address: [address] [place], [place] [address] Performed By: #### 3 016-3, LIPNF, , ####[facility] LABCLIA [id number] [place] [id number] [place] Chloride [Moles/Vol] 101 mmol/L Normal 97-105 [facility] Comment on above: Order Comment: Speci men Type: BLOOD SPECIMENOrdering Facility: [facility] Address: [address] [place], [place] [address] Performed By: #### 3 016-3, LIPNF, , ####[facility] LABCLIA [id number] [place] [address] [place] CO2 [Moles/Vol] 27 mmol/L Normal 22-30 [facility] Comment on above: Order Comment: Speci men Type: BLOOD SPECIMENOrdering Facility: [facility] Address: [address] [place] [id number] Performed By: #### 3 016-3, LIPNF, , ####[facility] LABCLIA [id number] [address] [address] [place] Creatinine [Mass/Vol] 0.91 mg/dL Normal 0.73-1.22 [facility] Comment on above: Order Comment: Speci men Type: BLOOD SPECIMENOrdering Facility: [facility] Address: [address] [place], [place] [address] Performed By: #### 3 016-3, LIPNF, 84301-8, 43004-6 ####[facility] LABIA [id number] [place] [address] [place] Creatinine and Glomerular filtration rate.predicted panel (S/P/Bld) 96 mL/min/1.73m??? Normal >=60 [facility] Comment on above: Order Comment: Aníbal campos Type: BLOOD SPECIMENOrdering Facility: [facility] Address: [address] [place] [address] Result Comment: Meron mated Glomerular Filtration Rate (eGFR) is calculated using the 2020 CKD-EPI creatinine equation. This equation utilizes serum creatinine, sex, and age as parameters. The creatinine assay has traceable calibration to isotope dilution-mass spectrometry. Refer to KDIGO guidelines for clinical interpretation. In patients with unstable renal function, e.g. those with acute kidney injury, the eGFR may not accurately reflect actual GFR. Performed By: #### 3 016-3, LIPNF, 64512-0, 49719-2 ####[facility] LABIA [id number] [place] [address] [place] Glucose [Mass/Vol] 96 mg/dL Normal 74-99 [facility] Comment on above: Order Comment: Aníbal campos Type: BLOOD SPECIMENOrdering Facility: [facility] Address: [address] [place] [address] Result Comment: The [place] Diabetes Association (ADA) provides guidance for cutoff values for fasting glucose and random glucose. The ADA defines fasting as no caloric intake for at least 8 hours. Fasting plasma glucose results between 100 to 125 mg/dL indicate increased risk for diabetes (prediabetes). Fasting plasma glucose results greater than or equal to 126 mg/dL meet the criteria for diagnosis of diabetes. In the absence of unequivocal hyperglycemia, results should be confirmed by repeat testing. In a patient with classic symptoms of hyperglycemia or hyperglycemic crisis, random plasma glucose results greater than or equal to 200 mg/dL meet the criteria for diagnosis of diabetes. Reference: Standards of Medical Care in Diabetes 2016, [place] Diabetes Association. Diabetes Care. 2016.39(Suppl 1). Performed By: #### 3 016-3, LIPNF, , ####[facility] LABCLIA [id number] [place] [address] [place] Potassium [Moles/Vol] 4.9 mmol/L Normal 3.7-5.1 [facility] Comment on above: Order Comment: Speci men Type: BLOOD SPECIMENOrdering Facility: [facility] Address: [address] [place] [address] Performed By: #### 3 016-3, LIPNF, , ####[facility] LABCLIA [id number] [place] [address] [place] Protein [Mass/Vol] 7.7 g/dL Normal 6.3-8.0 [facility] Comment on above: Order Comment: Speci men Type: BLOOD SPECIMENOrdering Facility: [facility] Address: [address] [place] [address] Performed By: #### 3 016-3, LIPNF, , ####[facility] LABIA [id number] [place] [address] [place] Sodium [Moles/Vol] 139 mmol/L Normal 136-144 [facility] Comment on above: Order Comment: Speci men Type: BLOOD SPECIMENOrdering Facility: [facility] Address: [address] [place] [address] Performed By: #### 3 016-3, LIPNF, , 63730-5 ####[facility] LABCLIA [id number] [place] [id number] [place] Urea nitrogen [Mass/Vol] 14 mg/dL Normal 9-24 [facility] Comment on above: Order Comment: Speci men Type: BLOOD SPECIMENOrdering Facility: [facility] Address: [address] [place] [address] Performed By: #### 3 016-3, LIPNF, , ####[facility] LABCLIA [id number] [place] [address] [place] LIPID PANEL, NONFASTINGon Cholesterol [Mass/Vol] 272 mg/dL High <200 [facility] Comment on above: Order Comment: Speci men Type: BLOOD SPECIMENOrdering Facility: [facility] Address: [address] [place] [address] Result Comment: <200 mg/dL, Desirable 200-239 mg/dL, Borderline high >239 mg/dL, High Performed By: #### 3 016-3, LIPNF, , ####[facility] LABCLIA [id number] [place] [address] [place] HDL CHOLESTEROL, NF 51 mg/dL Normal >39 [facility] Comment on above: Order Comment: Speci men Type: BLOOD SPECIMENOrdering Facility: [facility] Address: [address] [place] [address] Result Comment: 40-5 9 mg/dL, Acceptable >59 mg/dL, High: Negative risk factor for coronary heart disease <40 mg/dL, Low: Positive risk factor for coronary heart disease Performed By: #### 3 016-3, LIPNF, , 77435-9 ####[facility] LABCLIA [id number] [place] [address] [place] LDL CHOLESTEROL, NF 196 mg/dL High <100 [facility] Comment on above: Order Comment: Speci men Type: BLOOD SPECIMENOrdering Facility: [facility] Address: [address] [place] [address] Result Comment: <100 mg/dL, Optimal 100-129 mg/dL, Near optimal/above optimal 130-159 mg/dL, Borderline high 160-189 mg/dL, High >189 mg/dL, Very high Secondary prevention optimal LDL Cholesterol levels are recommended to be < 70 mg/dL Performed By: #### 3 016-3, LIPNF, , ####[facility] LABCLIA [id number] [place] [address] [place] LDL/HDL RATIO, NF 3.84 mg/dL High <2.54 [facility] Comment on above: Order Comment: Speci men Type: BLOOD SPECIMENOrdering Facility: [facility] Address: [address] [place] [address] Result Comment: Refe rence: 1. National Cholesterol Education Program ATP III Guideline At-A-Glance Quick Desk Reference: National Heart, Lung, and Blood [place]. National Institutes of Health. 2001: NIH Publication No. 01-3305. 2. An International Atherosclerosis Society position paper: global recommendations for the management of dyslipidemia: executive summary, Atherosclerosis. 2014: 232(2):410-413. Performed By: #### 3 016-3, LIPNF, , ####[facility] LABCLIA [id number] [place] [address] [place] NON HDL CHOL, NF 221 mg/dL High <130 [facility] Comment on above: Order Comment: Speci men Type: BLOOD SPECIMENOrdering Facility: [facility] Address: [address] [place] [address] Result Comment: <130 mg/dL, Optimal 130-159 mg/dL, Near optimal/above optimal 160-189 mg/dL, Borderline high 190-219 mg/dL, High >219 mg/dL, Very high Secondary prevention optimal non HDL Cholesterol levels are recommended to be <100 mg/dL Performed By: #### 3 016-3, LIPNF, , ####[facility] LABCLIA [id number] [address] [place] T CHOL/HDL RATIO NF 5.33 mg/dL High <5.10 [facility] Comment on above: Order Comment: Speci men Type: BLOOD SPECIMENOrdering Facility: [facility] Address: [address] [place] [address] Performed By: #### 3 016-3, LIPNF, , ####[facility] LABCLIA [id number] [place] [address] [place] TRIGLYCERIDES, NF 124 mg/dL Normal <150 [facility] Comment on above: Order Comment: Speci men Type: BLOOD SPECIMENOrdering Facility: [facility] Address: [address] [place] [address] Result Comment: <150 mg/dL, Normal 150-199 mg/dL, Borderline high 200-499 mg/dL, High >499 mg/dL, Very high Performed By: #### 3 016-3, LIPNF, , ####[facility] LABCLIA [id number] [place] [address] [place] VLDL CHOLESTEROL, NF 25 mg/dL Normal <30 [facility] Comment on above: Order Comment: Speci men Type: BLOOD SPECIMENOrdering Facility: [facility] Address: [address] [place] [address] Performed By: #### 3 016-3, LIPNF, , ####[facility] LABCLIA [id number] [place] [address] [place] Magnesium SerPl-mCncon 03-19 Magnesium [Mass/Vol] 2.3 mg/dL Normal 1.7-2.3 [facility] Comment on above: Order Comment: Speci men Type: BLOOD SPECIMENOrdering Facility: [facility] Address: [address] [place] [address] Performed By: #### 3 016-3, LIPNF, , ####[facility] LABCLIA [id number] [place] [address] [place] PSA/PROSTATE SPECIFIC ANTIGE N SCREENINGon 03-19-2024 Prostate specific Ag [Mass/Vol] 5.88 ng/mL High <2.60 [facility] Comment on above: Order Comment: Speci men Type: BLOOD SPECIMENOrdering Facility: [facility] Address: [address] [place] [address] Result Comment: [place] PSA test methodology used is the Electrochemiluminescence Immunoassay by [employer]. Total PSA values by differing methodologies cannot be interchanged. For an individual patient, the significance of a PSA level should be interpreted in a broad clinical context, including age, race, family history, digital rectal exam, prostate size, results of prior testing (prostate biopsy, free PSA, PCA3), and use of 5-alpha reductase inhibitors. Considering the high incidence of asymptomatic cancer in the general population that may not pose an ultimate risk to a patient, the decision to recommend urological evaluation or prostate biopsy should be individualized after consideration of all these factors. REFERENCE: Susana Craft M.D., M.P.H., Gregg Davis M.D., Ph.D., Ancelmo Guan M.D., Sadaf Lopez, M.P.H., Anny Braswell, Sc.D. Effect of Verification Bias on Screening for Prostate Cancer by Measurement of Prostatic Specific Antigen. N Engl J Med 2003,349:335-42. Performed By: #### P SAS1 ####[facility] LABCLIA [id number] [place] [address] [place] TSH SerPl-aCncon 03-19-2024 TSH Qn 2.370 m[IU]/L Normal 0.270-4.200 [facility] Comment on above: Order Comment: Speci men Type: BLOOD SPECIMENOrdering Facility: [facility] Address: [address] [place] [address] Performed By: #### 3 016-3, LIPNF, 70718-8, 24857-8 ####[facility] LABCLIA [id number] [place] [address] [place] Absolute lymphocyte countOrd ered By: Carlos Mccallum on 12-03-2023 Lymphocytes Auto (Unsp spec) [#/Vol] 2.29 10*3/uL 0.83-4.51 [facility] Automated lymphocyte count a s percentage of total leukocytesOrdered By: Carlos Mccallum on 12-03-2023 Lymphocytes/100 WBC Auto (Unsp spec) 37.5 % 19-41 [facility] Basophil percentageOrdered B y: Carlos Mccallum on 12-03-2023 Basophils/100 WBC (Bld) 0.8 % 0-1 [facility] Chloride [Moles/Vol] 109 mmol/L 98-107 [facility] Eosinophils/100 WBC (Bld) 1.5 % 0-5 [facility] Glucose [Mass/Vol] 91 mg/dL 74-106 [facility] Hemoglobin (Bld) [Mass/Vol] 13.1 g/dL 13.0-16.5 [facility] Monocytes/100 WBC (Bld) 10.6 % 0-10 [facility] Neutrophils (Bld) [#/Vol] 3.0 10*3/uL 2.0-7.7 [facility] Neutrophils/100 WBC (Bld) 49.3 % 47-70 [facility] Potassium [Moles/Vol] 3.7 mmol/L 3.5-5.1 [facility] Sodium [Moles/Vol] 143 mmol/L 136-145 [facility] WBC (Bld) [#/Vol] 6.1 10*3/uL 4.4-11.0 [facility] Determination of erythrocyte mean corpuscular volume (MCV)Ordered By: Carlos Mccallum on 12-03-2023 MCV (RBC) [Entitic vol] 95.3 fL 80-94 [facility] Erythrocyte distribution wid th ratioOrdered By: Carlos Mccallum on 12-03-2023 Erythrocyte distribution width (RBC) [Ratio] 12.5 % 11.6-14.6 [facility] Erythrocyte distribution wid th standard deviationOrdered By: Carlos Mccallum on 12-03-2023 Erythrocyte distribution width (RBC) [Entitic vol] 43.3 fL 35.1-43.9 [facility] Hematocrit Auto (Bld) [Volum e fraction]Ordered By: Carlos Mccallum on 12-03-2023 Hematocrit (Bld) [Volume fraction] 40.4 % 40-54 [facility] Immature granulocytes/100 WB C Auto (Bld)Ordered By: Carlos Mccallum on 12-03-2023 Immature granulocytes/100 WBC (Bld) 0.300 % 0.0-0.9 [facility] Comment on above: IG% - Immature Granu locytes (promyelocytes, myelocytes and metamyelocytes) > 1% indicates that a LEFT SHIFT is Present. Laboratory - Chemistry and C hemistry - challengeOrdered By: Carlos Mccallum on 12-03-2023 CO2 [Moles/Vol] 28.0 mmol/L 21.0-32.0 [facility] Urea nitrogen/Creatinine [Mass ratio] 14.1 mg/mg 10-20 [facility] Laboratory - Hematology and Cell countsOrdered By: Carlos Mccallum on 12-03-2023 MCH (RBC) [Entitic mass] 30.9 pg 27.0-32.0 [facility] MCHC (RBC) [Mass/Vol] 32.4 g/dL 32-36 [facility] Nucleated RBC/100 WBC (Bld) [Ratio] 0 % 0-5 [facility] Platelet mean volume (Bld) [Entitic vol] 8.5 fL 6.2-12.0 [facility] Platelets (Bld) [#/Vol] 343 10*3/uL 150-450 [facility] No Panel InformationOrdered By: Carlos Mccallum on 12-03-2023 Estimated Creatinine Clearance Calc 116.00 ml/min [facility] Estimated GFR (MDRD) Amer 118 mL/min >60 [facility] Comment on above: GFR Calc Estimated GFR (MDRD) Non-Af Amer 97 mL/min >60 [facility] Comment on above: Non- GFR Calc RBC Auto (Bld) [#/Vol]Ordere d By: Carlos Mccallum on 12-03-2023 RBC (Bld) [#/Vol] 4.24 10*6/uL 4.6-6.2 [facility] Serum or plasma calcium stephanie urement (mass/volume)Ordered By: Carlos Mccallum on 12-03-2023 Calcium [Mass/Vol] 9.1 mg/dL 8.5-10.1 [facility] r [facility] Serum or plasma cardiac trop onin I panel by high sensitivity methodOrdered By: Carlos Mccallum on 12-03-2023 Tropinin I.cardiac panel High sensitivity method 7 pg/mL 3.0-78.0 [facility] Comment on above: Please Note: [place] Units and Gender Specific Reference Ranges. For more information see Policy Stat Procedure [place] High Sensitivity Troponin (TNIH) and attachments. Serum or plasma creatinine m easurement (mass/volume)Ordered By: Carlos Mccallum on 12-03-2023 Creatinine [Mass/Vol] 0.85 mg/dL 0.70-1.30 [facility] Comment on above: The validity of the calculated GFR & GFRAA in patients over 70 years has not been determined. Clinical correlation is essential. Serum or plasma urea nitroge n measurement (mass/volume)Ordered By: Carlos Mccallum on 12-03-2023 Urea nitrogen [Mass/Vol] 12 mg/dL 7-18 [facility] Thin prep Papanicolaou smear with manual screeningOrdered By: Carlos Mccallum on 12-03-2023 Thin prep Papanicolaou smear with manual screening 6 5-15 [facility] Absolute lymphocyte countOrd ered By: Refugio Bryson on 09-11-2023 Lymphocytes Auto (Unsp spec) [#/Vol] 1.63 10*3/uL 0.83-4.51 [facility] Basophil percentageOrdered B y: Refugio Bryson on 09-11-2023 Basophils/100 WBC (Bld) 0.7 % 0-1 [facility] Bilirubin [Mass/Vol] 0.40 mg/dL 0.20-1.00 [facility] Comment on above: For patients on eltr ombopag therapy, use of Dimension [place] TBIL is not recommended. Chloride [Moles/Vol] 105 mmol/L 98-107 [facility] Cholesterol [Mass/Vol] 247 mg/dL <200 [facility] Comment on above: <200 mg/dL Desirable 200-240 mg/dL Borderline >240 mg/dL High Risk Eosinophils/100 WBC (Bld) 0.9 % 0-5 [facility] Glucose [Mass/Vol] 102 mg/dL 74-106 [facility] Comment on above: Fasting Glucose resu lt from 100 to 125 mg/dL suggests IMPAIRED HOMEOSTASIS per A.D.A. criteria. Neutrophils (Bld) [#/Vol] 3.2 10*3/uL 2.0-7.7 [facility] Neutrophils/100 WBC (Bld) 57.6 % 47-70 [facility] Potassium [Moles/Vol] 4.5 mmol/L 3.5-5.1 [facility] Protein [Mass/Vol] 7.5 g/dL 6.4-8.2 [facility] Sodium [Moles/Vol] 139 mmol/L 136-145 [facility] Triglyceride [Mass/Vol] 130 mg/dL <199 [facility] Comment on above: The drugs N-Acetylcy steine and Metamizole may falsely depress this assay.Serum Triglycerides Reference Interval Normal <150 mg/dL Borderline high 150 - 199 mg/dL High 200 - 499 mg/dL Very High > or = 500 mg/dL WBC (Bld) [#/Vol] 5.6 10*3/uL 4.4-11.0 [facility] Blood erythrocytes count (nu mber/volume)Ordered By: Refugio Bryson on 09-11-2023 RBC (Bld) [#/Vol] 4.78 10*6/uL 4.6-6.2 [facility] Blood hemoglobin measurement (mass/volume)Ordered By: Refugio Bryson on 09-11-2023 Hemoglobin (Bld) [Mass/Vol] 15.0 g/dL 13.0-16.5 [facility] Blood lymphocytes/100 leukoc ytesOrdered By: Refugio Bryson on 09-11-2023 Lymphocytes/100 WBC (Bld) 29.3 % 19-41 [facility] Blood monocytes/100 leukocyt esOrdered By: Refugio Bryson on 09-11-2023 Monocytes/100 WBC (Bld) 10.8 % 0-10 [facility] Blood platelet mean volumeOr dered By: Refugio Bryson on 09-11-2023 Platelet mean volume (Bld) [Entitic vol] 9.2 fL 6.2-12.0 [facility] Determination of erythrocyte mean corpuscular volume (MCV)Ordered By: Refugio Bryson on 09-11-2023 MCV (RBC) [Entitic vol] 97.9 fL 80-94 [facility] Erythrocyte sedimentation ra teOrdered By: Refugio Bryson on 09-11-2023 ESR (Bld) [Velocity] 12 mm/h 0-20 [facility] Hematocrit Auto (Bld) [Volum e fraction]Ordered By: Refugio Bryson on 09-11-2023 Hematocrit (Bld) [Volume fraction] 46.8 % 40-54 [facility] Laboratory - Chemistry and C hemistry - challengeOrdered By: Refugio Bryson on 09-11-2023 ALP [Catalytic activity/Vol] 90 U/L 45-117 [facility] ALT [Catalytic activity/Vol] 30 U/L 16-61 [facility] CO2 [Moles/Vol] 28.0 mmol/L 21.0-32.0 [facility] Globulin (S) [Mass/Vol] 3.8 g/dL 2.2-4.2 [facility] Urea nitrogen/Creatinine [Mass ratio] 12.6 mg/mg 10-20 [facility] Laboratory - Hematology and Cell countsOrdered By: Refugio Bryson on 09-11-2023 Erythrocyte distribution width (RBC) [Entitic vol] 45.0 fL 35.1-43.9 [facility] Erythrocyte distribution width (RBC) [Ratio] 12.5 % 11.6-14.6 [facility] Immature granulocytes/100 WBC (Bld) 0.700 % 0.0-0.9 [facility] Comment on above: IG% - Immature Granu locytes (promyelocytes, myelocytes and metamyelocytes) > 1% indicates that a LEFT SHIFT is Present. MCH (RBC) [Entitic mass] 31.4 pg 27.0-32.0 [facility] Nucleated RBC/100 WBC (Bld) [Ratio] 0 % 0-5 [facility] MCHC Auto (RBC) [Mass/Vol]Or dered By: Refugio Bryson on 09-11-2023 MCHC (RBC) [Mass/Vol] 32.1 g/dL 32-36 [facility] Mitotic spindle apparatus Ab [Titer] in Serum or PlasmaOrdered By: Refugio Bryson on 09-11-2023 Mitotic spindle apparatus Ab [Titer] Not Reportable [facility] No Panel InformationOrdered By: Refugio Bryson on 09-11-2023 Addendum Document Comment . [facility] Comment on above: The SPE pattern appe ars unremarkable. Evidence ofmonoclonal protein is not apparent. Ttquk-0-Ewaolfozn 0.2 g/dL 0.0-0.4 [facility] Rghgm-8-Xevwiseyg 0.7 g/dL 0.4-1.0 [facility] MADAN Nuclear Membrane Pattern Not Reportable [facility] Anti-Nuclear Antibody Screen Positive Negative [facility] Comment on above: Performed at: [employer] [address] [id number] Director: Phill Mathew PhD, Phone: [phone] CSF Lyme Disease IgM Antibody Not Reportable [facility] Estimated GFR (MDRD) Amer 104 mL/min >60 [facility] Comment on above: GFR Calc Estimated GFR (MDRD) Non-Af Amer 86 mL/min >60 [facility] Comment on above: Non- GFR Calc Gamma Globulins 0.9 g/dL 0.4-1.8 [facility] Lyme Disease IgG Antibody Not Reportable [facility] Urine Microalbumin/Creatinine Ratio TNP [facility] Comment on above: Test not performed Platelets bldOrdered By: Anastasia Bryson on 09-11-2023 Platelets (Bld) [#/Vol] 397 10*3/uL 150-450 [facility] Protein Fractions Elph [Inte rp]Ordered By: Refugio Bryson on 09-11-2023 Protein Fractions [Interp] Comment . [facility] Comment on above: Protein electrophore sis scan will follow via computer,mail, or funeral assistant delivery. Serum albumin to globulin ra karen by protein electrophoresisOrdered By: Refugio Bryson on 09-11-2023 Albumin/Globulin Elph [Mass ratio] 1.2 0.7-1.7 [facility] Serum globulin measurement ( mass/volume)Ordered By: Refugio Bryson on 09-11-2023 Globulin (S) [Mass/Vol] 3.2 g/dL 2.2-3.9 [facility] Serum midbody antibody titer by immunofluorescenceOrdered By: Refugio Bryson on 09-11-2023 Midbody Ab IF (S) [Titer] Not Reportable [facility] Serum multiple nuclear dot p attern antinuclear IgG antibody (MADAN) titer by immunofluoOrdered By: Refugio Bryson on 09-11-2023 Multiple nuclear dots nuclear IgG pattern IF (S) [Titer] Not Reportable [facility] Serum neuronal nuclear antib mino detection by immunofluorescenceOrdered By: Refugio Bryson on 09-11-2023 Neuronal nuclear Ab IF Ql (S) Not Reportable [facility] Serum nuclear antibody patte rn homogenous titer by immunofluorescenceOrdered By: Refugio Bryson on 09-11-2023 Homogenous nuclear Ab pattern IF (S) [Titer] Not Reportable [facility] Serum nuclear antibody titer by immunofluorescenceOrdered By: Refugio Bryson on 09-11-2023 Nuclear Ab IF (S) [Titer] Negative . [facility] Comment on above: *Additional results available. Contact laboratory/see report* Negative <1:80 Borderline 1:80 Positive >1:80ICAP nomenclature: [id number] more information about Hep-2 cell patterns useANApatterns.org, the official website for theInternational Consensus on Antinuclear Antibody (MADAN)Patterns (ICAP). Serum or plasma C reactive p rotein measurement (mass/volume)Ordered By: Refugio Bryson on 09-11-2023 CRP [Mass/Vol] mg/L 0.0-3.0 [facility] Comment on above: C-Reactive Protein ( CRP) provides useful information for thediagnosis, therapy and monitoring of inflammatory processesand associated diseases. For the evaluation of Relative Riskfor Cardiovascular Disease, a High Sensitivity CRP (HSCRP)should be ordered. Serum or plasma albumin stephanie urement (mass/volume)Ordered By: Refugio Bryson on 09-11-2023 Albumin [Mass/Vol] 3.7 g/dL 2.9-4.4 [facility] Serum or plasma albumin/glob ulin mass ratioOrdered By: Refugio Bryson on 09-11-2023 Albumin/Globulin [Mass ratio] 1.0 {ratio} 0.9-2.4 [facility] Serum or plasma beta globuli n measurement by electrophoresis (mass/volume)Ordered By: Refugio Bryson on 09-11-2023 Beta globulin Elph [Mass/Vol] 1.3 g/dL 0.7-1.3 [facility] Serum or plasma calcium stephanie urement (mass/volume)Ordered By: Refugio Bryson on 09-11-2023 Calcium [Mass/Vol] 9.1 mg/dL 8.5-10.1 [facility] Serum or plasma cholesterol in HDL measurement (mass/volume)Ordered By: Refugio Bryson on 09-11-2023 Cholesterol in HDL [Mass/Vol] 65 mg/dL >40 [facility] Comment on above: The drugs N-Acetylcy steine and Metamizole may falsely depress this assay. Reference Range HDL <40 mg/dL Low HDL Cholesterol HDL >or= 60 mg/dL High HDL Cholesterol Serum or plasma cholesterol in VLDL measurement (mass/volume)Ordered By: Refugio Bryson on 09-11-2023 Cholesterol in VLDL [Mass/Vol] 26 mg/dL 5-40 [facility] Serum or plasma creatinine m easurement (mass/volume)Ordered By: Refugio Bryson on 09-11-2023 Creatinine [Mass/Vol] 0.95 mg/dL 0.70-1.30 [facility] Comment on above: The validity of the calculated GFR & GFRAA in patients over 70 years has not been determined. Clinical correlation is essential. Serum or plasma low density lipoprotein (LDL) cholesterol measurement (mass/volume)Ordered By: Refugio Bryson on 09-11-2023 Cholesterol in LDL [Mass/Vol] 156 mg/dL 0-130 [facility] Serum or plasma protein mono clonal measurement by electrophoresis (mass/volume)Ordered By: Refugio Bryson on 09-11-2023 Protein.monoclonal Elph [Mass/Vol] Not Observed g/dL Not Observed [facility] Serum or plasma urea nitroge n measurement (mass/volume)Ordered By: Refugio Bryson on 09-11-2023 Urea nitrogen [Mass/Vol] 12 mg/dL 7-18 [facility] Serum proliferating cell nuc lear antigen (PCNA) antibody titer by immunofluorescenceOrdered By: Refugio Bryson on 09-11-2023 PCNA extractable nuclear Ab IF (S) [Titer] Not Reportable [facility] Serum rheumatoid factor dete ctionOrdered By: Refugio Bryson on 09-11-2023 Rheumatoid factor Ql (S) < 10.0 IU/mL <15 [facility] Serum speckled nuclear antib mino pattern titerOrdered By: Refugio Bryson on 09-11-2023 Speckled nuclear Ab pattern (S) [Titer] Not Reportable [facility] Thin prep Papanicolaou smear with manual screeningOrdered By: Refugio Bryson on 09-11-2023 Thin prep Papanicolaou smear with manual screening 18 U/L 15-37 [facility] Thin prep Papanicolaou smear with manual screening 6 5-15 [facility] Thin prep Papanicolaou smear with manual screening < 5.0 mg/L NO RANGE EST. [facility] Thin prep Papanicolaou smear with manual screening Negative Negative [facility] Comment on above: Lyme antibodies not detected. Reflex testing is notindicated.No laboratory evidence of infection with B. burgdorferi(Lyme disease). Negative results may occur in patientsrecently infected (less than or equal to 14 days) with B.burgdorferi. If recent infection is suspected, repeattesting on a new sample collected in 7 to 14 days isrecommended.Performed at: [facility] [employer] [id number] Director: Phill Mathew PhD, Phone: [phone] Thin prep Papanicolaou smear with manual screening Not Reportable [facility] Total protein bloodOrdered B y: Refugio Bryson on 09-11-2023 Protein [Mass/Vol] 6.9 g/dL 6.0-8.5 [facility] Urine creatinine measurement (mass/volume)Ordered By: Refugio Bryson on 09-11-2023 Creatinine (U) [Mass/Vol] 114.00 mg/dL NO RANGE EST. [facility] CBC W Auto Differential pane l (Bld)on 01-14-2023 Basophils (Bld) [#/Vol] 0.05 10*3/uL <0.11 k/uL [facility] Basophils/100 WBC (Bld) 0.9 % C [facility] Differential cell count method Nom (Bld) Auto [facility] Eosinophils (Bld) [#/Vol] 0.07 10*3/uL <0.46 k/uL [facility] Eosinophils/100 WBC (Bld) 1.3 % [facility] Erythrocyte distribution width (RBC) [Ratio] 13.0 % 11.5 - 15.0 % [facility] Hematocrit (Bld) [Volume fraction] 48.4 % 39.0 - 51.0 % [facility] Hemoglobin (Bld) [Mass/Vol] 15.3 g/dL 13.0 - 17.0 g/dL [facility] Immature granulocytes (Bld) [#/Vol] <0.10 k/uL [facility] Immature granulocytes/100 WBC (Bld) 0.4 % [facility] Lymphocytes (Bld) [#/Vol] 2.06 10*3/uL 1.00 - 4.00 k/uL [facility] Lymphocytes/100 WBC (Bld) 38.6 % [facility] MCH (RBC) [Entitic mass] 30.7 pg 26.0 - 34.0 pg [facility] MCHC (RBC) [Mass/Vol] 31.6 g/dL 30.5 - 36.0 g/dL [facility] MCV (RBC) [Entitic vol] 97.2 fL 80.0 - 100.0 fL [facility] Monocytes (Bld) [#/Vol] 0.58 10*3/uL <0.87 k/uL [facility] Monocytes/100 WBC (Bld) 10.9 % [facility] Neutrophils (Bld) [#/Vol] 2.56 10*3/uL 1.45 - 7.50 k/uL [facility] Neutrophils/100 WBC (Bld) 47.9 % [facility] Nucleated RBC (Bld) [#/Vol] <0.01 k/uL [facility] Nucleated RBC/100 WBC (Bld) [Ratio] 0.0 /100 WBC [facility] Platelet mean volume (Bld) [Entitic vol] 9.3 fL 9.0 - 12.7 fL [facility] Platelets (Bld) [#/Vol] 415 10*3/uL High 150 - 400 k/uL [facility] RBC (Bld) [#/Vol] 4.98 10*6/uL 4.20 - 6.0 0 m/uL [facility] WBC (Bld) [#/Vol] 5.34 10*3/uL 3.70 - 11. 00 k/uL [facility] Comprehensive metabolic 2000 panelon 01-14-2023 Albumin [Mass/Vol] 4.3 g/dL 3.9 - 4.9 g/dL [facility] ALP [Catalytic activity/Vol] 86 U/L 38 - 113 U/L [facility] ALT [Catalytic activity/Vol] 21 U/L 10 - 54 U/L [facility] Anion gap [Moles/Vol] 10 mmol/L 9 - 18 mmol/L [facility] AST [Catalytic activity/Vol] 23 U/L 14 - 40 U/L [facility] Bilirubin [Mass/Vol] 0.4 mg/dL 0.2 - 1 .3 mg/dL [facility] Calcium [Mass/Vol] 9.7 mg/dL 8.5 - 10. 2 mg/dL [facility] Chloride [Moles/Vol] 103 mmol/L 97 - 10 5 mmol/L [facility] CO2 [Moles/Vol] 28 mmol/L 22 - 30 mmol/L [facility] Creatinine [Mass/Vol] 0.92 mg/dL 0.73 - 1.22 mg/dL [facility] Estimated Glomerular Filtration Rate 95 mL/min/1.73m >=60 mL/min/1.73m [facility] Glucose [Mass/Vol] 95 mg/dL 74 - 99 mg/dL [facility] Potassium [Moles/Vol] 4.6 mmol/L 3.7 - 5.1 mmol/L [facility] Protein [Mass/Vol] 7.3 g/dL 6.3 - 8.0 g/dL [facility] Sodium [Moles/Vol] 141 mmol/L 136 - 144 mmol/L [facility] Urea nitrogen [Mass/Vol] 11 mg/dL 9 - 24 mg/dL [facility] HEP C AB IA W/CONF SCRNon HCV Ab Ql (S) Negative Negative [facility] HIV 1+2 Ab IA Qlon 3 HIV 1 and 2 Ab IA.rapid Nom [facility] HIV 1+2 Ab+HIV1 p24 Ag IA Ql Non-Reactive Nonreactive [facility] HIV Interpretation [facility] LIPID PANEL, NONFASTINGon Cholesterol [Mass/Vol] 266 mg/dL High <200 mg/dL [facility] HDL Cholesterol, Nonfasting 66 mg/dL >39 mg/dL [facility] LDL Cholesterol, Nonfasting 186 mg/dL High <100 mg/dL [facility] LDL/HDL Ratio, Nonfasting 2.82 mg/dL High <2.54 mg/dL [facility] Non HDL Cholesterol, Nonfasting 200 mg/dL High <130 mg/dL [facility] Total Chol/HDL Ratio, Nonfasting 4.03 mg/dL <5.10 mg/dL [facility] Triglycerides, Nonfasting 70 mg/dL <150 mg/dL [facility] VLDL Cholesterol, Nonfasting 14 mg/dL <30 mg/dL [facility] PSA/PROSTSPECAG SCRNon 01-14 Prostate specific Ag [Mass/Vol] 2.61 ng/mL High <2.60 ng/mL [facility] VITAMIN D 25 HYDROXYon 01-14 25-hydroxyvitamin D3 [Mass/Vol] 32.4 ng/mL 31.0 - 80.0 ng/mL [facility] Absolute lymphocyte countOrd ered By: Dr. Arreguin on 12-10-2022 Lymphocytes Auto (Unsp spec) [#/Vol] 1.73 10*3/uL 0.83-4.51 [facility] Basophil percentageOrdered B y: Dr. Arreguin on 12-10-2022 Basophils/100 WBC (Bld) 0.9 % 0-1 [facility] Bilirubin [Mass/Vol] 0.50 mg/dL 0.20-1.00 [facility] Comment on above: For patients on eltr ombopag therapy, use of Dimension [place] TBIL is not recommended. Chloride [Moles/Vol] 103 mmol/L 98-107 [facility] Eosinophils/100 WBC (Bld) 0.9 % 0-5 [facility] Glucose [Mass/Vol] 103 mg/dL 74-106 [facility] Comment on above: Fasting Glucose resu lt from 100 to 125 mg/dL suggests IMPAIRED HOMEOSTASIS per A.D.A. criteria. Neutrophils (Bld) [#/Vol] 3.3 10*3/uL 2.0-7.7 [facility] Neutrophils/100 WBC (Bld) 57.5 % 47-70 [facility] Potassium [Moles/Vol] 4.4 mmol/L 3.5-5.1 [facility] Protein [Mass/Vol] 7.5 g/dL 6.4-8.2 [facility] Sodium [Moles/Vol] 139 mmol/L 136-145 [facility] WBC (Bld) [#/Vol] 5.7 10*3/uL 4.4-11.0 [facility] Bilirubin Test strip Ql (U)O rdered By: Dr. Arreguin on 12-10-2022 Bilirubin Ql (U) Negative Negative [facility] Blood erythrocytes count (nu mber/volume)Ordered By: Dr. Arreguin on 12-10-2022 RBC (Bld) [#/Vol] 4.87 10*6/uL 4.6-6.2 [facility] Blood hemoglobin measurement (mass/volume)Ordered By: Dr. Arreguin on 12-10-2022 Hemoglobin (Bld) [Mass/Vol] 15.1 g/dL 13.0-16.5 [facility] Blood lymphocytes/100 leukoc ytesOrdered By: Dr. Arreguin on 12-10-2022 Lymphocytes/100 WBC (Bld) 30.5 % 19-41 [facility] Blood monocytes/100 leukocyt esOrdered By: Dr. Arreguin on 12-10-2022 Monocytes/100 WBC (Bld) 9.7 % 0-10 [facility] Blood platelet mean volumeOr dered By: Dr. Arreguin on 12-10-2022 Platelet mean volume (Bld) [Entitic vol] 8.9 fL 6.2-12.0 [facility] Determination of erythrocyte mean corpuscular volume (MCV)Ordered By: Dr. Arreguin on 12-10-2022 MCV (RBC) [Entitic vol] 95.7 fL 80-94 [facility] Dilute Derrick's viper venom timeOrdered By: Dr. Arreguin on 12-10-2022 dRVVT Coag (PPP) [Time] 41.8 s 0.0-47.0 [facility] Hematocrit Auto (Bld) [Volum e fraction]Ordered By: Dr. Arreguin on 12-10-2022 Hematocrit (Bld) [Volume fraction] 46.6 % 40-54 [facility] INR in Blood by Coagulation assayOrdered By: Dr. Arreguin on 12-10-2022 INR Coag (Bld) [Relative time] 0.9 {INR} [facility] Ketones Test strip Ql (U)Ord ered By: Dr. Arreguin on 12-10-2022 Ketones Ql (U) Negative Negative [facility] Laboratory - Chemistry and C hemistry - challengeOrdered By: Dr. Arreguin on 12-10-2022 ALP [Catalytic activity/Vol] 87 U/L 45-117 [facility] ALT [Catalytic activity/Vol] 28 U/L 16-61 [facility] CO2 [Moles/Vol] 33.0 mmol/L 21.0-32.0 [facility] Globulin (S) [Mass/Vol] 3.9 g/dL 2.2-4.2 [facility] Urea nitrogen/Creatinine [Mass ratio] 12.4 mg/mg 10-20 [facility] Laboratory - CoagulationOrde red By: Dr. Arreguin on 12-10-2022 aPTT Coag (Bld) [Time] 27.3 s 24.1-36.2 [facility] PT Coag (PPP) [Time] 12.3 s 11.7-14.9 [facility] Laboratory - Hematology and Cell countsOrdered By: Dr. Arreguin on 12-10-2022 Erythrocyte distribution width (RBC) [Entitic vol] 44.3 fL 35.1-43.9 [facility] Erythrocyte distribution width (RBC) [Ratio] 12.6 % 11.6-14.6 [facility] Immature granulocytes/100 WBC (Bld) 0.500 % 0.0-0.9 [facility] Comment on above: IG% - Immature Granu locytes (promyelocytes, myelocytes and metamyelocytes) > 1% indicates that a LEFT SHIFT is Present. MCH (RBC) [Entitic mass] 31.0 pg 27.0-32.0 [facility] Nucleated RBC/100 WBC (Bld) [Ratio] 0 % 0-5 [facility] Laboratory - Miscellaneous t estsOrdered By: Dr. Arreguin on 12-10-2022 Service comment (Unsp spec) [Interp] Comment . [facility] Comment on above: Results do not indic ate the presence of a LupusAnticoagulant: abnormal high screening results (PTT-LA,dRVVT, mixing studies), may be due to medication (heparin,warfarin, aspirin), Factor inhibitors, anticardiolipinantibodies, or poor specimen integrity.Performed at: [address] [id number] Director: Linette Jamil MD, Phone: [phone] [facility] Auto (RBC) [Mass/Vol]Or dered By: Dr. Arreguin on 12-10-2022 MCHC (RBC) [Mass/Vol] 32.4 g/dL 32-36 [facility] Nitrite Test strip Ql (U)Ord ered By: Dr. Arreguin on 12-10-2022 Nitrite Ql (U) Negative Negative [facility] No Panel InformationOrdered By: Dr. Arreguin on 12-10-2022 Estimated GFR (MDRD) Amer 93 mL/min >60 [facility] Comment on above: GFR Calc Estimated GFR (MDRD) Non-Af Amer 77 mL/min >60 [facility] Comment on above: Non- GFR Calc Hepatitis B Surface Antigen Non-Reactive Nonreactive [facility] Hepatitis C Antibody Non-Reactive Nonreactive [facility] Comment on above: Non Reactive: < 0.8 Equivocal: >/= 0.8 to < 1.0 Reactive: >/= 1.0The CDC recommends that a reactive/equivocal HCV antibody result be followed up by the HCV Nucleic Acid Amplificationtest ([id number]) Miscellaneous Test Comment MAILED SPECIMEN [facility] Platelets bldOrdered By: Dr. Arreguin on 12-10-2022 Platelets (Bld) [#/Vol] 397 10*3/uL 150-450 [facility] Protein Test strip Ql (U)Ord ered By: Dr. Arreguin on 12-10-2022 Protein Ql (U) Negative Negative [facility] Serum hepatitis B virus surf osbaldo antibody IgG detectionOrdered By: Dr. Arreguin on 12-10-2022 HBV surface IgG Ql (S) Non-Reactive [facility] Comment on above: Non Reactive: Incons istent with immunity less than <10 mIU/mL Reactive: Consistent with immunity greater than or equal to 10 mIU/mL Serum or plasma albumin stephanie urement (mass/volume)Ordered By: Dr. Arreguin on 12-10-2022 Albumin [Mass/Vol] 3.6 g/dL 3.2-5.0 [facility] Serum or plasma albumin/glob ulin mass ratioOrdered By: Dr. Arreguin on 12-10-2022 Albumin/Globulin [Mass ratio] 0.9 {ratio} 0.9-2.4 [facility] Serum or plasma calcium stephanie urement (mass/volume)Ordered By: Dr. Arreguin on 12-10-2022 Calcium [Mass/Vol] 9.5 mg/dL 8.5-10.1 [facility] Serum or plasma creatinine m easurement (mass/volume)Ordered By: Dr. Arreguin on 12-10-2022 Creatinine [Mass/Vol] 1.05 mg/dL 0.70-1.30 [facility] Comment on above: The validity of the calculated GFR & GFRAA in patients over 70 years has not been determined. Clinical correlation is essential. Serum or plasma urea nitroge n measurement (mass/volume)Ordered By: Dr. Arreguin on 12-10-2022 Urea nitrogen [Mass/Vol] 13 mg/dL 7-18 [facility] Thin prep Papanicolaou smear with manual screeningOrdered By: Dr. Arreguin on 12-10-2022 Thin prep Papanicolaou smear with manual screening 21 U/L 15-37 [facility] Thin prep Papanicolaou smear with manual screening 3 5-15 [facility] Thin prep Papanicolaou smear with manual screening 39.9 sec 0.0-47.6 [facility] Thin prep Papanicolaou smear with manual screening 1.31 Ratio 0.00-1.34 [facility] Thin prep Papanicolaou smear with manual screening 30.7 sec 0.0-43.5 [facility] Comment on above: Please note refere nce interval change Thin prep Papanicolaou smear with manual screening Comment: . [facility] Comment on above: No lupus anticoagula nt was detected. Thrombin time in platelet po or plasmaOrdered By: Dr. Arreguin on 12-10-2022 Thrombin time Coag (PPP) [Time] 17.7 sec 0.0-23.0 [facility] Urine blood detectionOrdered By: Dr. Arreguin on 12-10-2022 RBC Ql (U) Negative Negative [facility] Urine clarityOrdered By: Dr. Arreguin on 12-10-2022 Clarity (U) Clear Clear [facility] Urine color determinationOrd ered By: Dr. Arreguin on 12-10-2022 Color (U) Yellow Yellow [facility] Urine creatinine measurement (mass/volume)Ordered By: Dr. Arreguin on 12-10-2022 Creatinine (U) [Mass/Vol] 179.00 mg/dL NO RANGE EST. [facility] Urine glucose detectionOrder ed By: Dr. Arreguin on 12-10-2022 Glucose Ql (U) Normal mg/dl Normal [facility] Urine leukocyte esterase det ection by dipstickOrdered By: Dr. Arreguin on 12-10-2022 Leukocyte esterase Test strip Ql (U) 25 /ul Negative [facility] Urine pHOrdered By: Dr. Dariusz buenrostro on 12-10-2022 pH (U) 7.0 [pH] 5.0 - 8.0 [facility] Urine protein measurement (m ass/volume)Ordered By: Dr. Arreguin on 12-10-2022 Protein (U) [Mass/Vol] 17.0 mg/dL 0.0-11.8 [facility] Urine protein/creatinine mas s ratioOrdered By: Dr. Arreguin on 12-10-2022 Protein/Creatinine (U) [Mass ratio] 95 mg/g CRE 0-200 [facility] Urine specific gravity measu rementOrdered By: Dr. Arreguin on 12-10-2022 Specific gravity (U) [Rel density] 1.010 1.002-1.030 [facility] Urobilinogen Auto test strip Ql (U)Ordered By: Dr. Arreguin on 12-10-2022 Urobilinogen Ql (U) Normal mg/dl Normal [facility] Absolute lymphocyte countOrd ered By: Dr. Bryson on 10-05-2022 Lymphocytes Auto (Unsp spec) [#/Vol] 1.71 10*3/uL 0.83-4.51 [facility] Basophil percentageOrdered B y: Dr. Bryson on 10-05-2022 Basophil percentage < 0.2 AI 0.0-0.9 [facility] Basophils/100 WBC (Bld) 1.0 % 0-1 [facility] Bilirubin [Mass/Vol] 0.40 mg/dL 0.20-1.[address] [facility] Comment on above: For patients on eltr ombopag therapy, use of Dimension [place] TBIL is not recommended. Chloride [Moles/Vol] 104 mmol/L 98-107 [facility] Eosinophils/100 WBC (Bld) 1.6 % 0-5 [facility] Glucose [Mass/Vol] 87 mg/dL 74-106 [facility] Neutrophils (Bld) [#/Vol] 2.5 10*3/uL 2.0-7.7 [facility] Neutrophils/100 WBC (Bld) 50.5 % 47-70 [facility] Potassium [Moles/Vol] 4.7 mmol/L 3.5-5.1 [facility] Protein [Mass/Vol] 7.0 g/dL 6.4-8.2 [facility] Sodium [Moles/Vol] 138 mmol/L 136-145 [facility] WBC (Bld) [#/Vol] 4.9 10*3/uL 4.4-11.0 [facility] Blood erythrocytes count (nu mber/volume)Ordered By: Dr. Bryson on 10-05-2022 RBC (Bld) [#/Vol] 4.68 10*6/uL 4.6-6.2 [facility] Blood hemoglobin measurement (mass/volume)Ordered By: Dr. Bryson on 10-05-2022 Hemoglobin (Bld) [Mass/Vol] 14.8 g/dL 13.0-16.5 [facility] Blood lymphocytes/100 leukoc ytesOrdered By: Dr. Bryson on 10-05-2022 Lymphocytes/100 WBC (Bld) 35.0 % 19-41 [facility] Blood monocytes/100 leukocyt esOrdered By: Dr. Bryson on 10-05-2022 Monocytes/100 WBC (Bld) 11.5 % 0-10 [facility] Blood platelet mean volumeOr dered By: Dr. Bryson on 10-05-2022 Platelet mean volume (Bld) [Entitic vol] 9.2 fL 6.2-12.0 [facility] Determination of erythrocyte mean corpuscular volume (MCV)Ordered By: Dr. Bryson on 10-05-2022 MCV (RBC) [Entitic vol] 94.4 fL 80-94 [facility] Hematocrit Auto (Bld) [Volum e fraction]Ordered By: Dr. Bryson on 10-05-2022 Hematocrit (Bld) [Volume fraction] 44.2 % 40-54 [facility] Interpretation of Borrelia b urgdorferi antibody assayOrdered By: Dr. Bryson on 10-05-2022 B. burgdorferi Ab (S) [Interp] REF LAB [facility] Laboratory - Chemistry and C hemistry - challengeOrdered By: Dr. Bryson on 10-05-2022 ALP [Catalytic activity/Vol] 79 U/L 45-117 [facility] ALT [Catalytic activity/Vol] 29 U/L 16-61 [facility] CO2 [Moles/Vol] 27.0 mmol/L 21.0-32.0 [facility] Globulin (S) [Mass/Vol] 3.5 g/dL 2.2-4.2 [facility] Urea nitrogen/Creatinine [Mass ratio] 17.3 mg/mg 10-20 [facility] Laboratory - Hematology and Cell countsOrdered By: Dr. Bryson on 10-05-2022 Erythrocyte distribution width (RBC) [Entitic vol] 44.0 fL 35.1-43.9 [facility] Erythrocyte distribution width (RBC) [Ratio] 12.6 % 11.6-14.6 [facility] Immature granulocytes/100 WBC (Bld) 0.400 % 0.0-0.9 [facility] Comment on above: IG% - Immature Granu locytes (promyelocytes, myelocytes and metamyelocytes) > 1% indicates that a LEFT SHIFT is Present. MCH (RBC) [Entitic mass] 31.6 pg 27.0-32.0 [facility] Nucleated RBC/100 WBC (Bld) [Ratio] 0 % 0-5 [facility] MCHC Auto (RBC) [Mass/Vol]Or dered By: Dr. Bryson on 10-05-2022 MCHC (RBC) [Mass/Vol] 33.5 g/dL 32-36 [facility] No Panel InformationOrdered By: Dr. Bryson on 10-05-2022 Anti-Nuclear Antibody Screen Positive Negative [facility] Comment on above: Performed at: [address] [id number] Director: Phill Mathew PhD, Phone: [phone] Centromere B Antibody <0.2 AI 0.0-0.9 [facility] Estimated GFR (MDRD) Amer 107 mL/min >60 [facility] Comment on above: GFR Calc Estimated GFR (MDRD) Non-Af Amer 89 mL/min >60 [facility] Comment on above: Non- GFR Calc Prostate Specific Antigen Screen 3.01 ng/mL 0.00-4.00 [facility] Comment on above: This test was perfor med using the TPSA assay method for Doctolib chemistry system. Values obtained with differentassay methods cannot be used interchangably.When changing PSA assays in the course of monitoring apatient, additional sequential testing should be carriedout to confirm baseline values. LITIGATION ATTORNEY ASSOCIATE Antibody 1.4 AI 0.0-0.9 [facility] Vitamin D 25-Hydroxy 23.9 ng/mL [facility] Comment on above: Vitamin D 25(OH) Sta tus Range Deficiency <20 ng/mL (50nmol/L) Insufficiency 20 - 30 ng/mL (50 - 75 nmol/L) Sufficiency 30 - 100 ng/mL (75 - 250 nmol/L) Toxicity >100 ng/mL (>250 nmol/L) Platelets bldOrdered By: Dr. Bryson on 10-05-2022 Platelets (Bld) [#/Vol] 385 10*3/uL 150-450 [facility] Serum DNA double strand anti body assay (units/volume)Ordered By: Dr. Bryson on 10-05-2022 DNA double strand Ab Qn (S) 1 [IU]/mL 0-9 [facility] Comment on above: Negative <5 Equivoca l 5 - 9 Positive >9 Serum Cierra-1 antibody assay (u nits/volume)Ordered By: Dr. Bryson on 10-05-2022 Cierra-1 extractable nuclear Ab Qn (S) <0.2 AI 0.0-0.9 [facility] Serum Scl-70 extractable nuc lear antibody assay (units/volume)Ordered By: Dr. Bryson on 10-05-2022 SCL-70 extractable nuclear Ab Qn (S) <0.2 AI 0.0-0.9 [facility] Serum Bryson extractable nucl ear antibody detectionOrdered By: Dr. Bryson on 10-05-2022 Braydon extractable nuclear Ab Ql (S) <0.2 AI 0.0-0.9 [facility] Serum or plasma C reactive p rotein measurement (mass/volume)Ordered By: Dr. Bryson on 10-05-2022 CRP [Mass/Vol] mg/L 0.0-3.0 [facility] Comment on above: C-Reactive Protein ( CRP) provides useful information for thediagnosis, therapy and monitoring of inflammatory processesand associated diseases. For the evaluation of Relative Riskfor Cardiovascular Disease, a High Sensitivity CRP (HSCRP)should be ordered. Serum or plasma albumin stephanie urement (mass/volume)Ordered By: Dr. Bryson on 10-05-2022 Albumin [Mass/Vol] 3.5 g/dL 3.2-5.0 [facility] Serum or plasma albumin/glob ulin mass ratioOrdered By: Dr. Bryson on 10-05-2022 Albumin/Globulin [Mass ratio] 1.0 {ratio} 0.9-2.4 [facility] Serum or plasma calcium stephanie urement (mass/volume)Ordered By: Dr. Bryson on 10-05-2022 Calcium [Mass/Vol] 9.2 mg/dL 8.5-10.1 [facility] Serum or plasma creatinine m easurement (mass/volume)Ordered By: Dr. Bryson on 10-05-2022 Creatinine [Mass/Vol] 0.92 mg/dL 0.70-1.30 [facility] Comment on above: The validity of the calculated GFR & GFRAA in patients over 70 years has not been determined. Clinical correlation is essential. Serum or plasma urea nitroge n measurement (mass/volume)Ordered By: Dr. Bryson on 10-05-2022 Urea nitrogen [Mass/Vol] 16 mg/dL 7-18 [facility] Serum rheumatoid factor dete ctionOrdered By: Dr. Bryson on 10-05-2022 Rheumatoid factor Ql (S) < 10.0 IU/mL <15 [facility] Thin prep Papanicolaou smear with manual screeningOrdered By: Dr. Bryson on 10-05-2022 Thin prep Papanicolaou smear with manual screening 17 U/L 15-37 [facility] Thin prep Papanicolaou smear with manual screening 7 5-15 [facility] Thin prep Papanicolaou smear with manual screening Negative Negative [facility] Comment on above: Lyme antibodies not detected. Reflex testing is notindicated.No laboratory evidence of infection with B. burgdorferi(Lyme disease). Negative results may occur in patientsrecently infected (less than or equal to 14 days) with B.burgdorferi. If recent infection is suspected, repeattesting on a new sample collected in 7 to 14 days isrecommended.Performed at: [facility] [address] [id number] Director: Phill Mathew PhD, Phone: [phone] Alternaria alternata IgE ser umOrdered By: Dr. Torres on 09-03-2022 A. alternata IgE Qn (S) <0.10 kU/L Class 0 [facility] No Panel InformationOrdered By: Dr. Torres on 09-03-2022 Cat Hair Allergen <0.10 kU/L Class 0 [facility] Common Ragweed (Short) Allergen <0.10 kU/L Class 0 [facility] Immunoglobulin E 5 IU/mL 6-495 [facility] Maple (Hemet) Allergen IgE Ab <0.10 kU/L Class 0 [facility] Mouse Urine Allergen IgE Antibody <0.10 kU/L Class 0 [facility] Comment on above: Performed at: [address] [id number] Director: Linette Jamil MD, Phone: [phone] RAST Comment Comment . [facility] Comment on above: Levels of Specific I gE Class Description of Class ----- < 0.10 0 Negative 0.10 - 0.31 0/I Equivocal/Low 0.32 - 0.55 I Low 0.56 - 1.40 II Moderate 1.41 - 3.90 III High 3.91 - 19.00 IV Very High 19.01 - 100.00 V Very High >100.00 Very High Virgie Tree Allergen <0.10 kU/L Class 0 [facility] Rough pigweed specific IgE a ntibody assayOrdered By: Dr. Torres on 09-03-2022 Rough Pigweed IgE Qn (S) <0.10 kU/L Class 0 [facility] Serum Martiniquais sycamore IgE antibody assay (units/volume)Ordered By: Dr. Torres on 09-03-2022 Martiniquais [place] IgE Qn (S) <0.10 kU/L Class 0 [facility] Serum Aspergillus fumigatus IgE antibody assay (units/volume)Ordered By: Dr. Torres on 09-03-2022 A. fumigatus IgE Qn (S) <0.10 kU/L Class 0 [facility] Serum Bermuda grass IgE anti body assay (units/volume)Ordered By: Dr. Torres on 09-03-2022 Bermuda grass IgE Qn (S) <0.10 kU/L Class 0 [facility] Serum Cladosporium herbarum IgE antibody assay (units/volume)Ordered By: Dr. Torres on 09-03-2022 C. herbarum IgE Qn (S) <0.10 kU/L Class 0 [facility] Serum Dermatophagoides farin ae specific IgE antibody assay (units/volume)Ordered By: Dr. Torres on 09-03-2022 Martiniquais house dust mite IgE Qn (S) <0.10 kU/L Class 0 [facility] Serum house dust mi te IgE antibody assay (units/volume)Ordered By: Dr. Torres on 09-03-2022 house dust mite IgE Qn (S) <0.10 kU/L Class 0 [facility] Serum Penicillium notatum Ig E antibody assay (units/volume)Ordered By: Dr. Torres on 09-03-2022 P. notatum IgE Qn (S) <0.10 kU/L Class 0 [facility] Serum Periplaneta americana IgE antibody assay (units/volume)Ordered By: Dr. Torres on 09-03-2022 Martiniquais Cockroach IgE Qn (S) <0.10 kU/L Class 0 [facility] Serum Sri Lankan thistle specif ic IgE antibody assayOrdered By: Dr. Torres on 09-03-2022 Saltwort IgE Qn (S) <0.10 kU/L Class 0 [facility] Serum birch specific IgE ant ibody assayOrdered By: Dr. Torres on 09-03-2022 Silver Birch IgE Qn (S) <0.10 kU/L Class 0 [facility] Serum black walnut IgE antib mino assay (units/volume)Ordered By: Dr. Torres on 09-03-2022 Black [place] IgE Qn (S) <0.10 kU/L Class 0 [facility] Serum cottonwood IgE antibod y assay (units/volume)Ordered By: Dr. Torres on 09-03-2022 [place] IgE Qn (S) <0.10 kU/L Class 0 [facility] Serum dog epithelium IgE ant ibody assay (units/volume)Ordered By: Dr. Torres on 09-03-2022 Dog epithelium IgE Qn (S) <0.10 kU/L Class 0 [facility] Serum mountain cedar specifi c IgE antibody assayOrdered By: Dr. Torres on 09-03-2022 Mountain Juniper IgE Qn (S) <0.10 kU/L Class 0 [facility] Serum pecan or hickory nut I gE antibody assay (units/volume)Ordered By: Dr. Torres on 09-03-2022 Pecan or [place] Nut IgE Qn (S) <0.10 kU/L Class 0 [facility] Serum sheep sorrel IgE antib mino assay (units/volume)Ordered By: Dr. Torres on 09-03-2022 Sheep Miccosukee IgE Qn (S) <0.10 kU/L Class 0 [facility] Serum rubina IgE antibody a ssay (units/volume)Ordered By: Dr. Torres on 09-03-2022 Rubina IgE Qn (S) <0.10 kU/L Class 0 [facility] r [facility] Serum white jessica IgE antibody assay (units/volume)Ordered By: Dr. Torres on 09-03-2022 White Jessica IgE Qn (S) <0.10 kU/L Class [address] [facility] Serum white elm IgE antibody assay (units/volume)Ordered By: Dr. Torres on 09-03-2022 White Elm IgE Qn (S) <0.10 kU/L Class 0 [facility] Serum white mulberry IgE ant ibody assay (units/volume)Ordered By: Dr. Torres on 09-03-2022 White mulberry IgE Qn (S) <0.10 kU/L Class 0 [facility] No Panel InformationOrdered By: [facility] Provider on 08-09-2021 [facility] No Panel Informationon 08-09 Radiology Study observation (narrative) [facility] XR Elbow - left AP and Later al and obliqueon 08-09-2021 IMPRESSION: No radiographic evidence of acute osseous abnormality Ophthalmology Technician: [facility] Transcribe Date/Time: Aug 09 2021 1:20P Dictated by : MARIA T WOOD MD This examination was interpreted and the report reviewed and electronically signed by: MARIA T WOOD MD on Aug 09 2021 1:20PM [facility] DIVISION OF RADIOLOGY * * *Final Report* * * DATE OF EXAM: Aug 09 2021 10:57AM WOX 5324 - XR ELBOW 3V AP/LAT/OTHER LT / PROCEDURE REASON: Left elbow pain * * * * Physician Interpretation * * * * CLINICAL INDICATION: Elbow pain TECHNIQUE: 3 view radiographic study of the left elbow COMPARISON: None FINDINGS: No abnormal elevation of the anterior or posterior fat pad to suggest elbow joint effusion. No acute fracture or dislocation. Joint spaces preserved. DIVISION OF RADIOLOGY [facility] * * *Final Report* * * DATE OF EXAM: Aug 09 2021 10:57AM WOX 5324 - XR ELBOW 3V AP/LAT/OTHER LT / PROCEDURE REASON: Left elbow pain * * * * Physician Interpretation * * * * CLINICAL INDICATION: Elbow pain TECHNIQUE: 3 view radiographic study of the left elbow COMPARISON: None FINDINGS: No abnormal elevation of the anterior or posterior fat pad to suggest elbow joint effusion. No acute fracture or dislocation. Joint spaces preserved. IMPRESSION IMPRESSION: No radiographic evidence of acute osseous abnormality Ophthalmology Technician: [facility] Transcribe Date/Time: Aug 09 2021 1:20P Dictated by : MARIA T WOOD MD This examination was interpreted and the report reviewed and electronically signed by: MARIA T WOOD MD on Aug 09 2021 1:20PM EST [facility] XR Hand - right PA and Later al and Obliqueon 08-09-2021 IMPRESSION: Mild first carpal metacarpal joint degenerative changes Ophthalmology Technician: [facility] Transcribe Date/Time: Aug 09 2021 1:21P Dictated by : MARIA T WOOD MD This examination was interpreted and the report reviewed and electronically signed by: MARIA T WOOD MD on Aug 09 2021 1:21PM [facility] DIVISION OF RADIOLOGY * * *Final Report* * * DATE OF EXAM: Aug 09 2021 10:57AM WOX 5346 - XR HAND 3V PA/LAT/OBL RT / PROCEDURE REASON: Pain of right hand * * * * Physician Interpretation * * * * CLINICAL INDICATION: Pain TECHNIQUE: 3 view radiographic study of the right hand COMPARISON: None FINDINGS: No acute fracture or dislocation identified. Mild first carpal metacarpal joint degenerative changes with hypertrophic osteophyte formation. DIVISION OF RADIOLOGY Provider, [facility] - 08/09/2021 * * *Final Report* * * DATE OF EXAM: Aug 09 2021 10:57AM WOX 5346 - XR HAND 3V PA/LAT/OBL RT / PROCEDURE REASON: Pain of right hand * * * * Physician Interpretation * * * * CLINICAL INDICATION: Pain TECHNIQUE: 3 view radiographic study of the right hand COMPARISON: None FINDINGS: No acute fracture or dislocation identified. Mild first carpal metacarpal joint degenerative changes with hypertrophic osteophyte formation. IMPRESSION IMPRESSION: Mild first carpal metacarpal joint degenerative changes Ophthalmology Technician: [facility] Transcribe Date/Time: Aug 09 2021 1:21P Dictated by : MARIA T WOOD MD This examination was interpreted and the report reviewed and electronically signed by: MARIA T WOOD MD on Aug 09 2021 1:21PM EST [facility] Ophthalmic Medical Laseron 11-17-2017 [facility] DOCUMENT SIGNED ELECTRONICALLY BY Ailyn Rodriguez MD ON 09/17/2018 11:30:[address] [place] [address] [id number] [place], [place] [phone] HMXG DOCUMENT WAS CREATED ON: 09/17/2018 11:30:24 AM BY: Scout Nelson OT performed identifyRefractorCldevante Bedolla OT performed START-WORKGATJudy alas, September 17, 2018PATIENT NAMEERIC ESQUIVEL [facility] [id number] ID [id number] DATE: 1960 AGE: 57 gender: male Race: WhiteHistoryChief Complaint/Reason For Visit: Post Op, DMEK Os (08/05/18). On pred and leslye qid. Problem-slight sharp pain nasally, feel light eyelash in eye, Context/Onset-a month ago, Location-left eye, Timing-infrequently,Surg romel : Ailyn Rodriguez MDSurgery Date : 08/06/2018Location of Surgery : [facility] HealthEye : OS HISTORY OF PRESENT ILLNESS:ANDHPIANDSOCIAL HISTORYSMOKING:Non-smoke r (V49.89 Z78.9) CURRENT MEDICATIONS: INSTRUCTIONCitalopram Hydrobromide 20 MG Oral Tablet #90 Tablet, [Reported] Ketorolac Tromethamine 10 MG Oral Tablet #15 Tablet, [Reported] Lovastatin 20 MG Oral Tablet #90 Tablet, [Reported] Leslye 128 5 % Ophthalmic Solution Solution, [Reported] PrednisoLONE Acetate 1 % Ophthalmic Suspension #1 15 ML Bottle, Suspension, INSTILL 1 DROP 8 times daily Into the Left eye starting After surgery. Shake bottle., NO REFILLS, Evaluate ALLERGIES:ALLERGY REACTIONNo Known Drug Allergies REVIEW OF SYSTEMSGENERAL: Overall healthySKIN: Denies symptomsEYES: Please review HPIENT: Denies symptomsRESPIRATORY: Denies symptomsCARDIOVASCULAR: Denies symptomsGI: Denies symptomsGENITOURINARY: Denies symptomsMUSCULOSKELETAL: Denies symptomsNEUROLOGICAL: Denies symptomsENDOCRINE: Denies symptomsHEMATO-IMMUNOLOG IC: Denies symptomsPSYCHIATRIC: Denies symptomsALLERGIES/ENVIRO NMENTAL: Denies symptomsExamGENERAL EXAM: RIGHT EYE LEFT EYEUNCORRECTED VA N/A N/A WEARING +1.25 -0.25 x 180 add +2.50 +1.25 -1.00 x 180 add +2.50 MANIFEST REFRACTION +1.50 -0.25 x 180 add +2.50 +1.75 -1.25 x 005 add +2.50 PINHOLE N/A 20/30 +1 CORRECTED VA 20/20 -2 20/30 blurry BEST CÉSAR FINAL VA 20/20 20/20-1 ghost image PACHYMETRY 577 from 06/18/2018 560 from 06/18/2018 CONFRONTATION VF OD: Full to CFCONFRONTATION VF OS: Full to CF EXTERNAL EYE EXAM:LID: Good Position Good Position PUPIL: PERRL/no APD PERRL/no APD ADNEXA: Normal Normal MUSCLE BALANCE: OrthoOCULAR MOTILITY: FullANTERIOR SEGMENT EXAM:TEARFILM: Good CONJUNCTIVA: White and quiet CORNEA: DMEK - clear and compact centrally, temporal MCE, - keratic precipitates, - endothelial rejection line, - edge lift, - edge overlap ANTERIOR CHAMBER: deep and quiet IRIS: Round and reactive LENS: NO1 NC1 ANTERIOR VITREOUS: Clear PRESSURE METHOD: Tonopen PRESSURES: 11 DATE-TIME: 09/17/2018 PULLEY WORKER: [id number] ADJUSTED IOP VALUE: 10 FUNDUS EXAM: AssessmentPROBLEM: H25.11 Age-related Nuclear Cataract Of Right Eye-New02 H25.12 Age-related Nuclear Cataract Of Left Eye-NewPlanDISCUSSION:Fo llow Up: -Risk of rejection discussed: Redness, sensitivity to light, vision loss and pain. Patient to follow immediately with any symptoms.-Taper prenisolone acetate and Leslye 1 drop 3x/day x 1 monthRefracts to 20/20 OSFollow Up: -f/u 1 monthFollow Up: -Risk of rejection discussed: Redness, sensitivity to light, vision loss and pain. Patient to follow immediately with any symptoms.Follow Up: -Continue Prednisolone acetate 3x/day for 1 month then 2x/day for 1 month then dailyFollow Up: -f/u 3 month Pankaj Rodriguez, MD DOCUMENT CREATE DATE: 09/17/2018 11:30:27 AMReceived for:Ailyn Rodriguez Sep 17 2018 11:30AM Eastern Standard Time Normal Touchworks Ophthalmic Medical Laseron 1 Ophthalmic Medical Laser DOCUMENT SIGNED ELECTRONICALLY BY Ailyn Rodriguez MD ON 08/15/2018 10:34:46[facility] [id number] [facility]. [address] [address], [place], [phone] UTJA DOCUMENT WAS CREATED ON: 08/15/2018 10:34:34 AM BY: Ailyn Rodriguez MDJaclaiborne [facility] center McTear performed START-WORK, August 15, 2018PATIENT NAMEMATTDONATO ANNE731 [facility] [id number] ID [id number] DATE: 1960 AGE: 57 gender: male Race: WhiteHistoryChief Complaint/Reason For Visit: 1 week DMEK OS post op. vision is getting better OS. pt using Leslye 128 4x/day, Ofloxacin 4x/day, Pred 8x/day. no pain, no irritation, no rednessSurgeon : Ailyn Rodriguez MDSurgery Date : 08/06/2018[facility] Procedure: DMEKHISTORY OF PRESENT ILLNESS:ANDHPIANDSOCIAL HISTORYSMOKING:Non-smoke r (V49.89 Z78.9); CURRENT MEDICATIONS: INSTRUCTIONCitalopram Hydrobromide 20 MG Oral Tablet #90 Tablet, [Reported] Ketorolac Tromethamine 10 MG Oral Tablet #15 Tablet, [Reported] Lovastatin 20 MG Oral Tablet #90 Tablet, [Reported] Ofloxacin 0.3 % Ophthalmic Solution #1 5 ML Bottle, Solution, APPLY 1 DROP 4 times daily To operated eye, NO REFILLS, Evaluate PrednisoLONE Acetate 1 % Ophthalmic Suspension #1 15 ML Bottle, Suspension, INSTILL 1 DROP 8 times daily Into the Left eye starting After surgery. Shake bottle., NO REFILLS, Evaluate ALLERGIES:ALLERGY REACTIONNo Known Drug Allergies REVIEW OF SYSTEMSGENERAL: Overall healthySKIN: Denies symptomsEYES: Please review HPIENT: Denies symptomsRESPIRATORY: Denies symptomsCARDIOVASCULAR: Denies symptomsGI: Denies symptomsGENITOURINARY: Denies symptomsMUSCULOSKELETAL: Denies symptomsNEUROLOGICAL: Denies symptomsENDOCRINE: Denies symptomsHEMATO-IMMUNOLOG IC: Denies symptomsPSYCHIATRIC: Denies symptomsALLERGIES/ENVIRO NMENTAL: Denies symptomsExamGENERAL EXAM: RIGHT EYE LEFT EYEUNCORRECTED VA N/A 20/40 PINHOLE N/A 20/25-2 CORRECTED VA 20/20-1 PACHYMETRY 577 from 06/18/2018 560 from 06/18/2018 EXTERNAL EYE EXAM:LID: Good Position Good Position PUPIL: PERRL/no APD PERRL/no APD ADNEXA: Normal Normal MUSCLE BALANCE: OrthoOCULAR MOTILITY: FullANTERIOR SEGMENT EXAM:TEARFILM: Good CONJUNCTIVA: White and quiet CORNEA: DMEK - clear and compact centrally, temporal MCE, - keratic precipitates, - endothelial rejection line, - edge lift, - edge overlap ANTERIOR CHAMBER: deep and quiet IRIS: Round and reactive LENS: NO1 NC1 ANTERIOR VITREOUS: Clear PRESSURE METHOD: Tonopen PRESSURES: 10 DATE-TIME: 08/15/2018 10:34:16 AM PULLEY WORKER: [id number] ADJUSTED IOP VALUE: 9 FUNDUS EXAM: AssessmentPlanDISCUSSION :Follow Up: -Risk of rejection discussed: Redness, sensitivity to light, vision loss and pain. Patient to follow immediately with any symptoms.Follow Up: -Prednisolone acetate and Leslye 1 drop 4x/day x 1 monthFollow Up: -f/u 1 month, refract Ailyn Rodriguez MD DOCUMENT CREATE DATE: 08/15/2018 10:34:36 AMReceived for:Ailyn Rodriguez Aug 15 2018 10:34AM Lizella Standard Time Normal [facility] Ophthalmic Medical Laseron 1 Ophthalmic Medical Laser DOCUMENT SIGNED ELECTRONICALLY BY Ailyn Rodriguez MD ON 08/06/2018 10:24:32[place] [id number] [place], [place] [id number] KNMY DOCUMENT WAS CREATED ON: 08/06/2018 10:24:13 AM BY: Whit Nelson McTear performed START-WORKGATSaturday, August 06, 2018PATIENT NAMEERIC ANNE731 [facility] [address] DATE: 1960 AGE: 57 gender: male Race: White HistoryChief Complaint/Reason For Visit: 1 Day Dmek OS. pt states that last night it felt like a grain of sand in eye and pt also had a headache. currently eye feels better and no headache. pt has not used any drops since surgery. no pain, no irritation, no rednessSurgeon : ANN MARIE Nelsonurgery Date : 08/06/2018Location of Surgery : [facility] HealthEye : OS Procedure: DMEK HISTORY OF PRESENT ILLNESS:ANDHPIANDSOCIAL HISTORYSMOKING:Non-smoke r (V49.89 Z78.9); CURRENT MEDICATIONS: INSTRUCTIONCitalopram Hydrobromide 20 MG Oral Tablet #90 Tablet, [Reported] Ketorolac Tromethamine 10 MG Oral Tablet #15 Tablet, [Reported] Lovastatin 20 MG Oral Tablet #90 Tablet, [Reported] Ofloxacin 0.3 % Ophthalmic Solution #1 5 ML Bottle, Solution, APPLY 1 DROP 4 times daily To operated eye, NO REFILLS, Evaluate PrednisoLONE Acetate 1 % Ophthalmic Suspension #1 15 ML Bottle, Suspension, INSTILL 1 DROP 8 times daily Into the Left eye starting After surgery. Shake bottle., NO REFILLS, Evaluate ALLERGIES:ALLERGY REACTIONNo Known Drug Allergies REVIEW OF SYSTEMS GENERAL: Overall healthySKIN: Denies symptomsEYES: Please review HPIENT: Denies symptomsRESPIRATORY: Denies symptomsCARDIOVASCULAR: Denies symptomsGI: Denies symptomsGENITOURINARY: Denies symptomsMUSCULOSKELETAL: Denies symptomsNEUROLOGICAL: Denies symptomsENDOCRINE: Denies symptomsHEMATO-IMMUNOLOG IC: Denies symptomsPSYCHIATRIC: Denies symptomsALLERGIES/ENVIRO NMENTAL: Denies symptoms ExamGENERAL EXAM: RIGHT EYE LEFT EYEUNCORRECTED VA N/A HM, LP PINHOLE N/A NI EXTERNAL EYE EXAM:ANTERIOR SEGMENT EXAM:TEARFILM: Good CONJUNCTIVA: White and quiet CORNEA: DMEK - clear and compact, - keratic precipitates, - endothelial rejection line, - edge lift, - edge overlap ANTERIOR CHAMBER: SF6, 60% IRIS: Round and reactive LENS: NO1 NC1 ANTERIOR VITREOUS: Clear PRESSURE METHOD: Tonopen PRESSURES: 8 DATE-TIME: 08/06/2018 9:56:00 AM PULLEY WORKER: arleenctcristine ADJUSTED IOP VALUE: 7 FUNDUS EXAM: AssessmentPlan DISCUSSION:TODAY (OU) OS had Dmek - OCT Anterior By:Ailyn Rodriguez MDFollow Up: Dictation #[id number] Up: -Tissue #[id number] Ailyn Rodriguez MD DOCUMENT CREATE DATE: 08/06/2018 10:24:16 AMReceived for:Aiyln Rodriguez Aug 06 2018 10:24AM Lizella Standard Time AMENDMENTS:1. 08/13/2018 9:29:42 AM called patient and discussed concerns. Vision improving but had a short bout of decrease that has resolved. Visiion decrease not to a level of POD #1. Patient ? also about sleeping on back, which he should continue until next appointment in 2 days. Offered to see patient 08/13/2018 but declined.Electronically signed by:Ailyn Rodriguez Aug 13 2018 9:31AM EST Co-author Normal [facility] FUNGAL CULTURE/SM, MISCon FUNGAL CULTURE/SM, MISC PATIENT: ERIC ALEXIS [place]ATION: [facility] [place]#: [id number] : 64 AGE: SEX: M ORDERED BY: TIFFANI RODRIGUEZCE: CORNEA COLLECTED: 08/05/18 00:00ANTIBIOTICS AT [place]UR[place].: RECEIVED : 08/06/18 01:42SITE: CORNEA R E S U L T S FUNGAL SMEAR FINAL 08/06/18 11:00 FLUORESCENT FUNGAL STAIN: NEGATIVE FUNGAL CULTURE/, MISC FINAL 08/25/18 08:35 NO FUNGI ISOLATED. 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 I personally obtainedthe burnett and critical portions of the history and physical exam or wasphysically present for burnett and critical portions performed by theresident/fellow. I reviewed the resident/fellows documentation and discussedthe patient with the resident/fellow. I agree with the resident/fellowsmedical decision making as documented in the residents note.I personally evaluated the patient (as noted in the above attestation) [id number] Provider Inpatient Certification StatementN/A - observationpatient/other outpatient visits Electronic Signatures:Arturo Martinez (Resident)) (Signed 05-Aug-2018 07:21)Authored: History of Present Illness, Allergies, Home Medication Review,Impression/Proced ure, Physical Exam, Signatures/Attestation/C ertificationAilyn Rodriguez) (Signed 05-Aug-2018 11:24)Authored: Signatures/Attestation/C ertificationCo-Signer: History of Present Illness, Allergies, Home Medication Review,Impression/Proced ure, Physical Exam, Signatures/Attestation/C ertification Last Updated: 05-Aug-2018 11:24 by Ailyn Rodriguez) Normal [facility] MISCELLANEOUS CULT./SM.BACT. on 08-05-2018 MISCELLANEOUS CULT./SM.BACT. PATIENT: ERIC ANNE LOCATION: [facility] BILL#: [id number] : 64 AGE: SEX: M ORDERED BY: LENORA RODRIGUEZ: CORNEA COLLECTED: 08/05/18 00:00ANTIBIOTICS AT BURAK.: RECEIVED : 08/06/18 01:47SITE: CORNEA R E S U L T S GRAM STAIN FINAL 08/06/18 10:02 NO GRANULOCYTES OR ORGANISMS SEEN. MISCELLANEOUS CULT./SM.BACT. FINAL 08/08/18 09:12 NO GROWTH AEROBICALLY OR ANAEROBICALLY. Normal [facility] Comment on above: Performed By: #### M [facility] ####[id number] [facility] [place] [address] OPERATIVE REPORTon 8 OPERATIVE REPORT [facility] [place], [place] [address]Patient Name: ERIC ANNEMRN: [id number]: 1960Encounter Number: [id number] of Service: 08/05/2018Patient Location: [place] [address]Patient Type: OSurgeon: Ilir Sutton Type: Operative ReportsPREOPERATIVE DIAGNOSIS: Fuchs endothelial corneal dystrophy, left eye.POSTOPERATIVE DIAGNOSIS: Fuchs endothelial corneal dystrophy, left eye.OPERATION/PROCEDURE: Descemet membrane endothelial keratoplasty and aphakia, tissue number [id number] . to preservation 18 hours 24 minutes. Endothelial cell density 3145, to processing 5 days 11 hours, graft punch size 8 mmSURGEON: Ailyn Rodriguez MDASSISTANT(S): Arturo Martinez MDANESTHESIA: Retrobulbar block.COMPLICATIONS: None.PROCEDURE IN DETAIL: After risks, benefits, complications, and alternatives were discussed, the patient agreed with surgery today. The patient was brought to the operative suite and prepped and draped in sterile ocular fashion. Eye was examined, supratemporal and inferotemporal paracentesis was made. Injections of Healon into the anterior chamber. Using the reverse Sinskey, Descemet membrane was detached and removed from keratome incision which was made temporally. This was performed all after placing Miochol in the anterior chamber to protect the lens. Subsequently, I and A was used to remove any remaining viscoelastic from the anterior chamber after initially removal with irrigation using balanced salt solution. Focus was placed on donor tissue which was already pre-loaded and the Straiko Hou tube connected to a 3 cc syringe with DMEK connector, and this was then injected into the anterior chamber and unscrolled under 5 minutes, and then, left with full gas fill of SF6 20% for 10 minutes. Once this was performed, it was reduced down to 9 mm, and subconjunctival injection of Ancef and Solu-Medrol was performed. Wounds were checked and found to be Alina negative. The patient was brought to the PACU in stable condition.Ailyn Rodriguez MD ESTTT: 08/06/2018 07:47 AM ESTDICTATION NUMBER: [id number] JOB NUMBER: [id number]:Ancelmo JarrodoEdited by Ailyn Rodriguez 09/03/2018 06:00:[address] Dr[address] Ailyn Rodriguez 09/03/2018 06:00:08 PM Normal [facility] Preop Checkliston 08-05-2018 Preop Checklist Preop Checklist:Preo p Checklist: Arrival [id number] Arrival Time12:20 Procedure TypeLeft Corneal Transplant NPO [id number] 22:00 ID Band Onyes Allergy Bandno known allergies Consent Signedyes H&P Completepending Anesthesia Assessment Completedpending SCD's Appliedno Denturesnot applicable Valuables Securednot applicable Glasses / Contactssent with family With Cardiovascular Assessment: Radial Pulsespalpable Extremitieswarm, well perfused Respiratory Assessment: Respirationsunlabored regular Air Exchangegood, equal Neurological Assessment: Level of Consciousnessalert, oriented Mobilitymoves all extremities Able to Express Selfyes Age Appropriateyes Emotional Statuscalm Preop Education: Surgical Site Infection Preventionyes Pain Scales and Managementyes Language / Communication: Language / CommunicationEnglish Electronic Signatures:Haydee Kim (ALPA) (Signed 05-Aug-2018 12:26)Authored: Preop Checklist Last Updated: 05-Aug-2018 12:26 by Haydee Kim (ALPA) Normal [facility] Surgical Pathology Depar tmenton 08-05-2018 [facility] Surgical Pathology Department Name ERIC ANNE Pathologist: SETH SANCHES, MDDate of Procedure: 08/05/2018Date Received: 08/05/2018Date Reported 08/07/2018Submitting Physician: AILYN RODRIGUEZ MDLocation: Other External # FINAL DIAGNOSISA. LEFT EYE, DESCEMET MEMBRANE, REMOVAL:?FUCHS ENDOTHELIAL DYSTROPHY. Electronically Signed Out By SETH SANCHES MD/[facility] CLAREMOREBy the signature on this report, the individual or group listed as making theFinal Interpretation/Diagnosis certifies that they have reviewed this case. Clinical History:Endothelial cirneal dystrophySpecimens Submitted As:A: LEFT EYE DESCEMET Gross Description:Received in formalin, labeled with the patient's name and hospital number Justine-left eye Descemet membrane, are 2 irregular translucent soft tissuefragments aggregating to 0.7 x 0.3 x < 0.1 cm. The specimen is submitted intoto, on a paper, in one cassette.LMPlmp/08/06/20 18 Normal [facility] Comment on above: Performed By: #### U [facility] ####[facility] Surgical Pathology [id number] [facility] [address] Patient Profile - Preop v2on 07-24-2018 Protein mass conc Profile:Initial Info :How to be AddressedMattSpoken Language PreferredEnglishSource of InformationpatientAre you currently using the Personal Electronic Health Record or MYCAREnoAre you interested in learning more about MYCARE for the management of yourhealthnot at this timeStated Reason for Admissionleft eye corneal transplantPrimary Contact Name and NumberJulie () [phone] BelongingsnoneMedication s Brought to Hospitalno General Health:Weight in kg97.8 kilogram(s) Weight in rii649.6 pound(s) Weight Methodactual (measured) Scale TypestandingHeight in cm181.6 centimeter(s) Height in feet5 feetHeight in tbwnae79.5 inch(es) Height MethodstatedBMI (kg/m2)29.655 square meter Patient or Family Member Reaction to Anesthesiano previous reaction; No cough,cold, fever, vomiting or diarrhea in last 3 weeks. No family history ofmalignant hyperthermia. Does not get short of breath with heavy house or yardwork or climbing 1 flight of stairs. Doesn't Exercise regularly.Blood Avoidance/Restrictionsno nePrevious Transfusion Reactionno Health Mgmt:Symptoms/Conditions Managed at Homecardiovascular; behavioral health;musculoskeletal; HEENT (head, eyes, ears, nose, throat)Behavioral Health Symptoms/Conditionsdepre ssion; anxietyCardiovascular Symptoms/Conditions Commentmurmur-mitral valve prolapse-noproblemsHEENT Symptoms/Conditionsvisio n problem(s)Musculoskeleta l Symptoms/Conditions Commentlower back problems in pastBarriers to Managing Healthnone Relationship/Environ:Angie es WithspouseLiving ArrangementshouseResourc e/Environmental ConcernsnoneAnticipated Transition TohomeServices Anticipated at Transitionnone Substance:Current or Former Substance Use never: Cigarette/Tobacco, e-Cigarette/Vaping,Stree t DrugsYES: Alcohol Alcohol Use Statuscurrent alcoholAlcohol Use Additional Commentssocial Risk Screens:Advance Directive MedicalnoAdvance Directive Information Givenpatient/family declinedDuring the past month, have you often been bothered by feeling down, depressedor hopelessnoDuring the past month, have you often had little interest or pleasure in doingthingsnoHave you had any thoughts of harming yourselfnoHave you had any thoughts of harming anyone elsenoPatient is Able to be Assessed for LearningyesFactors Influencing Readiness to Learninterest in learning; motivation tolearnFactors that Impact Ability to LearnnoneDevices/Methods Used to CommunicateglassesLearni ng Preferencesverbal instruction; written materialCultural ConsiderationsnoneDevelo pmental ConsiderationsnoneReligi ous ConsiderationsnoneOther learner availablenoFalls RiskPatient location auto qualifies him/her for HIGH RISK.Are there any cultural, spiritual, caodaism practices/values/needs that areimportant for us to knownoPain Scalenumerical 0-10Pain Scale Educationteaching providedCurrent Pain Level0 = NoneAcceptable Pain Level2 = MildChronic Painno Information Review: Allergies, Home Meds and Significant Events have been Reviewed and Verifiedwith Patient/Familyyes Allergy, Intolerance, Adverse Event: Allergies: No Known Allergies: Active Significant Events:24-Jul-2018 vascetomy: Past Surgical History, [id number] tonsils: Past Surgical History, Active Electronic Signatures:Sheridan Lovell (RN) (Signed 24-Jul-2018 13:22)Authored: Profile, Additional InformationHaydee Kim (ALPA) (Signed 05-Aug-2018 12:32)Authored: Profile, Additional Information Last Updated: 05-Aug-2018 12:32 by Haydee Kim (ALPA) [facility] Ophthalmic Eye [place] 2017 Ophthalmic Eye Exam DOCUMENT SIGNED ELECTRONICALLY BY Ailyn Rodriguez MD ON 06/18/2018 12:26:39 [facility] [id number] [facility] [address], [place], [id number] WADY DOCUMENT WAS CREATED ON: 06/18/2018 12:26:08 PM BY: Whit Nelson [facility] performed [id number] Date: Monday, June 18, 2018PATIENT NAME: ERIC ANNEPATIENT ID: [id number] DATE: 1960 AGE: 57GENDER: Male RACE: WhiteREFERRING DOCTOR: Ivory Rodriguez [facility] PHYSICIAN: Ancelmo ArnoldThe Patient states that he was sent by Ivory Rodriguez for an evaluation of [facility]His[facility] Complaint/Reason For Visit: Pt referred by Dr. Ivory Rodriguez to Dr. Rodriguez. pt states that 2 months ago he felt he had eyelash behind eyelid. pt was treated with leslye and steroid drops to no relief and vision become blurry. pt was then referred to Dr. Rodriguez in [place]. pt was referred to Ailyn Rodriguez for further evaluation. Occasional pain OS (pin prick pain), still feels like eyelash in eye. seems like he`s looking through vaseline. using leslye 4x/day OU and leslye ointment at night.HISTORY OF PRESENT ILLNESS:PROBLEM: Fuch's dystrophyCONTEXT/ONSET: gradualLOCATION: left eyeTIMING: constantRELIEVING: eye dropsASSOCIATED SS: noneHPI was performed by Dr. Ailyn Rodriguez MD and scribed by Soraida Rodriguez MD SOCIAL HISTORY: SMOKING: Non-smoker (V49.89 Z78.9) CURRENT MEDICATIONS: Citalopram Hydrobromide 2 #90 Tablet, [Reported] Ketorolac Tromethamine 10 #15 Tablet, [Reported] Lovastatin 20 MG Oral Tab #90 Tablet, [Reported] ALLERGIES: No Known Drug Allergies REVIEW OF SYSTEMS:All other Review Of Systems negative ExamORIENTATION, MOOD AND AFFECT: Alert AND oriented x3 RIGHT EYE LEFT EYEUNCORRECTED VA N/A N/A CORRECTED VA 20/20 20/25-2 PACHYMETRY 577 from 06/18/2018 560 from 06/18/2018 PRESSURE METHOD: Tonopen Tonopen PRESSURES: 14 10 DATE-TIME: 11:10 AM 11:10 AM PULLEY WORKER: arleenctear1 arleenctear1 ADJUSTED IOP VALUE: 12 9 CONFRONTATION VF Full to count fingers Full to count fingers EXTERNAL EYE EXAM:LID: Good Position Good Position PUPIL: PERRL/no APD PERRL/no APD ADNEXA: Normal Normal MUSCLE BALANCE: OrthoOCULAR MOTILITY: FullANTERIOR SEGMENT EXAM:TEARFILM: Good Good CONJUNCTIVA: White and quiet White and quiet CORNEA: guttae / guttae / ANTERIOR CHAMBER: Deep and quiet Deep and quiet IRIS: Round and reactive Round and reactive LENS: NO1 NC1 NO1 NC1 ANTERIOR VITREOUS: Clear Clear FUNDUS EXAM: DILATION and NUMBING DROPS: Mydriacyl 1% AND Brent 2 1/2% OU 06/18/2018 11:10:45 AMCUP TO DISC: .3 .3 OPTIC DISC: Wilsonia and sharp Wilsonia and sharp VITREOUS: Clear Clear MACULA: Normal reflex Normal reflex VESSELS: Normal Normal PERIPHERY: No tears, breaks, or holes No tears, breaks, or holes Ekxwzeiqym15 H25.11 Age-related Nuclear Cataract Of Right Eye-New05 H25.12 Age-related Nuclear Cataract Of Left Eye-NewDiscussionLetter prepared for Ivory Rodriguez by:Ailyn Rodriguez MDLetter prepared for Ancelmo Arnold by:Juanita Nelson TODAY (OU) - Pentacam CT By:Ailyn Rodriguez MD (OU) - Specular Microscopy By:Ailyn Rodriguez MDFUCHS` ENDOTHELIAL DYSTROPHY.51Patient advised that the cells on the back surface of the cornea function as little pumps to regulate the amount of fluid in the cornea. If too many of these cells are lost, the cornea takes on excess fluid and becomes cloudy, making the vision blurry. Mild cases may initially cause glare, halos, or AM blurring. Cases may require a corneal transplant in the future.-information given about fuchs` dystrophy from [facility]-recommend sunglasses and smoking avoidanceTopography 05/2018 [address] 40[address]4/0.8 OD 41.1/3.[address] OS [address] OUspecular by Dr[address] Ivory Rodriguez without central cellsOS-Risks, benefits, AND alternatives were discussed with the patient. This includes but is not limited to infection, inflammation, bleeding, secondary cataract, glaucoma, corneal or retinal swelling, retinal tears, retinal detachments, loss of vision, loss of the eye, and the need for further surgery. All questions answered. Patient chooses to proceed with surgery.-Additional risks include transplant detachment, and graft rejection. Schedule DMEK OS-Schedule YAG PI 1 week prior (with Dr. Ivory Rodriguez)-Post-operative instructions were reviewed-Prednisolone acetate 1% 4x/day starting after YAG PI (plan with Dr. Ivory Rodriguez), Ofloxacin 4x/day starting 1 day prior to surgery; Prednisolone acetate 1% 8x/day starting after surgery -will reevaluate opposing eye after initial surgical interventionAGE-RELATED NUCLEAR CATARACT OF RIGHT EYE.11AGE-RELATED NUCLEAR CATARACT OF LEFT EYE.12-Cataracts not visually significant for pt at this time, will observe -patient to consider premium lenses in the futureFOLLOWUP SCHEDULED: SCHEDULE (OS) DMEK Ailyn Rodriguez MD DOCUMENT CREATE DATE: 06/18/2018 12:26:10 PM The Following Users Updated This Patient Encounter:Manoj Rodriguez, MDReceived for:Ailyn Rodriguez Jun 18 2018 12:26PM Eastern Standard Time Normal [facility] No Panel Information [facility] Vital Signs Date Time Vital Sign Value Performing Clinician Melisa garzon 03-19-2024 09:55-0400 Body height 181 cm Janneth Supplouisa [employer]IEF [employer]SCRIPT ARTIST Work Phone: [facility] 03-19-2024 09:55-0400 Body mass index (BMI) [Ratio] 31.43 kg/m2 Janneth Supplouisa [employer]OTE[employer]IEF [employer]SCRIPT ARTIST Work Phone: [facility] 03-19-2024 09:55-0400 Body weight 102.97 kg Janneth Supplouisa [employer]OTE[employer]IEF [employer]SCRIPT ARTIST Work Phone: [facility] 03-19-2024 09:55-0400 Diastolic blood pressure 62 mm[Hg] Janneth Suppan [employer]OTE[employer]SCRIPT ARTIST Work Phone: [facility] 03-19-2024 09:55-0400 Heart rate 57 /min Janneth Supplouisa [employer]OTE[employer]SCRIPT ARTIST Work Phone: [facility] 03-19-2024 09:55-0400 SaO2% (BldA) [Mass fraction] 98 % Janneth Suppan [employer]OTE[employer]SCRIPT ARTIST Work Phone: [facility] 03-19-2024 09:55-0400 Systolic blood pressure 110 mm[Hg] Janneth Supplouisa [employer]OTE[employer]F [employer]SCRIPT ARTIST Work Phone: [facility] 12-06-2023 15:34-0500 Body temperature 97.2 [degF] Jesus Manuel Carlos [employer]OTE[employer]F [employer]CREDIT UNION EXAMINER Work Phone: [facility] 12-06-2023 15:34-0500 Body weight 107.05 kg Jesus Manuel Carlos [employer]OTE[employer]IE[employer] UNION EXAMINER Work Phone: [facility] 12-06-2023 15:34-0500 Diastolic blood pressure 92 mm[Hg] Jesus Manuel Carlos [employer]OTE[employer]F [employer]CREDIT UNION EXAMINER Work Phone: [facility] 12-06-2023 15:34-0500 Heart rate 72 /min Jesus Manuel Carlos [employer]OTE[employer]F [employer] UNION EXAMINER Work Phone: [facility] 12-06-2023 15:34-0500 Respiratory rate 18 /min Jesus Manuel Terrance [employer] UNION EXAMINER Work Phone: [facility] 12-06-2023 15:34-0500 SaO2% (BldA) [Mass fraction] 98 % Jesus Manuel Carlos [employer]CREDIT UNION EXAMINER Work Phone: [facility] 12-06-2023 15:34-0500 Systolic blood pressure 139 mm[Hg] Jesus Manuel Carlos [employer]CR[employer] UNION EXAMINER Work Phone: [facility] 12-03-2023 21:24-0500 Body temperature 97.1 [degF] [facility] 12-03-2023 21:24-0500 Diastolic blood pressure 92 mm[Hg] [facility] 12-03-2023 21:24-0500 Heart rate 66 /min [facility] 12-03-2023 21:24-0500 Respiratory rate 17 /min [facility] 12-03-2023 21:24-0500 SaO2% (BldA) [Mass fraction] 96 % [facility] 12-03-2023 21:24-0500 Systolic blood pressure 138 mm[Hg] [facility] 12-03-2023 19:20-0500 Body height 180.34 cm [facility] 12-03-2023 19:20-0500 Body mass index (BMI) [Ratio] 33.5 kg/m2 [facility] 12-03-2023 19:20-0500 Body weight 108.9 kg [facility] 01-14-2023 09:54-0400 Body height 182.9 cm Brittani Coates [employer] UNION EXAMINER Work Phone: [facility] 01-14-2023 09:54-0400 Body weight 104.78 kg Brittani Coates [employer]CREDIT UNION EXAMINER Work Phone: [facility] 01-14-2023 09:54-0400 Diastolic blood pressure 82 mm[Hg] Brittani Haagen [employer].CREDIT UNION EXAMINER Work Phone: [facility] 01-14-2023 09:54-0400 Heart rate 74 /min Brittani Haagen [employer].CREDIT UNION EXAMINER Work Phone: [facility] 01-14-2023 09:54-0400 Respiratory rate 18 /min Brittani Diazagen [employer].CREDIT UNION EXAMINER Work Phone: [facility] 01-14-2023 09:54-0400 SaO2% (BldA) [Mass fraction] 93 % Brittani Haagen [employer].CREDIT UNION EXAMINER Work Phone: [facility] 01-14-2023 09:54-0400 Systolic blood pressure 136 mm[Hg] Brittani Haagen [employer].CREDIT UNION EXAMINER Work Phone: [facility] Encounters Encounter Date Encounter Type Care Provider Facility Start: 02-12-[address] Refugio Bryson MD -Cat Scan, [facility] Work Phone: Start: 02-11-2025 End: 02-12-[address] Refugio Bryson MD Work Phone: [facility] Work Phone: Start: 02-11-2025 End: 02-11-[address] Refugio Bryson MD -Laboratory, [facility] Start: 02-11-2025 End: 02-11-2025 ambulatory Refugio Bryson Facility:[facility] Start: 02-08-2025 End: 02-08-2025 ambulatory ANCELMO ARNOLD Facility:[facility] Start: 01-21-2025 End: 01-21-[address] Refugio Bryson MD Work Phone: [facility] Work Phone: Start: 01-21-2025 End: 01-21-[address] Refugio Bryson MD -Laboratory, [facility] Start: 01-21-2025 End: 01-21-2025 ambulatory Refugio Bryson Facility:[facility] Start: 11-30-2024 End: 11-30-2024 ambulatory IVORY RODRIGUEZ Facility:[facility] Start: 11-30-2024 End: 11-30-2024 Patient encounter procedure Ivory Rodriguez MD Work Phone: Ophthalmology Comment on above: Combined forms of ag e-related cataract of both eyes (Primary Dx); Fuchs' corneal dystrophy of both eyes; History of Descemet membrane endothelial keratoplasty (DMEK); History of repair of retinal tear by laser photocoagulation; Essential hypertension; Hypercholesteremia Start: 11-25-2024 End: 11-25-2024 ambulatory RON GRIFFITH Facility:[facility] Start: 11-25-2024 End: 11-25-2024 Patient encounter procedure Shavon García REHEATER HELPER-C -Laboratory, [facility] Start: 11-25-2024 End: 11-25-2024 ambulatory Shavon García NP Facility:[facility] Start: 09-28-2024 End: 09-28-2024 Refill Ancelmo Arnold MD Work Phone: [facility] Comment on above: Refill Request Start: 09-25-2024 End: 09-25-2024 ambulatory RON GRIFFITH Facility:[facility] Start: 09-04-2024 End: 09-04-2024 ambulatory Ancelmo Arnold MD Work Phone: [facility] Comment on above: Regarding unexpected result from imaging done back in March Start: 08-26-2024 End: 08-26-2024 Refill Ivory Rodriguez MD Work Phone: Ophthalmology Start: 08-25-2024 End: 08-25-2024 ambulatory ANCELMO ARNOLD Facility:[facility] Start: 07-29-2024 End: 07-29-2024 ambulatory ANCELMO ARNOLD Facility:[facility] Start: 07-03-2024 End: 07-03-2024 ambulatory Refugio Bryson Facility:[facility] Start: 06-17-2024 End: 06-17-2024 ambulatory ANCELMO ARNOLD Facility:[facility] Start: 05-27-2024 End: 05-27-2024 ambulatory ANCELMO ARNOLD Facility:[facility] Start: 05-27-2024 End: 05-27-2024 Patient encounter procedure Ivory Rodriguez MD Work Phone: Ophthalmology Comment on above: Fuchs' corneal dystr ophy of both eyes (Primary Dx); History of Descemet membrane endothelial keratoplasty (DMEK); Combined forms of age-related cataract of both eyes; Essential hypertension; Hypercholesteremia Start: 04-22-2024 ambulatory [employer] Facility :[facility] Start: 04-22-2024 End: 04-22-2024 ambulatory [employer] Facility:[facility] Start: 04-13-2024 Telephone encounter Janneth Aj APRN.SCRIPT ARTIST Work Phone: [facility] Comment on above: Results Start: 04-10-2024 End: 04-10-2024 ambulatory [facility]H [facility]zama [facility] Facility:[facility] Start: 04-08-2024 ambulatory [facility] Facility:[facility] Start: 04-06-2024 Telephone encounter Janneth Aj APRN.SCRIPT ARTIST Work Phone: [facility] Comment on above: Orders Results Start: 04-02-2024 End: 04-02-2024 ambulatory JANNETH Lezama [place]ISA Facility:[facility] Start: 04-02-2024 End: 04-02-2024 Subsequent hospital visit by physician Katie [facility] (I-Stat) Work Phone: Cat Scan Comment on above: 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] Start: 03-20-2024 Telephone encounter Janneth Aj APRN.SCRIPT ARTIST Work Phone: [facility] Start: 03-19-2024 End: 03-19-2024 ambulatory JANNETH AJ Facility:[facility] Start: 03-19-2024 End: 03-19-2024 Periodic preventive med est patient 40-64yrs Janneth Aj APRN.SCRIPT ARTIST Work Phone: [facility] Comment on above: 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) (Primary Dx); Encounter for immunization; Elevated blood pressure reading without diagnosis of hypertension; Dyslipidemia; Screening for prostate cancer; Screening for colon cancer; Anxiety with depression Start: 03-17-2024 Refill Ancelmo Arnold MD Work Phone: [facility] Comment on above: Refill Request Start: 03-10-2024 Refill Ancelmo Arnold MD Work Phone: [facility] Comment on above: Refill Request Start: 02-06-2024 Refill Ancelmo Arnold MD Work Phone: [facility] Comment on above: Refill Request Start: 12-18-2023 End: 12-18-2023 Patient encounter procedure Ivory Rodriguez MD Work Phone: Ophthalmology Comment on above: Combined forms of ag e-related cataract of both eyes (Primary Dx); History of Descemet membrane endothelial keratoplasty (DMEK) Start: 12-06-2023 End: 12-06-2023 Patient encounter procedure Jesus Manuel Carlos APRN.CREDIT UNION EXAMINER Work Phone: [facility] Comment on above: Tongue sore (Primary Dx) Start: 12-03-2023 End: 12-03-2023 Emergency department patient visit [facility] Work Phone: Start: 09-11-2023 End: 09-11-2023 ambulatory [facility] Work Phone: Start: 09-11-2023 End: 09-11-2023 Patient encounter procedure [facility] Start: 05-30-2023 End: 05-30-2023 Office outpatient visit 15 minutes Michael Rogel MD, PhD Work Phone: Ophthalmology Comment on above: 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 Start: 02-12-2023 Telephone encounter Brittani ying APRN.CREDIT UNION EXAMINER Work Phone: [facility] Comment on above: Results Start: 01-29-2023 Telephone encounter Brittani Diaz deonna WILLARD.CREDIT UNION EXAMINER Work Phone: [facility] Comment on above: Results Start: 01-15-2023 Telephone encounter Brittani Diaz deonna DEL RION.CREDIT UNION EXAMINER Work Phone: [facility] Comment on above: Results Start: 01-14-2023 Telephone encounter Ancelmo Arnold MD Work Phone: [facility] Comment on above: request for records Start: 01-14-2023 End: 01-14-2023 Patient encounter procedure Brittani Hadeonna WILLARD.CREDIT UNION EXAMINER Work Phone: [facility] Comment on above: Wellness examination (Primary Dx); Vitamin D deficiency; Mixed hyperlipidemia; SOB (shortness of breath); Special screening examination for viral disease; Screening for HIV (human immunodeficiency virus); Screening for prostate cancer; Shortness of breath; Mitral valve disorder; Anxiety with depression; JOMAR (obstructive sleep apnea) Start: 01-14-2023 End: 01-14-2023 Patient encounter status Brittani Hadeonna WILLARD.CREDIT UNION EXAMINER Work Phone: [facility] Start: 01-07-2023 Refill Yolande Montano APRN.CREDIT UNION EXAMINER Work Phone: [facility] Comment on above: Refill Request Start: 12-10-2022 End: 12-10-2022 ambulatory [facility] Work Phone: Start: 12-10-2022 End: 12-10-2022 Patient encounter procedure [facility] Start: 12-05-2022 Refill Ancelmo Arnold MD Work Phone: [facility] Comment on above: Refill Request Start: 12-04-2022 End: 12-04-2022 Patient encounter procedure Gray Magallanes MD Work Phone: Ophthalmology Comment on above: 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); Vitreous hemorrhage of right eye (HCC); Posterior vitreous detachment of right eye; History of Descemet membrane endothelial keratoplasty (DMEK) Start: 11-06-2022 Refill Ancelmo Arnold MD Work Phone: [facility] Comment on above: Refill Request Start: 10-31-2022 End: 10-31-2022 Patient encounter procedure Ivory Rodriguez MD Work Phone: Ophthalmology Comment on above: Combined forms of ag e-related cataract of both eyes (Primary Dx); Cornea replaced by transplant; Horseshoe retinal tear of right eye; Connective tissue disorder (HCC) Start: 10-10-2022 Telephone encounter Nurse Antoinette [facility] Work Phone: General Surgery Comment on above: Results (Colonoscopy report from 2013) Start: 10-05-2022 End: 10-05-2022 ambulatory [facility] Work Phone: Start: 10-05-2022 End: 10-05-2022 Patient encounter procedure [facility] Start: 10-02-2022 End: 10-02-2022 Patient encounter procedure Vale Arguelles PA-C Work Phone: Ophthalmology Comment on above: 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); Posterior vitreous detachment of right eye; Vitreous hemorrhage of right eye (HCC); History of Descemet membrane endothelial keratoplasty (DMEK) Start: 09-06-2022 Chart abstracting Ancelmo Syed MD Work Phone: [facility] Comment on above: Outside OV Notes Start: 09-03-2022 End: 09-03-2022 ambulatory [facility] Work Phone: Start: 09-03-2022 End: 09-03-2022 Patient encounter procedure [facility] Start: 05-21-2022 End: 05-21-2022 Patient encounter procedure Ivory Rodriguez MD Work Phone: Ophthalmology Comment on above: Combined forms of ag e-related cataract of both eyes (Primary Dx); Cornea replaced by transplant Start: 05-10-2022 Refill Ancelmo Arnold MD Work Phone: [facility] Comment on above: Refill Request Start: 04-12-2022 Refill Ivory epperson MD Work Phone: Ophthalmology Comment on above: Refill Request Start: 01-28-2022 Refill Ancelmo Arnold MD Work Phone: [facility] [employer] Comment on above: Refill Request Start: 08-09-2021 End: 08-09-2021 Subsequent hospital visit by physician Xr [facility] Work Phone: Radiology Comment on above: Left elbow pain [M25 .522] Start: 09-17-2018 Patient encounter procedure Ailyn Rodriguez Facility:[id number] Start: 08-15-2018 Patient encounter procedure Ailyn Lamarpta Facility:[id number] Start: 08-06-2018 Patient encounter procedure Ailyn Lamarpta Facility:[id number] Start: 08-05-2018 End: 08-05-2018 Patient encounter procedure Ailyn Lamarpta Facility:[facility] Start: 06-18-2018 Patient encounter procedure Ailyn Rodriguez Facility:[id number] Procedures Date Procedure Procedure Detail Performing Clinician Start: 02-12-2025 CT of lumbar spine Dr. Refugio Bryson MD Work Phone: Start: 11-30-2024 Computerized ophthal mary imaging retina Ivory Rodriguez MD Work Phone: Start: 04-22-2024 Colonoscopy Ivory ridley MD Work Phone: Start: 03-19-2024 RSV VACCINE, BIVALEN T (ABRYSVO) Janneth A Suppan [employer].SCRIPT ARTIST Work Phone: Start: 03-19-2024 Lipid 1996 panel - S juan or Plasma Janneth Suppan [employer].SCRIPT ARTIST Work Phone: Start: 12-03-2023 Plain chest X-ray Start: 05-01-2023 Computerized ophthal mary imaging retina Ivory Rodriguez MD Work Phone: Start: 01-14-2023 Lipid 1996 panel - S juan or Plasma Jesus Manuel King SUDHEER.CREDIT UNION EXAMINER Work Phone: Start: 12-04-2022 Computerized ophthal mary imaging retina Gray Magallanes MD Work Phone: Start: 10-02-2022 End: 10-02-2022 Computerized ophthalmic imaging retina Vale Arguelles PA-C Work Phone: Start: 05-21-2022 IOL BIOMETRY W/ IOL CALC OU (BOTH EYES) Ivory Rodriguez MD Work Phone: Start: 08-09-2021 Radex elbow complete minimum 3 views Ancelmo Arnold MD Work Phone: Start: 10-27-2019 H/O: surgery S/P eye surgery Ancelmo Arnold MD Work Phone: Start: 09-07-2019 H/O: cornea recipient Cornea r eplaced by transplant Ancelmo Arnold MD Work Phone: Start: 08-05-2018 Anesthesia eye corne al transplant Ailyn Rodriguez Start: 08-05-2018 Keratoplasty endothelial Ailyn Rodriguez Start: 02-17-2014 Colonoscopy Ancelmo Syed MD Work Phone: H/O: cornea recipient Cornea rep laced by transplant Ivory Rodriguez MD Work Phone: H/O: cornea recipient Cornea rep laced by transplant Ivory Rodriguez MD Work Phone: Plan of Treatment Date Care Activity Detail Author Start: 11-16-2034 Urine microalbumin profile DTaP,Tdap,Td Vaccine (5 - Td or Tdap) [facility] Start: 01-12-2034 Urine microalbumin profile DTaP,Tdap,Td Vaccine (4 - Td or Tdap) [facility] Start: 04-22-2029 Screening for malignant neoplasm of colon [facility] Start: 04-10-2029 Prostate specific antigen measurement Prostate Cancer Screening Discussion [facility] Start: 03-19-2029 Lipid panel Lipid Screening [facility] Start: 03-19-2029 Prostate specific antigen measurement Prostate Cancer Screening Discussion [facility] Start: 01-15-2028 Lipid panel Lipid Screening [facility] Start: 01-15-2028 LIPID SCREEN LIPID SCREEN [facility] Start: 01-15-2028 PROSTATE CANCER SCREENING DISCUSSION PROSTATE CANCER SCREENING DISCUSSION [facility] Start: 01-15-2028 Prostate specific antigen measurement Prostate Cancer Screening Discussion [facility] Start: 03-19-2027 Diabetes Screening Diabetes Screening [facility] Start: 01-14-2026 DIABETES SCREEN DIABETES SCREEN [facility] Start: 01-14-2026 Diabetes Screening Diabetes Screening [facility] Start: 12-08-2025 LIPID SCREEN LIPID SCREEN [facility] Start: 10-23-2025 Urine microalbumin profile [facility] Start: 05-31-2025 End: 05-31-2025 Patient encounter procedure 05/31/2025 1:15 PM EDT Office Visit [facility] [address] [place] [address] Ivory Rodriguez MD [address] [place] [address] cataract -6 mths Ophthalmology Comment on above: cataract -6 mths Start: 04-06-2025 End: 05-06-2025 CT Chest WO contrast CT CHEST WO IVCON Radiology Routine Lung nodules Coronary artery calcification Abnormality of thoracic aorta Expected: 04/06/2025, Expires: 05/06/2025 [facility] Work Phone: Comment on above: Expected: 04/06/2025, Expires: Start: 03-19-2025 Covid-19 Vaccine () Covid-19 Vaccine () [facility] Comment on above: Postponed from 06/21/2023 (Declined at t his time) Start: 02-11-2025 [facility] Start: 01-21-2025 Human leukocyte antigen B27 antigen phenotyping [facility] Start: 11-30-2024 End: 11-30-2024 Patient encounter procedure 11/30/2024 3:00 PM EST Office Visit [facility] [address] [place] [address] Ivory Rodriguez MD [address] [place] [address] cataract-6 months Ophthalmology Comment on above: cataract-6 months Start: 06-21-2024 Covid-19 Vaccine ( season) Covid-19 Vaccine ( season) [facility] Start: 06-21-2024 Influenza vaccination Influenza Vaccine (#1) [place] [facility] Start: 05-27-2024 End: 05-27-2024 Patient encounter procedure 05/27/2024 3:30 PM EDT Office Visit [facility] Op[facility]mology [address] [place] [id number] Ivory Rodriguez MD [address] [place] [address] CATARACTS Ophthalmology Comment on above: CATARACTS Start: 04-02-2024 End: 04-02-2024 Patient encounter procedure 04/02/2024 8:40 AM EDT Appointment Cat Scan [address] [place] [address] 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] Cat Scan Comment on above: Disorder of artery or arteriole (HCC) [I 77.9] Start: 03-26-2024 End: 04-18-2025 CT Chest WO contrast CT CHEST WO IVCON Radiology Routine Disorder of artery or arteriole (HCC) Expected: 03/26/2024, Expires: 04/18/2025 [facility] Comment on above: Expected: 03/26/2024, Expires: 5 Start: 03-19-2024 End: 06-18-2024 Comprehensive metabolic 2000 panel - Serum or Plasma [facility] Comment on above: Expected: 03/19/2024, Expires: 4 Start: 03-19-2024 End: 06-18-2024 LIPID PANEL, NONFASTING [facility] Work Phone: Comment on above: Expected: 03/19/2024, Expires: 4 Start: 03-19-2024 End: 06-18-2024 Magnesium [Mass/volume] in Serum or Plasma [facility] Comment on above: Expected: 03/19/2024, Expires: Start: 03-19-2024 End: 06-18-2024 PSA/PROSTATE SPECIFIC ANTIGEN SCREENING [facility] Comment on above: Expected: 03/19/2024, Expires: Start: 03-19-2024 End: 06-18-2024 Thyrotropin [Units/volume] in Serum or Plasma [facility] Comment on above: Expected: 03/19/2024, Expires: Start: 03-19-2024 End: 03-19-2024 Patient encounter procedure 03/19/2024 10:00 AM EDT Office Visit [facility] [address] [place], [place] [id number] Janneth Aj APRN.SCRIPT ARTIST [address] [place], [place] [id number] [facility] Comment on above: Physical Start: 02-18-2024 Colonoscopy COLONOSCOPY [facility] Start: 02-18-2024 COLORECTAL CANCER SCREENING COLORECTAL CANCER SCREENING [facility] Start: 02-18-2024 Screening for malignant neoplasm of colon [facility] Start: 12-19-2023 End: 05-27-2024 Camera fundoscopy FUNDUS PHOTOS OU (BOTH EYES) [facility] Imaging Routine Horseshoe retinal tear of right eye Posterior vitreous detachment of right eye Vitreous hemorrhage of right eye (HCC) History of Descemet membrane endothelial keratoplasty (DMEK) Expected: 12/19/2023, Expires: 05/27/2024 [facility] Work Phone: Comment on above: Expected: 12/19/2023, Expires: Start: 12-19-2023 End: 05-27-2024 OCT MACULA CIRRUS OU (BOTH EYES) OCT MACULA CIRRUS OU (BOTH EYES) [facility] Imaging Routine Horseshoe retinal tear of right eye Posterior vitreous detachment of right eye Vitreous hemorrhage of right eye (HCC) History of Descemet membrane endothelial keratoplasty (DMEK) Expected: 12/19/2023, Expires: 05/27/2024 [facility] Work Phone: Comment on above: Expected: 12/19/2023, Expires: 4 Start: 12-08-2023 DIABETES SCREEN DIABETES SCREEN [facility] Start: 12-04-2023 [facility] Start: 12-03-2023 Blood chemistry [facility] Start: 12-03-2023 End: 12-03-2023 [facility] Start: 07-31-2023 End: 01-30-2024 Echocardiography ECHO Cardiology Routine Dilation of aorta (HCC) Expected: 07/31/2023, Expires: 01/30/2024 [facility] Work Phone: Comment on above: Expected: 07/31/2023, Expires: 4 Start: 07-18-2023 End: 09-17-2023 Alanine aminotransferase [Enzymatic activity/volume] in Serum or Plasma ALT/SGPT Lab Routine Mixed hyperlipidemia Expected: 07/18/2023, Expires: 09/17/2023 [facility] Work Phone: Comment on above: Expected: 07/18/2023, Expires: 3 Start: 07-18-2023 End: 09-17-2023 Lipid 1996 panel - Serum or Plasma LIPID PANEL BASIC Lab Routine Mixed hyperlipidemia Expected: 07/18/2023, Expires: 09/17/2023 [facility] Work Phone: Comment on above: Expected: 07/18/2023, Expires: 3 Start: 06-21-2023 Covid-19 Vaccine ( season) Covid-19 Vaccine ( season) [facility] Start: 06-21-2023 Influenza vaccination INFLUENZA (#1) [facility] Start: 03-13-2023 SHINGRIX VACCINE (3 of 3) SHINGRIX VACCINE (3 of 3) [facility] Start: 2022 RSV Vaccine (1 - 1-dose 60+ series) RSV Vaccine (1 - 1-dose 60+ series) [facility] Start: 11-30-2022 SHINGRIX VACCINE (2 of 3) SHINGRIX VACCINE (2 of 3) [facility] Start: 09-03-2022 [facility] Work Phone: Start: 06-21-2022 Influenza vaccination [facility] Start: 05-17-2022 COVID-19 VACCINE (5 - Booster for Pfizer series) COVID-19 VACCINE (5 - Booster for Pfizer series) [facility] Start: 01-12-2019 PROSTATE CANCER SCREENING DISCUSSION PROSTATE CANCER SCREENING DISCUSSION [facility] Start: 2012 Pneumococcal Vaccine: 50+ (1 of 1 - PCV) Pneumococcal Vaccine: 50+ (1 of 1 - PCV) [facility] Start: 2012 SHINGRIX VACCINE (1 of 2) SHINGRIX VACCINE (1 of 2) [facility] Start: 12-21-2007 COLOGUARD (FIT-DNA) COLOGUARD (FIT-DNA) [facility] Start: 12-21-[address] COLONOGRAPHY [facility] Start: 12-21-2007 FECAL OCCULT BLOOD FECAL OCCULT BLOOD [facility] Start: 12-21-2007 Screening for malignant neoplasm of colon [facility] Start: 12-21-2007 SIGMOIDOSCOPY SIGMOIDOSCOPY [facility] Start: 1980 HEPATITIS C SCREENING [facility] Start: 1980 HIV SCREENING HIV SCREENING [facility] Alternaria alternata IgE Ab [Units/volume] in Serum [facility] Work Phone: Alternaria alternata IgE Ab [Units/volume] in Serum [facility] Martiniquais Cockroach I gE Ab [Units/volume] in Serum [facility] Work Phone: Martiniquais Cockroach I gE Ab [Units/volume] in Serum [facility] Martiniquais house dust mite IgE Ab [Units/volume] in Serum [facility] Work Phone: Aspergillus fumigatu s [facility] Work Phone: Aspergillus fumigatu s [facility] Beef IgE Ab [Units/volume] in Serum [facility] Bermuda grass IgE Ab [Units/volume] in Serum [facility] Work Phone: Bermuda grass IgE Ab [Units/volume] in Serum [facility] Work Phone: [facility] Cat dander [facility] Work Phone: Cat dander RAST [facility] Chocolate IgE Ab [Units/volume] in Serum [facility] Cladosporium herbaru m IgE Ab [Units/volume] in Serum [facility] Work Phone: Cladosporium herbaru m IgE Ab [Units/volume] in Serum [facility] Codfish IgE Ab [Units/volume] in Serum [facility] Common Pigweed IgE A b [Units/volume] in Serum [facility] Common Ragweed IgE A b [Units/volume] in Serum [facility] Work Phone: Common Ragweed IgE A b [Units/volume] in Serum [facility] Common silver birch RAST [facility] [place] IgE Ab [Units/volume] in Serum [facility] Work Phone: [facility] Cow milk IgE Ab [Units/volume] in Serum [facility] CT Chest WO contrast CT CHEST IVCON Radiology Routine Disorder of artery or arteriole (HCC) 04/02/2024 8:55 AM EDT [facility] Work Phone: Dog epithelium IgE A b [Units/volume] in Serum [facility] Work Phone: Dog epithelium IgE A b [Units/volume] in Serum [facility] End: 01-15-2024 ECG COMPLETE ECG COMPLETE ECG Routine SOB (shortness of breath) 1 Occurrences starting 01/14/2023 until 01/15/2024 [facility] Work Phone: Comment on above: 1 Occurrences starting 01/14/2023 until 01/15/2024 End: 01-15-2024 Echocardiography ECHO Cardiology Routine Shortness of breath Mitral valve disorder 1 Occurrences starting 01/14/2023 until 01/15/2024 [facility] Work Phone: Comment on above: 1 Occurrences starting 01/14/2023 until 01/15/2024 house dust mite IgE Ab [Units/volume] in Serum [facility] Work Phone: house dust mite IgE Ab [Units/volume] in Serum [facility] Food [facility] HLA-B27 [Presence] b y JEN with probe detection [facility] House dust mite (Df) [facility] Immunoglobulin E measurement [facility] Work Phone: Immunoglobulin E measurement [facility] Mountain Juniper IgE Ab [Units/volume] in Serum [facility] Mouse urine proteins [facility] Work Phone: Mouse urine proteins [facility] Patient Education ED Hypertensio n, Established [facility] Work Phone: Patient referral [facility] Work Phone: Peanut IgE Ab [Units/volume] in Serum [facility] Pecan nut [facility] Pecan or [place] Nut IgE Ab [Units/volume] in Serum [facility] Work Phone: Penicillium chrysoge num RAST [facility] Pork IgE Ab [Units/volume] in Serum [facility] Rough Pigweed IgE Ab [Units/volume] in Serum [facility] Work Phone: [place] IgE Ab [Units/volume] in Serum [facility] Saltwort IgE Ab [Units/volume] in Serum [facility] Sheep [place] IgE Ab [Units/volume] in Serum [facility] Work Phone: Sheep [place] IgE Ab [Units/volume] in Serum [facility] Shrimp IgE Ab [Units/volume] in Serum [facility] Silver Birch IgE Ab [Units/volume] in Serum [facility] Work Phone: Soybean IgE Ab [Units/volume] in Serum [facility] End: 01-15-2024 STRESS ECHO TREADMILL STRESS ECHO TREADMILL Cardiology Routine Shortness of breath Mitral valve disorder 1 Occurrences starting 01/14/2023 until 01/15/2024 [facility] Work Phone: Comment on above: 1 Occurrences starting 01/14/2023 until 01/15/2024 Rubina IgE Ab [Units/volume] in Serum [facility] Work Phone: Rubina IgE Ab [Units/volume] in Serum [facility] Tree pollen RA[facility] Work Phone: Tree pollen RA[facility] Tuna IgE Ab [Units/volume] in Serum [facility] [place] [facility]: [facility] Wheat IgE Ab [Units/volume] in Serum [facility] White Jessica IgE Ab [Units/volume] in Serum [facility] Work Phone: White Jessica IgE Ab [Units/volume] in Serum [facility] White Elm IgE Ab [Units/volume] in Serum [facility] Work Phone: White [place]m IgE Ab [Units/volume] in Serum [facility] White mulberry IgE A b [Units/volume] in Serum [facility] Work Phone: White mulberry IgE A b [Units/volume] in Serum [facility] Whole Egg IgE Ab [Units/volume] in Serum [facility] Immunizations Immunization Date Immunization Notes Care Provider [facility] 03-19-2024 respiratory syncytia l virus (RSV) vaccine, bivalent (ABRYSVO) Janneth Suppan [employer]SCRIPT ARTIST Work Phone: [facility] 01-13-2024 tetanus toxoid, reduced diphtheria toxoid, and acellular pertussis vaccine, adsorbed Janneth Suppan [employer] ARTIST Work Phone: [facility] 01-08-2024 zoster vaccine recombinant Janneth Suppan [employer]SCRIPT ARTIST Work Phone: [facility] 10-02-2023 influenza, injectabl e, quadrivalent, preservative free Janneth Suppan [employer]SCRIPT ARTIST Work Phone: [facility] 10-02-2023 influenza virus vaccine, unspecified formulation Ivory Rodriguez MD Work Phone: [facility] 01-16-2023 zoster vaccine recombinant Brittani Haagen [employer]CREDIT UNION EXAMINER Work Phone: [facility] 10-05-2022 zoster vaccine, live Brittani Haagen [employer]CREDIT UNION EXAMINER Work Phone: [facility] 08-14-2022 influenza, injectabl e, quadrivalent, preservative free Brittani Haagen [employer]CREDIT UNION EXAMINER Work Phone: [facility] 08-01-2020 influenza, injectabl e, quadrivalent, preservative free Brittani Haagen [employer]CREDIT UNION EXAMINER Work Phone: [facility] 07-31-2018 influenza, injectabl e, quadrivalent, contains preservative Ancelmo Arnold MD Work Phone: [facility] Work Phone: 07-22-2018 influenza, injectabl e, quadrivalent, preservative free Brittani Haagen [employer]CR[employer] UNION EXAMINER Work Phone: [facility] 10-07-2017 influenza, seasonal, injectable Ancelmo Arnold MD Work Phone: [facility] 10-23-2015 tetanus toxoid, reduced diphtheria toxoid, and acellular pertussis vaccine, adsorbed Ancelmo Arnold MD Work Phone: [facility] Work Phone: 07-08-2015 influenza, injectabl e, quadrivalent, contains preservative Ancelmo Arnold MD Work Phone: [facility] 09-30-2014 influenza, seasonal, injectable Ancelmo Arnold MD Work Phone: [facility] 09-07-2010 influenza virus vaccine, live, attenuated, for intranasal use Ancelmo Arnold MD Work Phone: [facility] 10-03-2009 novel [id number], all formulations Ancelmo Arnold MD Work Phone: [facility] 07-15-2008 influenza virus vaccine, live, attenuated, for intranasal use Ancelmo Arnold MD Work Phone: [facility] Work Phone: 09-30-2007 influenza virus vaccine, live, attenuated, for intranasal use Ancelmo Arnold MD Work Phone: [facility] 09-02-2006 influenza virus vaccine, live, attenuated, for intranasal use Ancelmo Arnold MD Work Phone: [facility] Work Phone: 07-12-2006 tetanus toxoid, reduced diphtheria toxoid, and acellular pertussis vaccine, adsorbed Ancelmo Arnold MD Work Phone: [facility] Work Phone: 10-01-2005 influenza virus vaccine, unspecified formulation Ancelmo Arnold MD Work Phone: [facility] Payers Date Payer Category Payer Self-pay [id number] 2019 Private Health Insurance MMO [employer] PPO [id number] 2019 Unknown MMO MMO [employer] PLUS [id number] 2019-Present [phone] [address] [place] [address] PPO [id number] 2019 Unknown [id number] 2016 Unknown EYE CARE PLAN OF [employer]AV[employer] EYEMED VISION [id number] 10/21/2016-Present [address] [place] [address] Indemnity [id number] 10-21-2016 Unknown [id number] 1962 Unknown [id number]. 356 1962 Unknown [id number]. 356 1962 Unknown [id number]. 356 1962 Unknown [id number]. 356 1962 Unknown [id number]. 356 Unknown [id number]. 462 Unknown [id number]. 462 Unknown [id number] [id number]. 462 Unknown [id number] [id number]. 462 Unknown [id number] [id number]. 462 Unknown [id number] [id number]. 462 Unknown [id number]. 462 Unknown [id number] 462 Social History Date Type Detail Facility Start: 06-01-2011 End: 04-17-2024 Tobacco smoking status MSIS Never smoked tobacco [facility] Work Phone: Start: 06-01-2011 End: 01-14-2023 Tobacco use and exposure Smokeless tobacco non-user [facility] Work Phone: Start: 10-03-2021 End: 11-30-2024 Alcohol intake Current drinker of alcohol (finding) [facility] Start: 10-03-2021 End: 04-02-2023 Alcohol intake [facility] Start: 11-30-2020 History SDOH Alcohol Frequency 1 [facility] Start: 11-30-2020 History SDOH Alcohol Std Drinks 98 [facility] Start: 11-13-2016 History SDOH Alcohol Comment Rarely [facility] Start: 11-30-2020 History SDOH Social Connections Phone 5 [facility] Start: 11-30-2020 History SDOH Social Connections Meetings 3 [facility] Start: 11-30-2020 History SDOH Physical Activity DPW 0 [facility] Start: 11-30-2020 History SDOH Stress 2 [facility] Start: 10-31-2019 Education 17 [facility] Start: 1960 Sex Assigned At Not on file [facility] Start: 03-31-2022 End: 04-10-2022 Exposure to SARS-CoV-2 (event) Not sure [facility] Start: 03-24-2020 End: 12-03-2023 Tobacco smoking status NHIS Unknown if ever smoked [facility] Start: 1960 Sex Assigned At Male [facility] Start: 11-30-2020 End: 04-02-2023 Social connection and isolation panel [facility] Do you belong to any clubs or organizations such as taoism groups, unions, fraternal or athletic groups, or school groups? Yes [facility] Are you now , , , , never or living with a partner? [facility] How often to you hav e a drink containing alcohol? Never [facility] How many standard dr inks containing alcohol do you have on a typical day? Patient refused [facility] Do you feel stress - tense, restless, nervous, or anxious, or unable to sleep at night because your mind is troubled all the time - these days [OSQ] Only a little [facility] (I/We) worried wheth er (my/our) food would run out before (I/we) got money to buy more. Never true [facility] In the past 12 month s, was there a time when you were not able to pay the mortgage or rent on time? No [facility] Start: 12-19-2020 Gender identity Identifies as male gender (finding) [facility] Start: 12-19-2020 Sexual orientation Heterosexual (finding) [facility] Start: 01-27-2025 End: 02-16-2025 Sex Male (finding) [facility] Medical Equipment Procedure Code Equipment Code Equipment Origin al Text Equipment Identifier Dates Cornea [id number] [id number] Start: 10-27-2019 Gas [employer] Intraocular Vision System [id number] - [id number] Start: 10-27-2019 Functional Status Date Assessment Result Facility 05-18-2015 Are you deaf, or do you have serious difficulty hearing No 05/18/2015 11:25 AM Antonieta Melgar LPN No [facility] 05-18-2015 Are you blind, or do you have serious difficulty seeing, even when wearing glasses No 05/18/2015 11:25 AM Antonieta Melgar LPN No [facility] 05-18-2015 Do you have serious difficulty walking or climbing stairs No 05/18/2015 11:25 AM Antonieta Melgar LPN [facility] 05-18-2015 Do you have difficul ty dressing or bathing No 05/18/2015 11:25 AM Antonieta Melgar LPN [facility] 05-18-2015 Because of a physica l, mental, or emotional condition, do you have difficulty doing errands alone such as visiting a physician's office or shopping No 05/18/2015 11:25 AM Antonieta Melgar LPN [facility] Mental Status Date Assessment Result Facility 12-03-2023 Cognitive function Level Of Cons ciousness Awake;Alert;Appropriate;Fol lows Commands [facility] Work Phone: 05-18-2015 Because of a physica l, mental, or emotional condition, do you have serious difficulty concentrating, remembering, or making decisions No 05/18/2015 11:25 AM Antonieta Melgar LPN No [facility] Clinical Notes 06-15-2009 to 02-08-2025 Patient Ivory Mccartney MD - 11/30/2024 4:01 PM ESTTelephone Encounter - [place] Sharon Jamil - 09/28/2024 10:11 AM Ivory Betancourt MD - 05/27/2024 11:21 AM EDT Note Date & Type Note Facility 02-08-2025 Note HNO ID: [id number] Author: RON GRIFFITH, PhD Service: ? Author Type: Psychologist Type: Progress Notes Filed: 02/08/2025 12:05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 controlled with medicines. [facility] Medical History Wears glasses Anxiety Depression Alcohol use Arthritis High cholesterol CPAP (continuous positive airway pressure) dependence Sleep apnea History of stress test Cardiology follow-up encounter Hx of echocardiogram HTN (hypertension) MVP (mitral valve prolapse) Home Medications ???Medication ???Instructions ???Recorded ???Last Taken ???Type fluorometholone 0.1 % eye 1 drp LEFT EYE DAILY 03/24/20 04/21/24 History drops,suspension lovastatin 40 mg tablet 40 mg PO DAILY 04/08/24 04/21/24 History nebivolol 5 mg tablet 5 mg PO QPM 04/08/24 04/21/24 History ramipril 5 mg capsule 5 mg PO QPM 04/08/24 04/21/24 History desvenlafaxine succinate 50 mg 50 mg PO QPM 04/17/24 04/21/24 History tablet,extended release 24 hr Allergy/AdvReac Type Severity Reaction Status Date / Time No Known Allergies Allergy Verified 04/22/24 05:38 Surgical History Hx of cornea transplant Hx of vasectomy Hx of colonoscopy Social History (Updated 04/08/24 @ 08:35 by Marti Carlos) household members: spouse current occupational status: employed Smoking Status: Never smoker substance use type: does not use ROS Review of Systems ROS Unobtainable: other Constitutional Constitutional: Denies fatigue, fever(s), poor appetite, weight gain or weight loss ENT HEENT: Denies mouth lesions Cardiovascular Cardiovascular: Denies abdominal bloating, abdominal edema or abdominal pain Respiratory/Chest Respiratory/Chest: Denies change in mental status, change in phlegm color, chest congestion or chest tightness Gastrointestinal Gastrointestinal: Denies belching, bloating, change in bowel habits, change in stool character, chewing difficulty, coffee ground emesis, constipation, cramping, diarrhea, dyspepsia, dysphagia, early satiety, excessive flatus, fecal incontinence, heartburn, hematemesis, hematochezia, hemorrhoids, loose stools, melena, nausea, odynophagia, rectal bleeding, tenesmus, vomiting or weight changes Genitourinary Genitourinary: Denies abdominal discomfort, burning urination or itching Musculoskeletal Musculoskeletal: Reports as per HPI; Denies muscle weakness or myalgias Integumentary Integumentary: Denies jaundice Neurologic Neurologic: Denies lack of coordination or weakness Psychiatric Psychiatric: Denies confusion, depression, memory loss, mood swings, paranoia or suicidal ideation Endocrine Endocrinology: Denies systems reviewed and no addt'l complaints, except as documented Hematologic/Lymphatic Hematologic/Lymphatic: Denies anemia, easy bleeding, easy bruising or lymphadenopathy Allergic/Immunologic Allergic/Immunologic: Denies systems reviewed and no addt'l complaints, except as documented Vital Signs Vital Signs Vital Signs: 04/22/24 05:58 04/22/24 05:58 04/22/24 06:31 Temperature 98.1 F 98.1 F Temperature Source Temporal Pulse Rate 62 62 Respiratory Rate 16 16 Respiratory Pattern Normal Blood Pressure 123/73 H 123/73 H Blood Pressure Mean 89 Blood Pressure Source Monitor Blood Pressure Position Semi-Fowlers Blood Pressure Location Left Arm Pulse Ox 96 96 Oxygen Delivery Method Room Air Weight Weight: 223 lb 15.834 oz Body Mass Index (BMI) 31.2 Physical Exam Const alert General Appearance: cooperative Orientation / Consciousness: oriented to person HEENT hearing grossly normal bilaterally Head and Scalp: normal to inspection Face and Sinus: face symmetric Nose: external nose normal Mouth: oral and palatal mucosa normal Eyes conjunctivae normal General Eye: normal appearance of both eyes Neck full ROM General: normal visual inspection Lymph Lymphatic: no lymphadenopathy noted Chest inspection of chest normal and palpation of chest normal Chest: symmetrical chest wall rise Resp normal respiratory effort Effort and Inspection: able to speak in complete sentences Cardio regu (more content not included)... [facility] 04-13-2024 Telephone encounter Note TC to patient who is informed of below. CECILIO Valencia [facility] 04-13-2024 Miscellaneous Notes TC to patient who is informed of below. CECILIO Valencia ----- Message from Janneth Aj APRN.SCRIPT ARTIST sent at 04/13/2024 1:43 PM EDT ----- PSA is within range for age. Actually decreased. No referral to urology needed. Blood counts are normal. Iron level and iron stores are normal. documented in this encounter [facility] 04-13-2024 Telephone encounter Note ----- Message from Janneth Aj APRN.SCRIPT ARTIST sent at 04/13/2024 1:43 PM EDT ----- PSA is within range for age. Actually decreased. No referral to urology needed. Blood counts are normal. Iron level and iron stores are normal. [facility] 04-06-2024 Telephone encounter Note Pt calls to report that he has not heard anything from Dr. Jack Lovell's office about colonoscopy orders. Re-faxed Consult to General Surgery orders to Dr. Jack Lovell's office. Advised pt to contact [facility] scheduling if he has not heard anything by the end of this week from them. Deisy Cherry LPN [facility] 04-06-2024 Miscellaneous Notes Pt calls to report that he has not heard anything from Dr. Jack Lovell's office about colonoscopy orders. Re-faxed Consult to General Surgery orders to Dr. Jack Lovell's office. Advised pt to contact [facility] scheduling if he has not heard anything by the end of this week from them. Deisy Cherry LPN documented in this encounter [facility] 04-06-2024 Telephone encounter Note Patient informed and verbalized understanding. Martina Baltazar MA [facility] 04-06-2024 Miscellaneous Notes Patient informed and verbalized understanding. Martina Baltazar MA Let him know his ct shows a lung nodule. Very common in this area and usually don't mean much. We usually just follow those. I would repeat a ct in one year. His aorta is still enlarge in several areas in the chest. Keeping his bp tight will help. They can also see calcifications of his coronary arteries. I would recommend seeing a inbound call center agent. Liver looks a little nodular. Get labs that Annette had ordered. documented in this encounter [facility] 04-06-2024 Telephone encounter Note Let him know his ct shows a lung nodule. Very common in this area and usually don't mean much. We usually just follow those. I would repeat a ct in one year. His aorta is still enlarge in several areas in the chest. Keeping his bp tight will help. They can also see calcifications of his coronary arteries. I would recommend seeing a inbound call center agent. Liver looks a little nodular. Get labs that Annette had ordered. [facility] 04-02-2024 History of Present illness Narrative Radiology Service Progress Note PATIENT NAME: Eric Anne DATE OF SERVICE: April 02, 2024 TIME: 9:24 AM PATIENT IDENTITY VERIFICATION COMPLETED USING TWO (2) IDENTIFIERS: Name and Date of confirmed by patient verbally. FALL SCREENING: Has the patient had 2 falls in the last year or 1 fall with injury or currently using an Ambulatory Assistive Device (Walker, Cane, Wheelchair, Crutches, etc.)? No PATIENT GENDER DATA: Male PATIENT RELEVANT IMPLANT DATA REVIEWED: Yes PATIENT PRESENTS WITH AN IMPLANTABLE OR ATTACHED CORE MAN: No RADIOLOGY DEPARTMENT: CT; Exam(s) Completed: Chest PERIPHERAL IV DATA: Not applicable SIGNED BY: RT Mike(Brendon) April 02, 2024 9:24 AM documented in this encounter [facility] 04-02-2024 Note HNO ID: [id number] Author: SADAF DELCID RT(Brendon) Service: ? Author Type: Barrel Scraper Type: Progress Notes Filed: 04/02/2024 09:24 Note Text: Radiology Service Progress Note PATIENT NAME: Eric Anne DATE OF SERVICE: April 02, 2024 TIME: 9:24 AM PATIENT IDENTITY VERIFICATION COMPLETED USING TWO (2) IDENTIFIERS: Name and Date of confirmed by patient verbally. FALL SCREENING: Has the patient had 2 falls in the last year or 1 fall with injury or currently using an Ambulatory Assistive Device (Walker, Cane, Wheelchair, Crutches, etc.)? No PATIENT GENDER DATA: Male PATIENT RELEVANT IMPLANT DATA REVIEWED: Yes PATIENT PRESENTS WITH AN IMPLANTABLE OR ATTACHED CORE MAN: No RADIOLOGY DEPARTMENT: CT; Exam(s) Completed: Chest PERIPHERAL IV DATA: Not applicable SIGNED BY: AIMEE Mckeon) April 02, 2024 9:24 AM [facility] 03-20-2024 Telephone encounter Note Patient was made aware of the results. Patient verbalizes understanding. Kasandra Henry Ma [facility] 03-20-2024 Miscellaneous Notes Patient was made aware of the results. Patient verbalizes understanding. Kasandra Henry Ma Please let patient know that his PSA is significantly higher at 5.88. I am going to treat this as a prostatitis. I have ordered ciprofloxacin 500 mg twice daily for 10 days. I would like him to recheck his PSA once he finishes that antibiotic. If his PSA does not improve, I will refer him to urology for further evaluation. His LDL cholesterol is 196. Lovastatin is not helping. I we will increase that to 40 mg at bedtime. This must be taken at bedtime because the body makes bad cholesterol during the hours that you sleep. Otherwise, kidney function is normal, liver function is normal, blood counts are okay but platelets are little bit high and have been. I will recheck platelets with his PSA in 2 weeks along with an iron and ferritin. Good that he is getting his colonoscopy. documented in this encounter [facility] 03-20-2024 Telephone encounter Note Please let patient know that his PSA is significantly higher at 5.88. I am going to treat this as a prostatitis. I have ordered ciprofloxacin 500 mg twice daily for 10 days. I would like him to recheck his PSA once he finishes that antibiotic. If his PSA does not improve, I will refer him to urology for further evaluation. His LDL cholesterol is 196. Lovastatin is not helping. I we will increase that to 40 mg at bedtime. This must be taken at bedtime because the body makes bad cholesterol during the hours that you sleep. Otherwise, kidney function is normal, liver function is normal, blood counts are okay but platelets are little bit high and have been. I will recheck platelets with his PSA in 2 weeks along with an iron and ferritin. Good that he is getting his colonoscopy. [facility] 03-19-2024 Instructions Janneth Aj APRN.PABLO - 03/19/2024 10:37 AM EDT Images from the original note were not included. 1) Get labs done 2) Consider a daily walk or addition of buspirone prn 3) Consult to Dr. Lovell @ [facility] for Colonoscopy 4) CT chest to follow up on ascending aorta- very small ectasia 5) Follow up in 12m Bowel Preparation Instructions for: Miralax-Gatorade Preparations IF YOU DO NOT FOLLOW THESE DIRECTIONS, YOUR COLONOSCOPY WILL BE CANCELLED. [place] Instructions: Your bowel must be empty so that your doctor can clearly view your colon. Follow all of the instructions in this handout EXACTLY as they are written. Do NOT eat any solid food the ENTIRE day before your colonoscopy. Buy your bowel preparation at least 5 days before your colonoscopy. Four (4) Dulcolax laxative tablets containing 5mg of bisacodyl each (NOT Dulcolax stool softener) One (1) 8.3oz. bottle Miralax (238 grams) or generic equivalent 2 x 32oz. Bottles of Gatorade (NOT RED) Diabetic Patients: Use G2 (Gatorade 2) TRANSPORTATION on the Day of Your Exam A responsible adult MUST be present with you at Check In prior to your colonoscopy and REMAIN in the endoscopy area until you are discharged. You are NOT ALLOWED to drive, take a taxi or bus, or leave the Endoscopy Center ALONE. If you do not have a responsible marine engine driver (family member or friend) with you to take you home, your exam cannot be done with sedation and will be cancelled. Please bring a list of all of your current medications, including any Mzue-yut-Ulmioyt medications with you. Medications If you take insulin, diabetic medications or blood thinners such as Coumadin (warfarin), Plavix (clopidogrel), Ticlid (ticlopidine hydrochloride), Agrylin (anagrelide), Xarelto (Rivaroxaban), Pradaxa (Dabigatran), Eliquis (Apixaban), and Effient (Prasugrel). You MUST call the doctors who orders those medicines for instructions on altering the dosage before your colonoscopy. All other medications should be taken the day of the exam with a sip of water including ASPIRIN. Five (5) Days Before Your Colonoscopy Do NOT take medicines that stop diarrhea - such as Imodium, Kaopectate, or Pepto Bismol. Do NOT take fiber supplements - such as Metamucil, Citrucel, or Perdiem. Do NOT take products that contain iron - such as multi-vitamins (the label lists what is in the products). Three (3) Days Before Your Colonoscopy Do NOT eat high-fiber foods - such as popcorn, beans, seeds (flax, sunflower, quinoa), multigrain bread, nuts, salad/vegetables, or fresh and dried fruit. 1 Bowel Preparation Instructions for: Miralax-Gatorade Preparations One (1) Day Before Your Colonoscopy Only drink clear liquids the ENTIRE DAY before your colonoscopy. Do NOT eat any solid foods. Drink at least 8 ounces of clear liquids every hour after waking up. The clear liquids you can drink include: Clear Liquid (NO RED LIQUIDS) DO NOT DRINK Gatorade, Pedialyte or Powerade Clear broth or bouillon Coffee or tea (no milk or non-dairy creamer) Carbonated and non-carbonated soft drinks Kerwin-Aid or other fruit flavored drinks Strained fruit juices (no pulp) Jell-O, popsicles, hard candy Water Alcohol Milk or non-dairy creamers Noodles or vegetables in soup Juice with pulp Liquid you cannot see through Do not use tobacco/vaping products Mix 1/2 of Miralax bottle (119 grams) in each 32 ounces of Gatorade bottle until dissolved. Keep cool in the refrigerator. DO NOT ADD ICE. The bowel preparation solution will be consumed in two parts. Part 1 5:00 PM - Evening before your colonoscopy Take 4 Dulcolax tablets. 6 PM - Evening before your colonoscopy Drink 32 oz. of the mixed solution. Drink an 8 oz. glass of bowel preparation every 15 minutes for a total of 4 glasses. Fifteen (15) minutes later, drink an 8 oz. glass of of clear liquids every 15 minutes for a total of 2 glasses. You may continue to drink clear liquids till midnight. Part 2 On the day of your colonoscopy you may drink clear liquids up to (three) 3 hours prior to procedure. 4 1/2 hours before your colonoscopy Take another 32 oz. bottle of mixed solution. Drink an 8 oz. glass of bowel prep every 15 minutes for a total of 4 glasses. Fifteen (15) minutes later, drink an 8 oz. glass of clear liquids every 15 minutes for a total of 2 glasses. You may continue to drink clear liquids up to (three) 3 hours before your exam. 2 09/2019 documented in this encounter [facility] 03-19-2024 Note HNO ID: [id number] Author: JANNETH AJ APRN.SCRIPT ARTIST Service: ? Author Type: Clinical Nurse Specialist Type: Progress Notes Filed: 03/19/2024 11:31 Note Text: Chief Reason For Appointment Patient presents with: Yearly Exam Eric Anne is a 63 year old male who presents for annual exam. Last office visit date: 01/14/2023 Accompanied By self only Have you had any critical events, hospital stays, ER visits, surgeries or procedures since your last visit here in our office: Yes Went to ER for HTN. Specialists/Other Healthcare Providers Seen: Patient Care Team: Ancelmo Arnold MD as PCP - General (Family Medicine) Concerns today: Allergies that affect mood and lightheadedness. Worse this year. Saps energy. Takes Claritin. Flonase both morning 2 x day. OA ongoing. Family Hx of sudden cardiac young. 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 History of Descemet Membrane Endothelial Keratoplasty (Dmek) - 08/28/2018 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 NECK: Negative for lumps, goiter, pain and significant neck swelling RESPIRATORY: Negative for cough, hemoptysis, wheezing, dyspnea or shortness of breath- on occasion w/o activity CARDIOVASCULAR: Negative for chest pain, leg swelling, orthopnea, or palpitations GI: No nausea, vomiting, or diarrhea/constipation. No hematochezia/melena. Rare heartburn or reflux symptoms. : No history of dysuria, frequency or incontinence MUSCULOSKELETAL: Some widespread joint pain or swelling. Manageable. SKIN: Negative for lesions, rash, and itching ENDOCRINE: Negative for cold or heat intolerance, polyuria, polydipsia and goiter NEURO: No history of headaches, syncope, paralysis, seizures or tremors MOOD: Negative for depression, anxiety, or suicidal ideation. PAST MEDICAL HISTORY Diagnosis Date Back pain [...] DSAEK/DMEK Right 10/27/2019 ENDOTHELIAL KERATOPLASTY(DMEK) Left 08/05/2018 Ailyn Rodriguez MD PAST SURGICAL HISTORY OF Right 10/27/2019 Keratoplasty RETINOPEXY LASER PROPHYLAXIS BREAK(S) OD (RIGHT EYE) Right 03/21/2021 TONSILLECTOMY AND ADENOIDECTOMY T/A (under age 12 years) VASECTOMY UNI/BI SPX W/POSTOP SEMEN EXAMS Medication List Current Outpatient Medications Medication Sig Dispense Refill lovastatin (MEVACOR) 20 mg tablet Take 1 tablet by mouth daily at bedtime. For cholesterol. 30 tablet 0 desvenlafaxine ER (PRISTIQ) 50 mg 24 hr tablet Take 1 tablet by mouth once daily. 30 tablet 0 ramipril (ALTACE) 2.5 mg capsule VITAMIN D 25 mcg (1,000 unit) cap Take 1,000 Units by mouth once daily. loteprednol etabonate (INVELTYS) 1 % Use 1 Drop in eyes once daily. Both eyes carboxymethyl/gly/poly80/PF (REFRESH OPTIVE SANTANA-3, PF, OPHTHALMIC) Use 1-2 Drops in both eyes once daily. ramipril (ALTACE) 1.25 mg capsule Current Facility-Administered Medications Medication Dose Route Frequency Provider Last Rate Last Admin perflutren lipid microspheres 1.3 mL in NaCl (PF) 0.9% 10 mL injection (DEFINITY) INTRAVENOUS DIRECTED PRN Brittani Coates APRN.CREDIT UNION EXAMINER sodium chloride 0.9 % (flush) 10 mL (BD POSIFLUSH) 10 mL INTRAVENOUS DIRECTED PRN Brittani Coates, [employer].CREDIT UNION EXAMINER perflutren lipid microspheres 1.3 mL in NaCl (PF) 0.9% 10 mL injection (DEFINITY) INTRAVENOUS DIRECTED ENZO Coates Ch (more content not included)... [facility] 03-19-2024 History of Present illness Narrative Chief Reason For Appointment Patient presents with: Yearly Exam Eric Anne is a 63 year old male who presents for annual exam. Last office visit date: 01/14/2023 Accompanied By self only Have you had any critical events, hospital stays, ER visits, surgeries or procedures since your last visit here in our office: Yes Went to ER for HTN. Specialists/Other Healthcare Providers Seen: Patient Care Team: Ancelmo Arnold MD as PCP - General (Family Medicine) Concerns today: Allergies that affect mood and lightheadedness. Worse this year. Saps energy. Takes Claritin. Flonase both morning 2 x day. OA ongoing. Family Hx of sudden cardiac young. Ascending aortic aneurysm- 4.1 CM Never smoked HPI Monitor BP at home occasionally Active Problems ACTIVE PROBLEM LIST Dilation of Aorta ([facility]) - 01/29/2023 Jomar (Obstructive Sleep Apnea) - 01/14/2023 Horseshoe Retinal Tear of Right Eye - 03/14/2021 Vitreous Hemorrhage of Right Eye (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 NECK: Negative for lumps, goiter, pain and significant neck swelling RESPIRATORY: Negative for cough, hemoptysis, wheezing, dyspnea or shortness of breath- on occasion w/o activity CARDIOVASCULAR: Negative for chest pain, leg swelling, orthopnea, or palpitations GI: No nausea, vomiting, or diarrhea/constipation. No hematochezia/melena. Rare heartburn or reflux symptoms. : No history of dysuria, frequency or incontinence MUSCULOSKELETAL: Some widespread joint pain or swelling. Manageable. SKIN: Negative for lesions, rash, and itching ENDOCRINE: Negative for cold or heat intolerance, polyuria, polydipsia and goiter NEURO: No history of headaches, syncope, paralysis, seizures or tremors MOOD: Negative for depression, anxiety, or suicidal ideation. PAST MEDICAL HISTORY Diagnosis Date Back pain [...] COLONOSCOPY FLX DX W/COLLJ SPEC WHEN PFRMD 02-17- CORNEAL TISSUE DSAEK/DMEK Right 10/27/2019 ENDOTHELIAL KERATOPLASTY(DMEK) Left 08/05/2018 Ailyn Rodriguez MD PAST SURGICAL HISTORY OF Right 10/27/2019 Keratoplasty RETINOPEXY LASER PROPHYLAXIS BREAK(S) OD (RIGHT EYE) Right 03/21/2021 TONSILLECTOMY & ADENOIDECTOMY <AGE 12 T/A (under age 12 years) VASECTOMY UNI/BI SPX W/POSTOP SEMEN EXAMS Medication List Current Outpatient Medications Medication Sig Dispense Refill lovastatin (MEVACOR) 20 mg tablet Take 1 tablet by mouth daily at bedtime. For cholesterol. 30 tablet 0 desvenlafaxine ER (PRISTIQ) 50 mg 24 hr tablet Take 1 tablet by mouth once daily. 30 tablet 0 ramipril (ALTACE) 2.5 mg capsule VITAMIN D 25 mcg (1,000 unit) cap Take 1,000 Units by mouth once daily. loteprednol etabonate (INVELTYS) 1 % Use 1 Drop in eyes once daily. Both eyes carboxymethyl/gly/poly80/PF (REFRESH OPTIVE SANTANA-3, PF, OPHTHALMIC) Use 1-2 Drops in both eyes once daily. ramipril (ALTACE) 1.25 mg capsule Current Facility-Administered Medications Medication Dose Route Frequency Provider Last Rate Last Admin perflutren lipid microspheres 1.3 mL in NaCl (PF) 0.9% 10 mL injection (DEFINITY) INTRAVENOUS DIRECTED PRN Brittani Coates, [employer].CREDIT UNION EXAMINER sodium chloride 0.9 % (flush) 10 mL (BD POSIFLUSH) 10 mL INTRAVENOUS DIRECTED PRN Brittani Coates, [employer].CREDIT UNION EXAMINER perflutren lipid microspheres 1.3 mL in NaCl (PF) 0.9% 10 mL injection (DEFINITY) INTRAVENOUS DIRECTED PRN Brittani Coates APRN.CREDIT UNION EXAMINER sodium chloride 0.9 % (flush) 10 mL (BD POSIFLUSH) 10 mL INTRAVENOUS DIRECTED PRN Brittani Coates APRN.CREDIT UNION EXAMINER perflutren lipid microspheres 1.3 mL in NaCl (PF) 0.9% 10 mL injection (DEFINITY) INTRAVENOUS DIRECTED PRN Brittani Coates APRN.CREDIT UNION EXAMINER sodium chloride 0.9 % (flush) 10 mL (BD POSIFLUSH) 10 mL INTRAVENOUS DIRECTED PRN Brittani Coates APRN.CREDIT UNION EXAMINER Weight Summary: Weight Change: Body mass index is 31.43 kg/m . Last Wt 03/19/24 : 103 kg (227 lb) 12/06/23 : 107 kg (236 lb) 01/14/23 : 104.8 kg (231 lb) 12/22/20 : 105.1 kg (231 lb 9.6 oz) 11/02/19 : 101.6 kg (224 lb) Physical Exam: General Appearance: well appearing, alert and oriented. Skin: no suspicious lesion, no rash, no open sores Head: normocephalic, no obvious masses, lesions, tenderness or abnormalities. Eyes: Anicteric sclera. Pupils are equally round and reactive to light. Some darkening of red reflex- known cataracts, Extraocular movements are intact. No nystagmus. Fundi benign. Ears: external ears normal, canals clear, TM's normal. Hearing to conversational voice intact. Nose/Sinuses: nares normal, septum midline, mucosa normal, some clear drainage, no sinus tenderness. Oropharynx: lips, mucosa, and tongue normal, oropharynx normal. Neck: trachea midline, thyroid without mass or nodularity. Carotids normal upstroke, no bruit or thrill. Lungs: Chest rise & fall symmetrical, Lungs clear to auscultation. No wheezing or rhonchi. No rales. Abdomen: normal bowel sounds, no mass, non-tender Heart: S1S2, no gallop, no rub, no murmur, slower rate Lymph Nodes: no lymphadenopathy. Ext: no clubbing, cyanosis or edema. 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 Encounter for immunization - ICD9: V03.89, ICD10: Z23 - RSV VACCINE, BIVALENT (ABRYSVO) 3. Elevated blood pressure reading without diagnosis of hypertension - ICD9: 796.2, ICD10: R03.0 - Encouraged dietary sodium restriction/DASH diet - Recommended regular aerobic exercise. - Recommend home blood pressure monitoring, to bring results in on next visit - Goal of BP <130/80 - COMPREHENSIVE METABOLIC PANEL - THYROID STIMULATING HORMONE - MAGNESIUM 4. Dyslipidemia - ICD9: 272.4, ICD10: E78.5 - Control undetermined, due for labs - Counseled on healthy diet and regular exercise - LIPID PANEL, NONFASTING - COMPREHENSIVE METABOLIC PANEL - LOVASTATIN 20 MG TABLET 5. Screening for prostate cancer - ICD9: V76.44, ICD10: Z12.5 - Counseled on healthy diet and regular exercise - PSA/PROSTATE SPECIFIC ANTIGEN SCREENING 6. Screening for colon cancer - ICD9: V76.51, ICD10: Z12.11 Overdue. - CONSULT TO GENERAL SURGERY for C scope- wants to see Dr. Lovell - COLONOSCOPY SCREENING 7. Anxiety with depression - ICD9: 300.4, ICD10: F41.8 Ongoing - DESVENLAFAXINE SUCCINATE ER 50 MG TABLET,EXTENDED RELEASE 24 HR - Consider daily walk - Consider adding buspirone prn Follow Up Plans: yearly Janneth Aj APRN documented in this encounter [facility] 03-17-2024 Telephone encounter Note Pt did not get last refill inn [place]. Patient has been identified by name and date of : Yes, Provider Dr. Arnold Date 03/17/24 Time 12:17 pm Patient phones for refill(s): Requested Prescriptions Pending Prescriptions Disp Refills lovastatin (MEVACOR) 20 mg tablet 30 tablet 0 Sig: Take 1 tablet by mouth daily at bedtime. For cholesterol. Date of last office visit in primary care: 01/14/2023 Date of next office visit in primary care: 03/19/2024 Please advise. Thank you. Maria L Vidal LPN. [facility] 03-17-2024 Miscellaneous Notes Pt did not get last refill inn [place]. Patient has been identified by name and date of : Yes, Provider Dr. Arnold Date 03/17/24 Time 12:17 pm Patient phones for refill(s): Requested Prescriptions Pending Prescriptions Disp Refills lovastatin (MEVACOR) 20 mg tablet 30 tablet 0 Sig: Take 1 tablet by mouth daily at bedtime. For cholesterol. Date of last office visit in primary care: 01/14/2023 Date of next office visit in primary care: 03/19/2024 Please advise. Thank you. Maria L Vidal LPN. documented in this encounter [facility] 03-10-2024 Telephone encounter Note Let Pts know that provider called a 1 month supply of Pristiq and Lovastatin in to [facility] in [place], [place]. She states [facility] told her they aren't able to fill them until later next month. She wanted to know how they were going to get them filled. I told her if it wasn't time to get them filled and they had left them at home they would have to pay out of pocket. She said it was time for them to be refilled, but they were picking them up at [facility]. I told if [facility] had already filled them she could call there and let them know they were going to be picking them up somewhere else and have them release the Rx. Pts was going to call the pharmacy. Pts called and is notified of providers message and instructions. Notified her that you can't see more that one PCP at a time, and it has been over a year since he has seen Dr Arnold. Her needs to pick Dr Arnold or Dr. Refugio Bryson ([facility]). She said they need to get his medications figured out right now then they will call back in and make an appointment. Zuly Jimenes RN [facility] 03-10-2024 Miscellaneous Notes Let Pts know that provider called a 1 month supply of Pristiq and Lovastatin in to [facility] in [place], [place]. She states [facility] told her they aren't able to fill them until later next month. She wanted to know how they were going to get them filled. I told her if it wasn't time to get them filled and they had left them at home they would have to pay out of pocket. She said it was time for them to be refilled, but they were picking them up at [facility]. I told if [facility] had already filled them she could call there and let them know they were going to be picking them up somewhere else and have them release the Rx. Pts was going to call the pharmacy. Pts called and is notified of providers message and instructions. Notified her that you can't see more that one PCP at a time, and it has been over a year since he has seen Dr Arnold. Her needs to pick Dr Arnold or Dr. Refugio Bryson ([facility]). She said they need to get his medications figured out right now then they will call back in and make an appointment. Zuly Jimenes RN Please confirm if pt is still following with Dr. Arnold because it looks like Dr. Refugio Bryson ([facility]) is also filling medications per dispense report. If pt would like to continue with Dr. Arnold, he will need to schedule an Annual appt since he hasn't been seen in over a yr. Alejandro Mcleod LPN 30-day supply sent. He is overdue for an appt -- hasn't been seen since 12/2022. Patient calls and states that he had left medications at home and is traveling. Patient asking if medications can be sent to [facility] in [place]. Pharmacy uploaded. Please review and advise, Lorena Hou RN documented in this encounter [facility] 03-10-2024 Telephone encounter Note Please confirm if pt is still following with Dr. Arnold because it looks like Dr. Refugio Bryson ([facility]) is also filling medications per dispense report. If pt would like to continue with Dr. Arnold, he will need to schedule an Annual appt since he hasn't been seen in over a yr. Alejandro Mcleod LPN [facility] 03-10-2024 Telephone encounter Note 30-day supply sent. He is overdue for an appt -- hasn't been seen since 12/2022. [facility] 03-10-2024 Telephone encounter Note Patient calls and states that he had left medications at home and is traveling. Patient asking if medications can be sent to [facility] in [place]. Pharmacy uploaded. Please review and advise, Lorena Hou RN [facility] 02-06-2024 Miscellaneous Notes Last office visit 01/15/24 Future visit: none found Vika Xiong LPN February 06, 2024 11:00 AM Patient has been identified by name and date of : Yes Requested Prescriptions Pending Prescriptions Disp Refills desvenlafaxine ER (PRISTIQ) 50 mg 24 hr tablet 90 tablet 1 Sig: Take 1 tablet by mouth once daily. RX INSTRUCTIONS: Patient aware RX will be sent to pharmacy. No need to notify patient. Marcelle Royal Pss documented in this encounter [facility] 12-18-2023 Instructions Ivory Rodriguez MD - 12/18/2023 3:56 PM EST Continue: Inveltys solution instill 1 drop every other day Both Eyes. If you have any questions please contact our office at [phone]. After office hours or on the weekend, please call Dr. Rodriguez on his cell phone at [phone]. documented in this encounter [facility] 12-18-2023 History of Present illness Narrative ASSESSMENT/PLAN: 1. Combined forms of age-related cataract of both eyes - ICD9: 366.19, ICD10: H25.813 (primary diagnosis) Not visually significant Both Eyes. 2. History of Descemet membrane endothelial keratoplasty (DMEK) - ICD9: V42.5, ICD10: Z94.7 Continue: Inveltys solution instill 1 drop every other day Both Eyes. 3. Horseshoe retinal tear of right eye - ICD9: 361.32, ICD10: H33.[address] Meyer. I have confirmed and edited as necessary the relevant HPI, ophthalmic history, ROS, and the neuro exam findings as obtained by others. I have seen and examined Eric Anne. I have discussed the case and the management of this patient's care with the Resident/Fellow, if applicable. I also have reviewed and agree with the assessment and plan as stated above and agree with all of its relevant components. documented in this encounter [facility] 12-06-2023 History of Present illness Narrative Subjective HPI HPI Eric Anne is a 62 year old male who presents today for CC of sore on left side of tognue. This started 5 days ago. Has tried nothing for relief. Symptoms are worsened by touching area. Risk factors has had these in past/usually resolve after some time. Denies use of nicotine. .Patient presents with: Mouth Sores: Possible canker sore L side of tongue x5 days PAST MEDICAL HISTORY Diagnosis Date Back pain [...] DSAEK/DMEK Right 10/27/2019 ENDOTHELIAL KERATOPLASTY(DMEK) Left 08/05/2018 Ailyn Rodriguez MD PAST SURGICAL HISTORY OF Right 10/27/2019 Keratoplasty RETINOPEXY LASER PROPHYLAXIS BREAK(S) OD (RIGHT EYE) Right 03/21/2021 TONSILLECTOMY & ADENOIDECTOMY <AGE 12 T/A (under age 12 years) VASECTOMY UNI/BI SPX W/POSTOP SEMEN EXAMS ALLERGIES Patient has no active allergies. MEDICATIONS triamcinolone (KENALOG IN ORABASE) 0.1 % paste^1 application by DENTAL route two times a day for 7 days.^Disp: 5 g^Rfl: 0 lovastatin (MEVACOR) 20 mg tablet^Take 1 tablet by mouth daily at bedtime. For cholesterol.^Disp: 90 tablet^Rfl: 1 desvenlafaxine ER (PRISTIQ) 50 mg 24 hr tablet^Take 1 tablet by mouth once daily.^Disp: 90 tablet^Rfl: 1 ramipril (ALTACE) 1.25 mg capsule^^Disp: ^Rfl: VITAMIN D 25 mcg (1,000 unit) cap^Take 1,000 Units by mouth once daily.^Disp: ^Rfl: loteprednol etabonate (INVELTYS) 1 %^Use 1 Drop in eyes once daily. Both eyes^Disp: ^Rfl: carboxymethyl/gly/poly80/PF (REFRESH OPTIVE SANTANA-3, PF, OPHTHALMIC)^Use 1-2 Drops in both eyes once daily.^Disp: ^Rfl: FAMILY HISTORY Problem Relation Age of Onset Heart Mother pacemaker placement No Ocular Disease Mother other (TIA) Mother No Ocular Disease Father Coronary Artery Disease Maternal Grandfather d. [place] No Ocular Disease Maternal Grandfather No Ocular Disease Paternal Grandmother other (ALS) Paternal Grandmother Cancer Maternal Grandmother No Ocular Disease Maternal Grandmother No Ocular Disease Sister No Ocular Disease Brother No Ocular Disease Paternal Grandfather No Ocular Disease Brother Social History Tobacco Use Smoking status: Never Smokeless tobacco: Never Vaping Use Vaping Use: Never used Substance Use Topics Alcohol use: Yes Comment: Rarely Drug use: No Review of Systems Constitutional: Negative for fever. HENT: Negative for sore throat. Skin: Negative for itching and rash. Objective Blood pressure 139/92, pulse 72, temperature 36.2 C (97.2 F), resp. rate 18, weight 107 kg (236 lb), SpO2 98%. Physical Exam Constitutional: General: He is not in acute distress. Appearance: He is not toxic-appearing or diaphoretic. HENT: Head: Normocephalic and atraumatic. Mouth/Throat: Lips: Wilson[place]. Mouth: Mucous membranes are moist. Pharynx: Oropharynx is clear. Uvula midline. Comments: Left side of tongue/base has white round ulcer. No erythema, exudates, abscess. Pulmonary: Effort: Pulmonary effort is normal. No accessory muscle usage or respiratory distress. Lymphadenopathy: Cervical: No cervical adenopathy. Right cervical: No superficial cervical adenopathy. Left cervical: No superficial cervical adenopathy. Neurological: Mental Status: He is alert and oriented to person, place, and time. ASSESSMENT/PLAN: 1. Tongue sore - ICD9: 529.6, ICD10: K14.6 Otc management discussed F/u with pcp if s/s persist. - TRIAMCINOLONE ACETONIDE 0.1 % DENTAL PASTE Jesus Manuel Carlos APRN.CREDIT UNION EXAMINER documented in this encounter [facility] 05-30-2023 History of Present illness Narrative Referred [...] agree with all of its relevant components. Michael Rogel MD documented in this encounter [facility] 05-01-2023 Instructions Ivory Rodriguez MD - 05/01/2023 3:58 PM EDT Continue: Inveltys solution instill 1 drop daily Both Eyes. If you have any questions please contact our office at [phone]. After office hours or on the weekend, please call Dr. Rodriguez on his cell phone at [phone]. documented in this encounter [facility] 05-01-2023 History of Present illness Narrative ASSESSMENT/PLAN: [...] Patient will see Dr. Meyer here in [place] in May. Ivory Rodriguez MD I have confirmed and edited as necessary the relevant ophthalmic history, review of systems, surgical history, and ophthalmological examination findings as obtained by the ophthalmic technical staff. I have seen and examined Eric Anne. I have discussed the examination findings, diagnosis, and treatment options with Eric Anne and/or his family. I have also reviewed and agree with the assessment and plan as stated above and agree with all its relevant components. I gave the patient the opportunity to ask questions about the findings, diagnosis, and treatment options. documented in this encounter [facility] 02-12-2023 Miscellaneous Notes Pt notified. He verbalized understanding. Alejandro Mcleod LPN MC message sent. Alejandro Mcleod LPN ----- Message from Brittani Coates APRN.CREDIT UNION EXAMINER sent at 02/11/2023 5:11 PM EDT ----- Can please let patient know that stress test was within normal -- No indications of any blockages. Brittani Coates APRN.CNP documented in this encounter [facility] 01-29-2023 Miscellaneous Notes Pt notified. He verbalized [...] just need to be scheduled. Brittani Coates APRN.OBDULIO documented in this encounter [facility] 01-18-2023 Miscellaneous Notes MC message has not [...] 6 months. Orders are in. Brittani Coates APRN.CNP documented in this encounter [facility] 01-14-2023 Miscellaneous Notes Faxed request for records to Dr. Refugio Bryson's office ([facility]) for continuity of care. Awaiting records. Will update HM once received. Alejandro Mcleod LPN documented in this encounter [facility] 01-14-2023 Instructions Brittani Coates APRN.OBDULIO - 01/14/2023 10:44 AM EDT Get labs. Schedule echo. Schedule stress test. Continue the same medication. documented in this encounter [facility] 01-14-2023 History of Present illness Narrative This is a 62 year old male who presents today with: Patient presents with: Physical HISTORY OF PRESENT ILLNESS: Eric Anne is a 62 year old male. Patient [...] DSAEK/DMEK Right 10/27/2019 ENDOTHELIAL KERATOPLASTY(DMEK) Left 08/05/2018 Ailyn Rodriguez MD PAST SURGICAL HISTORY OF Right [...] Father Coronary Artery Disease Maternal Grandfather d. [place] No Ocular Disease Maternal Grandfather No Ocular [...] as needed for worsening/no improvement. Brittani Coates APRN.OBDULIO documented in this encounter [facility] 12-05-2022 Miscellaneous Notes The following approved medication requests have been transmitted electronically. Requested Prescriptions Pending Prescriptions Disp Refills desvenlafaxine ER (PRISTIQ) 50 mg 24 hr tablet 30 tablet 0 Sig: Take 1 tablet by mouth once daily. Yolande Montano APRN.OBDULIO Patient reports he is leaving for [place] tomorrow and hoping provider can send this Rx today? documented in this encounter [facility] 12-04-2022 History of Present illness Narrative The documentation for the note below was completed in part by Enmanuel Chadwick acting as a scribe for Gray Magallanes MD. 12/04/2022 10:05 AM. Scribe Attestation: By signing my name below, I, Enmanuel Chadwick, attest that the documentation in part for the note below and the encounter was completed in part by Enmanuel Chadwick acting as a scribe for Gray Magallanes MD. Electronically Signed: Majo Beard. December [...] Inveltys (loteprednol etabonate) by Dr. Rodriguez I, Gray Magallanes MD, personally performed the services described [...] others. I have seen and examined Eric Anne. I have discussed the case and the management of this patient's care with the Resident/Fellow, if applicable. I also have reviewed and agree with the assessment and plan as stated above and agree with all of its relevant components. Electronically Signed: Gray Magallanes MD, December 04, 2022 10:09 AM documented in this encounter [facility] 11-06-2022 Miscellaneous Notes Patient is in [place] for a few weeks and would like a 30 day supply of this rx sent to [facility] in [place]. He only has a couple of pills left. He would like a call at [phone] when it has been sent. Patient has been identified by name and date of : Yes Requested Prescriptions Pending Prescriptions Disp Refills desvenlafaxine ER (PRISTIQ) 50 mg 24 hr tablet 30 tablet 0 Sig: Take 1 tablet by mouth once daily. RX INSTRUCTIONS: Patient requesting a call when RX is approved and sent to the pharmacy. Please call patient at: [phone] Elizabeth Giron Pss documented in this encounter [facility] 10-31-2022 Instructions Ivory Rodriguez MD - 10/31/2022 4:04 PM EST Continue: Inveltys solution instill 1 drop daily Both Eyes. If you have any questions please contact our office at [phone]. After office hours or on the weekend, please call Dr. Rodriguez on his cell phone at [phone]. documented in this encounter [facility] 10-31-2022 History of Present illness Narrative ASSESSMENT/PLAN: [...] Dr. Arreguin for further evaluation and treatment. Ivory Rodriguez MD I have confirmed and edited as necessary the relevant ophthalmic history, review of systems, surgical history, and ophthalmological examination findings as obtained by the ophthalmic technical staff. I have seen and examined Eric Anne. I have discussed the examination findings, diagnosis, and treatment options with Eric Anne and/or his family. I have also reviewed and agree with the assessment and plan as stated above and agree with all its relevant components. I gave the patient the opportunity to ask questions about the findings, diagnosis, and treatment options. documented in this encounter [facility] 10-10-2022 Miscellaneous Notes Received request from Dr. Refugio Bryson at [facility] for Eric's last colonoscopy. Report faxed, confirmation sheet received. Hailey Espinoza RN documented in this encounter [facility] 10-02-2022 History of Present illness Narrative All [...] DMEK OU - OD 10/27/19 - OS 10/16/18 - Started on Inveltys (loteprednol etabonate) by [...] new symptoms develop. documented in this encounter [facility] 09-06-2022 History of Present illness Narrative Please see OV notes from allergy: Scan on 09/03/2022 2:10 PM by External Provider: Consultation - Allergy Gina Avila LPN documented in this encounter [facility] 05-21-2022 Instructions Ivory Rodriguez MD - 05/21/2022 4:24 PM EDT Continue: Systane Complete solution instill 1 drop 3 times daily Both Eyes. Eysuvis solution instill 1 drop daily Both Eyes. If you have any questions please contact our office at [phone]. After office hours or on the weekend, please call Dr. Rodriguez on his cell phone at [phone]. documented in this encounter [facility] 05-21-2022 History of Present illness Narrative ASSESSMENT/PLAN: [...] solution instill 1 drop daily Both Eyes. Ivory Rodriguez MD I have confirmed and edited as necessary the relevant ophthalmic history, review of systems, surgical history, and ophthalmological examination findings as obtained by the ophthalmic technical staff. I have seen and examined Eric Anne. I have discussed the examination findings, diagnosis, and treatment options with Eric Anne and/or his family. I have also reviewed and agree with the assessment and plan as stated above and agree with all its relevant components. I gave the patient the opportunity to ask questions about the findings, diagnosis, and treatment options. documented in this encounter [facility] 05-10-2022 Miscellaneous Notes Patient reports he is [...] last office visit in primary care: 07/27/21 ([facility]), NOV: not scheduled Last 2 Encounter Wt Readings: Date: Wt: 12/22/2020 105.1 kg (231 lb 9.6 oz) 11/02/2019 101.6 kg (224 lb) Please advise. Thank you. Pat Feldman RN documented in this encounter [facility] 01-29-2022 Miscellaneous Notes Patient has been identified [...] tablets 2 refills documented in this encounter [facility] 08-09-2021 History of Present illness Narrative Radiology Service Progress Note PATIENT NAME: Eric Anne DATE OF SERVICE: August 09, 2021 TIME: 10:45 AM PATIENT IDENTITY VERIFICATION COMPLETED USING TWO (2) IDENTIFIERS: Name and Date of confirmed by patient verbally. FALL SCREENING: Has the patient had 2 falls in the last year or 1 fall with injury or currently using an Ambulatory Assistive Device (Walker, Cane, Wheelchair, Crutches, etc.)? No PATIENT GENDER DATA: Male PATIENT RELEVANT IMPLANT DATA REVIEWED: Yes RADIOLOGY DEPARTMENT: General X-ray: Exam(s) Completed: Upper Extremity X-Ray(s): Elbow, left and Hand, right PERIPHERAL IV DATA: Not applicable SIGNED BY: RT Stacey(R) August 09, 2021 10:45 AM documented in this encounter [facility] 06-15-2009 History of Past i llness Narrative Problem Noted Date Resolved Date Rotator cuff (capsule) sprain 06/15/2009 Mitral valve prolapse 01/02/2007 10/05/2019 Overview: Diagnosis not supported on echocardiogram Sprain of neck 07/12/2006 05/30/2016 documented as of this encounter (statuses as of 01/29/2022) [facility] of Past illness Narrative* Problem Noted Date Resolved Date Rotator cuff (capsule) sprain 06/15/2009 Mitral valve prolapse 01/02/2007 10/05/2019 Overview: Diagnosis not supported on echocardiogram Sprain of neck 07/12/2006 05/30/2016 documented as of this encounter (statuses as of 04/17/2022) [facility] of Past illness Narrative* Problem Noted Date Resolved Date Rotator cuff (capsule) sprain 06/15/2009 Mitral valve prolapse 01/02/2007 10/05/2019 Overview: Diagnosis not supported on echocardiogram Sprain of neck 07/12/2006 05/30/2016 documented as of this encounter (statuses as of 05/10/2022) [facility] of Past illness Narrative* Problem Noted Date Resolved Date Rotator cuff (capsule) sprain 06/15/2009 Mitral valve prolapse 01/02/2007 10/05/2019 Overview: Diagnosis not supported on echocardiogram Sprain of neck 07/12/2006 05/30/2016 documented as of this encounter (statuses as of 05/21/2022) [facility] of Past illness Narrative* Problem Noted Date Resolved Date Rotator cuff (capsule) sprain 06/15/2009 Mitral valve prolapse 01/02/2007 10/05/2019 Overview: Diagnosis not supported on echocardiogram Sprain of neck 07/12/2006 05/30/2016 documented as of this encounter (statuses as of 09/06/2022) [facility] of Past illness Narrative* Problem Noted Date Resolved Date Rotator cuff (capsule) sprain 06/15/2009 Mitral valve prolapse 01/02/2007 10/05/2019 Overview: Diagnosis not supported on echocardiogram Sprain of neck 07/12/2006 05/30/2016 documented as of this encounter (statuses as of 10/02/2022) [facility] of Past illness Narrative* Problem Noted Date Resolved Date Rotator cuff (capsule) sprain 06/15/2009 Mitral valve prolapse 01/02/2007 10/05/2019 Overview: Diagnosis not supported on echocardiogram Sprain of neck 07/12/2006 05/30/2016 documented as of this encounter (statuses as of 10/10/2022) [facility] of Past illness Narrative* Problem Noted Date Resolved Date Rotator cuff (capsule) sprain 06/15/2009 Mitral valve prolapse 01/02/2007 10/05/2019 Overview: Diagnosis not supported on echocardiogram Sprain of neck 07/12/2006 05/30/2016 documented as of this encounter (statuses as of 10/31/2022) [address]26-2009 History of Past illness Narrative* Problem Noted Date Resolved Date Rotator cuff (capsule) sprain 06/15/2009 Mitral valve prolapse 01/02/2007 10/05/2019 Overview: Diagnosis not supported on echocardiogram Sprain of neck 07/12/2006 05/30/2016 documented as of this encounter (statuses as of 11/06/2022) [address]26-2009 History of Past illness Narrative* Problem Noted Date Resolved Date Rotator cuff (capsule) sprain 06/15/2009 Mitral valve prolapse 01/02/2007 10/05/2019 Overview: Diagnosis not supported on echocardiogram Sprain of neck 07/12/2006 05/30/2016 documented as of this encounter (statuses as of 12/04/2022) [facility] of Past illness Narrative* Problem Noted Date Resolved Date Rotator cuff (capsule) sprain 06/15/2009 Mitral valve prolapse 01/02/2007 10/05/2019 Overview: Diagnosis not supported on echocardiogram Sprain of neck 07/12/2006 05/30/2016 documented as of this encounter (statuses as of 12/05/2022) [facility] of Past illness Narrative* Problem Noted Date Resolved Date Rotator cuff (capsule) sprain 06/15/2009 Mitral valve prolapse 01/02/2007 10/05/2019 Overview: Diagnosis not supported on echocardiogram Sprain of neck 07/12/2006 05/30/2016 documented as of this encounter (statuses as of 01/07/2023) [place] [id number] History of Past illness Narrative* Problem Noted Date Resolved Date Rotator cuff (capsule) sprain 06/15/2009 Mitral valve prolapse 01/02/2007 10/05/2019 Overview: Diagnosis not supported on echocardiogram Sprain of neck 07/12/2006 05/30/2016 documented as of this encounter (statuses as of 01/15/2023) [address]26-2009 History of Past illness Narrative* Problem Noted Date Resolved Date Rotator cuff (capsule) sprain 06/15/2009 Mitral valve prolapse 01/02/2007 10/05/2019 Overview: Diagnosis not supported on echocardiogram Sprain of neck 07/12/2006 05/30/2016 documented as of this encounter (statuses as of 01/18/2023) [address]26-2009 History of Past illness Narrative* Problem Noted Date Resolved Date Rotator cuff (capsule) sprain 06/15/2009 Mitral valve prolapse 01/02/2007 10/05/2019 Overview: Diagnosis not supported on echocardiogram Sprain of neck 07/12/2006 05/30/2016 documented as of this encounter (statuses as of 01/29/2023) [address]26[address]2009 History of Past illness Narrative* Problem Noted Date Resolved Date Rotator cuff (capsule) sprain 06/15/2009 Mitral valve prolapse 01/02/2007 10/05/2019 Overview: Diagnosis not supported on echocardiogram Sprain of neck 07/12/2006 05/30/2016 documented as of this encounter (statuses as of 02/01/2023) [place] [address]26-2009 History of Past illness Narrative* Problem Noted Date Resolved Date Rotator cuff (capsule) sprain 06/15/2009 Mitral valve prolapse 01/02/2007 10/05/2019 Overview: Diagnosis not supported on echocardiogram Sprain of neck 07/12/2006 05/30/2016 documented as of this encounter (statuses as of 02/13/2023) [place] [id number] History of Past illness Narrative* Problem Noted Date Resolved Date Rotator cuff (capsule) sprain 06/15/2009 Mitral valve prolapse 01/02/2007 10/05/2019 Overview: Diagnosis not supported on echocardiogram Sprain of neck 07/12/2006 05/30/2016 documented as of this encounter (statuses as of 04/18/2023) [facility] Narrative* Problem Noted Date Diagnosed Date Resolved Date Rotator cuff (capsule) sprain 06/15/2009 01/12/2014 Mitral valve prolapse 01/02/20072018 Overview: Diagnosis not supported on echocardiogram Sprain of neck 07/12/2006 05/30/2016 documented as of this encounter (statuses as of 05/02/2023) [facility] of Past illness Narrative* Problem Noted Date Diagnosed Date Resolved Date Rotator cuff (capsule) sprain 06/15/2009 01/12/2014 Mitral valve prolapse 01/02/20072018 Overview: Diagnosis not supported on echocardiogram Sprain of neck 07/12/2006 05/30/2016 documented as of this encounter (statuses as of 05/02/2023) [facility] of Past illness Narrative* Problem Noted Date Diagnosed Date Resolved Date Rotator cuff (capsule) sprain 06/15/2009 01/12/2014 Mitral valve prolapse 01/02/20072018 Overview: Diagnosis not supported on echocardiogram Sprain of neck 07/12/2006 05/30/2016 documented as of this encounter (statuses as of 05/30/2023) [facility] of Past illness Narrative* Problem Noted Date Diagnosed Date Resolved Date Rotator cuff (capsule) sprain 06/15/2009 01/12/2014 Mitral valve prolapse 01/02/20072018 Overview: Diagnosis not supported on echocardiogram Sprain of neck 07/12/2006 05/30/2016 documented as of this encounter (statuses as of 12/06/2023) [facility] of Past illness Narrative* Problem Noted Date Diagnosed Date Resolved Date Rotator cuff (capsule) sprain 06/15/2009 01/12/2014 Mitral valve prolapse 01/02/20072018 Overview: Diagnosis not supported on echocardiogram Sprain of neck 07/12/2006 05/30/2016 documented as of this encounter (statuses as of 12/19/2023) [facility] of [facility] illness Narrative* Problem Noted Date Diagnosed Date Resolved Date Rotator cuff (capsule) sprain 06/15/2009 01/12/2014 Mitral valve prolapse 01/02/20072018 Overview: Diagnosis not supported on echocardiogram Sprain of neck 07/12/2006 05/30/2016 documented as of this encounter (statuses as of 02/06/2024) [facility] Anxiety with depression [facility] Anxiety with depression [facility] Diagnosis 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 Other and combined forms of senile cataract Cornea replaced by transplant [facility] noteNo assessment information availableWProMedica [facility] Work Phone: Evaluation note* Diagnosis Horseshoe retinal tear of right eye- Primary Horseshoe tear of retina without detachment Posterior vitreous detachment of right eye Vitreous degeneration Vitreous hemorrhage of right eye (HCC) Vitreous hemorrhage History of Descemet membrane endothelial keratoplasty (DMEK) [facility] Diagnosis 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 Other and combined forms of senile cataract 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 Horseshoe tear of retina without detachment 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 [facility] Diagnosis Horseshoe retinal tear of right eye- Primary Horseshoe tear of retina without detachment Vitreous hemorrhage of right eye (HCC) Vitreous hemorrhage Posterior vitreous detachment of right eye Vitreous degeneration History of Descemet membrane endothelial keratoplasty (DMEK) [facility] Diagnosis Anxiety with depression [facility] Diagnosis Anxiety with depression [facility] Diagnosis Wellness examination- Primary Vitamin D [...] apnea (adult) (pediatric) [facility]- [facility] D[facility] ([facility]CC)- Primary [facility] Diagnosis 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 Other and combined forms of senile cataract 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 Horseshoe tear of retina without detachment [facility] Horseshoe retinal tear of right eye- Primary Horseshoe tear of retina without detachment [facility] Tongue sore- Primary Glossodynia [facility] Diagnosis 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 Other and combined forms of senile cataract History of Descemet membrane endothelial keratoplasty (DMEK) [facility] Diagnosis Anxiety with depression [facility] Diagnosis Anxiety with depression [facility] Diagnosis Disorder of artery or arteriole (HCC)- Primary Unspecified disorders of arteries and arterioles Encounter for immunization Need for other specified prophylactic vaccination against single bacterial disease Elevated blood pressure reading without diagnosis of hypertension Dyslipidemia Other and unspecified hyperlipidemia Screening for prostate cancer Special screening for malignant neoplasm of prostate Screening for colon cancer Special screening for malignant neoplasms, colon Anxiety with depression [facility] Diagnosis Disorder of artery or arteriole (HCC) Unspecified disorders of arteries and arterioles [facility] Diagnosis Lung nodules- Primary Other nonspecific abnormal finding of lung field Coronary artery calcification Coronary atherosclerosis of unspecified type of vessel, [place] or graft Abnormality of thoracic aorta [facility] 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 Other and combined forms of senile cataract Essential hypertension Unspecified essential hypertension Hypercholesteremia Pure hypercholesterolemia [facility] Diagnosis Left elbow pain Pain in joint, upper arm Pain of right hand Pain in limb [facility] Diagnosis Anxiety with depression [facility] Diagnosis Anxiety with depression [facility] Diagnosis Dyslipidemia Other and unspecified hyperlipidemia documented in this encounter [facility]* Diagnosis 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 Other and combined forms of senile cataract 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) History of repair of retinal tear by laser photocoagulation Essential hypertension Unspecified essential hypertension Hypercholesteremia Pure hypercholesterolemia documented in this [facility] ([facility] Outpatient Procedure (Routine) - Authorized Specialty Diagnoses / Procedures Referred By Erick newberry Referred To [facility] Diagnoses Shortness of breath Mitral valve disorder Procedures STRESS ECHO TREADMILL ECHO TTHRC R-T 2D W/WO M-MODE COMPLETE REST&ST Brittani Coates, CREDIT UNION EXAMINER [address] [place] [address] [facility] [place] [address] [place] [address] Referral ID Status Reason Start Date Expiration Date Visits Requested Visits Authorized [id number] Authorized Auto-Generat ed Referral 01/14/2023 01/14/2024 1 1 * Outpatient Procedure (Routine) - Authorized Specialty Diagnoses / Procedures Referred By Contjordy t Referred To [facility] Diagnoses Shortness of breath Mitral valve disorder Procedures ECHO ECHO TTHRC R-T 2D W/WOM-MODE COMPL SPEC&COLR D Brittani Coates APRN.CREDIT UNION EXAMINER [address] [place] [address] [facility] [place] [address] [place] [address] Referral ID Status Reason Start Date Expiration Date Visits Requested Visits Authorized [id number] Authorized Auto-Generat ed Referral 01/14/2023 01/14/2024 1 1 * Outpatient Procedure (Routine) - Closed Specialty Diagnoses / Procedures Referred By Contac t Referred To Contact [facility] Diagnoses SOB (shortness of breath) Procedures ECG COMPLETE ECG ROUTINE ECG W/LEAST 12 LDS W/I&R Brittani Coates APRN.CREDIT UNION EXAMINER [address] [place] [address] [facility] [address] [address] Referral ID Status Reason Start Date Expiration Date V isits Requested Visits Authorized [id number] Closed Auto-Generate d Referral 01/14/2023 01/14/2024 1 1 [facility] for referral (narrative)* Outpatient Procedure (Routine) - Pending Review Specialty Diagnoses / Procedures Referred By Contjordy newberry Referred To Contact [facility] Diagnoses Dilation of aorta (HCC) Procedures ECHO ECHO TTHRC R-T 2D W/WOM-MODE COMPL SPEC&COLR D Brittani Coates APRN.CREDIT UNION EXAMINER [address] [place] [address] [facility] [address] [address] Referral ID Status Reason Start Date Expiration Date Visits Requested Visits Authorized [id number] Pending Review Auto-Generat ed Referral 3 01/29/2024 1 1 [facility] for referral (narrative)No reason for referral information availableWProMedica [facility] Work Phone: Summary Purpose Family History No Family History Records FoundNo Family History Records FoundNo Family History Records FoundNo Family History Records Found Advance Directives No Advanced Directives Records FoundDocuments on File Type Date 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 RodriguezResident/Fellow/Other Hatchery Supervisor: Dr. MartinezEstimated Blood Loss (mL): noneSpecimen: yes. corneal endotheliumComplications: NoneFindings: NonePatient Returned To/Condition: PACU Stable Signature/Cosignature/Attestation:Attending AttestationI was present for the entire procedure Electronic Signatures:Arturo Martinez (Resident)) (Signed 05-Aug-2018 15:05)Authored: Post Operative Note, Signature/Cosignature/AttestationAilyn Rodriguez) (Signed 06-Aug-2018 08:51)Authored: Signature/Cosignature/AttestationCo-Signer: Post Operative Note, Signature/Cosignature/Attestation Last Updated: 06-Aug-2018 08:51 by Ailyn Rodriguez) Medications Administered Section Active Administered Medications - up to 3 most recent administrations Medication Order MAR Action Action Date Dose Rate Site fluorescein-benoxinate 0.25-0.4 % 1 Drop (FLURESS) 1 Drop, BOTH EYES, DIRECTED, Starting on Sat12/04/22 at 0930, Until Sat12/04/22 at 2128, Administer for applanation tonometry. In the event of a Fluress shortage, administer 1 drop of Rachna-Fluor into both eyes as directed for applanation tonometry., [facility] MED ORDERS Given 12/04/2022 9:30 AM EST 1 Drop PHENYLephrine 2.5 % 1 Drop (AK-DILATE, BRENT-SYNEPHRINE) 1 Drop, BOTH EYES, DIRECTED, Starting on Sat12/04/22 at 0930, Until Sat12/04/22 at 2128, Administer for dilation PROTECT FROM LIGHT, [facility] CLINIC MED ORDERS Given 12/04/2022 9:30 AM EST 1 Drop tropicamide 1 % 1 Drop (MYDRIACYL) 1 Drop, BOTH EYES, DIRECTED, Starting on Sat12/04/22 at 0930, Until Sat12/04/22 at 2129, Administer for dilation, [facility] CLINIC MED ORDERS Given 12/04/2022 9:30 AM EST 1 Drop Active Administered Medications - up to 3 most recent administrations Medication Order MAR Action Action Date Dose Rate Site PHENYLephrine 2.5 % 1 Drop (AK-DILATE, BRENT-SYNEPHRINE) 1 Drop, BOTH EYES, DIRECTED, Starting on Sat05/30/23 at 0730, Until Rocio 05/30/23 at 1929, Administer for dilation PROTECT FROM LIGHT Given 05/30/2023 7:30 AM EDT 1 Drop proparacaine 0.5 % 1 Drop (ALCAINE) 1 Drop, BOTH EYES, DIRECTED, Starting on Sat05/30/23 at 0730, Until Sat05/30/23 at 1929, Administer for pneumo tonometry, tonopen tonometry, or pachymetry. In the event of a proparacaine shortage, administer tetracaine 0.5% ophthalmic drops 1 drop in the left eye as directed for pneumo tonometry, tonopen tonometry, or pachymetry Given 05/30/2023 7:30 AM EDT 1 Drop tropicamide 1 % 1 Drop (MYDRIACYL) 1 Drop, BOTH EYES, DIRECTED, Starting on Sat05/30/23 at 0730, Until Sat05/30/23 at 1929, Administer for dilation Given 05/30/2023 7:30 AM EDT 1 Drop Chief Complaint and Reason for Visit Chief Complaint AVISE BOX COPY PCP Chief Complaint hypertension Chief Complaint Admit Date THAT SPONDYLOSIS IS CAUSING LIGAMENT HYP ERTROPHY February 12, 2025 7:38am Reason for Referral Specialty Diagnoses / Procedures Referred By Erick newberry Referred To Contact General Surgery Diagnoses Screening for colon cancer Procedures CONSULT TO GENERAL SURGERY OFFICE/OUTPATIENT [facility] 60 MINUTES Janneth Aj, PROTECTION CHIEF [employer].SCRIPT ARTIST [address] [place] [address] Referral ID Status Reason Start Date Expiration Date Visits Requested Visits Authorized [id number] Authorized PCP Requested Referral 03/19/2024 03/19/2025 1 1 Specialty Diagnoses / Procedures Referred By Contac t Referred To Contact CT IMAGING Diagnoses Disorder of artery or arteriole (HCC) Procedures CT CHEST WO IVCON DIAGNOSTIC COMPUTED TOMOGRAPHY THORAX W/O CNTRST Janneth Aj APRN.CNS [address] [place] [address] [place] [address] Referral ID Status Reason Start Date Expiration Date Visits Requested Visits Authorized [id number] Authorized Auto-Generat ed Referral 03/26/2024 04/18/2025 1 1 Specialty Diagnoses / Procedures Referred By Contac t Referred To Contact Cardiology Diagnoses Coronary artery calcification Abnormality of thoracic aorta Procedures CONSULT TO CARDIOLOGY OFFICE/OUTPATIENT [facility] 60 MINUTES Ancelmo Arnold MD [address] [place] [address] Referral ID Status Reason Start Date Expiration Date Visits Requested Visits Authorized [id number] Authorized PCP Requested Referral 04/06/2024 04/06/2025 1 1 Specialty Diagnoses / Procedures Referred By Contac t Referred To Contact CT IMAGING Diagnoses Lung nodules Coronary artery calcification Abnormality of thoracic aorta Procedures CT CHEST WO IVCON DIAGNOSTIC COMPUTED TOMOGRAPHY THORAX W/O CNTRST Ancelmo Arnold MD [address] [place] [address] [place] [address] Referral ID Status Reason Start Date Expiration Date Visits Requested Visits Authorized [id number] Pending Review Auto-Generat ed Referral 04/06/2025 05/06/2025 1 1 Additional Source Comments (unrecognized sect ion and content) No Status Records FoundNo Status Records FoundNo Status Records FoundNo Status Records Found INFORMATION SOURCE (unrecogn ized section and content) DATE CREATED AUTHOR 09/28/2018 [facility] DATE CREATED AUTHOR AUTHOR'S ORGANIZ ATION 09/29/2018 [facility] DATE CREATED AUTHOR AUTHOR'S ORGANIZ ATION 02/13/2025 [facility] DATE CREATED AUTHOR AUTHOR'S ORGANIZ ATION 02/23/2025 [facility] Source Comments (unrecognize d section and content) In the event this informatio n is protected by the Federal Confidentiality of Alcohol and Drug Abuse Patient Records regulations: The Federal rules restrict any use of the information to criminally investigate or prosecute any alcohol or drug abuse patient.[facility] the event this information is protected by the Federal Confidentiality of Alcohol and Drug Abuse Patient Records regulations: The Federal rules restrict any use of the information to criminally investigate or prosecute any alcohol or drug abuse patient.[facility] the event this information is protected by the Federal Confidentiality of Alcohol and Drug Abuse Patient Records regulations: The Federal rules restrict any use of the information to criminally investigate or prosecute any alcohol or drug abuse patient.[facility] CenterIn the event this information is protected by the Federal Confidentiality of Alcohol and Drug Abuse Patient Records regulations: The Federal rules restrict any use of the information to criminally investigate or prosecute any alcohol or drug abuse patient.[facility] the event this information is protected by the Federal Confidentiality of Alcohol and Drug Abuse Patient Records regulations: The Federal rules restrict any use of the information to criminally investigate or prosecute any alcohol or drug abuse patient.[facility]In the event this information is protected by the Federal Confidentiality of Alcohol and Drug Abuse Patient Records regulations: The Federal rules restrict any use of the information to criminally investigate or prosecute any alcohol or drug abuse patient.[facility] CenterIn the event this information is protected by the Federal Confidentiality of Alcohol and Drug Abuse Patient Records regulations: The Federal rules restrict any use of the information to criminally investigate or prosecute any alcohol or drug abuse patient.[facility] CenterIn the event this information is protected by the Federal Confidentiality of Alcohol and Drug Abuse Patient Records regulations: The Federal rules restrict any use of the information to criminally investigate or prosecute any alcohol or drug abuse patient.[facility] CenterIn the event this information is protected by the Federal Confidentiality of Alcohol and Drug Abuse Patient Records regulations: The Federal rules restrict any use of the information to criminally investigate or prosecute any alcohol or drug abuse patient.[facility] CenterIn the event this information is protected by the Federal Confidentiality of Alcohol and Drug Abuse Patient Records regulations: The Federal rules restrict any use of the information to criminally investigate or prosecute any alcohol or drug abuse patient.[facility] CenterIn the event this information is protected by the Federal Confidentiality of Alcohol and Drug Abuse Patient Records regulations: The Federal rules restrict any use of the information to criminally investigate or prosecute any alcohol or drug abuse patient.[facility] CenterIn the event this information is protected by the Federal Confidentiality of Alcohol and Drug Abuse Patient Records regulations: The Federal rules restrict any use of the information to criminally investigate or prosecute any alcohol or drug abuse patient.[facility] CenterIn the event this information is protected by the Federal Confidentiality of Alcohol and Drug Abuse Patient Records regulations: The Federal rules restrict any use of the information to criminally investigate or prosecute any alcohol or drug abuse patient.[facility] CenterIn the event this information is protected by the Federal Confidentiality of Alcohol and Drug Abuse Patient Records regulations: The Federal rules restrict any use of the information to criminally investigate or prosecute any alcohol or drug abuse patient.[facility] CenterIn the event this information is protected by the Federal Confidentiality of Alcohol and Drug Abuse Patient Records regulations: The Federal rules restrict any use of the information to criminally investigate or prosecute any alcohol or drug abuse patient.[facility] CenterIn the event this information is protected by the Federal Confidentiality of Alcohol and Drug Abuse Patient Records regulations: The Federal rules restrict any use of the information to criminally investigate or prosecute any alcohol or drug abuse patient.[facility] CenterIn the event this information is protected by the Federal Confidentiality of Alcohol and Drug Abuse Patient Records regulations: The Federal rules restrict any use of the information to criminally investigate or prosecute any alcohol or drug abuse patient.[facility] CenterIn the event this information is protected by the Federal Confidentiality of Alcohol and Drug Abuse Patient Records regulations: The Federal rules restrict any use of the information to criminally investigate or prosecute any alcohol or drug abuse patient.[facility] CenterIn the event this information is protected by the Federal Confidentiality of Alcohol and Drug Abuse Patient Records regulations: The Federal rules restrict any use of the information to criminally investigate or prosecute any alcohol or drug abuse patient.[facility] CenterIn the event this information is protected by the Federal Confidentiality of Alcohol and Drug Abuse Patient Records regulations: The Federal rules restrict any use of the information to criminally investigate or prosecute any alcohol or drug abuse patient.[facility] CenterIn the event this information is protected by the Federal Confidentiality of Alcohol and Drug Abuse Patient Records regulations: The Federal rules restrict any use of the information to criminally investigate or prosecute any alcohol or drug abuse patient.[facility] CenterIn the event this information is protected by the Federal Confidentiality of Alcohol and Drug Abuse Patient Records regulations: The Federal rules restrict any use of the information to criminally investigate or prosecute any alcohol or drug abuse patient.[facility] CenterIn the event this information is protected by the Federal Confidentiality of Alcohol and Drug Abuse Patient Records regulations: The Federal rules restrict any use of the information to criminally investigate or prosecute any alcohol or drug abuse patient.[facility] CenterIn the event this information is protected by the Federal Confidentiality of Alcohol and Drug Abuse Patient Records regulations: The Federal rules restrict any use of the information to criminally investigate or prosecute any alcohol or drug abuse patient.[facility] CenterIn the event this information is protected by the Federal Confidentiality of Alcohol and Drug Abuse Patient Records regulations: The Federal rules restrict any use of the information to criminally investigate or prosecute any alcohol or drug abuse patient.[facility] CenterIn the event this information is protected by the Federal Confidentiality of Alcohol and Drug Abuse Patient Records regulations: The Federal rules restrict any use of the information to criminally investigate or prosecute any alcohol or drug abuse patient.[facility] CenterIn the event this information is protected by the Federal Confidentiality of Alcohol and Drug Abuse Patient Records regulations: The Federal rules restrict any use of the information to criminally investigate or prosecute any alcohol or drug abuse patient.[facility] CenterIn the event this information is protected by the Federal Confidentiality of Alcohol and Drug Abuse Patient Records regulations: The Federal rules restrict any use of the information to criminally investigate or prosecute any alcohol or drug abuse patient.[facility] CenterIn the event this information is protected by the Federal Confidentiality of Alcohol and Drug Abuse Patient Records regulations: The Federal rules restrict any use of the information to criminally investigate or prosecute any alcohol or drug abuse patient.[facility] CenterIn the event this information is protected by the Federal Confidentiality of Alcohol and Drug Abuse Patient Records regulations: The Federal rules restrict any use of the information to criminally investigate or prosecute any alcohol or drug abuse patient.[facility] CenterIn the event this information is protected by the Federal Confidentiality of Alcohol and Drug Abuse Patient Records regulations: The Federal rules restrict any use of the information to criminally investigate or prosecute any alcohol or drug abuse patient.[facility] CenterIn the event this information is protected by the Federal Confidentiality of Alcohol and Drug Abuse Patient Records regulations: The Federal rules restrict any use of the information to criminally investigate or prosecute any alcohol or drug abuse patient.[facility] CenterIn the event this information is protected by the Federal Confidentiality of Alcohol and Drug Abuse Patient Records regulations: The Federal rules restrict any use of the information to criminally investigate or prosecute any alcohol or drug abuse patient.[facility] CenterIn the event this information is protected by the Federal Confidentiality of Alcohol and Drug Abuse Patient Records regulations: The Federal rules restrict any use of the information to criminally investigate or prosecute any alcohol or drug abuse patient.[facility] CenterIn the event this information is protected by the Federal Confidentiality of Alcohol and Drug Abuse Patient Records regulations: The Federal rules restrict any use of the information to criminally investigate or prosecute any alcohol or drug abuse patient.[facility] CenterIn the event this information is protected by the Federal Confidentiality of Alcohol and Drug Abuse Patient Records regulations: The Federal rules restrict any use of the information to criminally investigate or prosecute any alcohol or drug abuse patient.[facility] CenterIn the event this information is protected by the Federal Confidentiality of Alcohol and Drug Abuse Patient Records regulations: The Federal rules restrict any use of the information to criminally investigate or prosecute any alcohol or drug abuse patient.[facility] CenterIn the event this information is protected by the Federal Confidentiality of Alcohol and Drug Abuse Patient Records regulations: The Federal rules restrict any use of the information to criminally investigate or prosecute any alcohol or drug abuse patient.[facility] CenterIn the event this information is protected by the Federal Confidentiality of Alcohol and Drug Abuse Patient Records regulations: The Federal rules restrict any use of the information to criminally investigate or prosecute any alcohol or drug abuse patient.[facility] Reason for Visit (unrecogniz ed section and content) Reason Onset Date Comments Refill Request 01/28/2022 Reason Onset Date Comments Refill Request 04/12/2022 [...] Reason Comments [facility] Evaluation Right eye Reason Comments Mouth Sores Possible canker sore L side of tongue x5 days Reason Comments Cataract Follow Up [facility] Follow Up - S/p laser ret inopexy 03/21/21 right eye Fuch's Dystrophy Follow Up Reason Onset Date Comments Refill Request 02/06/2024 Reason Onset Date Comments Refill Request 03/10/2024 Reason Onset Date Comments Refill Request 03/17/2024 Reason Comments Yearly Exam Reason Comments Radiology CT Specialty Diagnoses / Procedures Referred By Erick t Referred To Contact CT IMAGING Diagnoses Disorder of artery or arteriole (HCC) Procedures CT CHEST WO IVCON DIAGNOSTIC COMPUTED TOMOGRAPHY THORAX W/O CNTRST Janneth Aj, PROTECTION CHIEF [employer]ANT.SCRIPT ARTIST [address] [place] [address] [place] [address] Referral ID Status Reason Start Date Expiration Date V isits Requested Visits Authorized [id number] Closed Auto-Generate d Referral 03/26/2024 04/18/2025 1 1 Reason Comments Orders Reason Comments Results Reason Comments Cataract Both Eyes Reason Onset Date Comments Refill Request 09/28/2024 Reason Comments Fuch's Dystrophy Follow Up Both Eyes Care Teams (unrecognized sec tion and content) Compliance Specialist Relationship Specialty Start Date End Date Ancelmo Arnold MD [address] [place] [address] PCP - General Family Practice 09/30/14 Compliance Specialist Relationship Specialty Start Date End Date Ancelmo Arnold MD [address] [place] [address] PCP - General Family Practice 09/30/14 Compliance Specialist Relationship Specialty Start Date End Date Ancelmo Arnold MD [address] [place] [address] PCP - General Family Practice 09/30/14 Compliance Specialist Relationship Specialty Start Date End Date Ancelmo Arnold MD [address] [place] [address] PCP - General Family Medicine 09/30/14 Compliance Specialist Relationship Specialty Start Date End Date Ancelmo Arnold MD [address] [place] [address] PCP - General Family Medicine 09/30/14 Compliance Specialist Relationship Specialty Start Date End Date Ancelmo Arnold MD [address] [place] [address] PCP - General Family Medicine 09/30/14 Compliance Specialist Relationship Specialty Start Date End Date Ancelmo Arnold MD [address] [place] [address] PCP - General Family Medicine 09/30/14 Compliance Specialist Relationship Specialty Start Date End Date Ancelmo Arnold MD [address] [place] [address] PCP - General Family Medicine 09/30/14 Compliance Specialist Relationship Specialty Start Date End Date Ancelmo Arnold MD [address] [place] [address] PCP - General Family Medicine 09/30/14 Compliance Specialist Relationship Specialty Start Date End Date Ancelmo Arnold MD [address] [place] [address] PCP - General Family Medicine 09/30/14 Team Status: Active Member Role Status Dates Dr. Ancelmo Arnold MD Family Provider Active Dr. Refugio Bryson MD Primary Care Provider Active Team Status: Inactive Member Role Status Dates Dr. Refugio Bryson MD Primary Care Provider Active Dr. Gilberto Torres MD Attending Provider, Referring P bernardo Active Team Status: Inactive Member Role Status Dates Dr. Refugio Bryson MD Primary Care Provide r, Attending Provider, Referring Provider Active Team Status: Inactive Member Role Status Dates Dr. Refugio Bryson MD Primary Care Provider Active Dr. Rosie Arreguin MD Attending Provider, Referring Provider Active Compliance Specialist Relationship Specialty Start Date End Date Ancelmo Arnold MD [address] [place] [address] PCP - General Family Medicine 09/30/14 Compliance Specialist Relationship Specialty Start Date End Date Ancelmo Arnold MD [address] [place] [address] PCP - General Family Medicine 09/30/14 Compliance Specialist Relationship Specialty Start Date End Date Ancelmo Arnold MD [address] [place] [address] PCP - General Family Medicine 09/30/14 Compliance Specialist Relationship Specialty Start Date End Date Ancelmo Arnold MD [address] [facility] [place] [address] PCP - General Family Medicine 09/30/14 Compliance Specialist Relationship Specialty Start Date End Date Ancelmo Arnold MD [address] [place] [address] PCP - General Family Medicine 09/30/14 Compliance Specialist Relationship Specialty Start Date End Date Ancelmo Arnold MD [address] [place] [address] PCP - General Family Medicine 09/30/14 Compliance Specialist Relationship Specialty Start Date End Date Ancelmo Arnold MD [address] [place], [place] [address] PCP - General Family Medicine 09/30/14 Compliance Specialist Relationship Specialty Start Date End Date Ancelmo Arnold MD [address] [place], [place] [address] PCP - General Family Medicine 09/30/14 Compliance Specialist Relationship Specialty Start Date End Date Ancelmo Arnold MD [address] [place], [place] [address] PCP - General Family Medicine 09/30/14 Team Status: Inactive Member Role Status Dates Dr. Refugio Bryson MD Primary Care Provider, Attending Vicente chang Active Team Status: Inactive Member Role Status Dates Dr. Refugio Bryson MD Primary Care Provider Active Dr. Carlos Mccallum DO Emergency Provider Active Compliance Specialist Relationship Specialty Start Date End Date Ancelmo Arnold MD [address] [place] [address] PCP - General Family Medicine 09/30/14 Compliance Specialist Relationship Specialty Start Date End Date Ancelmo Arnold MD [address] [place], [place] [address] PCP - General Family Medicine 09/30/14 Compliance Specialist Relationship Specialty Start Date End Date Ancelmo Arnold MD [address] [place] [address] PCP - General Family Medicine 09/30/14 Compliance Specialist Relationship Specialty Start Date End Date Ancelmo Arnold MD [address] [place] [address] PCP - General Family Medicine 09/30/14 Compliance Specialist Relationship Specialty Start Date End Date Ancelmo Arnold MD [address] [facility], [place] [address] PCP - General Family Medicine 09/30/14 Compliance Specialist Relationship Specialty Start Date End Date Ancelmo Arnold MD [address] [facility], [place] [address] PCP - General Family Medicine 09/30/14 Compliance Specialist Relationship Specialty Start Date End Date Ancelmo Arnold MD [address] [place] [address] PCP - General Family Medicine 09/30/14 Compliance Specialist Relationship Specialty Start Date End Date Ancelmo Arnold MD [address] [place] [address] PCP - General Family Medicine 09/30/14 Compliance Specialist Relationship Specialty Start Date End Date Ancelmo Arnold MD [address] [place] [address] PCP - General Family Medicine 09/30/14 Compliance Specialist Relationship Specialty Start Date End Date Ancelmo Arnold MD [address] [place] [address] PCP - General Family Medicine 09/30/14 Compliance Specialist Relationship Specialty Start Date End Date Ancelmo Arnold MD [address] [facility], [place] [address] PCP - General Family Medicine 09/30/14 Brittani Coates, SUDHEER.CREDIT UNION EXAMINER [address] [facility] [place] [address] Creative Developer Family Medicine 09/28/24 Janneth Aj PROTECTION CHIEF [employer]ANT.CREDIT UNION EXAMINER [address] [facility], [place] [address] [facility] 09/28/24 Compliance Specialist Relationship Specialty Start Date End Date Ancelmo Arnold MD [address] [facility], [place] [address] PCP - General Family Medicine 09/30/14 Brittani Coates, PROTECTION CHIEF [employer]ANT.CREDIT UNION EXAMINER [address] [facility] [place], [place] [id number] [facility] 09/28/24 Janneth Aj, PROTECTION CHIEF [employer].CREDIT UNION EXAMINER [address] [facility], [place] [id number] [facility] 09/28/24 Team Status: Active Member Role Status Dates Dr. Refugio Bryson MD Primary Care Provider Active Team Status: Inactive Member Role Status Dates Dr. Refugio Bryson MD Primary Care Provider Active Start: November 25, 2024 End: November 25, 2024 Shavon García REHEATER HELPER, REHEATER HELPER-C Attending Provider Active S tart: November 25, 2024 End: November 25, 2024 Shavon García REHEATER HELPER, REHEATER HELPER-C Referring Provider Active S tart: November 25, 2024 End: November 25, 2024 Team Status: Inactive Member Role Status Dates Dr. Refugio Bryson MD Primary Care Provider Active Start: January 21, 2025 End: January 21, 2025 Dr. Refugio Bryson MD Attending Provider Active St art: January 21, 2025 End: January 21, 2025 Dr. Refugio Bryson MD Referring Provider Active St art: January 21, 2025 End: January 21, 2025 Team Status: Inactive Member Role Status Dates Dr. Refugio Bryson MD Primary Care Provider Active Start: February 11, 2025 End: February 11, 2025 Dr. Refugio Bryson MD Attending Provider Active St art: February 11, 2025 End: February 11, 2025 Dr. Refugio Bryson MD Referring Provider Active St art: February 11, 2025 End: February 11, 2025 Team Status: Active Member Role Status Dates Dr. Refugio Bryson MD Primary Care Provider Active Start: February 12, 2025 Dr. Refugio Bryson MD Attending Provider Active art: February 12, 2025 Dr. Refugio Bryson MD Referring Provider Active art: February 12, 2025 Goals (unrecognized section and content) Goals may be documented in a n alternate sectionGoals may be documented in an alternate sectionGoals may be documented in an alternate sectionGoals may be documented in an alternate sectionGoals may be documented in an alternate sectionGoals may be documented in an alternate sectionGoals may be documented in an alternate section Active Administered Medications - up to 3 most recent administrations Administered Medications (un recognized section and content) Medication Order MAR Action Action Date Dose Rate Site PHENYLephrine 2.5 % 1 Drop (AK-DILATE, BRENT-SYNEPHRINE) 1 Drop, BOTH EYES, DIRECTED, Starting on Sat12/18/23 at 1600, Until Rocio 12/19/23 at 0359, Administer for dilation PROTECT FROM LIGHT Given 12/18/2023 4:00 PM EST 1 Drop proparacaine 0.5 % 1 Drop (ALCAINE) 1 Drop, BOTH EYES, DIRECTED, Starting on Sat12/18/23 at 1600, Until Rocio 12/19/23 at 0359, Administer for pneumo tonometry, tonopen tonometry, or pachymetry. In the event of a proparacaine shortage, administer tetracaine 0.5% ophthalmic drops 1 drop in the left eye as directed for pneumo tonometry, tonopen tonometry, or pachymetry Given 12/18/2023 4:00 PM EST 1 Drop tropicamide 1 % 1 Drop (MYDRIACYL) 1 Drop, BOTH EYES, DIRECTED, Starting on Sat12/18/23 at 1600, Until Rocio 12/19/23 at 0359, Administer for dilation Given 12/18/2023 4:00 PM EST 1 Drop FOR RECORDS PERTAINING TO PATIENTS WHO ARE [...] BE BASED ON THE PRIMARY CLINICAL RECORDS. [employer] - Financial Reconciliation [facility]. provides no warranty or guarantee of the accuracy or completeness of information in this document.
[2025-04-04] MEDS: Lidocaine 1% (20 ml mdv) 20 ML Vial INFILT (14:32)
[2025-04-04] MEDS: Diphth,Pertuss(Acell),Tet Vac 0.5 ML Vial IM (14:32)
--- NOTE | 2025-04-04 15:22 | EX.ED.UPPERE ---
HPI History of Present Illness Chief Complaint: Laceration Narrative Narrative: 64-year-old male who denies significant past medical history presents with injury to his right wrist that he sustained prior to arrival. He states that he was trying to dispose of a old water heater that was in his driveway. He was attempting to move it to start a different project, when it started to tip over. He attempted to stop it from falling, and a metal piece on the top of the water heater grazed his right wrist. He noticed that he sustained a laceration to his right wrist. It did not hit his hand or wrist full force. He is unsure of his last tetanus immunization. He denies other injuries, but states that there is a larger laceration on his right wrist. [facility] Medical History Wears glasses Anxiety Depression Alcohol use Arthritis High cholesterol CPAP (continuous positive airway pressure) dependence Sleep apnea History of stress test Cardiology follow-up encounter Hx of echocardiogram HTN (hypertension) MVP (mitral valve prolapse) Home Medications ?Medication ?Instructions ?Recorded ?Last Taken ?Type fluorometholone 0.1 % eye 1 drp LEFT EYE DAILY 03/24/20 04/21/24 History drops,suspension lovastatin 40 mg tablet 40 mg PO DAILY 04/08/24 04/21/24 History nebivolol 5 mg tablet 5 mg PO QPM 04/08/24 04/21/24 History ramipril 5 mg capsule 5 mg PO QPM 04/08/24 04/21/24 History desvenlafaxine succinate 50 mg 50 mg PO QPM 04/17/24 04/21/24 History tablet,extended release 24 hr Allergy/AdvReac Type Severity Reaction Status Date / Time No Known Allergies Allergy Verified 04/04/25 14:03 Surgical History Hx of cornea transplant Hx of vasectomy Hx of colonoscopy Social History household members: spouse current occupational status: employed Smoking Status: Never smoker substance use type: does not use ROS ROS ED ROS Narrative Review of systems positive for right wrist laceration. Denies any bony pain. [id number]. Denies other injury. EXAM Physical Exam Narrative Exam Narrative: GCS 15. ABCs intact. Cardiovascular examination regular rate and rhythm. Lungs clear to auscultation bilaterally. Focused examination on the right wrist does reveal a 3 cm flap-like laceration/L-shaped on his right wrist. Palpable radial pulse. Neurovascularly intact distally. This is located proximal to the thumb. There is no apparent tendon involvement through full range of motion of the thumb. Able to oppose thumb. Good capillary refill. Full range of motion of wrist. No pulsatile bleeding. Const Vital Signs: 04/04/25 14:03 Temperature 98.1 F Temperature Source Oral Pulse Rate 91 Respiratory Rate 19 H Blood Pressure 158/86 H Blood Pressure Mean 110 Pulse Ox 99 Oxygen Delivery Method Room Air MDM MDM MDM Narrative Medical decision making narrative: No feel differential diagnosis is applicable in this case. His Tdap immunization was updated as he is unsure as to when his last immunization was. He was informed of the risk of infection and scarring and acknowledges an understanding. See procedure note for details. Patient will be discharged to have sutures removed in 7 to 10 days, preferably 10 days. He will take [id number] analgesics as needed. Return instructions to the emergency department were reviewed. Disposition is discharged home in stable condition. History & Record Review Discussion w/independent historian: Patient Procedures Lacerations Right wrist: Length: 1.18 in Depth: Skin Shape: Flap (L-shaped) Prep: Sterile Conditions Laceration repair: Irrigated, Lidocaine (1%) and Local Number of Sutures/Carlos: 8 Suture Information: Ethilon, Simple and 5-0 Comment: Patient tolerated procedure well Discharge Plan Triage Chief Complaint: Laceration ED Provider: Michael Newton Dx/Rx/DC Orders Clinical Impression: Laceration of right wrist, Immunization, tetanus-diphtheria Instructions: ED Laceration Extremity Prescriptions: No Action nebivolol 5 mg tablet 5 mg PO QPM ramipril 5 mg capsule 5 mg PO QPM lovastatin 40 mg tablet 40 mg PO DAILY fluorometholone 1 DROP bottle 1 drp LEFT EYE DAILY desvenlafaxine succinate 50 mg tablet extended release 24 hr 50 mg PO QPM Primary Care Provider: Ancelmo Perez Referrals: Ancelmo Perez MD [Primary Care Provider] - 10 Day for suture removal Activity Restrictions/Additional Instructions: Have sutures removed in 10 days. Return with increased redness around wound, fever, red streak up your arm, new or worsening symptoms. Print Language: Cambodian Disposition Disposition: Home, Self Care
--- NOTE | 2025-04-04 15:25 | CM.ED ---
Social Work Date of referral: 04/04/25 Reason for referral: Advanced Care Directives (ACD's) not on file. Referred by: Social Work identification Patient provided consent to social work visit. Automatic Toe [employer]aster asked patient to bring in a copy of the ACD's next time patient is in for a visit or any time patient is close to the hospital and can just drop off which agreed to. No other concerns/requests noted at this time. Liz Delgado, SURGICAL ORDERLY, COMMUNICATION ARTS LECTURER
[2025-04-04 15:35] VITALS: BP 144/68; PULSE 84; RESP 16; TEMP 36.8; O2SAT 99
== END 2025-04-04 15:36 | disposition home or self-care (01) ==
PROVIDERS: Emergency Provider Emergency Medicine; PCP Family Medicine; Visit Provider Emergency Medicine
DX: S61.511A Laceration without foreign body of right wrist, initial encounter (principal); W26.8XXA Contact with other sharp object(s), not elsewhere classified, initial encounter; I10 Essential (primary) hypertension; Z79.899 Other long term (current) drug therapy; Z23 Encounter for immunization
CPT/HCPCS: 12002; 90471; 90715; 99283

== ENCOUNTER → 2025-04-26 | Outpatient (CLI) | payer OTHER, SELFPAY ==
[2025-04-28 20:08] LABS: CHOLESTEROL TOTAL 200 mg/dL (100-199); HDL-C 52 mg/dL (>39); HDL-P TOTAL 28.8 umol/L (>=30.5); INSULIN RESISTANCE SCORE 33 (<=45); LDL SIZE 21.0 nm (>20.5); LDL-C (NIH CALC) 134 mg/dL (0-99); LDL-P 1498 nmol/L (<1000); SMALL LDL-P 627 nmol/L (<=527)
== END | disposition home or self-care (01) ==
LOC: MFPLAB 11:25
PROVIDERS: PCP Family Medicine; Referring Provider Family Medicine; Visit Provider Family Medicine
DX: E78.5 Hyperlipidemia, unspecified (principal)
CPT/HCPCS: 36415; 80061; 83704

== ENCOUNTER → 2025-09-20 | Outpatient (CLI) | payer OTHER, SELFPAY ==
--- NOTE | 2025-09-20 12:39 | STEWCON_ITS ---
Reason For Study Reason For Study: CAD-Abnormal Calcium Score Stress Results Protocol: Miguel Protocol WITH DEFINITY Maximum Predicted HR: 158 bpm Target HR: 134 bpm % Maximum Predicted HR: 90 % DurationHeart Rate Stage (mm:ss) (bpm) BP Comment Baseline 67 118/78No Chest Pain; 3 ML Diluted Definity Miguel Protocol Stage I 3:00 102 122/74No Chest Pain Miguel Protocol Stage II 3:00 121 140/78No Chest Pain Miguel Protocol Stage III 3:00 142 150/72No Chest Pain; Mild Dyspnea; Fatigue Recovery 91 112/72No Chest Pain Stress Duration: 9:00 mm:ss Maximum Stress HR: 142 bpm METS: 10 Baseline Echocardiogram Findings The left ventricular ejection fraction is 50 %. Stress Echo Wall motion Data Resting WM Intermediate WM Stress WM Resting Wall Motion Wall Motion Stress Borderline global LV systolic function All wall segments hyperdynamic post at rest. Estimated LVEF 50%. exercise. Postexercise LVEF 75%. EKG Data Baseline ECG normal sinus rhythm. Equivocal ST changes in inferior leads for ischemia postexercise. ECHO/Stress Test Echo W/Contrast Interpretation Summary Excellent functional capacity for age. 9 minutes of exercise according to Miguel protocol. No chest pain reported. Baseline left ventricular systolic ejection fraction 50%. Equivocal ECG changes for ischemia post exercise. All wall segments hyperdynamic postexercise. Postexercise LVEF 75%. Negative exercise stress echocardiogram for ischemia. Ordering Physician: Jonathan Sosa Referring Physician: Jonathan Sosa Performed By: Abigail Morris RDCS
== END | disposition home or self-care (01) ==
PROVIDERS: PCP Family Medicine; Referring Provider Internal Medicine Cardiovascular Disease; Visit Provider Internal Medicine Cardiovascular Disease
DX: I25.10 Atherosclerotic heart disease of native coronary artery without angina pectoris (principal)
CPT/HCPCS: 93017; 93350; Q9957; A4216; C8928